=== PATIENT | female | born 1970 | race Caucasian/White ===

== ENCOUNTER 2016-09-26 12:17 | Day surgery (SDC) | payer BC ==
[2016-09-21 14:43] VITALS: BMI 20.7
[~2016-09-26 12:17] MED LIST: LACTATED RINGERS 1,000 ML IV SCH
[2016-09-26 13:16] VITALS: TEMP 98
[2016-09-26] MEDS ORDERED: LIDOCAINE 1% 20 ML VIAL (10MG/ML) FOR IV START INTRADERMA ONE (13:21)
[2016-09-26] MEDS ORDERED: LIDOCAINE 1% INJ 10MG/ML (20 ML MDV) ONE (13:50)
[2016-09-26] MEDS ORDERED: MIDAZOLAM 2 MG/2 ML VIAL ONE (13:50)
[2016-09-26] MEDS ORDERED: PROPOFOL 10 MG/ML 20 ML VIAL IV ONE (13:50)
--- NOTE | 2016-09-26 14:21 | P.PCN ---
Date of Procedure: 09/26/16 Preoperative Diagnosis: Postoperative Diagnosis: Procedure(s) Performed: Procedure: Esophagogastroduodenoscopy and biopsy. Preoperative diagnosis: Iron deficiency anemia. Postoperative diagnosis: 1. Small sliding hiatal hernia with no obvious esophagitis or complicated reflux disease. 2. Minimal antral gastritis and duodenitis. 3. Multiple biopsies obtained from the duodenum antrum and esophagus. Preparation and sedation: Was provided by anesthesia. Brief clinical history: The patient is a 46-year-old female who is referred for this evaluation because of iron deficiency anemia. She does not think her menstrual periods are heavy. She had colonoscopy last year. She has no upper GI complaints. This evaluation is to assess for peptic ulcer disease or other pathology. Procedure: With the patient on her left lateral decubitus position and after informed consent and adequate sedation, I passed the Olympus-GIF 160 video upper endoscope through the cricopharyngeus down the esophagus. GE junction was around 36 cm from the incisors and there was a small sliding hiatal hernia. There was no evidence of acute esophagitis or complicated reflux disease. The endoscope was then passed into the stomach which was insufflated with air and inspected in detail including the retroflex view in the cardia. There was some mottling and erythema in the antrum but no ulcers or erosions. Pyloric channel did not show any ulcers. Duodenal bulb, post bulbar area and descending duodenum showed minimal erythema. No ulcers, erosions or bleeding. I obtained biopsies from the duodenum, antrum and esophagus then the endoscope was withdrawn. The patient tolerated the procedure well. Plan: The patient was reassured. It is possible that the anemia is related to ongoing menstrual losses. Will await biopsy results and make further recommendations. She will follow-up with you as planned. Implants: Indications for Procedure: Operative Findings: Description of Procedure:
[2016-09-26 14:26] VITALS: BP 98/53; PULSE 73; RESP 18
== END 2016-09-26 14:41 | disposition home or self-care (01) ==
LOC: ORWHC2ENDO 12:17
DX: K29.50 Unspecified chronic gastritis without bleeding (principal); K29.80 Duodenitis without bleeding; K20.0 Eosinophilic esophagitis; K44.9 Diaphragmatic hernia without obstruction or gangrene; D50.9 Iron deficiency anemia, unspecified; Z79.899 Other long term (current) drug therapy
CPT/HCPCS: 43239; 81025; 88305; 88342; J2250; J2001; J2704

== ENCOUNTER → 2019-08-27 | Outpatient (CLI) | payer BC ==
[2019-08-27 14:21] LABS: Basophils # (A) 0.1 k/uL (0-0.2); Basophils % (A) 1 %; Eosinophils # (A) 0.3 k/uL (0-0.7); Eosinophils % (A) 4 %; HCT 43.7 % (34.0-46.0); HGB 13.8 gm/dL (11.4-16.0); Lymphocytes # (A) 1.5 k/uL (1.0-4.8); Lymphocytes % (A) 19 %; MCH 29.7 pg (25.0-35.0); MCHC 31.6 g/dL (31.0-37.0); MCV 93.7 fL (80.0-100.0); Mean Platelet Volume 8.7; Monocytes # (A) 0.6 k/uL (0-1.0); Monocytes % (A) 8 %; Neutrophils # (A) 5.2 k/uL (1.3-7.7); Neutrophils % (A) 67 %; Platelet Count 303 k/uL (150-450); RBC 4.66 m/uL (3.80-5.40); RDW 13.4 % (11.5-15.5); WBC 7.8 k/uL (3.8-10.6)
== END | disposition home or self-care (01) ==
LOC: LABPAT 12:20
PROVIDERS: ATTEND Obstetrics & Gynecology
DX: Z01.818 Encounter for other preprocedural examination (principal); R87.613 High grade squamous intraepithelial lesion on cytologic smear of cervix (HGSIL)
CPT/HCPCS: 85025

== ENCOUNTER → 2019-09-01 | Outpatient (CLI) | payer BC | END | disposition home or self-care (01) | LOC: LABWHC1 13:51 | PROVIDERS: ATTEND Obstetrics & Gynecology | DX: Z11.59 Encounter for screening for other viral diseases (principal) ==

== ENCOUNTER 2019-09-02 09:33 | Day surgery (SDC) | payer BC ==
[2019-08-29 15:46] VITALS: BMI 18.3
[~2019-09-02 09:33] MED LIST changes: +DEXAMETHASONE SOD PHOSPHATE 10 MG/ML 1 ML VIAL IV ONE; +HYDROmorphone 0.5 MG/0.5 ML SYRINGE IVP PRN; +LIDOCAINE 1% (10MG/ML) FOR IV START INTRADERMA PRN; +ONDANSETRON 4 MG/2 ML VIAL IVP ONE; +SCOPOLAMINE 1.5MG/72HR PATCH TRANSDERM ONE
[2019-09-02] MEDS ORDERED: LIDOCAINE 1% INJ 10MG/ML (20 ML MDV) ONE (10:29)
[2019-09-02] MEDS ORDERED: MIDAZOLAM 2 MG/2 ML VIAL ONE (10:29)
[2019-09-02] MEDS ORDERED: PROPOFOL 10 MG/ML 20 ML VIAL IV ONE (10:29)
[2019-09-02] MEDS ORDERED: fentaNYL (PF) 50 MCG/ML 2 ML AMP ONE (10:29)
[2019-09-02] MEDS ORDERED: SUCCINYLCHOLINE CHLORIDE 100 MG/5 ML SYR IV ONE (10:29)
[2019-09-02] MEDS ORDERED: IODINE/POTASS IOD (LUGOLS) BOTTLE TOPICAL ONE (10:52)
[2019-09-02] MEDS ORDERED: LIDOCAINE 1%-EPI 1:100,000 20 ML VIAL SUBMUCOSAL ONE ×2 (10:52)
[2019-09-02] MEDS ORDERED: FERRIC SUBSULFATE (MONSELS) JAR TOPICAL ONE (11:02)
[2019-09-02 11:21] VITALS: TEMP 97.1
--- NOTE | 2019-09-02 11:21 | P.OP ---
Date of Procedure: 09/02/19 Preoperative Diagnosis: HGSIL Postoperative Diagnosis: Same Procedure(s) Performed: Cervical cold knife cone biopsy Anesthesia: TANYAA Surgeon: Gricedla Weaver Estimated Blood Loss (ml): 25 IV fluids (ml): 500 Urine output (ml): 50 Pathology: other (Cervical biopsy) Condition: stable Disposition: PACU Indications for Procedure: Cervical biopsies showing high grade squamous epithelial lesion Operative Findings: Third degree cervical uterine prolapse. Patulous cervix. No gross visible lesions noted. Description of Procedure: After the patient was met in the preoperative holding area and all questions were answered, she was taken to the operating room where anesthetic was administered without incident. Appropriate timeout procedure was undertaken. The patient was positioned in the dorsal high lithotomy position. Bladder was drained for approximately 50 mL of clear urine. Weighted speculum was placed in the vagina and the cervix was grasped anteriorly with a single-tooth tenaculum. She did have a significant amount of cervical uterine prolapse. 2-0 Vicryl sutures were placed at the 3 and 9:00 positions lateral to the cervix. Lidocaine plus epinephrine was infused as a paracervical block. 8 mL was used. Lugol's solution was then applied to the cervix to delineate the transformation zone. An 11 blade scalpel was then utilized to circumferentially excise the immediately lateral to the transformation zone circumferentially. This was then angled inward to create the cone shaped biopsy. This was removed intact in one piece. Bovie electrocautery was then utilized to completely cauterize the base of the biopsy site and obtain hemostasis. There was some minimal oozing noted from the base of the biopsy site therefore a piece of Surgicel with a small amount of Monsel's was placed in the biopsy base and hemostasis was noted. This was left in place. Sutures were secured at 3 and 9 o'clock position. Area was observed and no further bleeding was noted. Tenaculum was removed and tenaculum sites were not bleeding. Procedure was then ended and the patient was awoken from anesthetic without incident and transported recovery in stable condition. All counts were reported to me as correct.
[2019-09-02 11:46] VITALS: RESP 16
[2019-09-02 12:27] VITALS: BP 115/75; PULSE 63
== END 2019-09-02 12:50 | disposition home or self-care (01) ==
LOC: OR 09:33
PROVIDERS: ATTEND Obstetrics & Gynecology
DX: R87.613 High grade squamous intraepithelial lesion on cytologic smear of cervix (HGSIL) (principal); N81.3 Complete uterovaginal prolapse; Z98.890 Other specified postprocedural states; N88.3 Incompetence of cervix uteri; N95.1 Menopausal and female climacteric states; N92.6 Irregular menstruation, unspecified; Z86.2 Personal history of diseases of the blood and blood-forming organs and certain disorders involving the immune mechanism; Z90.89 Acquired absence of other organs; Z87.39 Personal history of other diseases of the musculoskeletal system and connective tissue; Z79.899 Other long term (current) drug therapy; Z80.3 Family history of malignant neoplasm of breast; Z80.0 Family history of malignant neoplasm of digestive organs
CPT/HCPCS: 81025; 88307; 57520; J2250; J1100; J2405; J2001; J3010; J0330; J2704

== ENCOUNTER 2020-05-29 13:23 | Inpatient (IN) | payer BC ==
[2020-05-29] MEDS ORDERED: ALBUTEROL HFA INHALER INHALATION PRN (13:34)
[2020-05-29] MEDS ORDERED: ALBUTEROL HFA INHALER INHALATION STA (13:34)
[2020-05-29] MEDS ORDERED: SODIUM CHLORIDE 0.9% 500 ML 500 ML IV STA (13:53)
--- NOTE | 2020-05-29 13:55 | ED ---
General Adult HPI - General Chief complaint: Weakness Stated complaint: Covid+/weak/sob/sore throat/cough/nausea Time Seen by Provider: 05/29/20 13:33 Source: patient, RN notes reviewed Mode of arrival: wheelchair Limitations: no limitations - History of Present Illness Initial comments: Patient is a pleasant 30-year-old female presenting to the emergency department with concerns regarding coronavirus infection. Patient stated with symptoms 4 days ago. Patient tested +3 days ago. Patient plays of fatigue and generalized weakness. Decreased appetite. Patient does have cough with some difficulty in breathing. Patient has headaches fevers chills and myalgias. - Related Data Home Medications Medication Instructions Recorded Confirmed No Known Home Medications 01/08/19 09/02/19 Allergies Allergy/AdvReac Type Severity Reaction Status Date / Time No Known Allergies Allergy Verified 05/29/20 13:31 Review of Systems ROS Statement: Those systems with pertinent positive or pertinent negative responses have been documented in the HPI. ROS Other: All systems not noted in ROS Statement are negative. Constitutional: Reports: fever, chills, weakness Eyes: Denies: eye pain ENT: Denies: ear pain Respiratory: Reports: cough, dyspnea Cardiovascular: Denies: chest pain Endocrine: Reports: fatigue Gastrointestinal: Denies: abdominal pain, vomiting Genitourinary: Denies: dysuria Musculoskeletal: Denies: back pain Skin: Denies: rash Neurological: Reports: headache. Denies: confusion Past Medical History Past Medical History: Blood Disorder Additional Past Medical History / Comment(s): low blood pressure, anemia, History of Any Multi-Drug Resistant Organisms: None Reported Past Surgical History: Orthopedic Surgery, Tonsillectomy Additional Past Surgical History / Comment(s): rt knee arthroscopy Past Anesthesia/Blood Transfusion Reactions: Motion Sickness Past Psychological History: No Psychological Hx Reported Smoking Status: Never smoker Past Alcohol Use History: Occasional Past Drug Use History: None Reported - Past Family History Father Family Medical History: Cancer General Exam Limitations: no limitations General appearance: alert, in no apparent distress Head exam: Present: normocephalic Eye exam: Present: normal appearance Neck exam: Present: normal inspection Respiratory exam: Present: normal lung sounds bilaterally Cardiovascular Exam: Present: regular rate, normal rhythm GI/Abdominal exam: Present: soft. Absent: tenderness Extremities exam: Present: normal inspection. Absent: pedal edema, calf tenderness Neurological exam: Present: alert Psychiatric exam: Present: normal affect, normal mood Skin exam: Present: normal color Course Vital Signs 05/29/20 05/29/20 05/29/20 13:27 14:21 14:55 Temperature 97.9 F Pulse Rate 85 80 Respiratory 16 18 22 Rate Blood Pressure 80/48 96/58 O2 Sat by Pulse 89 L 98 Oximetry - Reevaluation(s) Reevaluation #1: 05/29/20 15:05 Lab called with critical potassium of 2.7. Orders placed. EKG Findings - EKG Comments: EKG Findings:: Normal sinus rhythm at 83. GA 142. QRS 1:30. QT 374. QTC 439. Normal axis. Right bundle branch block. No acute ST change. Medical Decision Making - Medical Decision Making Patient reevaluated and updated. Secondary to hypoxia and chest x-ray changes case was discussed with admitting physician, Dr. hagen who will admit for hospital call. - Lab Data Result diagrams: 05/29/20 14:15 05/29/20 14:15 Lab Results 05/29/20 05/29/20 05/29/20 Range/Units 14:15 14:15 14:15 WBC 5.4 (3.8-10.6) k/uL RBC 4.51 (3.80-5.40) m/uL Hgb 13.0 (11.4-16.0) gm/dL Hct 38.4 (34.0-46.0) % MCV 85.1 (80.0-100.0) fL MCH 28.8 (25.0-35.0) pg MCHC 33.8 (31.0-37.0) g/dL RDW 14.6 (11.5-15.5) % Plt Count 230 (150-450) k/uL MPV 7.6 Neutrophils % 85 % Lymphocytes % 10 % Monocytes % 3 % Eosinophils % 0 % Basophils % 1 % Neutrophils # 4.6 (1.3-7.7) k/uL Lymphocytes # 0.5 L (1.0-4.8) k/uL Monocytes # 0.2 (0-1.0) k/uL Eosinophils # 0.0 (0-0.7) k/uL Basophils # 0.0 (0-0.2) k/uL Poikilocytosis Slight PT 10.2 (9.0-12.0) sec INR 0.9 (<1.2) APTT 23.9 (22.0-30.0) sec Sodium 140 (137-145) mmol/L Potassium 2.7 L* (3.5-5.1) mmol/L Chloride 112 H (98-107) mmol/L Carbon Dioxide 13 L (22-30) mmol/L Anion Gap 15 mmol/L BUN 50 H (7-17) mg/dL Creatinine 3.83 H (0.52-1.04) mg/dL Est GFR (CKD-EPI)AfAm 15 (>60 ml/min/1.73 sqM) Est GFR (CKD-EPI)NonAf 13 (>60 ml/min/1.73 sqM) Glucose 98 (74-99) mg/dL Calcium 8.2 L (8.4-10.2) mg/dL Magnesium 2.0 (1.6-2.3) mg/dL Total Bilirubin 0.4 (0.2-1.3) mg/dL AST 126 H (14-36) U/L ALT 63 H (4-34) U/L Alkaline Phosphatase 83 (38-126) U/L Lactate Dehydrogenase 1455 H (313-618) U/L C-Reactive Protein 12.5 H (<10.0) mg/L Total Protein 6.5 (6.3-8.2) g/dL Albumin 3.5 (3.5-5.0) g/dL - Radiology Data Radiology results: image reviewed (Chest x-ray shows bilateral lower lobe infiltrate) Disposition Clinical Impression: Pneumonia due to COVID-19 virus Disposition: ADMITTED IP TO THIS HOSP Condition: Serious Is patient prescribed a controlled substance at d/c from ED?: No Referrals: None,Stated [Primary Care Provider] - 1-2 days Decision Time: 14:48
[2020-05-29] MEDS ORDERED: ALBUTEROL HFA INHALER INHALATION SCH (14:00)
[2020-05-29 14:31] LABS: Basophils % (A) 1 %; Eosinophils % (A) 0 %; HCT 38.4 % (34.0-46.0); Lymphocytes # (A) 0.5 k/uL (1.0-4.8); Lymphocytes % (A) 10 %; MCH 28.8 pg (25.0-35.0); MCHC 33.8 g/dL (31.0-37.0); MCV 85.1 fL (80.0-100.0); Mean Platelet Volume 7.6; Monocytes # (A) 0.2 k/uL (0-1.0); Monocytes % (A) 3 %; Neutrophils # (A) 4.6 k/uL (1.3-7.7); Neutrophils % (A) 85 %; Platelet Count 230 k/uL (150-450); Poikilocytosis Slight; RBC 4.51 m/uL (3.80-5.40); RDW 14.6 % (11.5-15.5); WBC 5.4 k/uL (3.8-10.6)
--- NOTE | 2020-05-29 14:35 | XR ---
EXAMINATION TYPE: XR chest 1V portable DATE OF EXAM: 05/29/2020 COMPARISON: 10/17/2011 HISTORY: Pneumonia. Fever. TECHNIQUE: Single view FINDINGS: There is patchy airspace infiltrates in the mid and lower lung bonilla. There is coalescent density. There is no obvious heart failure. Heart size is normal. IMPRESSION: Bilateral lower lobe pneumonia is new compared to old exam. Normal heart.
[2020-05-29 14:41] LABS: INR 0.9 (<1.2); Partial Thromboplastin Time 23.9 sec (22.0-30.0); Prothrombin Time 10.2 sec (9.0-12.0)
[2020-05-29 14:47] LABS: Albumin 3.5 g/dL (3.5-5.0); C Reactive Protein 12.5 mg/L (<10.0); Calcium 8.2 mg/dL (8.4-10.2); Total Bilirubin 0.4 mg/dL (0.2-1.3); Total Protein 6.5 g/dL (6.3-8.2)
[2020-05-29 14:49] LABS: Potassium 2.7 mmol/L (3.5-5.1)
[2020-05-29] MEDS ORDERED: POTASSIUM CHLORIDE 20 MEQ in WATER FOR INJECTION 1 100ML.BAG IVPB STA (14:51)
[2020-05-29] MEDS ORDERED: POTASSIUM CHLORIDE ER 20 MEQ TAB.ER PO STA (14:51)
[2020-05-29] MEDS ORDERED: NALOXONE 0.4 MG/ML 1 ML VIAL IV PRN (14:52)
[2020-05-29] MEDS ORDERED: ACETAMINOPHEN TAB 325 MG TAB PO PRN (15:02)
[2020-05-29] MEDS: ASCORBIC ACID 500 MG TAB PO SCH (15:03)
[2020-05-29] MEDS: ENOXAPARIN 30 MG/0.3 ML SYRINGE SQ SCH (15:04)
[2020-05-29] MEDS ORDERED: SODIUM CHLORIDE 0.9% 1,000 ML IV STA ×2 (15:11)
[2020-05-29] MEDS ORDERED: SODIUM CHLORIDE 0.9% 1,000 ML IV SCH (15:15)
[2020-05-29] MEDS: DEXAMETHASONE SOD PHOSPHATE 10 MG/ML 1 ML VIAL IV SCH (15:17)
[2020-05-29] MEDS: CHOLECALCIFEROL 25 MCG (1000 IU) TABLET PO SCH (15:17)
[2020-05-29] MEDS: ZINC SULFATE 220 MG CAP PO SCH (16:02)
--- NOTE | 2020-05-29 16:06 | P.HPIM ---
History of Present Illness H&P Date: 05/29/20 Chief Complaint: Not feeling well This is a 50-year-old female with no significant past medical history who has been complaining of generalized fatigue for the past 5 days. Patient said her symptoms consist of headache, fatigue, muscle ache, sore throat, nonproductive cough, and intermittent chills. Patient was concerned and went to a local urgent care scabies ago where she had the rapid test COVID-19 and was positive. Patient and back home but her symptoms continued to worsen and today she was concerned and decided to come to the emergency room. In the ER, O2 sat 89% on room air. Chest x-ray showed bilateral pneumonia. Patient was found to have acute kidney injury with hypokalemia and potassium level at 2.7. She was admitted to the hospital for further management. Patient denies any history of lung disease. No known COPD or asthma. She is a nonsmoker. No known medical history otherwise. Review of Systems Review of system: 14 points review of systems were obtained and were negative except to what were mentioned in the HPI. Past Medical History Past Medical History: Blood Disorder Additional Past Medical History / Comment(s): low blood pressure, anemia, History of Any Multi-Drug Resistant Organisms: None Reported Past Surgical History: Orthopedic Surgery, Tonsillectomy Additional Past Surgical History / Comment(s): rt knee arthroscopy Past Anesthesia/Blood Transfusion Reactions: Motion Sickness Past Psychological History: No Psychological Hx Reported Smoking Status: Never smoker Past Alcohol Use History: Occasional Past Drug Use History: None Reported - Past Family History Father Family Medical History: Cancer Medications and Allergies Home Medications Medication Instructions Recorded Confirmed Type Acetaminophen [Tylenol] 325 - 650 mg PO Q4H PRN 05/29/20 05/29/20 History Allergies Allergy/AdvReac Type Severity Reaction Status Date / Time No Known Allergies Allergy Verified 05/29/20 15:35 Physical Exam Vitals: Vital Signs Temp Pulse Pulse Resp BP BP Pulse Ox 05/29/20 15:45 98.4 F 84 16 89/59 95 05/29/20 15:26 97.9 F 80 22 96/58 98 05/29/20 14:55 80 22 96/58 98 05/29/20 14:21 18 05/29/20 13:27 97.9 F 85 16 80/48 89 L Intake and Output 05/29/20 05/29/20 05/29/20 06:59 14:59 22:59 Other: Weight 45.359 kg 45.359 kg General: The patient is awake and alert, in no distress Eye: there is normal conjunctiva bilaterally. Neck: The neck is supple, there is no JVD. Cardiovascular: Normal S1-S2, no S3-S4, no murmurs. Respiratory: Lungs clear to auscultation bilaterally Gastrointestinal: Abdomen is soft, nontender Musculoskeletal: There is no pedal edema. Neurological:. Speech is normal. Skin: Skin is warm and dry Results CBC & Chem 7: 05/29/20 14:15 05/29/20 14:15 Labs: Abnormal Lab Results - Last 24 Hours (Table) 05/29/20 05/29/20 Range/Units 14:15 14:15 Lymphocytes # 0.5 L (1.0-4.8) k/uL Potassium 2.7 L* (3.5-5.1) mmol/L Chloride 112 H (98-107) mmol/L Carbon Dioxide 13 L (22-30) mmol/L BUN 50 H (7-17) mg/dL Creatinine 3.83 H (0.52-1.04) mg/dL Calcium 8.2 L (8.4-10.2) mg/dL AST 126 H (14-36) U/L ALT 63 H (4-34) U/L Lactate Dehydrogenase 1455 H (313-618) U/L C-Reactive Protein 12.5 H (<10.0) mg/L Thrombosis Risk Factor Assmnt - Choose All That Apply Any of the Below Risk Factors Present?: Yes Each Factor Represents 1 point: Age 41-60 years Other Risk Factors: No Other congenital or acquired thrombophilia - If yes, enter type in comment: Yes Thrombosis Risk Factor Assessment Total Risk Factor Score: 1 Thrombosis Risk Factor Assessment Level: Low Risk Assessment and Plan Assessment: 1. Bilateral COVID-19 pneumonia 2. Acute hypoxic respiratory failure 3. Acute kidney injury 4. Hypovolemic shock 5. Hypokalemia 6. Patient is full code Patient was given 1.5 L of fluid IV bolus with normal saline. Continue IV fluid hydration at 110 mL per hour. Started on zinc, vitamin D, vitamin C, and melatonin. Nephrology and pulmonology consulted. DVT prophylaxis with subcu heparin. Potassium replacement.. Recheck lab work in the morning. Continue supportive care otherwise. Patient was updated about her current condition. All of her questions answered to her satisfaction.
--- NOTE | 2020-05-29 18:43 | US ---
EXAMINATION TYPE: US renals and bladder DATE OF EXAM: 05/29/2020 COMPARISON: NONE CLINICAL HISTORY: arf. ARF EXAM MEASUREMENTS: Right Kidney: 9.6 x 3.7 x 4.2 cm Left Kidney: 8.9 x 4.0 x 3.6 cm Right Kidney: dilated renal pelvis Left Kidney: dilated renal pelvis Bladder: not fully distended Bilateral Jets seen: no IMPRESSION: There is mild bilateral hydronephrosis. No renal atrophy. No ureteral jets visible.
[2020-05-29] MEDS: POTASSIUM CHLORIDE ER 20 MEQ TAB.ER PO SCH (21:36)
[2020-05-29] MEDS: ALBUTEROL HFA INHALER INHALATION SCH (21:36)
[2020-05-29] MEDS: MELATONIN 5 MG TABLET PO SCH (21:36)
[2020-05-29 23:23] LABS: Ferritin 387.1 ng/mL (10.0-291.0)
[2020-05-30] MEDS: ALBUTEROL HFA INHALER INHALATION SCH ×4 (07:54→20:07)
[2020-05-30] MEDS: DEXAMETHASONE SOD PHOSPHATE 10 MG/ML 1 ML VIAL IV SCH (07:57)
[2020-05-30] MEDS: POTASSIUM CHLORIDE ER 20 MEQ TAB.ER PO SCH (07:58)
[2020-05-30] MEDS: CHOLECALCIFEROL 25 MCG (1000 IU) TABLET PO SCH (07:58)
[2020-05-30] MEDS: ASCORBIC ACID 500 MG TAB PO SCH ×2 (07:58→20:17)
[2020-05-30] MEDS: ENOXAPARIN 30 MG/0.3 ML SYRINGE SQ SCH (07:58)
[2020-05-30] MEDS: ZINC SULFATE 220 MG CAP PO SCH (07:58)
[2020-05-30] MEDS ORDERED: SODIUM CHLORIDE 0.9% 500 ML 500 ML IV ONE (08:04)
[2020-05-30] MEDS: AZITHROMYCIN 500 MG TAB PO SCH (08:53)
[2020-05-30] MEDS ORDERED: BENZOCAINE/MENTHOL LOZENG 1 EACH LOZENGE MUCOUS MEM PRN (09:19)
[2020-05-30 09:47] LABS: Anion Gap 11.6 mmol/L (4.00-12.00); BUN/Creat Ratio 17.24 Ratio (12.00-20.00); Calcium 7.9 mg/dL (8.7-10.3); Carbon Dioxide 10.4 mmol/L (21.6-31.8); Non-African American GFR(CKD) 18.1 (60.0-200.0); Potassium 3.8 mmol/L (3.5-5.5)
--- NOTE | 2020-05-30 10:44 | P.NPCON ---
History of Present Illness - Reason for Consult acute renal failure - History of Present Illness Reason for consultation: Acute kidney injury History of present illness: Patient is a 50-year-old female seen in renal consultation for acute kidney injury. Creatinine on admission was 3.83 and is down to 2.9 today. Patient presented to the hospital with generalized weakness and poor oral intake. She is also been having loose bowel movements the last few days. She did test positive for COVID-19 infection. Patient's blood pressure has been on the systolic 80s. She did receive 2 L of normal saline bolus and is also maintained on normal saline at 110 mL an hour. She is noted to be quite acidotic with a bicarb level of 10.4 this morning. She denies vomiting. Denies use of nonsteroidals. Denies any personal or family history of kidney disease. Renal ultrasound revealed 8.9 and 9.6 cm kidneys with mild bilateral hydronephrosis. She denies any difficulty with urination. No hematuria or dysuria. Chest x-ray suggestive of pneumonia. She is currently receiving steroids, remdesivir as well as zinc. She is also on antibiotics. Vital signs are stable. General: The patient appeared well nourished and normally developed. HEENT: Head exam is unremarkable. Neck is without jugular venous distension. LUNGS: Breath sounds decreased. HEART: Rate and Rhythm are regular. ABDOMEN: Soft, nontender. EXTREMITITES: No edema. Past Medical History Past Medical History: Blood Disorder Additional Past Medical History / Comment(s): low blood pressure, anemia, History of Any Multi-Drug Resistant Organisms: None Reported Past Surgical History: Orthopedic Surgery, Tonsillectomy Additional Past Surgical History / Comment(s): rt knee arthroscopy Past Anesthesia/Blood Transfusion Reactions: Motion Sickness Past Psychological History: No Psychological Hx Reported Smoking Status: Never smoker Past Alcohol Use History: Occasional Past Drug Use History: None Reported - Past Family History Father Family Medical History: Cancer Medications and Allergies Home Medications Medication Instructions Recorded Confirmed Type Acetaminophen [Tylenol] 325 - 650 mg PO Q4H PRN 05/29/20 05/29/20 History Allergies Allergy/AdvReac Type Severity Reaction Status Date / Time No Known Allergies Allergy Verified 05/29/20 15:35 Physical Exam Vitals: Vital Signs Temp Pulse Pulse Resp BP BP Pulse Ox 05/30/20 09:43 97.6 F 75 20 81/43 91 L 05/30/20 05:43 97.7 F 70 16 87/49 93 L 05/30/20 02:00 97.8 F 69 16 82/50 95 05/29/20 22:05 97.8 F 66 16 91/51 93 L 05/29/20 20:15 97.8 F 74 16 93/52 93 L 05/29/20 15:45 98.4 F 84 16 89/59 95 05/29/20 15:26 97.9 F 80 22 96/58 98 05/29/20 14:55 80 22 96/58 98 05/29/20 14:21 18 05/29/20 13:27 97.9 F 85 16 80/48 89 L Intake and Output 05/29/20 05/30/20 05/30/20 22:59 06:59 14:59 Other: Voiding Method Toilet # Voids 1 Weight 45.359 kg Results - Lab Results Most recent lab results Calcium 7.9 mg/dL (8.7-10.3) L 05/30/20 06:01 Magnesium 2.0 mg/dL (1.6-2.3) 05/29/20 14:15 05/29/20 14:15 05/30/20 06:01 Assessment and Plan Plan: Assessment: 1. Acute kidney injury mostly prerenal secondary to hypotension/hypovolemia and infection. Creatinine 3.8 on admission and is 2.9 today. Unknown baseline. 2. Mild bilateral hydronephrosis. 3. Metabolic acidosis secondary to acute kidney injury, diarrhea and IV fluids. 4. Hypokalemia from poor intake status post placement. Better. Magnesium normal. 5. Covid-19 infection maintained on steroids, zinc and remdesivir. Plan: Stop normal saline. Start isotonic bicarbonate drip to be run at 100 mL an hour. Check urinalysis. Consult urology for the hydronephrosis. Check morning cortisol level. She is receiving another bolus of normal saline. May require vasopressor support. Monitor hemodynamics closely. Continue to monitor renal function and urine output. Thank you for the consultation. I will continue to follow the patient with you during her hospital stay.
[2020-05-30] MEDS ORDERED: REMDESIVIR 200 MG in SODIUM CHLORIDE 0.9% 250 ML IVPB ONE (11:00)
--- NOTE | 2020-05-30 12:05 | P.GSCN ---
History of Present Illness Consult date: 05/30/20 History of present illness: I been asked to see this 50-year-old female for bilateral hydronephrosis, mild. She presented with weakness and as it turns out she is positive for bilateral pneumonia secondary to Covid 19. The patient had renal insufficiency based on her laboratory examination her initial creatinine is 3.6 and is down to 2.9 today. Bilateral renal ultrasound was obtained identifying mild bilateral hydronephrosis. The patient is interviewed at the bedside. She is in a somewhat weakened state. She is awake alert oriented. Her vital signs are othe rwise stable. She denies urinary tract problems. There is no history of infections, hematuria kidney stones. There is no previous urologic surgery. She's never seen a urologist. She denies any problems urinating. I reviewed the renal ultrasound and it appears as if she has bilateral extrarenal pelves. The ureter beyond the renal pelvis appears normal. The calyces looked normal. No postvoid urinary residuals been obtained. There is no urinalysis on the chart. Review of Systems All systems: negative - Constitutional Denies fever, Denies weight loss - EENT Eyes: denies blurred vision Ears, nose, mouth and throat: Denies dysphagia - Cardiovascular Denies chest pain, Denies shortness of breath - Respiratory Denies cough, Denies 7 - Gastrointestinal Reports as per HPI - Genitourinary Genitourinary: Denies dysuria, Denies hematuria - Integumentary Denies rash, Denies unusual bruising - Neurological Denies headaches, Denies syncope - Hematologic/Lymphatic Denies easy bleeding, Denies easy bruising Past Medical History Past Medical History: Blood Disorder Additional Past Medical History / Comment(s): low blood pressure, anemia, History of Any Multi-Drug Resistant Organisms: None Reported Past Surgical History: Orthopedic Surgery, Tonsillectomy Additional Past Surgical History / Comment(s): rt knee arthroscopy Past Anesthesia/Blood Transfusion Reactions: Motion Sickness Past Psychological History: No Psychological Hx Reported Smoking Status: Never smoker Past Alcohol Use History: Occasional Past Drug Use History: None Reported - Past Family History Father Family Medical History: Cancer Medications and Allergies Home Medications Medication Instructions Recorded Confirmed Type Acetaminophen [Tylenol] 325 - 650 mg PO Q4H PRN 05/29/20 05/29/20 History Allergies Allergy/AdvReac Type Severity Reaction Status Date / Time No Known Allergies Allergy Verified 05/29/20 15:35 Surgical - Exam Vital Signs Temp Pulse Resp BP Pulse Ox 97.9 F 85 16 80/48 89 L 05/29/20 13:27 05/29/20 13:27 05/29/20 13:27 05/29/20 13:05/29/20 13:27 - General well developed, well nourished, moderate distress - Eyes PERRL - ENT no hearing loss - Neck trachea midline - Respiratory normal expansion, normal respiratory effort - Abdomen Abdomen: soft, non tender - Neurologic normal coordination, normal sensation - Musculoskeletal normal posture - Psychiatric oriented to time, oriented to person, oriented to place, speech is normal, memory intact Results - Labs 05/29/20 14:15 05/30/20 06:01 Abnormal Lab Results - Last 24 Hours (Table) 05/29/20 05/29/20 05/29/20 Range/Units 14:15 14:15 14:15 Lymphocytes # 0.5 L (1.0-4.8) k/uL Potassium 2.7 L* (3.5-5.1) mmol/L Chloride 112 H (98-107) mmol/L Carbon Dioxide 13 L (22-30) mmol/L BUN 50 H (7-17) mg/dL Creatinine 3.83 H (0.52-1.04) mg/dL Est GFR (CKD-EPI)AfAm (60.0-200.0) Est GFR (CKD-EPI)NonAf (60.0-200.0) Glucose (70-110) mg/dL Calcium 8.2 L (8.4-10.2) mg/dL Ferritin 387.1 H (10.0-291.0) ng/mL AST 126 H (14-36) U/L ALT 63 H (4-34) U/L Lactate Dehydrogenase 1455 H (313-618) U/L C-Reactive Protein 12.5 H (<10.0) mg/L Procalcitonin 0.87 H (0.02-0.09) ng/mL Coronavirus (PCR) (Not Detectd) 05/29/20 05/30/20 Range/Units 17:32 06:01 Lymphocytes # (1.0-4.8) k/uL Potassium (3.5-5.1) mmol/L Chloride 119 H (98-107) mmol/L Carbon Dioxide 10.4 L (22-30) mmol/L BUN 50.0 H (7-17) mg/dL Creatinine 2.9 H (0.52-1.04) mg/dL Est GFR (CKD-EPI)AfAm 21.0 L (60.0-200.0) Est GFR (CKD-EPI)NonAf 18.1 L (60.0-200.0) Glucose 125 H (70-110) mg/dL Calcium 7.9 L (8.4-10.2) mg/dL Ferritin (10.0-291.0) ng/mL AST (14-36) U/L ALT (4-34) U/L Lactate Dehydrogenase (313-618) U/L C-Reactive Protein (<10.0) mg/L Procalcitonin (0.02-0.09) ng/mL Coronavirus (PCR) Detected A (Not Detectd) Diabetes panel 05/29/20 05/30/20 Range/Units 14:15 06:01 Sodium 140 141 (137-145) mmol/L Potassium 2.7 L* 3.8 (3.5-5.1) mmol/L Chloride 112 H 119 H (98-107) mmol/L Carbon Dioxide 13 L 10.4 L (22-30) mmol/L BUN 50 H 50.0 H (7-17) mg/dL Creatinine 3.83 H 2.9 H (0.52-1.04) mg/dL Glucose 98 125 H (74-99) mg/dL Calcium 8.2 L 7.9 L (8.4-10.2) mg/dL AST 126 H (14-36) U/L ALT 63 H (4-34) U/L Alkaline Phosphatase 83 (38-126) U/L Total Protein 6.5 (6.3-8.2) g/dL Albumin 3.5 (3.5-5.0) g/dL Calcium panel 05/29/20 05/30/20 Range/Units 14:15 06:01 Calcium 8.2 L 7.9 L (8.4-10.2) mg/dL Albumin 3.5 (3.5-5.0) g/dL Pituitary panel 05/29/20 05/30/20 Range/Units 14:15 06:01 Sodium 140 141 (137-145) mmol/L Potassium 2.7 L* 3.8 (3.5-5.1) mmol/L Chloride 112 H 119 H (98-107) mmol/L Carbon Dioxide 13 L 10.4 L (22-30) mmol/L BUN 50 H 50.0 H (7-17) mg/dL Creatinine 3.83 H 2.9 H (0.52-1.04) mg/dL Glucose 98 125 H (74-99) mg/dL Calcium 8.2 L 7.9 L (8.4-10.2) mg/dL Adrenal panel 05/29/20 05/30/20 Range/Units 14:15 06:01 Sodium 140 141 (137-145) mmol/L Potassium 2.7 L* 3.8 (3.5-5.1) mmol/L Chloride 112 H 119 H (98-107) mmol/L Carbon Dioxide 13 L 10.4 L (22-30) mmol/L BUN 50 H 50.0 H (7-17) mg/dL Creatinine 3.83 H 2.9 H (0.52-1.04) mg/dL Glucose 98 125 H (74-99) mg/dL Calcium 8.2 L 7.9 L (8.4-10.2) mg/dL Total Bilirubin 0.4 (0.2-1.3) mg/dL AST 126 H (14-36) U/L ALT 63 H (4-34) U/L Alkaline Phosphatase 83 (38-126) U/L Total Protein 6.5 (6.3-8.2) g/dL Albumin 3.5 (3.5-5.0) g/dL - Imaging US - kidney/bladder: report reviewed, image reviewed Assessment and Plan Assessment: Impression: Covid pneumonia bilateral. Renal insufficiency probably secondary to dehydration. Mild bilateral hydronephrosis (bilateral extrarenal pelves) Recommendations: A urinalysis is pending. I'll obtain a postvoid residual. Assuming these are both normal that I would just observe her creatinine. I do not think the ultrasound findings are clinically significant and related to her acute renal insufficiency
--- NOTE | 2020-05-30 12:31 | P.PN ---
Subjective Progress Note Date: 05/30/20 Patient is awake and alert today. She denies any shortness of breath. She had some diarrhea yesterday that resolved. Blood pressure is been borderline low but patient denies any dizziness or weakness. She reported her blood pressure is normally low. Lactic acid this morning was normal. Objective - Vital Signs Vital signs: Vital Signs Temp 97.6 F 05/30/20 09:43 Pulse 75 05/30/20 09:43 Resp 20 05/30/20 09:43 BP 81/43 05/30/20 09:43 Pulse Ox 91 L 05/30/20 09:43 Intake & Output 05/29/20 05/30/20 05/30/20 18:59 06:59 18:59 Weight 45.359 kg Other: Voiding Method Toilet # Voids 1 - Exam General: The patient is awake and alert, in no distress Eye: there is normal conjunctiva bilaterally. Neck: The neck is supple, there is no JVD. Cardiovascular: Normal S1-S2, no S3-S4, no murmurs. Respiratory: Lungs clear to auscultation bilaterally Gastrointestinal: Abdomen is soft, nontender Musculoskeletal: There is no pedal edema. Neurological:. Speech is normal. Skin: Skin is warm and dry - Labs CBC & Chem 7: 05/29/20 14:15 05/30/20 06:01 Labs: Abnormal Lab Results - Last 24 Hours (Table) 05/29/20 05/29/20 05/29/20 Range/Units 14:15 14:15 14:15 Lymphocytes # 0.5 L (1.0-4.8) k/uL D-Dimer (<0.60) mg/L FEU Potassium 2.7 L* (3.5-5.1) mmol/L Chloride 112 H (98-107) mmol/L Carbon Dioxide 13 L (22-30) mmol/L BUN 50 H (7-17) mg/dL Creatinine 3.83 H (0.52-1.04) mg/dL Est GFR (CKD-EPI)AfAm (60.0-200.0) Est GFR (CKD-EPI)NonAf (60.0-200.0) Glucose (70-110) mg/dL Calcium 8.2 L (8.4-10.2) mg/dL Ferritin 387.1 H (10.0-291.0) ng/mL AST 126 H (14-36) U/L ALT 63 H (4-34) U/L Lactate Dehydrogenase 1455 H (313-618) U/L C-Reactive Protein 12.5 H (<10.0) mg/L Procalcitonin 0.87 H (0.02-0.09) ng/mL Coronavirus (PCR) (Not Detectd) 05/29/20 05/30/20 05/30/20 Range/Units 17:32 06:01 11:21 Lymphocytes # (1.0-4.8) k/uL D-Dimer 0.66 H (<0.60) mg/L FEU Potassium (3.5-5.1) mmol/L Chloride 119 H (98-107) mmol/L Carbon Dioxide 10.4 L (22-30) mmol/L BUN 50.0 H (7-17) mg/dL Creatinine 2.9 H (0.52-1.04) mg/dL Est GFR (CKD-EPI)AfAm 21.0 L (60.0-200.0) Est GFR (CKD-EPI)NonAf 18.1 L (60.0-200.0) Glucose 125 H (70-110) mg/dL Calcium 7.9 L (8.4-10.2) mg/dL Ferritin (10.0-291.0) ng/mL AST (14-36) U/L ALT (4-34) U/L Lactate Dehydrogenase (313-618) U/L C-Reactive Protein (<10.0) mg/L Procalcitonin (0.02-0.09) ng/mL Coronavirus (PCR) Detected A (Not Detectd) Assessment and Plan Assessment: This is a 50-year-old female with no significant past medical history who presented to the emergency room with worsening generalized fatigue and flulike symptoms after being diagnosed with COVID-19 at an outside urgent care. Patient was evaluated in the ER and admitted to the hospital for further management of her medical problems noted below. 1. Bilateral COVID-19 pneumonia: Started on Decadron day #2, started on Remdesivir day #1, on zinc, vitamin D, vitamin C, and melatonin. Seen and evaluated and pulmonology, appreciate recommendations. 2. Acute hypoxic respiratory failure: Currently on 3 L of oxygen via nasal cannula. Wean off O2 as tolerated 3. Acute kidney injury: Prerenal secondary to hypotension and dehydration. Seen and evaluated by nephrology. Abdominal ultrasound showed mild bilateral hydronephrosis of unclear significance. Continue IV fluid hydration as directed by nephrology. 4. Hypovolemic shock: Received multiple IV fluid boluses. Lactic acid normal. We will continue to monitor closely. 5. Hypokalemia: Replaced 6. Patient is full code 7. DVT prophylaxis with subcu heparin
[2020-05-30 13:57] LABS: Appearance,Urine Clear (Clear); Bacteria,Urine Rare /hpf; Bilirubin,Urine Negative (Negative); Blood,Urine Small (Negative); Color,Urine Light Yellow; Glucose,Urine (UA) Negative (Negative); Ketones,Urine Negative (Negative); Leukocyte Esterase,Urine Large (Negative); Mucus,Urine Rare /hpf; Nitrite,Urine Positive (Negative); PH, Urine 6.5 (5.0-8.0); Protein,Urine 1+ (Negative); RBC,Urine 2 /hpf (0-5); Specific Gravity,Urine 1.007 (1.001-1.035); Squamous Epithelial Cell,Urine <1 /hpf (0-4); Urobilinogen,Urine <2.0 mg/dL (<2.0); WBC,Urine 30 /hpf (0-5)
--- NOTE | 2020-05-30 14:03 | P.CNPUL ---
History of Present Illness Consult date: 05/30/20 Requesting physician: Jonah Dunham Reason for consult: dyspnea Chief complaint: Fatigue, weakness, poor appetite History of present illness: This is a pleasant 50-year-old female patient with no primary care provider, no chronic medical problems. No home medications. Lifelong nonsmoker. She presented to the emergency room yesterday with concerns regarding a positive CoVID 19 test on 05/26/2020. She has been having ongoing issues with generalized weakness, fatigue, poor appetite. Normal shortness of breath and cough. Chest x-ray revealed bilateral lower lobe pneumonia. Normal heart. Renal ultrasound with mild bilateral hydronephrosis. White count 5.4. Hemoglobin 13.0. Lym phocytes 0.5. Sodium 141. Potassium initially 2.7, currently 3.8. Creatinine initially 3.83, currently 2.9 area d-dimer 0.66. LDH 1455. C-reactive protein 12.5. Ferritin 387. Pro-calcitonin 0.87. Coronavirus detected by PCR. She is seen today in consultation on the regular medical floor. She is awake and alert in no acute distress. Maintaining good O2 saturations in the 90s on 2 L/m per nasal cannula. No significant acute respiratory distress. Lungs sounds with few scattered rhonchi. She will be initiated on Remdesivir, convalescent plasma, Lovenox, vitamin supplements. Antibiotics in the form of ceftriaxone and azithromycin. Review of Systems REVIEW OF SYSTEMS: CONSTITUTIONAL: Denies fatigue, weakness. Denies any recent significant weight loss or weight gain. EYES: Denies change in vision. EARS, NOSE, MOUTH, THROAT: Denies headaches, denies sore throat. CARDIOVASCULAR: Denies chest pain, palpitations or syncopal episodes. RESPIRATORY: Acid for mild shortness of breath, cough, congestion no hemoptysis. GASTROINTESTINAL: Positive for poor appetite. GENITOURINARY: Denies hematuria, denies infections. MUSKULOSKELETAL: Denies pain, denies swelling. INTEGUMENTARY: Denies rash, denies eczema. NEUROLOGICAL: Denies recent memory loss, no recent seizure activity. PSYCHIATRIC: Denies anxiety, denies depression. HEMATOLOGIC/LYMPHATIC: Denies anemia, denies enlarged lymph nodes. Past Medical History Past Medical History: Blood Disorder Additional Past Medical History / Comment(s): low blood pressure, anemia, History of Any Multi-Drug Resistant Organisms: None Reported Past Surgical History: Orthopedic Surgery, Tonsillectomy Additional Past Surgical History / Comment(s): rt knee arthroscopy Past Anesthesia/Blood Transfusion Reactions: Motion Sickness Past Psychological History: No Psychological Hx Reported Smoking Status: Never smoker Past Alcohol Use History: Occasional Past Drug Use History: None Reported - Past Family History Father Family Medical History: Cancer Medications and Allergies Home Medications Medication Instructions Recorded Confirmed Type Acetaminophen [Tylenol] 325 - 650 mg PO Q4H PRN 05/29/20 05/29/20 History Allergies Allergy/AdvReac Type Severity Reaction Status Date / Time No Known Allergies Allergy Verified 05/29/20 15:35 Physical Exam Vitals: Vital Signs Temp Pulse Pulse Resp BP BP Pulse Ox 05/30/20 09:43 97.6 F 75 20 81/43 91 L 05/30/20 05:43 97.7 F 70 16 87/49 93 L 05/30/20 02:00 97.8 F 69 16 82/50 95 05/29/20 22:05 97.8 F 66 16 91/51 93 L 05/29/20 20:15 97.8 F 74 16 93/52 93 L 05/29/20 15:45 98.4 F 84 16 89/59 95 05/29/20 15:26 97.9 F 80 22 96/58 98 05/29/20 14:55 80 22 96/58 98 05/29/20 14:21 18 Intake and Output 05/29/20 05/30/20 05/30/20 22:59 06:59 14:59 Other: Voiding Method Toilet # Voids 1 Weight 45.359 kg GENERAL EXAM: Alert, pleasant 50-year-old female patient, on 2 L/m per nasal cannula, comfortable in no apparent distress. HEAD: Normocephalic. EYES: Normal reaction of pupils, equal size. NOSE: Clear with pink turbinates. THROAT: No erythema or exudates. NECK: No masses, no JVD. CHEST: No chest wall deformity. LUNGS: Equal air entry with few bilateral scattered rhonchi. CVS: S1 and S2 normal with no audible murmur, regular rhythm. ABDOMEN: No hepatosplenomegaly, normal bowel sounds, no guarding or rigidity. SPINE: No scoliosis or deformity SKIN: No rashes CENTRAL NERVOUS SYSTEM: No focal deficits, tone is normal in all 4 extremities. EXTREMITIES: There is no peripheral edema. No clubbing, no cyanosis. Peripheral pulses are intact. Results - Laboratory Findings CBC and BMP: 05/29/20 14:15 05/30/20 06:01 PT/INR, D-dimer PT 10.2 sec (9.0-12.0) 05/29/20 14:15 INR 0.9 (<1.2) 05/29/20 14:15 D-Dimer 0.66 mg/L FEU (<0.60) H 05/30/20 11:21 Abnormal lab findings: Abnormal Labs 05/29/20 05/29/20 05/29/20 14:15 14:15 14:15 Lymphocytes # 0.5 L D-Dimer Potassium 2.7 L* Chloride 112 H Carbon Dioxide 13 L BUN 50 H Creatinine 3.83 H Est GFR (CKD-EPI)AfAm Est GFR (CKD-EPI)NonAf Glucose Calcium 8.2 L Ferritin 387.1 H AST 126 H ALT 63 H Lactate Dehydrogenase 1455 H C-Reactive Protein 12.5 H Procalcitonin 0.87 H Coronavirus (PCR) 05/29/20 05/30/20 05/30/20 17:32 06:01 11:21 Lymphocytes # D-Dimer 0.66 H Potassium Chloride 119 H Carbon Dioxide 10.4 L BUN 50.0 H Creatinine 2.9 H Est GFR (CKD-EPI)AfAm 21.0 L Est GFR (CKD-EPI)NonAf 18.1 L Glucose 125 H Calcium 7.9 L Ferritin AST ALT Lactate Dehydrogenase C-Reactive Protein Procalcitonin Coronavirus (PCR) Detected A - Diagnostic Findings Chest x-ray: image reviewed Assessment and Plan Assessment: 1 Acute hypoxic respiratory failure secondary to acute CoVID 19 pneumonia. Ini tiated on Remdesivir and convalescent plasma 05/30/2020 2 Acute CoVID 19 infection with elevated inflammatory markers 3 Acute renal failure suspect secondary to dehydration and hypotension 4 Hypokalemia secondary to above, improved 5 Mild hydronephrosis Plan: The patient was seen and evaluated by Dr. Yin Chest x-ray and labs reviewed Initiate Remdesivir, convalescent plasma Initiate dexamethasone, Lovenox, vitamin supplements Continue antibiotics, bronchodilators Repeat chest x-ray and labs in a.m. We'll continue to follow and make further recommendations based on her clinical status I, the cosigning physician, performed a history & physical examination of the patient. Lungs sounds with bilateral scattered rhonchi. Maintaining good O2 saturations in the 90s on 2 L/m per nasal cannula. I discussed the assessment and plan of care with my nurse practitioner, Andie Ivy. I attest to the above consultation as dictated by her. Time with Patient: Greater than 30
[2020-05-30] MEDS: DEXTROSE 5% IN WATER 1,000 ML with SODIUM BICARB (1 MEQ/ML) 150 ML IV SCH (17:09)
[2020-05-30] MEDS: MELATONIN 5 MG TABLET PO SCH (20:17)
[2020-05-31] MEDS: DEXTROSE 5% IN WATER 1,000 ML with SODIUM BICARB (1 MEQ/ML) 150 ML IV SCH ×3 (03:20→21:03)
[2020-05-31] MEDS: ALBUTEROL HFA INHALER INHALATION SCH ×4 (07:41→20:03)
[2020-05-31] MEDS: ASCORBIC ACID 500 MG TAB PO SCH ×2 (09:28→21:03)
[2020-05-31] MEDS: ENOXAPARIN 30 MG/0.3 ML SYRINGE SQ SCH (09:28)
[2020-05-31] MEDS: AZITHROMYCIN 500 MG TAB PO SCH (09:28)
[2020-05-31] MEDS: CHOLECALCIFEROL 25 MCG (1000 IU) TABLET PO SCH (09:28)
[2020-05-31] MEDS: ZINC SULFATE 220 MG CAP PO SCH (09:28)
[2020-05-31] MEDS: DEXAMETHASONE SOD PHOSPHATE 10 MG/ML 1 ML VIAL IV SCH (09:29)
[2020-05-31] MEDS: REMDESIVIR 100 MG in SODIUM CHLORIDE 0.9% 250 ML IVPB SCH (11:21)
--- NOTE | 2020-05-31 11:47 | P.PN ---
Subjective Patient is seen in follow-up for acute kidney injury. Creatinine 2.9 as of yesterday. Labs from today pending. Oral intake fair. No vomiting or diarrhea. Maintained on bicarb drip. No hematuria. Currently on 10 L high flow nasal cannula. Vital signs are stable. General: The patient appeared well nourished and normally developed. HEENT: Head exam is unremarkable. Neck is without jugular venous distension. LUNGS: Breath sounds decreased. HEART: Rate and Rhythm are regular. ABDOMEN: Soft, nontender. EXTREMITITES: No edema. Objective - Vital Signs Vital signs: Vital Signs Temp 98.6 F 05/31/20 10:00 Pulse 78 05/31/20 10:00 Resp 20 05/31/20 10:00 BP 95/59 05/31/20 10:00 Pulse Ox 86 L 05/31/20 10:00 Intake & Output 05/30/20 05/31/20 05/31/20 18:59 06:59 18:59 Intake Total 222 Balance 222 Intake: Blood Product 222 Ffp Pher Conval Covid19 222 Acda 2 Unit [id number] Other: Voiding Method Toilet Toilet # Voids 2 - Labs CBC & Chem 7: 05/29/20 14:15 05/30/20 06:01 Labs: Abnormal Lab Results - Last 24 Hours (Table) 05/30/20 05/30/20 05/31/20 Range/Units 11:21 13:00 06:42 D-Dimer 0.66 H 0.87 H (<0.60) mg/L FEU Urine Protein 1+ H (Negative) Urine Blood Small H (Negative) Urine Nitrite Positive H (Negative) Ur Leukocyte Esterase Large H (Negative) Urine WBC 30 H (0-5) /hpf Urine Bacteria Rare H (None) /hpf Urine Mucus Rare H (None) /hpf Microbiology - Last 24 Hours (Table) 05/29/20 14:15 Blood Culture - Preliminary Blood No Growth after 24 hours 05/29/20 14:15 Blood Culture - Preliminary Blood No Growth after 24 hours Assessment and Plan Plan: Assessment: 1. Acute kidney injury mostly prerenal secondary to hypotension/hypovolemia and infection. Creatinine 3.8 on admission and down to 2.9 as of yesterday. Unknown baseline. 2. Mild bilateral hydronephrosis. Urology following. 3. Metabolic acidosis secondary to acute kidney injury, diarrhea and IV fluids. Currently on bicarb drip. 4. Hypokalemia from poor intake status post placement. Better. Magnesium normal. 5. Covid-19 infection maintained on steroids, zinc and remdesivir. 6. UTI maintained on antibiotics. Plan: Maintain isotonic bicarbonate drip to be run at 100 mL an hour. Follow-up morning labs and cortisol level. Monitor hemodynamics closely. Continue to monitor renal function and urine output. Check urine culture.
[2020-05-31 12:13] LABS: African American GFR (CKD) 27.8 (60.0-200.0); C Reactive Protein <0.4 mg/dL (0.0-0.8); Calcium 7.2 mg/dL (8.7-10.3); Carbon Dioxide 19.2 mmol/L (21.6-31.8); Chloride 117 mmol/L (96-109); Glucose 109 mg/dL (70-110); LDH 465 U/L (120-246); Magnesium 1.4 mg/dL (1.5-2.4); Sodium 146 mmol/L (135-145)
--- NOTE | 2020-05-31 12:14 | P.PN ---
Subjective Progress Note Date: 05/31/20 Patient is awake and alert. She is still feeling short of breath today. She is on 3 L of oxygen. No acute events overnight reported by nursing staff. Objective - Vital Signs Vital signs: Vital Signs Temp 98.6 F 05/31/20 10:00 Pulse 78 05/31/20 10:00 Resp 20 05/31/20 10:00 BP 95/59 05/31/20 10:00 Pulse Ox 86 L 05/31/20 10:00 Intake & Output 05/30/20 05/31/20 05/31/20 18:59 06:59 18:59 Intake Total 222 Balance 222 Intake: Blood Product 222 Ffp Pher Conval Covid19 222 Acda 2 Unit [id number] Other: Voiding Method Toilet Toilet # Voids 2 - Exam General: The patient is awake and alert, in no distress Eye: there is normal conjunctiva bilaterally. Neck: The neck is supple, there is no JVD. Cardiovascular: Normal S1-S2, no S3-S4, no murmurs. Respiratory: Lungs clear to auscultation bilaterally Gastrointestinal: Abdomen is soft, nontender Musculoskeletal: There is no pedal edema. Neurological:. Speech is normal. Skin: Skin is warm and dry - Labs CBC & Chem 7: 05/29/20 14:15 05/30/20 06:01 Labs: Abnormal Lab Results - Last 24 Hours (Table) 05/30/20 05/31/20 05/31/20 Range/Units 13:00 06:42 06:42 D-Dimer 0.87 H (<0.60) mg/L FEU Cortisol 2.9 L (3.10-22.40) ug/dL Urine Protein 1+ H (Negative) Urine Blood Small H (Negative) Urine Nitrite Positive H (Negative) Ur Leukocyte Esterase Large H (Negative) Urine WBC 30 H (0-5) /hpf Urine Bacteria Rare H (None) /hpf Urine Mucus Rare H (None) /hpf Microbiology - Last 24 Hours (Table) 05/29/20 14:15 Blood Culture - Preliminary Blood No Growth after 24 hours 05/29/20 14:15 Blood Culture - Preliminary Blood No Growth after 24 hours Assessment and Plan Assessment: This is a 50-year-old female with no significant past medical history who presented to the emergency room with worsening generalized fatigue and flulike symptoms after being diagnosed with COVID-19 at an outside urgent care. Patient was evaluated in the ER and admitted to the hospital for further management of her medical problems noted below. 1. Bilateral COVID-19 pneumonia: Started on Decadron day #3, started on Remdesivir day #2, on zinc, vitamin D, vitamin C, and melatonin. Seen and evaluated and pulmonology, appreciate recommendations. 2. Acute hypoxic respiratory failure: Currently on 3 L of oxygen via nasal cannula. Wean off O2 as tolerated 3. Suspected bacterial pneumonia with elevated pro calcitonin. Started on IV ceftriaxone and oral azithromycin day #2 4. Acute kidney injury: Prerenal secondary to hypotension and dehydration. Seen and evaluated by nephrology. Abdominal ultrasound showed mild bilateral hydronephrosis of unclear significance. Urology consulted. Continue IV fluid hydration as directed by nephrology. 4. Hypovolemic shock: Received multiple IV fluid boluses. Lactic acid normal. We will continue to monitor closely. Cortisone level borderline low. Neph rology following. 5. Hypokalemia: Replaced 6. Patient is full code 7. DVT prophylaxis with subcu heparin
--- NOTE | 2020-05-31 12:59 | P.PN ---
Subjective Progress Note Date: 05/31/20 This is a pleasant 50-year-old female patient with no primary care provider, no chronic medical problems. No home medications. Lifelong nonsmoker. She presented to the emergency room yesterday with concerns regarding a positive CoVID 19 test on 05/26/2020. She has been having ongoing issues with generalized weakness, fatigue, poor appetite. Normal shortness of breath and cough. Chest x-ray revealed bilateral lower lobe pneumonia. Normal heart. Renal ultrasound with mild bilateral hydronephrosis. White count 5.4. Hemoglobin 13.0. Lymphocytes 0.5. Sodium 141. Potassium initially 2.7, currently 3.8. Creatinine initially 3.83, currently 2.9 area d-dimer 0.66. LDH 1455. C- reactive protein 12.5. Ferritin 387. Pro-calcitonin 0.87. Coronavirus detected by PCR. She is seen today in consultation on the regular medical floor. She is awake and alert in no acute distress. Maintaining good O2 saturations in the 90s on 2 L/m per nasal cannula. No significant acute respiratory distress. Lungs sounds with few scattered rhonchi. She will be initiated on Remdesivir, convalescent plasma, Lovenox, vitamin supplements. Antibiotics in the form of ceftriaxone and azithromycin. On 05/31/2020 and I'm seeing the patient for a follow-up. The patient is currently on 10 L of oxygen by nasal cannula. Diagnosed having Covid 19. The patient is currently on Decadron, Remdesivir the patient has also received a unit of convalescent plasma. Medically, the patient reports that she is still feeling the same compared to yesterday. The chest x-ray still showing interstitial infiltrates in the lung bases peripherally. Sodium is at 146 with a potassium level of 3.0 and a chloride is 117. D-dimer is at 0.87. Her LDH is at 465, CRP is less than 0.4. As such, the inflammatory markers have improved. Serum cortisone is low at 2.9. Her white cell count was at 5.4. Hemoglobin is at 13.0. The patient is currently on Decadron 6 mg IV. The patient is on Lindsey enox 30 mg subcu every 24 hours. Antibiotics were also added on empiric basis with a combination of Rocephin and Zithromax. Pro-calcitonin was modestly elevated at 0.87. UA showed 30 WBCs. Culture is still pending for now. Blood cultures been negative thus far. She remains on 10 L of oxygen by nasal cannula. Objective - Vital Signs Vital signs: Vital Signs Temp 98.6 F 05/31/20 10:00 Pulse 78 05/31/20 10:00 Resp 20 05/31/20 10:00 BP 95/59 05/31/20 10:00 Pulse Ox 86 L 05/31/20 10:00 Intake & Output 05/30/20 05/31/20 05/31/20 18:59 06:59 18:59 Intake Total 222 Balance 222 Intake: Blood Product 222 Ffp Pher Conval Covid19 222 Acda 2 Unit [id number] Other: Voiding Method Toilet Toilet # Voids 2 - Exam GENERAL EXAM: Alert, pleasant 50-year-old female patient, on 10 L/m per nasal cannula, comfortable in no apparent distress. HEAD: Normocephalic. EYES: Normal reaction of pupils, equal size. NOSE: Clear with pink turbinates. THROAT: No erythema or exudates. NECK: No masses, no JVD. CHEST: No chest wall deformity. LUNGS: Equal air entry with few bilateral scattered rhonchi. CVS: S1 and S2 normal with no audible murmur, regular rhythm. ABDOMEN: No hepatosplenomegaly, normal bowel sounds, no guarding or rigidity. SPINE: No scoliosis or deformity SKIN: No rashes CENTRAL NERVOUS SYSTEM: No focal deficits, tone is normal in all 4 extremities. EXTREMITIES: There is no peripheral edema. No clubbing, no cyanosis. Peripheral pulses are intact. - Labs CBC & Chem 7: 05/29/20 14:15 05/31/20 06:42 Labs: Abnormal Lab Results - Last 24 Hours (Table) 05/30/20 05/31/20 05/31/20 Range/Units 13:00 06:42 06:42 D-Dimer 0.87 H (<0.60) mg/L FEU Sodium 146 H (135-145) mmol/L Potassium 3.0 L (3.5-5.5) mmol/L Chloride 117 H (96-109) mmol/L Carbon Dioxide 19.2 L (21.6-31.8) mmol/L BUN 46.0 H (9.0-27.0) mg/dL Creatinine 2.3 H (0.6-1.5) mg/dL Est GFR (CKD-EPI)AfAm 27.8 L (60.0-200.0) Est GFR (CKD-EPI)NonAf 24.0 L (60.0-200.0) Calcium 7.2 L (8.7-10.3) mg/dL Magnesium 1.4 L (1.5-2.4) mg/dL Lactate Dehydrogenase 465 H (120-246) U/L Cortisol 2.9 L (3.10-22.40) ug/dL Urine Protein 1+ H (Negative) Urine Blood Small H (Negative) Urine Nitrite Positive H (Negative) Ur Leukocyte Esterase Large H (Negative) Urine WBC 30 H (0-5) /hpf Urine Bacteria Rare H (None) /hpf Urine Mucus Rare H (None) /hpf Microbiology - Last 24 Hours (Table) 05/29/20 14:15 Blood Culture - Preliminary Blood No Growth after 24 hours 05/29/20 14:15 Blood Culture - Preliminary Blood No Growth after 24 hours Assessment and Plan Plan: 1 Acute hypoxic respiratory failure secondary to acute CoVID 19 pneumonia. Initiated on Remdesivir and convalescent plasma 05/30/2020. The patient is progressively getting worse. The patient was on 2 L of oxygen with nasal cannula and the patient and progressively getting worse and she is up to 10 L and this is despite her being on a combination of Decadron and Remdesivir, and receiving a unit of convalescent plasma. 2 Acute CoVID 19 infection with elevated inflammatory markers, and the levels are improved and up compared to yesterday. Nevertheless the patient's vaccination is getting worse. 3 Acute renal failure suspect secondary to dehydration and hypotension, improving and the creatinine is down to 2.3. Her creatinine is down from 3.83 at a time of admission. She is currently receiving IV fluids and she is receiving D5 water/bicarb at the rate of 100 mL an hour. 4 Hypokalemia secondary to above, will need to be replaced 5 Mild hydronephrosis 6 non-anion gap metabolic acidosis Plan: Chest x-ray today. In a.m. Inflammatory markers to be repeated exam Continue Remdesivirper protocol , convalescent plasma and the patient has already received a unit of convalescent plasma and we'll given his second unit today. Increase dexamethasone up to 20 mg IV every 24 hours for the next 3 days Continue Lovenox, vitamin supplements Continue antibiotics, extremely low suspicion for a superimposed bacterial infection Continue bronchodilators We'll continue to follow and make further recommendations based on her clinical statusMI moved up the patient up to 10 L and would also use high flow oxygen if needed. May be a candidate for Actemra specially there is no indication for any underlying bacterial infection. I think the current antibiotics is mainly in emperic in nature .
[2020-05-31 18:19] LABS: Appearance,Urine Clear (Clear); Bacteria,Urine Rare /hpf; Bilirubin,Urine Negative (Negative); Blood,Urine Trace (Negative); Color,Urine Yellow; Glucose,Urine (UA) Negative (Negative); Ketones,Urine Negative (Negative); Leukocyte Esterase,Urine Negative (Negative); Nitrite,Urine Negative (Negative); PH, Urine 6.5 (5.0-8.0); Protein,Urine 1+ (Negative); RBC,Urine <1 /hpf (0-5); Squamous Epithelial Cell,Urine 1 /hpf (0-4); Urobilinogen,Urine <2.0 mg/dL (<2.0); WBC,Urine 1 /hpf (0-5)
[2020-05-31] MEDS: MELATONIN 5 MG TABLET PO SCH (21:03)
[2020-06-01] MEDS: MAGNESIUM SULFATE-D5W PMX 1 GM in DEXTROSE/WATER 1 100ML.BAG IVPB SCH ×3 (06:45→09:45)
[2020-06-01] MEDS ORDERED: VANCOMYCIN IV PER PHARMACY 1 EACH MISC MISCELLANE PRN (06:51)
[2020-06-01] MEDS: POTASSIUM CHLORIDE ER 20 MEQ TAB.ER PO SCH ×2 (06:53→08:32)
[2020-06-01 07:03] LABS: African American GFR (CKD) 38 (>60 ml/min/1.73 sqM); Anion Gap 10 mmol/L; Blood Urea Nitrogen 42 mg/dL (7-17); C Reactive Protein <5.0 mg/L (<10.0); Carbon Dioxide 23 mmol/L (22-30); Chloride 110 mmol/L (98-107); Glucose 109 mg/dL (74-99); LDH 1234 U/L (313-618); Magnesium 1.4 mg/dL (1.6-2.3); Non-African American GFR(CKD) 33 (>60 ml/min/1.73 sqM); Potassium 2.8 mmol/L (3.5-5.1); Sodium 143 mmol/L (137-145)
[2020-06-01] MEDS ORDERED: CEFEPIME 2 GM in SODIUM CHLORIDE 0.9% 100 ML IVPB ONE (07:30)
[2020-06-01 07:31] LABS: Glucose,Whole Blood 141 mg/dL (75-99)
[2020-06-01 07:43] LABS: ABG Base Excess 0.1 mmol/L; ABG HCO3 24 mmol/L (21-25); ABG Oxygen Saturation 96.4 % (94-97); ABG PCO2 31 mmHg (35-45); ABG PH 7.49 (7.35-7.45); ABG PO2 74 mmHg (83-108); ABG TCO2 24 mmol/L (19-24); Allen Test Performed? Yes
[2020-06-01] MEDS: ALBUTEROL HFA INHALER INHALATION SCH ×4 (07:51→20:53)
[2020-06-01] MEDS: ZINC SULFATE 220 MG CAP PO SCH (08:31)
[2020-06-01] MEDS: ENOXAPARIN 30 MG/0.3 ML SYRINGE SQ SCH (08:31)
[2020-06-01] MEDS: ASCORBIC ACID 500 MG TAB PO SCH ×2 (08:31→22:04)
[2020-06-01] MEDS: CHOLECALCIFEROL 25 MCG (1000 IU) TABLET PO SCH (08:32)
--- NOTE | 2020-06-01 08:40 | XR ---
EXAMINATION TYPE: XR chest 1V portable DATE OF EXAM: 06/01/2020 COMPARISON: Chest x-ray 05/29/2020 HISTORY: Covid 19 pneumonia, abnormal chest x-ray TECHNIQUE: Single frontal view of the chest is obtained. FINDINGS: Somewhat nodular appearing density is present in the right upper lobe but is somewhat less conspicuous than on prior exam. There is been interval development of confluent density peripherally in the lung bases, costophrenic angles are obscured on the current exam, there is no evident pneumot horax. Air bronchograms are present in the lung bases. Left hemidiaphragm is obscured. Cardiac medias tinal silhouette is similar accounting for differences in technique. Aorta is dense. Questionable par atracheal density somewhat more conspicuous. IMPRESSION: Correlate for bilateral pneumonia. Difficult to exclude effusion. To resolution. There m ay be mediastinal adenopathy.
[2020-06-01] MEDS ORDERED: AZITHROMYCIN 500 MG in SODIUM CHLORIDE 0.9% 250 ML IVPB SCH (09:00)
[2020-06-01] MEDS ORDERED: DEXAMETHASONE SOD PHOSPHATE 10 MG/ML 1 ML VIAL IV SCH (09:00)
--- NOTE | 2020-06-01 09:32 | P.PN ---
Subjective Progress Note Date: 06/01/20 This is a pleasant 50-year-old female patient with no primary care provider, no chronic medical problems. No home medications. Lifelong nonsmoker. She presented to the emergency room yesterday with concerns regarding a positive CoVID 19 test on 05/26/2020. She has been having ongoing issues with generalized weakness, fatigue, poor appetite. Normal shortness of breath and cough. Chest x-ray revealed bilateral lower lobe pneumonia. Normal heart. Renal ultrasound with mild bilateral hydronephrosis. White count 5.4. Hemoglobin 13.0. Lymphocytes 0.5. Sodium 141. Potassium initially 2.7, currently 3.8. Creatinine initially 3.83, currently 2.9 area d-dimer 0.66. LDH 1455. C- reactive protein 12.5. Ferritin 387. Pro-calcitonin 0.87. Coronavirus detected by PCR. She is seen today in consultation on the regular medical floor. She is awake and alert in no acute distress. Maintaining good O2 saturations in the 90s on 2 L/m per nasal cannula. No significant acute respiratory distress. Lungs sounds with few scattered rhonchi. She will be initiated on Remdesivir, convalescent plasma, Lovenox, vitamin supplements. Antibiotics in the form of ceftriaxone and azithromycin. On 05/31/2020 and I'm seeing the patient for a follow-up. The patient is currently on 10 L of oxygen by nasal cannula. Diagnosed having Covid 19. The patient is currently on Decadron, Remdesivir the patient has also received a unit of convalescent plasma. Medically, the patient reports that she is still feeling the same compared to yesterday. The chest x-ray still showing interstitial infiltrates in the lung bases peripherally. Sodium is at 146 with a potassium level of 3.0 and a chloride is 117. D-dimer is at 0.87. Her LDH is at 465, CRP is less than 0.4. As such, the inflammatory markers have improved. Serum cortisone is low at 2.9. Her white cell count was at 5.4. Hemoglobin is at 13.0. The patient is currently on Decadron 6 mg IV. The patient is on Lindsey enox 30 mg subcu every 24 hours. Antibiotics were also added on empiric basis with a combination of Rocephin and Zithromax. Pro-calcitonin was modestly elevated at 0.87. UA showed 30 WBCs. Culture is still pending for now. Blood cultures been negative thus far. She remains on 10 L of oxygen by nasal cannula. On 06/01/2020, the patient got transferred to the intensive care unit. This occurred earlier this morning. Noted the patient's condition was gradually getting worse. She can't was on 2 L of oxygen by nasal cannula and her oxygenation gradually got worse and she was on 10 L yesterday. I increased the Decadron up to 20 mg IV. Continue the Lovenox subcu based on a low d-dimer and her dose was at 30 mg subcu every 24 hours and I ordered the second unit of convalescent plasma knowing that the patient has received 1 unit. She remains on Remdesivir . Despite all this, her condition is getting worse. Oxidation is worse and earlier this morning the patient became progressively more hypoxic and she got chest that the intensive care unit and she is currently on a BiPAP at a pressure of 10/6 cm of water and FiO2 of 100%. Her current pulse ox is in the order of 96%. Chest x-ray shows worsening of the bilateral lower lobe pulmonary infiltrates question the lung bases peripherally. Laboratory markers from today shows an LDH of 1234, which is higher compared to yesterday and the CRP is down to 5.0. Repeat UA was negative and there is no suspicion for any underlying infection. For that reason, I'm going to stop the antibiotics. The cultures of been negative thus far. She is afebrile. The white cell count today is pending.. The sodium is down to 143 and the potassium needs to be replaced at 2.5 and the creatinine continues to improve went down to 1.7 and the patient is currently receiving IV fluids in the form of D5 with 150 mEq of sodium bicarbonate the rate of 100 mL an hour. The serum bicarb today is at 23 which is essentially normalized. Objective - Vital Signs Vital signs: Vital Signs Temp 98.8 F 06/01/20 05:39 Pulse 72 06/01/20 08:00 Resp 74 H 06/01/20 08:00 BP 90/64 06/01/20 08:00 Pulse Ox 96 06/01/20 08:00 Intake & Output 05/31/20 06/01/20 06/01/20 18:59 06:59 18:59 Intake Total 1315 300 600 Output Total 325 Balance 1315 300 275 Weight 45.359 kg Intake: Intake, IV Titration 1100 600 Amount Azithromycin 500 mg In 250 Sodium Chloride 0.9% 250 ml @ 250 mls/hr IVPB DAILY [facility] Rx#:[id number] Dextrose 5% in Water 1, 800 100 000 ml @ 100 mls/hr IV . [id number] KARY with Sodium Bicarb (1 Meq/ml) 150 ml Rx#:[id number] Magnesium Sulfate-D5w Pmx 100 1 gm In Dextrose/Water 1 100ml.bag @ 100 mls/hr IVPB Q1H [facility] Rx#: [id number] Remdesivir 100 mg In 250 Sodium Chloride 0.9% 250 ml @ 250 mls/hr IVPB DAILY@1100 [facility] Rx#: [id number] cefTRIAXone 1 gm In 50 50 Sodium Chloride 0.9% 50 ml @ 100 mls/hr IVPB Q24HR [facility] Rx#:[id number] cefTRIAXone 1 gm In 100 Sodium Chloride 0.9% 50 ml @ 100 mls/hr IVPB Q24HR [facility] Rx#:[id number] Oral 300 Blood Product 215 Ffp Pher Conval Covid19 215 Acda 2 Unit [id number] Output: Urine 325 Other: Voiding Method Toilet Toilet Indwelling Catheter # Voids 2 - Exam GENERAL EXAM: Alert, pleasant 50-year-old female patient, on BiPAP at a pressure of 10/6 with an FiO2 of 100%. She seems to be more respiratory distress compared to yesterday. She is able to tolerate the BiPAP. She is quite dependent and she easily desaturates when she is off the BiPAP. She has occasional coughing spells. HEAD: Normocephalic. EYES: Normal reaction of pupils, equal size. NOSE: Clear with pink turbinates. THROAT: No erythema or exudates. NECK: No masses, no JVD. CHEST: No chest wall deformity. LUNGS: Equal air entry with few bilateral scattered rhonchi. CVS: S1 and S2 normal with no audible murmur, regular rhythm. ABDOMEN: No hepatosplenomegaly, normal bowel sounds, no guarding or rigidity. SPINE: No scoliosis or deformity SKIN: No rashes CENTRAL NERVOUS SYSTEM: No focal deficits, tone is normal in all 4 extremities. She is awake and she is EXTREMITIES: There is no peripheral edema. No clubbing, no cyanosis. Peripheral pulses are intact. - Labs CBC & Chem 7: 05/29/20 14:15 06/01/20 06:08 Labs: Abnormal Lab Results - Last 24 Hours (Table) 05/31/20 05/31/20 06/01/20 Range/Units 06:42 18:04 06:08 D-Dimer (<0.60) mg/L FEU ABG pH (7.35-7.45) ABG pCO2 (35-45) mmHg ABG pO2 (83-108) mmHg Sodium 146 H (135-145) mmol/L Potassium 3.0 L 2.8 L (3.5-5.5) mmol/L Chloride 117 H 110 H (96-109) mmol/L Carbon Dioxide 19.2 L (21.6-31.8) mmol/L BUN 46.0 H 42 H (9.0-27.0) mg/dL Creatinine 2.3 H 1.78 H (0.6-1.5) mg/dL Est GFR (CKD-EPI)AfAm 27.8 L (60.0-200.0) Est GFR (CKD-EPI)NonAf 24.0 L (60.0-200.0) Glucose 109 H (74-99) mg/dL POC Glucose (mg/dL) (75-99) mg/dL Calcium 7.2 L 7.0 L (8.7-10.3) mg/dL Magnesium 1.4 L 1.4 L (1.5-2.4) mg/dL Lactate Dehydrogenase 465 H 1234 H (120-246) U/L Cortisol 2.9 L (3.10-22.40) ug/dL Urine Protein 1+ H (Negative) Urine Blood Trace H (Negative) Urine Bacteria Rare H (None) /hpf 06/01/20 06/01/20 06/01/20 Range/Units 06:08 07:30 07:40 D-Dimer 0.75 H (<0.60) mg/L FEU ABG pH 7.49 H (7.35-7.45) ABG pCO2 31 L (35-45) mmHg ABG pO2 74 L (83-108) mmHg Sodium (135-145) mmol/L Potassium (3.5-5.5) mmol/L Chloride (96-109) mmol/L Carbon Dioxide (21.6-31.8) mmol/L BUN (9.0-27.0) mg/dL Creatinine (0.6-1.5) mg/dL Est GFR (CKD-EPI)AfAm (60.0-200.0) Est GFR (CKD-EPI)NonAf (60.0-200.0) Glucose (74-99) mg/dL POC Glucose (mg/dL) 141 H (75-99) mg/dL Calcium (8.7-10.3) mg/dL Magnesium (1.5-2.4) mg/dL Lactate Dehydrogenase (120-246) U/L Cortisol (3.10-22.40) ug/dL Urine Protein (Negative) Urine Blood (Negative) Urine Bacteria (None) /hpf Microbiology - Last 24 Hours (Table) 05/31/20 18:04 Urine Culture - Preliminary Urine,Voided 05/29/20 14:15 Blood Culture - Preliminary Blood No Growth after 48 hours 05/29/20 14:15 Blood Culture - Preliminary Blood No Growth after 48 hours Assessment and Plan Plan: 1 Acute hypoxic respiratory failure secondary to acute CoVID 19 pneumonia. Initiated on Remdesivir day # 3 and convalescent plasma 2 units were given and the patient currently is on Decadron 20 mg IV push every 24 hours.. The patient is progressively getting worse. The patient was on 2 L of oxygen with nasal cannula and the patient and progressively getting worse and she is up to 10 L and subsequently the patient got placed on BiPAP at a pressure of 10/6 with an F iO2 of 100% knowing that earlier measures failed to maintain his oxygenation the patient was becoming progressively more hypoxic. Chest x-ray shows worsening of the by the pulmonary infiltrates and elevation of amylase still elevated. Patient is still struggling with her breathing and she has a high minute ventilation of around 17 L which is able to generate a tidal volume of 500. She does have a high respiratory rate between 29 and 34. 2 Acute CoVID 19 infection with elevated inflammatory markers, and the levels including LDH is elevated. D-dimer is low. The patient is on prophylactic dose of Lovenox. 3 Acute renal failure suspect secondary to dehydration and hypotension, improving creatinine is down to 1.7 and the patient is showing improvement in the 9 gap metabolic acidosis 4 Hypokalemia secondary to above, will need to be replaced 5 Mild hydronephrosis 6 non-anion gap metabolic acidosis , improved Plan: Chest x-ray today. The patient's chest x-ray is getting worse and the patient oxidation is also worse and the patient was transitioned to BiPAP pressure of 10/6 with an FiO2 of 100%. Inflammatory markers to be repeated exam , LDH level remains elevated Continue Remdesivirper protocol day #3, convalescent plasma 2 units and continue with Decadron 20 mg IV every 24 hours and Lovenox 30mg Subcu for DVT prophylaxis. and the patient has already received a unit of convalescent plasma and we'll given his second unit today. dexamethasone up to 20 mg IV every 24 hours for the next 3 days vitamin supplements Discontinue antibiotics Continue bronchodilators We'll discuss the possibility of starting the patient on Actemra. I think should be able to tolerate the treatments. No signs of any any underlying bacterial infection. The patient is progressively getting worse and the patient has progressed significantly with worsening oxygenation the patient is currently on BiPAP with worsening in pulmonary infiltrates. Continue has Decadron and initiate Actemra. Contacted the pharmacy to get the approval. Contacts the family were updated on her condition stop the bicarb drip and switch this patient to a normal state rate of 75 mL an hour and monitor the renal function replaced potassium Critical care evaluation more than 30 minutes . Time with Patient: Greater than 30
[2020-06-01] MEDS: DEXTROSE 5% IN WATER 1,000 ML with SODIUM BICARB (1 MEQ/ML) 150 ML IV SCH (09:39)
[2020-06-01] MEDS: DEXAMETHASONE SOD PHOSPHATE 20 MG in DEXTROSE 5% IN WATER 50 ML IV SCH ×2 (09:43)
[2020-06-01] MEDS: SODIUM CHLORIDE 0.9% 1,000 ML IV SCH ×2 (09:43→23:19)
[2020-06-01] MEDS: MORPHINE SULFATE 2 MG/ML SYRINGE IVP PRN ×2 (09:44→23:37)
[2020-06-01] MEDS ORDERED: TOCILIZUMAB IV ONE ×4 (10:30→23:00)
[2020-06-01] MEDS ORDERED: SODIUM CHLORIDE 0.9% IV ONE ×4 (10:30→23:00)
[2020-06-01] MEDS ORDERED: TOCILIZUMAB 400 MG in SODIUM CHLORIDE 0.9% 80 ML IV ONE (10:30)
--- NOTE | 2020-06-01 10:42 | P.PN ---
Subjective Patient is seen in follow-up for acute kidney injury. Renal function improving. Nonoliguric. Transfer to the ICU yesterday due to respiratory distress. Currently on BiPAP. Bicarb drip was switched to normal saline this morning. Acidosis improved. Vital signs are stable. Currently on BiPAP. No gross edema noted. Exam discussed with the nurse. Objective - Vital Signs Vital signs: Vital Signs Temp 98.8 F 06/01/20 05:39 Pulse 62 06/01/20 10:00 Resp 40 H 06/01/20 10:00 BP 98/72 06/01/20 10:00 Pulse Ox 97 06/01/20 10:00 Intake & Output 05/31/20 06/01/20 06/01/20 18:59 06:59 18:59 Intake Total 1315 300 725 Output Total 400 Balance 1315 300 325 Weight 45.359 kg Intake: Intake, IV Titration 1100 725 Amount Azithromycin 500 mg In 250 Sodium Chloride 0.9% 250 ml @ 250 mls/hr IVPB DAILY [facility] Rx#:[id number] Dexamethasone Sod 50 Phosphate 20 mg In Dextrose 5% in Water 50 ml @ 100 mls/hr IV DAILY [facility] Rx#:[id number] Dextrose 5% in Water 1, 800 100 000 ml @ 100 mls/hr IV . [id number] KARY with Sodium Bicarb (1 Meq/ml) 150 ml Rx#:[id number] Magnesium Sulfate-D5w Pmx 100 1 gm In Dextrose/Water 1 100ml.bag @ 100 mls/hr IVPB Q1H [facility] Rx#: [id number] Remdesivir 100 mg In 250 Sodium Chloride 0.9% 250 ml @ 250 mls/hr IVPB DAILY@1100 [facility] Rx#: [id number] Sodium Chloride 0.9% 1, 75 000 ml @ 75 mls/hr IV . [id number] [facility] Rx#:[id number] cefTRIAXone 1 gm In 50 50 Sodium Chloride 0.9% 50 ml @ 100 mls/hr IVPB Q24HR [facility] Rx#:[id number] cefTRIAXone 1 gm In 100 Sodium Chloride 0.9% 50 ml @ 100 mls/hr IVPB Q24HR [facility] Rx#:[id number] Oral 300 Blood Product 215 Ffp Pher Conval Covid19 215 Acda 2 Unit [id number] Output: Urine 400 Other: Voiding Method Toilet Toilet Indwelling Catheter # Voids 2 - Labs CBC & Chem 7: 05/29/20 14:15 06/01/20 06:08 Labs: Abnormal Lab Results - Last 24 Hours (Table) 05/31/20 05/31/20 06/01/20 Range/Units 06:42 18:04 06:08 D-Dimer (<0.60) mg/L FEU ABG pH (7.35-7.45) ABG pCO2 (35-45) mmHg ABG pO2 (83-108) mmHg Sodium 146 H (135-145) mmol/L Potassium 3.0 L 2.8 L (3.5-5.5) mmol/L Chloride 117 H 110 H (96-109) mmol/L Carbon Dioxide 19.2 L (21.6-31.8) mmol/L BUN 46.0 H 42 H (9.0-27.0) mg/dL Creatinine 2.3 H 1.78 H (0.6-1.5) mg/dL Est GFR (CKD-EPI)AfAm 27.8 L (60.0-200.0) Est GFR (CKD-EPI)NonAf 24.0 L (60.0-200.0) Glucose 109 H (74-99) mg/dL POC Glucose (mg/dL) (75-99) mg/dL Calcium 7.2 L 7.0 L (8.7-10.3) mg/dL Magnesium 1.4 L 1.4 L (1.5-2.4) mg/dL Lactate Dehydrogenase 465 H 1234 H (120-246) U/L Cortisol 2.9 L (3.10-22.40) ug/dL Urine Protein 1+ H (Negative) Urine Blood Trace H (Negative) Urine Bacteria Rare H (None) /hpf 06/01/20 06/01/20 06/01/20 Range/Units 06:08 07:30 07:40 D-Dimer 0.75 H (<0.60) mg/L FEU ABG pH 7.49 H (7.35-7.45) ABG pCO2 31 L (35-45) mmHg ABG pO2 74 L (83-108) mmHg Sodium (135-145) mmol/L Potassium (3.5-5.5) mmol/L Chloride (96-109) mmol/L Carbon Dioxide (21.6-31.8) mmol/L BUN (9.0-27.0) mg/dL Creatinine (0.6-1.5) mg/dL Est GFR (CKD-EPI)AfAm (60.0-200.0) Est GFR (CKD-EPI)NonAf (60.0-200.0) Glucose (74-99) mg/dL POC Glucose (mg/dL) 141 H (75-99) mg/dL Calcium (8.7-10.3) mg/dL Magnesium (1.5-2.4) mg/dL Lactate Dehydrogenase (120-246) U/L Cortisol (3.10-22.40) ug/dL Urine Protein (Negative) Urine Blood (Negative) Urine Bacteria (None) /hpf Microbiology - Last 24 Hours (Table) 05/31/20 18:04 Urine Culture - Preliminary Urine,Voided 05/29/20 14:15 Blood Culture - Preliminary Blood No Growth after 48 hours 05/29/20 14:15 Blood Culture - Preliminary Blood No Growth after 48 hours Assessment and Plan Plan: Assessment: 1. Acute kidney injury mostly prerenal secondary to hypotension/hypovolemia and infection. Creatinine 3.8 on admission and down to 1.78 today. Unknown baseline. 2. Mild bilateral hydronephrosis. Urology following. 3. Metabolic acidosis secondary to acute kidney injury, diarrhea and IV fluids. Status post bicarb drip. 4. Hypokalemia from poor intake and intracellular shifting from bicarb. Being replaced. 5. Covid-19 infection maintained on steroids, zinc, tocilizumab, and remdesivir. 6. UTI maintained on antibiotics. 7. Hypomagnesemia from poor intake. Being replaced. Plan: Bicarb drip stopped this morning. Maintain normal saline at 75 mL an hour. Cortisol level slightly on the lower side. Patient is receiving steroids. Continue to monitor renal function and urine output. Repeat potassium level this afternoon and replace as needed.
[2020-06-01 10:45] LABS: HCT 28.8 % (34.0-46.0); MCH 28.8 pg (25.0-35.0); MCHC 33.9 g/dL (31.0-37.0); MCV 84.9 fL (80.0-100.0); Platelet Count 252 k/uL (150-450); Poikilocytosis Slight; RBC 3.38 m/uL (3.80-5.40); RDW 14.8 % (11.5-15.5)
[2020-06-01] MEDS ORDERED: Magnesium Replacement Protocol 1 EACH MISC MISCELLANE PRN (10:48)
[2020-06-01] MEDS ORDERED: Potassium Replacement Protocol 1 EACH MISC MISCELLANE PRN ×2 (10:48→10:59)
[2020-06-01 10:49] LABS: Calcium 6.6 mg/dL (8.4-10.2)
--- NOTE | 2020-06-01 10:56 | P.PN ---
Subjective Progress Note Date: 06/01/20 Patient's overall condition deteriorated overnight she had increased oxygen requirement this morning was transferred to ICU. She is currently on BiPAP. She is having tachypnea with respiratory rate in the 30s. Objective - Vital Signs Vital signs: Vital Signs Temp 98.8 F 06/01/20 05:39 Pulse 62 06/01/20 10:00 Resp 40 H 06/01/20 10:00 BP 98/72 06/01/20 10:00 Pulse Ox 97 06/01/20 10:00 Intake & Output 05/31/20 06/01/20 06/01/20 18:59 06:59 18:59 Intake Total 1315 300 725 Output Total 400 Balance 1315 300 325 Weight 45.359 kg Intake: Intake, IV Titration 1100 725 Amount Azithromycin 500 mg In 250 Sodium Chloride 0.9% 250 ml @ 250 mls/hr IVPB DAILY [facility] Rx#:[id number] Dexamethasone Sod 50 Phosphate 20 mg In Dextrose 5% in Water 50 ml @ 100 mls/hr IV DAILY [facility] Rx#:[id number] Dextrose 5% in Water 1, 800 100 000 ml @ 100 mls/hr IV . [id number] [facility] with Sodium Bicarb (1 Meq/ml) 150 ml Rx#:[id number] Magnesium Sulfate-D5w Pmx 100 1 gm In Dextrose/Water 1 100ml.bag @ 100 mls/hr IVPB Q1H [facility] Rx#: [id number] Remdesivir 100 mg In 250 Sodium Chloride 0.9% 250 ml @ 250 mls/hr IVPB DAILY@1100 [facility] Rx#: [id number] Sodium Chloride 0.9% 1, 75 000 ml @ 75 mls/hr IV . [id number] [facility] Rx#:[id number] cefTRIAXone 1 gm In 50 50 Sodium Chloride 0.9% 50 ml @ 100 mls/hr IVPB Q24HR [facility] Rx#:[id number] cefTRIAXone 1 gm In 100 Sodium Chloride 0.9% 50 ml @ 100 mls/hr IVPB Q24HR [facility] Rx#:[id number] Oral 300 Blood Product 215 Ffp Pher Conval Covid19 215 Acda 2 Unit [id number] Output: Urine 400 Other: Voiding Method Toilet Toilet Indwelling Catheter # Voids 2 - Exam General: The patient is awake and alert, she is wearing BiPAP Eye: there is normal conjunctiva bilaterally. Neck: The neck is supple, there is no JVD. Cardiovascular: Normal S1-S2, no S3-S4, no murmurs. Respiratory: Lungs with BiPAP sounds anterior chest auscultation Gastrointestinal: Abdomen is soft, nontender Musculoskeletal: There is no pedal edema. Neurological:. Speech is normal. Skin: Skin is warm and dry - Labs CBC & Chem 7: 05/29/20 14:15 06/01/20 06:08 Labs: Abnormal Lab Results - Last 24 Hours (Table) 05/31/20 05/31/20 06/01/20 Range/Units 06:42 18:04 06:08 D-Dimer (<0.60) mg/L FEU ABG pH (7.35-7.45) ABG pCO2 (35-45) mmHg ABG pO2 (83-108) mmHg Sodium 146 H (135-145) mmol/L Potassium 3.0 L 2.8 L (3.5-5.5) mmol/L Chloride 117 H 110 H (96-109) mmol/L Carbon Dioxide 19.2 L (21.6-31.8) mmol/L BUN 46.0 H 42 H (9.0-27.0) mg/dL Creatinine 2.3 H 1.78 H (0.6-1.5) mg/dL Est GFR (CKD-EPI)AfAm 27.8 L (60.0-200.0) Est GFR (CKD-EPI)NonAf 24.0 L (60.0-200.0) Glucose 109 H (74-99) mg/dL POC Glucose (mg/dL) (75-99) mg/dL Calcium 7.2 L 7.0 L (8.7-10.3) mg/dL Magnesium 1.4 L 1.4 L (1.5-2.4) mg/dL Lactate Dehydrogenase 465 H 1234 H (120-246) U/L Cortisol 2.9 L (3.10-22.40) ug/dL Urine Protein 1+ H (Negative) Urine Blood Trace H (Negative) Urine Bacteria Rare H (None) /hpf 06/01/20 06/01/20 06/01/20 Range/Units 06:08 07:30 07:40 D-Dimer 0.75 H (<0.60) mg/L FEU ABG pH 7.49 H (7.35-7.45) ABG pCO2 31 L (35-45) mmHg ABG pO2 74 L (83-108) mmHg Sodium (135-145) mmol/L Potassium (3.5-5.5) mmol/L Chloride (96-109) mmol/L Carbon Dioxide (21.6-31.8) mmol/L BUN (9.0-27.0) mg/dL Creatinine (0.6-1.5) mg/dL Est GFR (CKD-EPI)AfAm (60.0-200.0) Est GFR (CKD-EPI)NonAf (60.0-200.0) Glucose (74-99) mg/dL POC Glucose (mg/dL) 141 H (75-99) mg/dL Calcium (8.7-10.3) mg/dL Magnesium (1.5-2.4) mg/dL Lactate Dehydrogenase (120-246) U/L Cortisol (3.10-22.40) ug/dL Urine Protein (Negative) Urine Blood (Negative) Urine Bacteria (None) /hpf Microbiology - Last 24 Hours (Table) 05/31/20 18:04 Urine Culture - Preliminary Urine,Voided 05/29/20 14:15 Blood Culture - Preliminary Blood No Growth after 48 hours 05/29/20 14:15 Blood Culture - Preliminary Blood No Growth after 48 hours Assessment and Plan Assessment: This is a 50-year-old female with no significant past medical history who presented to the emergency room with worsening generalized fatigue and flulike symptoms after being diagnosed with COVID-19 at an outside urgent care. Patient was evaluated in the ER and admitted to the hospital for further management of her medical problems noted below. 1. Bilateral COVID-19 pneumonia: Started on Actemra today. Decadron day #4 dose increased to 20 mg IV daily on 06/01, started on Remdesivir day #3, on zinc, vitamin D, vitamin C, and melatonin. Seen and evaluated and pulmonology, appreciate recommendations. 2. Acute hypoxic respiratory failure: Oxygen requirement increased since admission from 2 L via nasal cannula Currently on BiPAP 100% FiO2 requiring ICU monitoring 3. Suspected bacterial pneumonia with elevated pro calcitonin. Started on IV ceftriaxone and oral azithromycin day #3 discontinued today by pulmonology as they are not concerned about bacterial pneumonia at this time 4. Acute kidney injury: Prerenal secondary to hypotension and dehydration. Creatinine trending down. Seen and evaluated by nephrology. Abdominal ultrasound showed mild bilateral hydronephrosis of unclear significance. Uro logy consulted. Continue IV fluid hydration as directed by nephrology. 4. Hypovolemic shock: Received multiple IV fluid boluses. Lactic acid normal. We will continue to monitor closely. Cortisone level borderline low. Nephrology following. 5. Hypokalemia and hypomagnesemia: Replaced 6. Patient is full code 7. DVT prophylaxis with subcu Lovenox
[2020-06-01 10:59] LABS: Potassium 2.7 mmol/L (3.5-5.1)
[2020-06-01] MEDS: REMDESIVIR 100 MG in SODIUM CHLORIDE 0.9% 250 ML IVPB SCH (11:06)
[2020-06-01] MEDS: POTASSIUM CHLORIDE 10 MEQ in WATER FOR INJECTION 1 100ML.BAG IVPB SCH ×7 (11:06→23:19)
[2020-06-01 11:09] LABS: HGB 9.7 gm/dL (11.4-16.0)
[2020-06-01] MEDS ORDERED: CALCIUM GLUCONATE 1 GM in SODIUM CHLORIDE 0.9% 100 ML IVPB ONE (11:09)
[2020-06-01] MEDS ORDERED: CEFEPIME 1 GM in SODIUM CHLORIDE 0.9% 50 ML IVPB SCH (21:00)
[2020-06-01] MEDS: MELATONIN 5 MG TABLET PO SCH (22:04)
[2020-06-02] MEDS: POTASSIUM CHLORIDE 10 MEQ in WATER FOR INJECTION 1 100ML.BAG IVPB SCH ×3 (00:45→03:27)
[2020-06-02 06:32] LABS: Basophils % (A) 0 %; Eosinophils % (A) 0 %; HCT 32.7 % (34.0-46.0); HGB 10.4 gm/dL (11.4-16.0); Hypochromasia Slight; Lymphocytes # (A) 0.5 k/uL (1.0-4.8); Lymphocytes % (A) 8 %; MCV 87.7 fL (80.0-100.0); Mean Platelet Volume 8.5; Monocytes # (A) 0.4 k/uL (0-1.0); Monocytes % (A) 7 %; Neutrophils # (A) 4.5 k/uL (1.3-7.7); Neutrophils % (A) 80 %; Platelet Count 284 k/uL (150-450); Poikilocytosis Slight; RBC 3.73 m/uL (3.80-5.40); RDW 14.9 % (11.5-15.5); WBC 5.6 k/uL (3.8-10.6)
[2020-06-02 06:52] LABS: ALT 44 U/L (4-34); AST 69 U/L (14-36); African American GFR (CKD) 51 (>60 ml/min/1.73 sqM); Albumin 2.6 g/dL (3.5-5.0); Alkaline Phosphatase 59 U/L (38-126); Anion Gap 8 mmol/L; Blood Urea Nitrogen 40 mg/dL (7-17); Calcium 6.9 mg/dL (8.4-10.2); Carbon Dioxide 20 mmol/L (22-30); Chloride 116 mmol/L (98-107); Glucose 115 mg/dL (74-99); LDH 1473 U/L (313-618); Non-African American GFR(CKD) 44 (>60 ml/min/1.73 sqM); Potassium 4.1 mmol/L (3.5-5.1); Sodium 144 mmol/L (137-145); Total Bilirubin 0.4 mg/dL (0.2-1.3)
--- NOTE | 2020-06-02 07:52 | P.PN ---
Subjective Progress Note Date: 06/02/20 This is a pleasant 50-year-old female patient with no primary care provider, no chronic medical problems. No home medications. Lifelong nonsmoker. She presented to the emergency room yesterday with concerns regarding a positive CoVID 19 test on 05/26/2020. She has been having ongoing issues with generalized weakness, fatigue, poor appetite. Normal shortness of breath and cough. Chest x-ray revealed bilateral lower lobe pneumonia. Normal heart. Renal ultrasound with mild bilateral hydronephrosis. White count 5.4. Hemoglobin 13.0. Lymphocytes 0.5. Sodium 141. Potassium initially 2.7, currently 3.8. Creatinine initially 3.83, currently 2.9 area d-dimer 0.66. LDH 1455. C- reactive protein 12.5. Ferritin 387. Pro-calcitonin 0.87. Coronavirus detected by PCR. She is seen today in consultation on the regular medical floor. She is awake and alert in no acute distress. Maintaining good O2 saturations in the 90s on 2 L/m per nasal cannula. No significant acute respiratory distress. Lungs sounds with few scattered rhonchi. She will be initiated on Remdesivir, convalescent plasma, Lovenox, vitamin supplements. Antibiotics in the form of ceftriaxone and azithromycin. On 05/31/2020 and I'm seeing the patient for a follow-up. The patient is currently on 10 L of oxygen by nasal cannula. Diagnosed having Covid 19. The patient is currently on Decadron, Remdesivir the patient has also received a unit of convalescent plasma. Medically, the patient reports that she is still feeling the same compared to yesterday. The chest x-ray still showing interstitial infiltrates in the lung bases peripherally. Sodium is at 146 with a potassium level of 3.0 and a chloride is 117. D-dimer is at 0.87. Her LDH is at 465, CRP is less than 0.4. As such, the inflammatory markers have improved. Serum cortisone is low at 2.9. Her white cell count was at 5.4. Hemoglobin is at 13.0. The patient is currently on Decadron 6 mg IV. The patient is on Lindsey enox 30 mg subcu every 24 hours. Antibiotics were also added on empiric basis with a combination of Rocephin and Zithromax. Pro-calcitonin was modestly elevated at 0.87. UA showed 30 WBCs. Culture is still pending for now. Blood cultures been negative thus far. She remains on 10 L of oxygen by nasal cannula. On 06/01/2020, the patient got transferred to the intensive care unit. This occurred earlier this morning. Noted the patient's condition was gradually getting worse. She can't was on 2 L of oxygen by nasal cannula and her oxygenation gradually got worse and she was on 10 L yesterday. I increased the Decadron up to 20 mg IV. Continue the Lovenox subcu based on a low d-dimer and her dose was at 30 mg subcu every 24 hours and I ordered the second unit of convalescent plasma knowing that the patient has received 1 unit. She remains on Remdesivir . Despite all this, her condition is getting worse. Oxidation is worse and earlier this morning the patient became progressively more hypoxic and she got chest that the intensive care unit and she is currently on a BiPAP at a pressure of 10/6 cm of water and FiO2 of 100%. Her current pulse ox is in the order of 96%. Chest x-ray shows worsening of the bilateral lower lobe pulmonary infiltrates question the lung bases peripherally. Laboratory markers from today shows an LDH of 1234, which is higher compared to yesterday and the CRP is down to 5.0. Repeat UA was negative and there is no suspicion for any underlying infection. For that reason, I'm going to stop the antibiotics. The cultures of been negative thus far. She is afebrile. The white cell count today is pending.. The sodium is down to 143 and the potassium needs to be replaced at 2.5 and the creatinine continues to improve went down to 1.7 and the patient is currently receiving IV fluids in the form of D5 with 150 mEq of sodium bicarbonate the rate of 100 mL an hour. The serum bicarb today is at 23 which is essentially normalized. 3 2020 I'm seeing the patient for a follow-up. This morning, the patient is still on BiPAP at a pressure of 10/6 cm of water with an FiO2 of 90 1. The patient's chest x-ray from this morning is showing bilateral peripheral pulmonary infiltrates more so in the lower lobes right more than left. She is comfortable breathing on the BiPAP and she is not having any significant respiratory distress. Her current minute ventilation is around 12 L and a tidal volume generated is around 220 with a rate of 25 breast and minutes. Overnight, the patient had no significant issues. She is afebrile. Her white cell cause of 5.6 with a hemoglobin of 10.4. D-dimer is at 0.8. Creatinine is improved and is down to 1.4 with fluid resuscitation. LDH is high at 1473 and her CRP level is less than 5. Based on her ongoing Covid 19 related pneumonia, the patient was given higher dose of Decadron 20 mg IV every 24 hours pH is on Lovenox 30 mg subcu 24 and she is completing the course of Remdesivir day #4 and she also received Actemra 200 mg 2 doses. In terms of convalescent plasma, she has taken 2 units. No nausea. No vomiting. No diarrhea. No altered mentation. Objective - Vital Signs Vital signs: Vital Signs Temp 97 F L 06/02/20 04:00 Pulse 50 L 06/02/20 07:00 Resp 40 H 06/02/20 07:00 BP 110/83 06/02/20 07:00 Pulse Ox 91 L 06/02/20 07:00 Intake & Output 06/01/20 06/02/20 06/02/20 18:59 06:59 18:59 Intake Total 2265 900 75 Output Total 980 680 35 Balance 1285 220 40 Intake: IV 825 75 .9 825 75 Intake, IV Titration 2265 75 Amount Azithromycin 500 mg In 250 Sodium Chloride 0.9% 250 ml @ 250 mls/hr IVPB DAILY [facility] Rx#:[id number] Calcium Gluconate 1 gm In 100 Sodium Chloride 0.9% 100 ml @ 100 mls/hr IVPB ONCE ONE Rx#:[id number] Dexamethasone Sod 50 Phosphate 20 mg In Dextrose 5% in Water 50 ml @ 100 mls/hr IV DAILY [facility] Rx#:[id number] Dextrose 5% in Water 1, 100 000 ml @ 100 mls/hr IV . [id number] [facility] with Sodium Bicarb (1 Meq/ml) 150 ml Rx#:[id number] Magnesium Sulfate-D5w Pmx 100 1 gm In Dextrose/Water 1 100ml.bag @ 100 mls/hr IVPB Q1H [facility] Rx#: [id number] Potassium Chloride 10 meq 500 In Water For Injection 1 100ml.bag @ 100 mls/hr IVPB Q1HR [facility] Rx#: [id number] Remdesivir 100 mg In 250 Sodium Chloride 0.9% 250 ml @ 250 mls/hr IVPB DAILY@1100 [facility] Rx#: [id number] Sodium Chloride 0.9% 1, 675 75 000 ml @ 75 mls/hr IV . [id number] [facility] Rx#:[id number] Tocilizumab 200 mg In 90 Sodium Chloride 0.9% 90 ml @ 100 mls/hr IV ONCE ONE Rx#:[id number] cefTRIAXone 1 gm In 50 Sodium Chloride 0.9% 50 ml @ 100 mls/hr IVPB Q24HR [facility] Rx#:[id number] cefTRIAXone 1 gm In 100 Sodium Chloride 0.9% 50 ml @ 100 mls/hr IVPB Q24HR [facility] Rx#:[id number] Output: Urine 980 680 35 Other: Voiding Method Indwelling Catheter Indwelling Catheter - Exam GENERAL EXAM: Alert, pleasant 50-year-old female patient, on BiPAP at a pressure of 10/6 with an FiO2 of 90%. She seems to be more respiratory distress compared to yesterday. She is able to tolerate the BiPAP. She is quite dependent and she easily desaturates when she is off the BiPAP. She has occasional coughing spells. HEAD: Normocephalic. EYES: Normal reaction of pupils, equal size. NOSE: Clear with pink turbinates. THROAT: No erythema or exudates. NECK: No masses, no JVD. CHEST: No chest wall deformity. LUNGS: Equal air entry with few bilateral scattered rhonchi. CVS: S1 and S2 normal with no audible murmur, regular rhythm. ABDOMEN: No hepatosplenomegaly, normal bowel sounds, no guarding or rigidity. SPINE: No scoliosis or deformity SKIN: No rashes CENTRAL NERVOUS SYSTEM: No focal deficits, tone is normal in all 4 extremities. She is awake and she is EXTREMITIES: There is no peripheral edema. No clubbing, no cyanosis. Peripheral pulses are intact. - Labs CBC & Chem 7: 06/02/20 06:04 06/02/20 06:04 Labs: Abnormal Lab Results - Last 24 Hours (Table) 06/01/20 06/01/20 06/01/20 Range/Units 09:56 09:56 22:24 RBC 3.38 L (3.80-5.40) m/uL Hgb 9.7 L D (11.4-16.0) gm/dL Hct 28.8 L (34.0-46.0) % Lymphocytes # (1.0-4.8) k/uL D-Dimer (<0.60) mg/L FEU Potassium 2.7 L* 3.4 L (3.5-5.1) mmol/L Chloride 111 H (98-107) mmol/L Carbon Dioxide (22-30) mmol/L BUN 42 H (7-17) mg/dL Creatinine 1.67 H (0.52-1.04) mg/dL Glucose 121 H (74-99) mg/dL Calcium 6.6 L (8.4-10.2) mg/dL AST (14-36) U/L ALT (4-34) U/L Lactate Dehydrogenase (313-618) U/L Total Protein (6.3-8.2) g/dL Albumin (3.5-5.0) g/dL 06/02/20 06/02/20 06/02/20 Range/Units 06:04 06:04 06:04 RBC 3.73 L (3.80-5.40) m/uL Hgb 10.4 L (11.4-16.0) gm/dL Hct 32.7 L (34.0-46.0) % Lymphocytes # 0.5 L (1.0-4.8) k/uL D-Dimer 0.81 H (<0.60) mg/L FEU Potassium (3.5-5.1) mmol/L Chloride 116 H (98-107) mmol/L Carbon Dioxide 20 L (22-30) mmol/L BUN 40 H (7-17) mg/dL Creatinine 1.40 H (0.52-1.04) mg/dL Glucose 115 H (74-99) mg/dL Calcium 6.9 L (8.4-10.2) mg/dL AST 69 H (14-36) U/L ALT 44 H (4-34) U/L Lactate Dehydrogenase 1473 H (313-618) U/L Total Protein 5.0 L (6.3-8.2) g/dL Albumin 2.6 L (3.5-5.0) g/dL Microbiology - Last 24 Hours (Table) 02/27/21 14:15 Blood Culture - Preliminary Blood No Growth after 72 hours 05/29/20 14:15 Blood Culture - Preliminary Blood No Growth after 72 hours 05/31/20 18:04 Urine Culture - Preliminary Urine,Voided Assessment and Plan Plan: 1 Acute hypoxic respiratory failure secondary to acute CoVID 19 pneumonia. Initiated on Remdesivir day # 4 and convalescent plasma 2 units were given and the patient currently is on Decadron 20 mg IV push every 24 hours.. The patient is progressively getting worse. The patient was on 2 L of oxygen with nasal cannula and the patient and progressively getting worse and she is up to 10 L and subsequently the patient got placed on BiPAP at a pressure of 10/6 with an FiO2 of 90% knowing that earlier measures failed to maintain his oxygenation the patient was becoming progressively more hypoxic. Chest x-ray shows worsening of the by the pulmonary infiltrates and elevation of amylase still elevated. Subsequently, based on her ongoing decline, Actemra is initiated at a dose of 200 mg and she received 2 separate infusions. This morning, she is still on BiPAP at the same setting. Chest x-ray is showing some interval stability compared to yesterday and the patient's condition is stable for now. She is critical but stable. 2 Acute CoVID 19 infection with elevated inflammatory markers, and the levels including LDH is elevated. D-dimer is low. The patient is on prophylactic dose of Lovenox. 3 Acute renal failure suspect secondary to dehydration and hypotension, improving creatinine is down to 1.4 4 Hypokalemia secondary to above, will need to be replaced 5 Mild hydronephrosis 6 non-anion gap metabolic acidosis , improved Plan: Chest x-ray today was reviewed Continue BiPAP for respiratory support Drop the FiO2 as tolerated to maintain a saturation above 90% Inserted PICC line and give the patient some parenteral nutrition Inflammatory markers to be repeated exam , LDH level remains elevated and LDH continues to be elevated Continue Remdesivirper protocol day #4, convalescent plasma 2 units and continue with Decadron 20 mg IV every 24 hours and Lovenox 30mg Subcu for DVT prophylaxis. dexamethasone up to 20 mg IV every 24 hours for the next 3 days vitamin supplements Discontinue antibiotics , and repeat a pro-calcitonin level Continue bronchodilators Continues to be on 0.9 at the rate of 75 mL an hour. The serum bicarb today is at 20 and the creatinine continues to improve is currently down to 1.4. Critical care evaluation more than 30 minutes . Time with Patient: Greater than 30
[2020-06-02] MEDS: DEXAMETHASONE SOD PHOSPHATE 20 MG in DEXTROSE 5% IN WATER 50 ML IV SCH ×2 (08:15)
[2020-06-02] MEDS: ENOXAPARIN 30 MG/0.3 ML SYRINGE SQ SCH (08:15)
--- NOTE | 2020-06-02 08:23 | XR ---
EXAMINATION TYPE: XR chest 1V portable DATE OF EXAM: 06/02/2020 COMPARISON: Chest x-ray 06/01/2020 HISTORY: ICU management, abnormal chest x-ray TECHNIQUE: Single frontal view of the chest is obtained. FINDINGS: Findings are similar to prior exam. Interval obscured right hemidiaphragm. Cardiac mediast inal silhouette is stable. No evident pneumothorax. There are overlying artifacts. IMPRESSION: Suspect some progression in patient's airspace disease, correlate for pneumonia. Effusio n difficult to exclude.
[2020-06-02 08:41] LABS: Prothrombin Time 11.1 sec (9.0-12.0)
[2020-06-02] MEDS: ALBUTEROL HFA INHALER INHALATION SCH ×4 (08:51→21:46)
[2020-06-02 09:33] LABS: C Reactive Protein <5.0 mg/L (<10.0)
[2020-06-02] MEDS: CHOLECALCIFEROL 25 MCG (1000 IU) TABLET PO SCH (09:43)
[2020-06-02] MEDS: ASCORBIC ACID 500 MG TAB PO SCH ×2 (09:43→21:49)
[2020-06-02] MEDS: ZINC SULFATE 220 MG CAP PO SCH (09:44)
[2020-06-02] MEDS ORDERED: LIDOCAINE 1% INJ 10MG/ML (20 ML MDV) SQ ONE (10:36)
--- NOTE | 2020-06-02 10:47 | P.PN ---
Subjective Patient is seen in follow-up for acute kidney injury. Renal function improving. Nonoliguric. Remains on BiPAP. Maintained on normal saline. Oral intake poor. Vital signs are stable. Currently on BiPAP. No gross edema noted. Exam discussed with the nurse. Objective - Vital Signs Vital signs: Vital Signs Temp 96.8 F L 06/02/20 08:00 Pulse 46 L 06/02/20 10:00 Resp 29 H 06/02/20 10:00 BP 116/82 06/02/20 10:00 Pulse Ox 95 06/02/20 10:00 Intake & Output 06/01/20 06/02/20 06/02/20 18:59 06:59 18:59 Intake Total 2265 900 350 Output Total 980 680 240 Balance 1285 220 110 Weight 53 kg 53 kg Intake: IV 825 300 .9 825 300 Intake, IV Titration 2265 75 50 Amount Azithromycin 500 mg In 250 Sodium Chloride 0.9% 250 ml @ 250 mls/hr IVPB DAILY [facility] Rx#:[id number] Calcium Gluconate 1 gm In 100 Sodium Chloride 0.9% 100 ml @ 100 mls/hr IVPB ONCE ONE Rx#:[id number] Dexamethasone Sod 50 50 Phosphate 20 mg In Dextrose 5% in Water 50 ml @ 100 mls/hr IV DAILY [facility] Rx#:[id number] Dextrose 5% in Water 1, 100 000 ml @ 100 mls/hr IV . [id number] [facility] with Sodium Bicarb (1 Meq/ml) 150 ml Rx#:[id number] Magnesium Sulfate-D5w Pmx 100 1 gm In Dextrose/Water 1 100ml.bag @ 100 mls/hr IVPB Q1H [facility] Rx#: [id number] Potassium Chloride 10 meq 500 In Water For Injection 1 100ml.bag @ 100 mls/hr IVPB Q1HR [facility] Rx#: [id number] Remdesivir 100 mg In 250 Sodium Chloride 0.9% 250 ml @ 250 mls/hr IVPB DAILY@1100 [facility] Rx#: [id number] Sodium Chloride 0.9% 1, 675 75 000 ml @ 75 mls/hr IV . [id number] [facility] Rx#:[id number] Tocilizumab 200 mg In 90 Sodium Chloride 0.9% 90 ml @ 100 mls/hr IV ONCE ONE Rx#:[id number] cefTRIAXone 1 gm In 50 Sodium Chloride 0.9% 50 ml @ 100 mls/hr IVPB Q24HR [facility] Rx#:[id number] cefTRIAXone 1 gm In 100 Sodium Chloride 0.9% 50 ml @ 100 mls/hr IVPB Q24HR [facility] Rx#:[id number] Output: Urine 980 680 240 Other: Voiding Method Indwelling Catheter Indwelling Catheter Indwelling Catheter - Labs CBC & Chem 7: 06/02/20 06:04 06/02/20 06:04 Labs: Abnormal Lab Results - Last 24 Hours (Table) 06/01/20 06/01/20 06/01/20 Range/Units 09:56 09:56 22:24 RBC 3.38 L (3.80-5.40) m/uL Hgb 9.7 L D (11.4-16.0) gm/dL Hct 28.8 L (34.0-46.0) % Lymphocytes # (1.0-4.8) k/uL D-Dimer (<0.60) mg/L FEU Potassium 2.7 L* 3.4 L (3.5-5.1) mmol/L Chloride 111 H (98-107) mmol/L Carbon Dioxide (22-30) mmol/L BUN 42 H (7-17) mg/dL Creatinine 1.67 H (0.52-1.04) mg/dL Glucose 121 H (74-99) mg/dL Calcium 6.6 L (8.4-10.2) mg/dL AST (14-36) U/L ALT (4-34) U/L Lactate Dehydrogenase (313-618) U/L Total Protein (6.3-8.2) g/dL Albumin (3.5-5.0) g/dL 06/02/20 06/02/20 06/02/20 Range/Units 06:04 06:04 06:04 RBC 3.73 L (3.80-5.40) m/uL Hgb 10.4 L (11.4-16.0) gm/dL Hct 32.7 L (34.0-46.0) % Lymphocytes # 0.5 L (1.0-4.8) k/uL D-Dimer 0.81 H (<0.60) mg/L FEU Potassium (3.5-5.1) mmol/L Chloride 116 H (98-107) mmol/L Carbon Dioxide 20 L (22-30) mmol/L BUN 40 H (7-17) mg/dL Creatinine 1.40 H (0.52-1.04) mg/dL Glucose 115 H (74-99) mg/dL Calcium 6.9 L (8.4-10.2) mg/dL AST 69 H (14-36) U/L ALT 44 H (4-34) U/L Lactate Dehydrogenase 1473 H (313-618) U/L Total Protein 5.0 L (6.3-8.2) g/dL Albumin 2.6 L (3.5-5.0) g/dL Microbiology - Last 24 Hours (Table) 05/29/20 14:15 Blood Culture - Preliminary Blood No Growth after 72 hours 05/29/20 14:15 Blood Culture - Preliminary Blood No Growth after 72 hours 05/31/20 18:04 Urine Culture - Preliminary Urine,Voided Assessment and Plan Plan: Assessment: 1. Acute kidney injury mostly prerenal secondary to hypotension/hypovolemia and infection. Creatinine 3.8 on admission and down to 1.4 today. Unknown baseline. 2. Mild bilateral hydronephrosis. Urology following. 3. Metabolic acidosis secondary to acute kidney injury, diarrhea and IV fluids. Status post bicarb drip. 4. Hypokalemia from poor intake and intracellular shifting from bicarb. Status post replacement. 5. Covid-19 infection maintained on steroids, zinc, tocilizumab, and remdesivir. 6. Hypomagnesemia from poor intake. Improved post replacement. 7. Hypocalcemia secondary to acute kidney injury. Corrected calcium 8.1. Ionized calcium 4.5. Plan: Maintain normal saline at 75 mL an hour. Add oral sodium bicarbonate. Cortisol level slightly on the lower side. Patient is receiving steroids. Continue to monitor renal function and urine output. 1 g IV calcium gluconate today. Check PTH and vitamin D level. Wean FiO2.
[2020-06-02] MEDS ORDERED: SODIUM BICARBONATE TAB 650 MG TAB PO SCH (11:00)
[2020-06-02] MEDS ORDERED: CALCIUM GLUCONATE 1 GM in SODIUM CHLORIDE 0.9% 100 ML IVPB ONE (11:00)
--- NOTE | 2020-06-02 11:03 | XR ---
EXAMINATION TYPE: XR chest 1V portable DATE OF EXAM: 06/02/2020 COMPARISON: Prior chest x-ray 06/02/2020 HISTORY: PICC line placement TECHNIQUE: Single frontal view of the chest is obtained. FINDINGS: There is been interval placement of a right-sided PICC line, distal tip is at the cavoatri al junction. There may be some improved aeration at the lung bases. Lung apices not included on exam. IMPRESSION: No evident complication status post PICC line placement.
[2020-06-02] MEDS: REMDESIVIR 100 MG in SODIUM CHLORIDE 0.9% 250 ML IVPB SCH (11:04)
[2020-06-02 11:19] LABS: Glucose,Whole Blood 110 mg/dL (75-99)
[2020-06-02] MEDS: INSULIN ASPART (NovoLOG) 100 UNIT/ML VIAL SQ SCH ×3 (11:31→23:31)
[2020-06-02] MEDS ORDERED: SODIUM BICARB 8.4% 50 ML SYR (1 MEQ/ML) IV STA (12:18)
[2020-06-02 12:23] LABS: Phosphorus 4.2 mg/dL (2.5-4.5)
[2020-06-02] MEDS: SODIUM CHLORIDE 0.9% 1,000 ML IV SCH ×2 (12:29→23:33)
[2020-06-02] MEDS ORDERED: [UNRECOGNIZED DRUG - REMARK] IV ONE ×14 (13:00)
--- NOTE | 2020-06-02 13:00 | IR ---
EXAMINATION TYPE: IR cvc insert >=5 years DATE OF EXAM: 06/02/2020 COMPARISON: NONE HISTORY: Needs long-term intravenous access for total parenteral nutrition FINDINGS: Maximal barrier technique was utilized. Hand hygiene obtained with soap and water and alco hol-based hand rub. The skin overlying the right brachial vein was localized with ultrasound and note d to be compressible and patent by ultrasound. An ultrasound image was obtained and submitted on pat ient's chart. Sterile technique utilized with the ultrasound machine. The skin overlying was prepped and draped and Lidocaine used for local anesthesia. A skin miguel was made with a scalpel. Access was gained to the vein under direct ultrasound guidance with a 21-gauge needle and a 0.018 inch wire was advanced. Access site was dilated with a peel-away sheath and the catheter tailored to length. Cat heter advanced centrally and a post procedure chest x-ray verified placement with the tip in the cavo atrial junction level. Catheter was fixed to the skin and a sterile dressing placed. Hemostasis ach ieved and the catheter was aspirated and flushed with sterile saline. The patient remained in stable condition. IMPRESSION: STATUS POST ULTRASOUND GUIDED PICC LINE PLACEMENT, READY FOR USE. THIS PROCEDURE WAS PER FORMED BY THE UNDERSIGNED.
--- NOTE | 2020-06-02 13:24 | CDI ---
Documentation Clarification Form Date: 06/02/2020 01:02:57 PM From: Bella Woodson CCS, CCDS Admit Date: 05/29/2020 03:05:00 PM Patient Name: Sade Brewer Visit Number: [id number] Discharge Date: ATTENTION: The Clinical Documentation Specialists (CDI) and [facility] Coding Staff appreciate your assistance in clarifying documentation. Please respond to the clarification below the line at the bottom and electronically sign. The CDI & [facility] Coding staff will review the response and follow-up if needed. Please note: Queries are made part of the Legal Health Record. If you have any questions, please contact the author of this message via ITS. Dr. Keshia Rothman: Per the 05/29 ED Note: The patient presented with Generalized Weakness, Decreased Appetite, Cough with Difficulty in Breathing, Headaches, Fever, Chills, Sore Throat, Nausea and Myalgias. The patient tested positive for COVID-19 three days prior. ED Clinical Impression: Pneumonia due to COVID-19 Virus. Per the 05/29 History & Physical Assessment: Bilateral COVID-19 Pneumonia, Acute Hypoxic Respiratory Failure, DUSTIN, Hypovolemic Shock and Hypokalemia. History/Risk Factors: Low Blood Pressure, Anemia. Clinical Indicators: Presented to the ED as above. Per the 06/01 Attending Progress Note: Also Suspected Bacterial Pneumonia with elevated ProCalcitonin. 05/29 VS: T 97.9, P 85, R 16 - 19 (SOB, labored, tachypnea), BP 80/48, PO 89 RA - 98 4Lnc 05/30 VS: T 97.2, P 84, R 16 - 22, BP 94/59, PO 90 - 93 5Lnc 06/02 VS: T 96.8, P 43, R 30 (SOB, labored), BP 105/93, PO 91 BiPAP 05/29 LAB: WBC 5.4, Neut 4.6, Lymph 0.5, Ferritin 387.1, AST 126, ALT 63, LDH 1455, CRP 12.5, Procalcitonin 0.87 05/29 COVID Negative 06/01 Blood Gas: ABG: pH 7.49, pCO2 31, pO2 74 06/02 LAB: WBC 5.6, Neut 4.5, Lymph 0.5, D Dimer 0.81, AST 69, AT 44, LDH 1473 05/29 CXR: Bilateral lower lobe pneumonia is new compared to old exam. 06/02 CXR: Suspect some progression in patient's airspace disease, correlate for pneumonia. Effusion difficult to exclude. Treatment 05/29: INH Ventolin 2 puffs QID, IV [id number] mls @ 999 mls/hr q31M, IV KCL, po KDur, IV Decadron, Lovenox sq q24Hr, IV fluid 1,000 mls @ 999 mls/hr q1H, po Vit C. 05/30 IV po Zithromax, IV Rocephin, IV Remdesivir 250 mls @ 250 mls/hr x2 06/01: IV Cefepime, IV MagSulfate, IV Aziithromycin, IV Rocephin, IV Decadron, IV Morphine, IV Actemra TPN via PICC started 06/02. In your professional opinion, please clarify if these findings signify one of the following conditions, whether the condition is POA, and cause, if known: Sepsis o Severe Sepsis Other, please specify Unable to determine Present on Admission o Yes o No Identify the (suspected) organism Link or clarify if there is associated (due to/with): o Organ failure (Last Revision: July 2017) Sepsis due to COVID MTDD
[2020-06-02] MEDS: FAT EMULSION 20% 250 ML in EMPTY BAG 1 BAG IV SCH (16:11)
[2020-06-02 16:16] LABS: Glucose,Whole Blood 139 mg/dL (75-99)
--- NOTE | 2020-06-02 16:27 | P.PN ---
Subjective Progress Note Date: 06/02/20 (delayed charting seen at 1115) Principal diagnosis: shortness of breath Patient is a 50-year-old female with no significant past medical history who initially presented with generalized fatigue for 5 days duration. In the ER she underwent an extensive evaluation. She was hypoxic with an O2 sat of 89% on room air. Chest x-ray showed bilateral pneumonia. She was found have acute kidney injury with hypokalemia and a potassium level of 2.7. She had already gone to a local urgent care and had a rapid COVID-19 test which was positive. Renal ultrasound with bilateral hydronephrosis. She was admitted and started on IV fluids, Decadron, vitamin D, vitamin C, zinc, and melatonin. Pulmonary and nephrology were consulted. Nephrology started her on a sodium bicarb drip and consulted urology. Seen by urology and post void residual was normal and therefore no intervention was required. She was seen by pulmonary and started on remdesivir. She received convalescent plasma on 05/30. Her oxygen requirements continued to worsen necessitating 10 L high flow nasal cannula by 05/31. She received a second unit of, was plasma on 05/31. She was transferred to the ICU overnight on 06/01. She was started on BiPAP therapy secondary to hypoxemia. Her Decadron dose was increased. SHe was given actemra was given 06/01. Patient seen and examined at bedside. She is on BiPAP. She appears frightened and states she is nervous. She also complains of some shortness of breath. Per nursing preparing for PICC line secondary to decreased oral intake and likely need for prolonged BiPAP. General: Ill-appearing, moderate distress appears at stated age Derm: warm, dry Head: atraumatic, normocephalic, symmetric Eyes: EOMI, no lid lag, anicteric sclera Mouth: no lip lesion, mucus membranes dry Cardiovascular: S1S2 reg, no murmur, positive posterior tibial pulse bilateral, Lungs: Course breath sounds bilateral, no rhonchi, no rales , no accessory muscle use, on BiPAP Abdominal: soft, nontender to palpation, no guarding, no appreciable organomegaly Ext: no gross muscle atrophy, trace edema, no contractures Neuro: CN II-XI grossly intact, no focal neuro deficits Psych: Alert, oriented, appears anxious COVID-19 pneumonia acute hypoxic respiratory failure -Dexamethasone - Pulmonary recs - bronchodilators - VIt C, Vit D - Remdesivir - Zinc - s/p 2 untis of convolescent plasma and tocilizumab Severe protein calorie malnutrition -Currently BiPAP dependent -PICC line ordered and TPN ordered. DUSTIN. improving likely secondary to hypotension/hypovolemia and infection - nephrology recs -Continue with normal saline - Transaminitis -Likely due to above -Monitor closely with TPN Anemia -Was normal on arrival and suspected due to dilutional anemia from frequent blood draws -Follow CBC -No further intervention at this point in time Hyperchloremic metabolic acidosis -Likely secondary to IV fluid resuscitation -Continue to monitor with beginning of TPN. -Sodium bicarb recommendations per nephrology Mild bilateral hydronephrosis -Urology following -No additional intervention planned Hypokalemia, resolved Hypocalcemia, resolved Hypomagnesemia DVT prophylaxis: Lovenox Discussed with: patient, nursing Anticipated discharge: 1-[address]: undetermined A total of 45 minutes was spent on the care of this complex patient more than 50% of the time was spent in counseling and care coordination. Objective - Vital Signs Vital signs: Vital Signs Temp 97 F L 06/02/20 04:00 Pulse 50 L 06/02/20 07:00 Resp 40 H 06/02/20 07:00 BP 110/83 06/02/20 07:00 Pulse Ox 91 L 06/02/20 07:00 Intake & Output 06/01/20 06/02/20 06/02/20 18:59 06:59 18:59 Intake Total 2265 900 75 Output Total 980 680 35 Balance 1285 220 40 Intake: IV 825 75 .9 825 75 Intake, IV Titration 2265 75 Amount Azithromycin 500 mg In 250 Sodium Chloride 0.9% 250 ml @ 250 mls/hr IVPB DAILY [facility] Rx#:[id number] Calcium Gluconate 1 gm In 100 Sodium Chloride 0.9% 100 ml @ 100 mls/hr IVPB ONCE ONE Rx#:[id number] Dexamethasone Sod 50 Phosphate 20 mg In Dextrose 5% in Water 50 ml @ 100 mls/hr IV DAILY [facility] Rx#:[id number] Dextrose 5% in Water 1, 100 000 ml @ 100 mls/hr IV . [id number] [facility] with Sodium Bicarb (1 Meq/ml) 150 ml Rx#:[id number] Magnesium Sulfate-D5w Pmx 100 1 gm In Dextrose/Water 1 100ml.bag @ 100 mls/hr IVPB Q1H [facility] Rx#: [id number] Potassium Chloride 10 meq 500 In Water For Injection 1 100ml.bag @ 100 mls/hr IVPB Q1HR [facility] Rx#: [id number] Remdesivir 100 mg In 250 Sodium Chloride 0.9% 250 ml @ 250 mls/hr IVPB DAILY@1100 [facility] Rx#: [id number] Sodium Chloride 0.9% 1, 675 75 000 ml @ 75 mls/hr IV . [id number] [facility] Rx#:[id number] Tocilizumab 200 mg In 90 Sodium Chloride 0.9% 90 ml @ 100 mls/hr IV ONCE ONE Rx#:[id number] cefTRIAXone 1 gm In 50 Sodium Chloride 0.9% 50 ml @ 100 mls/hr IVPB Q24HR [facility] Rx#:[id number] cefTRIAXone 1 gm In 100 Sodium Chloride 0.9% 50 ml @ 100 mls/hr IVPB Q24HR [facility] Rx#:[id number] Output: Urine 980 680 35 Other: Voiding Method Indwelling Catheter Indwelling Catheter - Labs CBC & Chem 7: 06/02/20 06:04 06/02/20 06:04 Labs: Abnormal Lab Results - Last 24 Hours (Table) 06/01/20 06/01/20 06/01/20 Range/Units 07:40 09:56 09:56 RBC 3.38 L (3.80-5.40) m/uL Hgb 9.7 L D (11.4-16.0) gm/dL Hct 28.8 L (34.0-46.0) % Lymphocytes # (1.0-4.8) k/uL D-Dimer (<0.60) mg/L FEU ABG pH 7.49 H (7.35-7.45) ABG pCO2 31 L (35-45) mmHg ABG pO2 74 L (83-108) mmHg Potassium 2.7 L* (3.5-5.1) mmol/L Chloride 111 H (98-107) mmol/L Carbon Dioxide (22-30) mmol/L BUN 42 H (7-17) mg/dL Creatinine 1.67 H (0.52-1.04) mg/dL Glucose 121 H (74-99) mg/dL Calcium 6.6 L (8.4-10.2) mg/dL AST (14-36) U/L ALT (4-34) U/L Lactate Dehydrogenase (313-618) U/L Total Protein (6.3-8.2) g/dL Albumin (3.5-5.0) g/dL 06/01/20 06/02/20 06/02/20 Range/Units 22:24 06:04 06:04 RBC (3.80-5.40) m/uL Hgb (11.4-16.0) gm/dL Hct (34.0-46.0) % Lymphocytes # (1.0-4.8) k/uL D-Dimer 0.81 H (<0.60) mg/L FEU ABG pH (7.35-7.45) ABG pCO2 (35-45) mmHg ABG pO2 (83-108) mmHg Potassium 3.4 L (3.5-5.1) mmol/L Chloride 116 H (98-107) mmol/L Carbon Dioxide 20 L (22-30) mmol/L BUN 40 H (7-17) mg/dL Creatinine 1.40 H (0.52-1.04) mg/dL Glucose 115 H (74-99) mg/dL Calcium 6.9 L (8.4-10.2) mg/dL AST 69 H (14-36) U/L ALT 44 H (4-34) U/L Lactate Dehydrogenase 1473 H (313-618) U/L Total Protein 5.0 L (6.3-8.2) g/dL Albumin 2.6 L (3.5-5.0) g/dL 06/02/20 Range/Units 06:04 RBC 3.73 L (3.80-5.40) m/uL Hgb 10.4 L (11.4-16.0) gm/dL Hct 32.7 L (34.0-46.0) % Lymphocytes # 0.5 L (1.0-4.8) k/uL D-Dimer (<0.60) mg/L FEU ABG pH (7.35-7.45) ABG pCO2 (35-45) mmHg ABG pO2 (83-108) mmHg Potassium (3.5-5.1) mmol/L Chloride (98-107) mmol/L Carbon Dioxide (22-30) mmol/L BUN (7-17) mg/dL Creatinine (0.52-1.04) mg/dL Glucose (74-99) mg/dL Calcium (8.4-10.2) mg/dL AST (14-36) U/L ALT (4-34) U/L Lactate Dehydrogenase (313-618) U/L Total Protein (6.3-8.2) g/dL Albumin (3.5-5.0) g/dL Microbiology - Last 24 Hours (Table) 05/29/20 14:15 Blood Culture - Preliminary Blood No Growth after 72 hours 05/29/20 14:15 Blood Culture - Preliminary Blood No Growth after 72 hours 05/31/20 18:04 Urine Culture - Preliminary Urine,Voided
[2020-06-02] MEDS: MORPHINE SULFATE 2 MG/ML SYRINGE IVP PRN ×2 (16:57→21:50)
[2020-06-02 20:39] LABS: Glucose,Whole Blood 140 mg/dL (75-99)
[2020-06-02] MEDS: MELATONIN 5 MG TABLET PO SCH (21:49)
[2020-06-03 04:03] LABS: Glucose,Whole Blood 148 mg/dL (75-99)
[2020-06-03 04:42] LABS: Basophils # (A) 0.1 k/uL (0-0.2); Basophils % (A) 1 %; Eosinophils % (A) 0 %; HCT 34.8 % (34.0-46.0); Hypochromasia Moderate; Lymphocytes # (A) 0.5 k/uL (1.0-4.8); Lymphocytes % (A) 5 %; MCH 28.1 pg (25.0-35.0); MCHC 31.6 g/dL (31.0-37.0); MCV 88.9 fL (80.0-100.0); Mean Platelet Volume 8.9; Monocytes # (A) 0.6 k/uL (0-1.0); Monocytes % (A) 6 %; Neutrophils # (A) 8.7 k/uL (1.3-7.7); Neutrophils % (A) 86 %; Platelet Count 363 k/uL (150-450); RBC 3.91 m/uL (3.80-5.40)
[2020-06-03 05:03] LABS: ALT 49 U/L (4-34); AST 71 U/L (14-36); African American GFR (CKD) 59 (>60 ml/min/1.73 sqM); Albumin 2.5 g/dL (3.5-5.0); Alkaline Phosphatase 56 U/L (38-126); Anion Gap 8 mmol/L; Blood Urea Nitrogen 45 mg/dL (7-17); Calcium 7.3 mg/dL (8.4-10.2); Carbon Dioxide 23 mmol/L (22-30); Chloride 116 mmol/L (98-107); Glucose 146 mg/dL (74-99); Non-African American GFR(CKD) 51 (>60 ml/min/1.73 sqM); Phosphorus 4.1 mg/dL (2.5-4.5); Potassium 3.7 mmol/L (3.5-5.1); Sodium 147 mmol/L (137-145); Total Bilirubin 0.4 mg/dL (0.2-1.3); Total Protein 4.9 g/dL (6.3-8.2)
[2020-06-03 05:06] LABS: C Reactive Protein <5.0 mg/L (<10.0)
[2020-06-03] MEDS: INSULIN ASPART (NovoLOG) 100 UNIT/ML VIAL SQ SCH ×4 (05:12→22:37)
[2020-06-03] MEDS ORDERED: POTASSIUM CHLORIDE 20 MEQ in WATER FOR INJECTION 1 100ML.BAG IVPB STA (05:17)
[2020-06-03] MEDS: ENOXAPARIN 40 MG/0.4 ML SYRINGE SQ SCH (08:14)
[2020-06-03] MEDS: DEXAMETHASONE SOD PHOSPHATE 20 MG in DEXTROSE 5% IN WATER 50 ML IV SCH ×2 (08:14)
[2020-06-03] MEDS: SODIUM CHLORIDE 0.9% 1,000 ML IV SCH (08:18)
[2020-06-03] MEDS: ALBUTEROL HFA INHALER INHALATION SCH ×4 (08:19→20:07)
--- NOTE | 2020-06-03 09:05 | P.PN ---
Subjective Progress Note Date: 06/03/20 This is a pleasant 50-year-old female patient with no primary care provider, no chronic medical problems. No home medications. Lifelong nonsmoker. She presented to the emergency room yesterday with concerns regarding a positive CoVID 19 test on 05/26/2020. She has been having ongoing issues with generalized weakness, fatigue, poor appetite. Normal shortness of breath and cough. Chest x-ray revealed bilateral lower lobe pneumonia. Normal heart. Renal ultrasound with mild bilateral hydronephrosis. White count 5.4. Hemoglobin 13.0. Lymphocytes 0.5. Sodium 141. Potassium initially 2.7, currently 3.8. Creatinine initially 3.83, currently 2.9 area d-dimer 0.66. LDH 1455. C- reactive protein 12.5. Ferritin 387. Pro-calcitonin 0.87. Coronavirus detected by PCR. She is seen today in consultation on the regular medical floor. She is awake and alert in no acute distress. Maintaining good O2 saturations in the 90s on 2 L/m per nasal cannula. No significant acute respiratory distress. Lungs sounds with few scattered rhonchi. She will be initiated on Remdesivir, convalescent plasma, Lovenox, vitamin supplements. Antibiotics in the form of ceftriaxone and azithromycin. On 05/31/2020 and I'm seeing the patient for a follow-up. The patient is currently on 10 L of oxygen by nasal cannula. Diagnosed having Covid 19. The patient is currently on Decadron, Remdesivir the patient has also received a unit of convalescent plasma. Medically, the patient reports that she is still feeling the same compared to yesterday. The chest x-ray still showing interstitial infiltrates in the lung bases peripherally. Sodium is at 146 with a potassium level of 3.0 and a chloride is 117. D-dimer is at 0.87. Her LDH is at 465, CRP is less than 0.4. As such, the inflammatory markers have improved. Serum cortisone is low at 2.9. Her white cell count was at 5.4. Hemoglobin is at 13.0. The patient is currently on Decadron 6 mg IV. The patient is on Lindsey enox 30 mg subcu every 24 hours. Antibiotics were also added on empiric basis with a combination of Rocephin and Zithromax. Pro-calcitonin was modestly elevated at 0.87. UA showed 30 WBCs. Culture is still pending for now. Blood cultures been negative thus far. She remains on 10 L of oxygen by nasal cannula. On 06/01/2020, the patient got transferred to the intensive care unit. This occurred earlier this morning. Noted the patient's condition was gradually getting worse. She can't was on 2 L of oxygen by nasal cannula and her oxygenation gradually got worse and she was on 10 L yesterday. I increased the Decadron up to 20 mg IV. Continue the Lovenox subcu based on a low d-dimer and her dose was at 30 mg subcu every 24 hours and I ordered the second unit of convalescent plasma knowing that the patient has received 1 unit. She remains on Remdesivir . Despite all this, her condition is getting worse. Oxidation is worse and earlier this morning the patient became progressively more hypoxic and she got chest that the intensive care unit and she is currently on a BiPAP at a pressure of 10/6 cm of water and FiO2 of 100%. Her current pulse ox is in the order of 96%. Chest x-ray shows worsening of the bilateral lower lobe pulmonary infiltrates question the lung bases peripherally. Laboratory markers from today shows an LDH of 1234, which is higher compared to yesterday and the CRP is down to 5.0. Repeat UA was negative and there is no suspicion for any underlying infection. For that reason, I'm going to stop the antibiotics. The cultures of been negative thus far. She is afebrile. The white cell count today is pending.. The sodium is down to 143 and the potassium needs to be replaced at 2.5 and the creatinine continues to improve went down to 1.7 and the patient is currently receiving IV fluids in the form of D5 with 150 mEq of sodium bicarbonate the rate of 100 mL an hour. The serum bicarb today is at 23 which is essentially normalized. 2020 I'm seeing the patient for a follow-up. This morning, the patient is still on BiPAP at a pressure of 10/6 cm of water with an FiO2 of 90 1. The patient's chest x-ray from this morning is showing bilateral peripheral pulmonary infiltrates more so in the lower lobes right more than left. She is comfortable breathing on the BiPAP and she is not having any significant respiratory distress. Her current minute ventilation is around 12 L and a tidal volume generated is around 220 with a rate of 25 breast and minutes. Overnight, the patient had no significant issues. She is afebrile. Her white cell cause of 5.6 with a hemoglobin of 10.4. D-dimer is at 0.8. Creatinine is improved and is down to 1.4 with fluid resuscitation. LDH is high at 1473 and her CRP level is less than 5. Based on her ongoing Covid 19 related pneumonia, the patient was given higher dose of Decadron 20 mg IV every 24 hours pH is on Lovenox 30 mg subcu 24 and she is completing the course of Remdesivir day #4 and she also received Actemra 200 mg 2 doses. In terms of convalescent plasma, she has taken 2 units. No nausea. No vomiting. No diarrhea. No altered mentation. 06/03/2020 the patient is being seen in follow-up. The patient is stable compared to yesterday. She remains on a BiPAP at a pressure of 10/6 with an FiO2 of 90% which I was able to drop it down to 70% this morning. Respiratory rate is around 25, the TV 500 and a minute ventilation of 12.6 L per minute. The patient is able to tolerate the BiPAP mask without any major difficulties. No signs of any significant respiratory distress on today's evaluation. The chest x-ray findings are essentially stable with dense consolidation in the lung bases bilaterally. The patient has also follow blood work in the CRP level is less than 5, LDH is pending for now knowing that the LDH from yesterday was on the rise. Decadron is being given 20 mg IV every 24 hours. The patient also received interleukin-6 Actemra early grams IV 2 doses. She also received a total of 2 units of convalescent plasma. She has completing Remdesivir today a nd today is day #5. She has a PICC line and she is receiving TPN for nutrition support. She is hemodynamically stable. We are still monitoring her condition here in the ICU and the patient's condition still critical especially with her ongoing respiratory failure. As stated, she is still BiPAP dependent for the time being. Objective - Vital Signs Vital signs: Vital Signs Temp 96.8 F L 06/03/20 08:00 Pulse 37 L 06/03/20 08:00 Resp 28 H 06/03/20 08:00 BP 143/101 06/03/20 08:00 Pulse Ox 93 L 06/03/20 08:00 Intake & Output 06/02/20 06/03/20 06/03/20 18:59 06:59 18:59 Intake Total 1513 1470 210 Output Total 240 400 100 Balance 1273 1070 110 Weight 53 kg 54.7 kg Intake: IV 900 1419 210 .9 900 75 Calcium Gluconate 1 gm 330 60 Mvi, Adult No.4 with Vit K 10 ml Trace (Conc-1Ml/ Dose) 1 ml Sodium Acetate 34 meq Potassium Phosphate 15 mmol Magnesium Sulfate gm 1 gm In Amino Acid 4.25%-D10w 1,000 ml @ 30 mls/hr IV .Q24H ONE Rx#:[id number] Fat Emulsion 20% 250 ml 189 In Empty Bag 1 bag @ 21 mls/hr IV MoWeFr@1700 [facility] Rx#:[id number] Sodium Chloride 0.9% 1, 825 150 000 ml @ 75 mls/hr IV . [id number] [facility] Rx#:[id number] Intake, IV Titration 613 51 Amount Calcium Gluconate 1 gm In 100 Sodium Chloride 0.9% 100 ml @ 100 mls/hr IVPB ONCE [facility] Rx#:[id number] Calcium Gluconate 1 gm 150 30 Mvi, Adult No.4 with Vit K 10 ml Trace (Conc-1Ml/ Dose) 1 ml Sodium Acetate 34 meq Potassium Phosphate 30 mmol Magnesium Sulfate gm 1 gm In Amino Acid 4.25%-D10w 1,000 ml @ 30 mls/hr IV .Q24H [facility] Rx#:[id number] Dexamethasone Sod 50 Phosphate 20 mg In Dextrose 5% in Water 50 ml @ 100 mls/hr IV DAILY [facility] Rx#:[id number] Fat Emulsion 20% 250 ml 63 21 In Empty Bag 1 bag @ 21 mls/hr IV MoWeFr@1700 [facility] Rx#:[id number] Remdesivir 100 mg In 250 Sodium Chloride 0.9% 250 ml @ 250 mls/hr IVPB DAILY@1100 [facility] Rx#: [id number] Output: Urine 240 400 100 Other: Voiding Method External Catheter External Catheter External Catheter # Voids 0 0 - Exam GENERAL EXAM: Alert, pleasant 50-year-old female patient, on BiPAP at a pressure of 10/6 with an FiO2 of 70%. She seems to be more respiratory distress compared to yesterday. She is able to tolerate the BiPAP. She is quite dependent and she easily desaturates when she is off the BiPAP. She has occasional coughing spells. HEAD: Normocephalic. EYES: Normal reaction of pupils, equal size. NOSE: Clear with pink turbinates. THROAT: No erythema or exudates. NECK: No masses, no JVD. CHEST: No chest wall deformity. LUNGS: Equal air entry with few bilateral scattered rhonchi. CVS: S1 and S2 normal with no audible murmur, regular rhythm. ABDOMEN: No hepatosplenomegaly, normal bowel sounds, no guarding or rigidity. SPINE: No scoliosis or deformity SKIN: No rashes CENTRAL NERVOUS SYSTEM: No focal deficits, tone is normal in all 4 extremities. She is awake and she is EXTREMITIES: There is no peripheral edema. No clubbing, no cyanosis. Peripheral pulses are intact. - Labs CBC & Chem 7: 06/03/20 03:56 06/03/20 03:56 Labs: Abnormal Lab Results - Last 24 Hours (Table) 06/02/20 06/02/20 06/02/20 Range/Units 06:14 08:31 11:17 Hgb (11.4-16.0) gm/dL Neutrophils # (1.3-7.7) k/uL Lymphocytes # (1.0-4.8) k/uL Sodium (137-145) mmol/L Chloride (98-107) mmol/L BUN (7-17) mg/dL Creatinine (0.52-1.04) mg/dL Glucose (74-99) mg/dL POC Glucose (mg/dL) 110 H (75-99) mg/dL Calcium (8.4-10.2) mg/dL AST (14-36) U/L ALT (4-34) U/L Total Protein (6.3-8.2) g/dL Albumin (3.5-5.0) g/dL Triglycerides 153 H (<150) mg/dL Procalcitonin 0.19 H (0.02-0.09) ng/mL 06/02/20 06/02/20 06/03/20 Range/Units 16:14 20:37 03:56 Hgb 11.0 L (11.4-16.0) gm/dL Neutrophils # 8.7 H (1.3-7.7) k/uL Lymphocytes # 0.5 L (1.0-4.8) k/uL Sodium (137-145) mmol/L Chloride (98-107) mmol/L BUN (7-17) mg/dL Creatinine (0.52-1.04) mg/dL Glucose (74-99) mg/dL POC Glucose (mg/dL) 139 H 140 H (75-99) mg/dL Calcium (8.4-10.2) mg/dL AST (14-36) U/L ALT (4-34) U/L Total Protein (6.3-8.2) g/dL Albumin (3.5-5.0) g/dL Triglycerides (<150) mg/dL Procalcitonin (0.02-0.09) ng/mL 06/03/20 06/03/20 Range/Units 03:56 04:01 Hgb (11.4-16.0) gm/dL Neutrophils # (1.3-7.7) k/uL Lymphocytes # (1.0-4.8) k/uL Sodium 147 H (137-145) mmol/L Chloride 116 H (98-107) mmol/L BUN 45 H (7-17) mg/dL Creatinine 1.24 H (0.52-1.04) mg/dL Glucose 146 H (74-99) mg/dL POC Glucose (mg/dL) 148 H (75-99) mg/dL Calcium 7.3 L (8.4-10.2) mg/dL AST 71 H (14-36) U/L ALT 49 H (4-34) U/L Total Protein 4.9 L (6.3-8.2) g/dL Albumin 2.5 L (3.5-5.0) g/dL Triglycerides (<150) mg/dL Procalcitonin (0.02-0.09) ng/mL Microbiology - Last 24 Hours (Table) 05/29/20 14:15 Blood Culture - Preliminary Blood No Growth after 96 hours 05/29/20 14:15 Blood Culture - Preliminary Blood No Growth after 96 hours 05/31/20 18:04 Urine Culture - Final Urine,Voided Assessment and Plan Plan: 1 Acute hypoxic respiratory failure secondary to acute CoVID 19 pneumonia. Initiated on Remdesivir day # 5 and convalescent plasma 2 units were given and the patient currently is on Decadron 20 mg IV push every 24 hours and the patient was given 2 doses of Actemra. The patient was progressively getting worse. The patient was on 2 L of oxygen with nasal cannula and the patient and progressively getting worse and she is up to 10 L and subsequently the patient got placed on BiPAP at a pressure of 10/6 with an FiO2 of 90% Chest x-ray shows bilateral lower lobe consolidations which is stable compared to yeste rday. 2 Acute CoVID 19 infection with elevated inflammatory markers, and the levels including LDH is elevated. D-dimer is low. The patient is on prophylactic dose of Lovenox. 3 Acute renal failure suspect secondary to dehydration and hypotension, improving creatinine is down to 1.24 4 Hypokalemia secondary to above, will need to be replaced 5 Mild hydronephrosis 6 non-anion gap metabolic acidosis , improved Plan: Chest x-ray today was reviewed, findings are essentially stable and the patient has dense consolidation in the lung bases bilaterally. She is BiPAP dependent and will continue the BiPAP support for now at the pressure of 10/6 and FiO2 was dropped down to 70%. Not ready for high flow oxygen yet. Continue BiPAP for respiratory support Drop the FiO2 as tolerated to maintain a saturation above 70% PICC line inserted and the patient is currently on parenteral nutrition Inflammatory markers to be monitored Continue Remdesivirper protocol day #5, convalescent plasma 2 units and continue with Decadron 20 mg IV every 24 hours and Lovenox 30mg Subcu for DVT prophylaxi s. dexamethasone up to 20 mg IV every 24 hours vitamin supplements Discontinue antibiotics , and repeat a pro-calcitonin level was 0.19 Continue bronchodilators We'll continue monitoring this patient in intensive care unit. Condition is critical, high onset of going into respiratory failure requiring intubation mechanical ventilation. We'll try to avoid mechanical ventilation as long as the patient is able to tolerate BiPAP for now. Critical care evaluation more than 30 minutes . Time with Patient: Greater than 30
[2020-06-03] MEDS: ASCORBIC ACID 500 MG TAB PO SCH ×2 (09:40→22:35)
[2020-06-03] MEDS: ZINC SULFATE 220 MG CAP PO SCH (09:40)
[2020-06-03] MEDS: CHOLECALCIFEROL 25 MCG (1000 IU) TABLET PO SCH (09:40)
[2020-06-03] MEDS: DEXTROSE 5% IN WATER 1,000 ML IV SCH (10:49)
[2020-06-03 10:54] LABS: Glucose,Whole Blood 139 mg/dL (75-99)
--- NOTE | 2020-06-03 10:55 | XR ---
EXAMINATION TYPE: XR chest 1V DATE OF EXAM: 06/03/2020 COMPARISON: Prior chest x-ray 06/02/2020 HISTORY: Shortness of breath, pneumonia TECHNIQUE: Single frontal view of the chest is obtained. FINDINGS: Right-sided PICC line shows the tip at the cavoatrial junction, bibasilar airspace disease is present. No evident pneumothorax or pleural effusion. Cardiac mediastinal silhouette is stable. T here are overlying artifacts. IMPRESSION: Findings consistent with pneumonia.
[2020-06-03] MEDS: REMDESIVIR 100 MG in SODIUM CHLORIDE 0.9% 250 ML IVPB SCH (10:56)
--- NOTE | 2020-06-03 10:59 | P.PN ---
Subjective Patient is seen in follow-up for acute kidney injury. Renal function improving. Nonoliguric. Remains on BiPAP. Maintained on normal saline. Also started on TPN last night. Denies chest pain or shortness of breath. Vital signs are stable. General: The patient appeared well nourished and normally developed. HEENT: Head exam is unremarkable. On BiPAP. LUNGS: Breath sounds decreased. HEART: Rate and Rhythm are regular. ABDOMEN: Soft, nontender. EXTREMITITES: Trace edema. Objective - Vital Signs Vital signs: Vital Signs Temp 96.8 F L 06/03/20 08:00 Pulse 38 L 06/03/20 10:00 Resp 23 06/03/20 10:00 BP 147/113 06/03/20 10:00 Pulse Ox 93 L 06/03/20 10:00 Intake & Output 06/02/20 06/03/20 06/03/20 18:59 06:59 18:59 Intake Total 1513 1470 420 Output Total 240 400 200 Balance 1273 1070 220 Weight 53 kg 54.7 kg Intake: IV 900 1419 420 .9 900 75 Calcium Gluconate 1 gm 330 120 Mvi, Adult No.4 with Vit K 10 ml Trace (Conc-1Ml/ Dose) 1 ml Sodium Acetate 34 meq Potassium Phosphate 15 mmol Magnesium Sulfate gm 1 gm In Amino Acid 4.25%-D10w 1,000 ml @ 30 mls/hr IV .Q24H [facility] Rx#:[id number] Fat Emulsion 20% 250 ml 189 In Empty Bag 1 bag @ 21 mls/hr IV MoWeFr@1700 [facility] Rx#:[id number] Sodium Chloride 0.9% 1, 825 300 000 ml @ 75 mls/hr IV . [id number] [facility] Rx#:[id number] Intake, IV Titration 613 51 Amount Calcium Gluconate 1 gm In 100 Sodium Chloride 0.9% 100 ml @ 100 mls/hr IVPB ONCE [facility] Rx#:[id number] Calcium Gluconate 1 gm 150 30 Mvi, Adult No.4 with Vit K 10 ml Trace (Conc-1Ml/ Dose) 1 ml Sodium Acetate 34 meq Potassium Phosphate 30 mmol Magnesium Sulfate gm 1 gm In Amino Acid 4.25%-D10w 1,000 ml @ 30 mls/hr IV .Q24H [facility] Rx#:[id number] Dexamethasone Sod 50 Phosphate 20 mg In Dextrose 5% in Water 50 ml @ 100 mls/hr IV DAILY [facility] Rx#:[id number] Fat Emulsion 20% 250 ml 63 21 In Empty Bag 1 bag @ 21 mls/hr IV MoWeFr@1700 [facility] Rx#:[id number] Remdesivir 100 mg In 250 Sodium Chloride 0.9% 250 ml @ 250 mls/hr IVPB DAILY@1100 [facility] Rx#: [id number] Output: Urine 240 400 200 Other: Voiding Method External Catheter External Catheter External Catheter # Voids 0 0 - Labs CBC & Chem 7: 06/03/20 03:56 06/03/20 03:56 Labs: Abnormal Lab Results - Last 24 Hours (Table) 06/02/20 06/02/20 06/02/20 Range/Units 06:14 08:31 11:17 Hgb (11.4-16.0) gm/dL Neutrophils # (1.3-7.7) k/uL Lymphocytes # (1.0-4.8) k/uL Sodium (137-145) mmol/L Chloride (98-107) mmol/L BUN (7-17) mg/dL Creatinine (0.52-1.04) mg/dL Glucose (74-99) mg/dL POC Glucose (mg/dL) 110 H (75-99) mg/dL Calcium (8.4-10.2) mg/dL AST (14-36) U/L ALT (4-34) U/L Total Protein (6.3-8.2) g/dL Albumin (3.5-5.0) g/dL Triglycerides 153 H (<150) mg/dL Procalcitonin 0.19 H (0.02-0.09) ng/mL 06/02/20 06/02/20 06/03/20 Range/Units 16:14 20:37 03:56 Hgb 11.0 L (11.4-16.0) gm/dL Neutrophils # 8.7 H (1.3-7.7) k/uL Lymphocytes # 0.5 L (1.0-4.8) k/uL Sodium (137-145) mmol/L Chloride (98-107) mmol/L BUN (7-17) mg/dL Creatinine (0.52-1.04) mg/dL Glucose (74-99) mg/dL POC Glucose (mg/dL) 139 H 140 H (75-99) mg/dL Calcium (8.4-10.2) mg/dL AST (14-36) U/L ALT (4-34) U/L Total Protein (6.3-8.2) g/dL Albumin (3.5-5.0) g/dL Triglycerides (<150) mg/dL Procalcitonin (0.02-0.09) ng/mL 06/03/20 06/03/20 06/03/20 Range/Units 03:56 04:01 10:52 Hgb (11.4-16.0) gm/dL Neutrophils # (1.3-7.7) k/uL Lymphocytes # (1.0-4.8) k/uL Sodium 147 H (137-145) mmol/L Chloride 116 H (98-107) mmol/L BUN 45 H (7-17) mg/dL Creatinine 1.24 H (0.52-1.04) mg/dL Glucose 146 H (74-99) mg/dL POC Glucose (mg/dL) 148 H 139 H (75-99) mg/dL Calcium 7.3 L (8.4-10.2) mg/dL AST 71 H (14-36) U/L ALT 49 H (4-34) U/L Total Protein 4.9 L (6.3-8.2) g/dL Albumin 2.5 L (3.5-5.0) g/dL Triglycerides (<150) mg/dL Procalcitonin (0.02-0.09) ng/mL Microbiology - Last 24 Hours (Table) 05/29/20 14:15 Blood Culture - Preliminary Blood No Growth after 96 hours 05/29/20 14:15 Blood Culture - Preliminary Blood No Growth after 96 hours 05/31/20 18:04 Urine Culture - Final Urine,Voided Assessment and Plan Plan: Assessment: 1. Acute kidney injury mostly prerenal secondary to hypotension/hypovolemia and infection. Creatinine 3.8 on admission and down to 1.24 today. Unknown baseline. 2. Mild bilateral hydronephrosis. Urology following. 3. Metabolic acidosis secondary to acute kidney injury, diarrhea and IV fluids. Status post bicarb drip. Maintained on oral bicarb now. 4. Hypokalemia from poor intake and intracellular shifting from bicarb. Status post replacement. 5. Covid-19 infection maintained on steroids, zinc and remdesivir. s/p tocilizumab. 6. Hypomagnesemia from poor intake. Improved post replacement. 7. Hypocalcemia secondary to acute kidney injury. Corrected calcium normal. Vitamin D not low. 8. Hypernatremia secondary to lack of oral water intake. Plan: Maintain TPN. Stop normal saline. Start D5W at 50 mL an hour. Cortisol level slightly on the lower side. Patient is receiving steroids. Continue to monitor renal function and urine output. Wean FiO2.
[2020-06-03 11:20] LABS: Ferritin 105.8 ng/mL (10.0-291.0)
[2020-06-03] MEDS: [UNRECOGNIZED DRUG - REMARK] IV SCH ×7 (14:04)
[2020-06-03 15:51] LABS: Glucose,Whole Blood 186 mg/dL (75-99)
[2020-06-03] MEDS: MORPHINE SULFATE 2 MG/ML SYRINGE IVP PRN ×2 (15:58→22:35)
--- NOTE | 2020-06-03 16:00 | P.PN ---
Subjective Progress Note Date: 06/03/20 (delayd charting seen at 10am) Principal diagnosis: shortness of breath Patient is a 50-year-old female with no significant past medical history who initially presented with generalized fatigue for 5 days duration. In the ER she underwent an extensive evaluation. She was hypoxic with an O2 sat of 89% on room air. Chest x-ray showed bilateral pneumonia. She was found have acute kidney injury with hypokalemia and a potassium level of 2.7. She had already gone to a local urgent care and had a rapid COVID-19 test which was positive. Renal ultrasound with bilateral hydronephrosis. She was admitted and started on IV fluids, Decadron, vitamin D, vitamin C, zinc, and melatonin. Pulmonary and nephrology were consulted. Nephrology started her on a sodium bicarb drip and consulted urology. Seen by urology and post void residual was normal and therefore no intervention was required. She was seen by pulmonary and started on remdesivir. She received convalescent plasma on 05/30. Her oxygen requirements continued to worsen necessitating 10 L high flow nasal cannula by 05/31. She received a second unit of, was plasma on 05/31. She was transferred to the ICU overnight on 06/01. She was started on BiPAP therapy secondary to hypoxemia. Her Decadron dose was increased. She was given actemra was given 06/01. She had picc line placed and was started on TPN on 06/02.Her Bipap settings decreased to 80 % FiO2 06/03. Patient seen and examined at bedside.shortness of breath somewhat improved, feeling hungry. No overt chest pain, lightheadedness, nausea, vomiting. General: Ill-appearing, moderate distress appears at stated age Derm: warm, dry Head: atraumatic, normocephalic, symmetric Eyes: EOMI, no lid lag, anicteric sclera Mouth: no lip lesion, mucus membranes dry Cardiovascular: S1S2 reg, no murmur, positive posterior tibial pulse bilateral, Lungs: Course breath sounds bilateral, no rhonchi, no rales , no accessory muscle use, on BiPAP Abdominal: soft, nontender to palpation, no guarding, no appreciable organomegaly Ext: no gross muscle atrophy, trace edema, no contractures Neuro: CN II-XI grossly intact, no focal neuro deficits Psych: Alert, oriented, appears anxious COVID-19 pneumonia acute hypoxic respiratory failure -Dexamethasone - Pulmonary recs - bronchodilators - VIt C, Vit D - Remdesivir - Zinc - s/p 2 untis of convolescent plasma and tocilizumab Severe protein calorie malnutrition -Currently BiPAP dependent -PICC line ordered and TPN ordered. DUSTIN. improving likely secondary to hypotension/hypovolemia and infection - nephrology recs -Continue with normal saline - Transaminitis -Likely due to above -Monitor closely with TPN Anemia -Was normal on arrival and suspected due to dilutional anemia from frequent blood draws -Follow CBC -No further intervention at this point in time Hyperchloremic metabolic acidosis -Likely secondary to IV fluid resuscitation -Continue to monitor with beginning of TPN. -Sodium bicarb recommendations per nephrology Mild bilateral hydronephrosis -Urology following -No additional intervention planned Hypokalemia, resolved Hypocalcemia, resolved Hypomagnesemia DVT prophylaxis: Lovenox Discussed with: patient, nursing Anticipated discharge: 1-[address]: undetermined A total of 45 minutes was spent on the care of this complex patient more than 50% of the time was spent in counseling and care coordination. Objective - Vital Signs Vital signs: Vital Signs Temp 97.2 F L 06/03/20 12:00 Pulse 41 L 06/03/20 15:00 Resp 28 H 06/03/20 15:00 BP 133/81 06/03/20 15:00 Pulse Ox 93 L 06/03/20 15:00 Intake & Output 06/02/20 06/03/20 06/03/20 18:59 06:59 18:59 Intake Total 1513 1470 1170 Output Total 240 400 750 Balance 1273 1070 420 Weight 53 kg 54.7 kg Intake: IV 900 1419 555 .9 900 75 Calcium Gluconate 1 gm 330 180 Mvi, Adult No.4 with Vit K 10 ml Trace (Conc-1Ml/ Dose) 1 ml Sodium Acetate 34 meq Potassium Phosphate 15 mmol Magnesium Sulfate gm 1 gm In Amino Acid 4.25%-D10w 1,000 ml @ 30 mls/hr IV .Q24H [facility] Rx#:[id number] Fat Emulsion 20% 250 ml 189 In Empty Bag 1 bag @ 21 mls/hr IV MoWeFr@1700 [facility] Rx#:[id number] Sodium Chloride 0.9% 1, 825 375 000 ml @ 75 mls/hr IV . [id number] [facility] Rx#:[id number] Intake, IV Titration 613 51 615 Amount Calcium Gluconate 1 gm In 100 Sodium Chloride 0.9% 100 ml @ 100 mls/hr IVPB ONCE [facility] Rx#:[id number] Calcium Gluconate 1 gm 150 30 Mvi, Adult No.4 with Vit K 10 ml Trace (Conc-1Ml/ Dose) 1 ml Sodium Acetate 34 meq Potassium Phosphate 30 mmol Magnesium Sulfate gm 1 gm In Amino Acid 4.25%-D10w 1,000 ml @ 30 mls/hr IV .Q24H [facility] Rx#:[id number] Calcium Gluconate 1 gm 165 Potassium Acetate 24 meq Potassium Phosphate 10 mmol Magnesium Sulfate gm 1 gm In Amino Acid 4.25% -D10w 1,000 ml @ 55 mls/ hr IV .BY DURATION [facility] Rx #:[id number] Dexamethasone Sod 50 Phosphate 20 mg In Dextrose 5% in Water 50 ml @ 100 mls/hr IV DAILY [facility] Rx#:[id number] Dextrose 5% in Water 1, 200 000 ml @ 50 mls/hr IV . Q20H [facility] Rx#:[id number] Fat Emulsion 20% 250 ml 63 21 In Empty Bag 1 bag @ 21 mls/hr IV MoWeFr@1700 [facility] Rx#:[id number] Remdesivir 100 mg In 250 250 Sodium Chloride 0.9% 250 ml @ 250 mls/hr IVPB DAILY@1100 [facility] Rx#: [id number] Output: Urine 240 400 750 Other: Voiding Method External Catheter External Catheter External Catheter # Voids 0 0 - Labs CBC & Chem 7: 06/03/20 03:56 06/03/20 03:56 Labs: Abnormal Lab Results - Last 24 Hours (Table) 06/02/20 06/02/20 06/02/20 Range/Units 08:31 16:14 20:37 Hgb (11.4-16.0) gm/dL Neutrophils # (1.3-7.7) k/uL Lymphocytes # (1.0-4.8) k/uL Sodium (137-145) mmol/L Chloride (98-107) mmol/L BUN (7-17) mg/dL Creatinine (0.52-1.04) mg/dL Glucose (74-99) mg/dL POC Glucose (mg/dL) 139 H 140 H (75-99) mg/dL Calcium (8.4-10.2) mg/dL AST (14-36) U/L ALT (4-34) U/L Total Protein (6.3-8.2) g/dL Albumin (3.5-5.0) g/dL Procalcitonin 0.19 H (0.02-0.09) ng/mL 06/03/20 06/03/20 06/03/20 Range/Units 03:56 03:56 04:01 Hgb 11.0 L (11.4-16.0) gm/dL Neutrophils # 8.7 H (1.3-7.7) k/uL Lymphocytes # 0.5 L (1.0-4.8) k/uL Sodium 147 H (137-145) mmol/L Chloride 116 H (98-107) mmol/L BUN 45 H (7-17) mg/dL Creatinine 1.24 H (0.52-1.04) mg/dL Glucose 146 H (74-99) mg/dL POC Glucose (mg/dL) 148 H (75-99) mg/dL Calcium 7.3 L (8.4-10.2) mg/dL AST 71 H (14-36) U/L ALT 49 H (4-34) U/L Total Protein 4.9 L (6.3-8.2) g/dL Albumin 2.5 L (3.5-5.0) g/dL Procalcitonin (0.02-0.09) ng/mL 06/03/20 06/03/20 Range/Units 10:52 15:50 Hgb (11.4-16.0) gm/dL Neutrophils # (1.3-7.7) k/uL Lymphocytes # (1.0-4.8) k/uL Sodium (137-145) mmol/L Chloride (98-107) mmol/L BUN (7-17) mg/dL Creatinine (0.52-1.04) mg/dL Glucose (74-99) mg/dL POC Glucose (mg/dL) 139 H 186 H (75-99) mg/dL Calcium (8.4-10.2) mg/dL AST (14-36) U/L ALT (4-34) U/L Total Protein (6.3-8.2) g/dL Albumin (3.5-5.0) g/dL Procalcitonin (0.02-0.09) ng/mL Microbiology - Last 24 Hours (Table) 05/29/20 14:15 Blood Culture - Preliminary Blood No Growth after 96 hours 05/29/20 14:15 Blood Culture - Preliminary Blood No Growth after 96 hours 05/31/20 18:04 Urine Culture - Final Urine,Voided
[2020-06-03 21:53] LABS: Glucose,Whole Blood 172 mg/dL (75-99)
[2020-06-03] MEDS: MELATONIN 5 MG TABLET PO SCH (22:35)
[2020-06-04 03:59] LABS: Glucose,Whole Blood 175 mg/dL (75-99)
[2020-06-04] MEDS: INSULIN ASPART (NovoLOG) 100 UNIT/ML VIAL SQ SCH ×3 (04:11→17:58)
[2020-06-04] MEDS: DEXTROSE 5% IN WATER 1,000 ML IV SCH (04:11)
[2020-06-04 04:19] LABS: Chloride 116 mmol/L (98-107)
[2020-06-04 04:22] LABS: ALT 43 U/L (4-34); AST 43 U/L (14-36); African American GFR (CKD) 58 (>60 ml/min/1.73 sqM); Albumin 2.5 g/dL (3.5-5.0); Alkaline Phosphatase 57 U/L (38-126); Anion Gap 10 mmol/L; Blood Urea Nitrogen 46 mg/dL (7-17); C Reactive Protein <5.0 mg/L (<10.0); Calcium 7.4 mg/dL (8.4-10.2); Carbon Dioxide 20 mmol/L (22-30); Glucose 157 mg/dL (74-99); Magnesium 1.9 mg/dL (1.6-2.3); Non-African American GFR(CKD) 50 (>60 ml/min/1.73 sqM); Phosphorus 3.4 mg/dL (2.5-4.5); Potassium 3.7 mmol/L (3.5-5.1); Sodium 146 mmol/L (137-145); Total Bilirubin 0.3 mg/dL (0.2-1.3)
[2020-06-04] MEDS ORDERED: POTASSIUM CHLORIDE 20 MEQ in WATER FOR INJECTION 1 100ML.BAG IVPB STA (04:51)
[2020-06-04 05:32] LABS: Basophils % (A) 0 %; Eosinophils % (A) 0 %; HCT 35.7 % (34.0-46.0); HGB 11.4 gm/dL (11.4-16.0); Hypochromasia Slight; Lymphocytes # (A) 0.5 k/uL (1.0-4.8); Lymphocytes % (A) 3 %; MCH 28.6 pg (25.0-35.0); MCHC 31.9 g/dL (31.0-37.0); MCV 89.6 fL (80.0-100.0); Mean Platelet Volume 9.3; Monocytes # (A) 0.9 k/uL (0-1.0); Monocytes % (A) 6 %; Neutrophils # (A) 13.9 k/uL (1.3-7.7); Neutrophils % (A) 90 %; Platelet Count 371 k/uL (150-450); RBC 3.99 m/uL (3.80-5.40); RDW 14.9 % (11.5-15.5); WBC 15.4 k/uL (3.8-10.6)
[2020-06-04] MEDS ORDERED: Magnesium Replacement Protocol 1 EACH MISC MISCELLANE PRN (06:16)
[2020-06-04] MEDS: MAGNESIUM SULFATE-D5W PMX 1 GM in DEXTROSE/WATER 1 100ML.BAG IVPB SCH ×2 (06:22→09:27)
--- NOTE | 2020-06-04 08:40 | P.PN ---
Subjective Progress Note Date: 06/04/20 This is a pleasant 50-year-old female patient with no primary care provider, no chronic medical problems. No home medications. Lifelong nonsmoker. She presented to the emergency room yesterday with concerns regarding a positive CoVID 19 test on 05/26/2020. She has been having ongoing issues with generalized weakness, fatigue, poor appetite. Normal shortness of breath and cough. Chest x-ray revealed bilateral lower lobe pneumonia. Normal heart. Renal ultrasound with mild bilateral hydronephrosis. White count 5.4. Hemoglobin 13.0. Lymphocytes 0.5. Sodium 141. Potassium initially 2.7, currently 3.8. Creatinine initially 3.83, currently 2.9 area d-dimer 0.66. LDH 1455. C- reactive protein 12.5. Ferritin 387. Pro-calcitonin 0.87. Coronavirus detected by PCR. She is seen today in consultation on the regular medical floor. She is awake and alert in no acute distress. Maintaining good O2 saturations in the 90s on 2 L/m per nasal cannula. No significant acute respiratory distress. Lungs sounds with few scattered rhonchi. She will be initiated on Remdesivir, convalescent plasma, Lovenox, vitamin supplements. Antibiotics in the form of ceftriaxone and azithromycin. On 05/31/2020 and I'm seeing the patient for a follow-up. The patient is currently on 10 L of oxygen by nasal cannula. Diagnosed having Covid 19. The patient is currently on Decadron, Remdesivir the patient has also received a unit of convalescent plasma. Medically, the patient reports that she is still feeling the same compared to yesterday. The chest x-ray still showing interstitial infiltrates in the lung bases peripherally. Sodium is at 146 with a potassium level of 3.0 and a chloride is 117. D-dimer is at 0.87. Her LDH is at 465, CRP is less than 0.4. As such, the inflammatory markers have improved. Serum cortisone is low at 2.9. Her white cell count was at 5.4. Hemoglobin is at 13.0. The patient is currently on Decadron 6 mg IV. The patient is on Lindsey enox 30 mg subcu every 24 hours. Antibiotics were also added on empiric basis with a combination of Rocephin and Zithromax. Pro-calcitonin was modestly elevated at 0.87. UA showed 30 WBCs. Culture is still pending for now. Blood cultures been negative thus far. She remains on 10 L of oxygen by nasal cannula. On 06/01/2020, the patient got transferred to the intensive care unit. This occurred earlier this morning. Noted the patient's condition was gradually getting worse. She can't was on 2 L of oxygen by nasal cannula and her oxygenation gradually got worse and she was on 10 L yesterday. I increased the Decadron up to 20 mg IV. Continue the Lovenox subcu based on a low d-dimer and her dose was at 30 mg subcu every 24 hours and I ordered the second unit of convalescent plasma knowing that the patient has received 1 unit. She remains on Remdesivir . Despite all this, her condition is getting worse. Oxidation is worse and earlier this morning the patient became progressively more hypoxic and she got chest that the intensive care unit and she is currently on a BiPAP at a pressure of 10/6 cm of water and FiO2 of 100%. Her current pulse ox is in the order of 96%. Chest x-ray shows worsening of the bilateral lower lobe pulmonary infiltrates question the lung bases peripherally. Laboratory markers from today shows an LDH of 1234, which is higher compared to yesterday and the CRP is down to 5.0. Repeat UA was negative and there is no suspicion for any underlying infection. For that reason, I'm going to stop the antibiotics. The cultures of been negative thus far. She is afebrile. The white cell count today is pending.. The sodium is down to 143 and the potassium needs to be replaced at 2.5 and the creatinine continues to improve went down to 1.7 and the patient is currently receiving IV fluids in the form of D5 with 150 mEq of sodium bicarbonate the rate of 100 mL an hour. The serum bicarb today is at 23 which is essentially normalized. 2020 I'm seeing the patient for a follow-up. This morning, the patient is still on BiPAP at a pressure of 10/6 cm of water with an FiO2 of 90 1. The patient's chest x-ray from this morning is showing bilateral peripheral pulmonary infiltrates more so in the lower lobes right more than left. She is comfortable breathing on the BiPAP and she is not having any significant respiratory distress. Her current minute ventilation is around 12 L and a tidal volume generated is around 220 with a rate of 25 breast and minutes. Overnight, the patient had no significant issues. She is afebrile. Her white cell cause of 5.6 with a hemoglobin of 10.4. D-dimer is at 0.8. Creatinine is improved and is down to 1.4 with fluid resuscitation. LDH is high at 1473 and her CRP level is less than 5. Based on her ongoing Covid 19 related pneumonia, the patient was given higher dose of Decadron 20 mg IV every 24 hours pH is on Lovenox 30 mg subcu 24 and she is completing the course of Remdesivir day #4 and she also received Actemra 200 mg 2 doses. In terms of convalescent plasma, she has taken 2 units. No nausea. No vomiting. No diarrhea. No altered mentation. 06/03/2020 the patient is being seen in follow-up. The patient is stable compared to yesterday. She remains on a BiPAP at a pressure of 10/6 with an FiO2 of 90% which I was able to drop it down to 70% this morning. Respiratory rate is around 25, the TV 500 and a minute ventilation of 12.6 L per minute. The patient is able to tolerate the BiPAP mask without any major difficulties. No signs of any significant respiratory distress on today's evaluation. The chest x-ray findings are essentially stable with dense consolidation in the lung bases bilaterally. The patient has also follow blood work in the CRP level is less than 5, LDH is pending for now knowing that the LDH from yesterday was on the rise. Decadron is being given 20 mg IV every 24 hours. The patient also received interleukin-6 Actemra early grams IV 2 doses. She also received a total of 2 units of convalescent plasma. She has completing Remdesivir today a nd today is day #5. She has a PICC line and she is receiving TPN for nutrition support. She is hemodynamically stable. We are still monitoring her condition here in the ICU and the patient's condition still critical especially with her ongoing respiratory failure. As stated, she is still BiPAP dependent for the time being. 06/04/2020 I'm seeing the patient for a follow-up. On this morning's evaluation, the patient is awake, slightly anxious, still on a BiPAP and she's been on it for the past few days at a setting of a 10/6 with an FiO2 of 70% which was further dropped down to 60% this morning. She is breathing at the rate of 21 and she is urinating a tidal volume of 60. Minute ventilation is around 9-10 L per minute. No significant leaks on the mask. She has developed some oral dryness and some minimal amount of skin breaks. LDH level is still pending. CRP level is less than 5. She is afebrile. Decadron is being given 20 mg IV every 24 hours. Rest of the treatments have been also introduced and the patient seemsinterleukin-6 Actemra early grams IV 2 doses. She also r eceived a total of 2 units of convalescent plasma. She has completing Remdesivir 5 day course. The patient has completed 5 day course of treatment. The patient is also on Lovenox 40 mg subcutaneous every 24 hours and her d-dimer is at 1.8. She is on TPN for nutritional support. The sodium level today is at 146 somewhat improved compared to yesterday and the renal function continues to stable with a creatinine of 1.25 and the patient has recovered from her acute kidney injury. Potassium level is at 3.7. Serum bicarbs at 20. Her pro CALCITONIN level was down to 0.19. Chest x-ray showing stable about pulmonary infiltrates Objective - Vital Signs Vital signs: Vital Signs Temp 97 F L 06/04/20 04:00 Pulse 43 L 06/04/20 07:00 Resp 21 06/04/20 07:00 BP 116/78 06/04/20 07:00 Pulse Ox 96 06/04/20 07:00 Intake & Output 06/03/20 06/04/20 06/04/20 18:59 06:59 18:59 Intake Total 1485 1370 105 Output Total 860 500 Balance 625 870 105 Weight 52.4 kg Intake: IV 555 1265 105 .09 110 Calcium Gluconate 1 gm 605 55 Mvi, Adult No.4 with Vit K 10 ml Trace (Conc-1Ml/ Dose) 1 ml Potassium Acetate 24 meq Potassium Phosphate 10 mmol Magnesium Sulfate gm 1 gm In Amino Acid 4.25%-D10w 1,000 ml @ 55 mls/hr IV .BY DURATION [facility] Rx#: [id number] Calcium Gluconate 1 gm 180 Mvi, Adult No.4 with Vit K 10 ml Trace (Conc-1Ml/ Dose) 1 ml Sodium Acetate 34 meq Potassium Phosphate 15 mmol Magnesium Sulfate gm 1 gm In Amino Acid 4.25%-D10w 1,000 ml @ 30 mls/hr IV .Q24H [facility] Rx#:[id number] Dextrose 5% in Water 1, 550 50 000 ml @ 50 mls/hr IV . Q20H [facility] Rx#:[id number] Sodium Chloride 0.9% 1, 375 000 ml @ 75 mls/hr IV . [id number] [facility] Rx#:[id number] Intake, IV Titration 930 105 Amount Calcium Gluconate 1 gm 330 55 Potassium Acetate 24 meq Potassium Phosphate 10 mmol Magnesium Sulfate gm 1 gm In Amino Acid 4.25% -D10w 1,000 ml @ 55 mls/ hr IV .BY DURATION [facility] Rx #:[id number] Dextrose 5% in Water 1, 350 50 000 ml @ 50 mls/hr IV . Q20H [facility] Rx#:[id number] Remdesivir 100 mg In 250 Sodium Chloride 0.9% 250 ml @ 250 mls/hr IVPB DAILY@1100 [facility] Rx#: [id number] Output: Urine 860 500 Other: Voiding Method External Catheter External Catheter # Voids 1 - Exam GENERAL EXAM: Alert, pleasant 50-year-old female patient, on BiPAP at a pressure of 10/6 with an FiO2 of 70%. She seems to be more respiratory distress compared to yesterday. She is able to tolerate the BiPAP. She is quite dependent and she easily desaturates when she is off the BiPAP. She has occasional coughing spells. HEAD: Normocephalic. EYES: Normal reaction of pupils, equal size. NOSE: Clear with pink turbinates. THROAT: No erythema or exudates. NECK: No masses, no JVD. CHEST: No chest wall deformity. LUNGS: Equal air entry with few bilateral scattered rhonchi. CVS: S1 and S2 normal with no audible murmur, regular rhythm. ABDOMEN: No hepatosplenomegaly, normal bowel sounds, no guarding or rigidity. SPINE: No scoliosis or deformity SKIN: No rashes CENTRAL NERVOUS SYSTEM: No focal deficits, tone is normal in all 4 extremities. She is awake and she is EXTREMITIES: There is no peripheral edema. No clubbing, no cyanosis. Peripheral pulses are intact. - Labs CBC & Chem 7: 06/04/20 03:30 06/04/20 03:30 Labs: Abnormal Lab Results - Last 24 Hours (Table) 06/03/20 06/03/20 06/03/20 Range/Units 03:56 10:52 15:50 WBC (3.8-10.6) k/uL Neutrophils # (1.3-7.7) k/uL Lymphocytes # (1.0-4.8) k/uL D-Dimer (<0.60) mg/L FEU Sodium (137-145) mmol/L Chloride (98-107) mmol/L Carbon Dioxide (22-30) mmol/L BUN (7-17) mg/dL Creatinine (0.52-1.04) mg/dL Glucose (74-99) mg/dL POC Glucose (mg/dL) 139 H 186 H (75-99) mg/dL Calcium (8.4-10.2) mg/dL AST (14-36) U/L ALT (4-34) U/L Total Protein (6.3-8.2) g/dL Albumin (3.5-5.0) g/dL PTH Intact 322.5 H (14.0-72.0) pg/mL 06/03/20 06/04/20 06/04/20 Range/Units 21:51 03:30 03:30 WBC 15.4 H (3.8-10.6) k/uL Neutrophils # 13.9 H (1.3-7.7) k/uL Lymphocytes # 0.5 L (1.0-4.8) k/uL D-Dimer (<0.60) mg/L FEU Sodium 146 H (137-145) mmol/L Chloride 116 H (98-107) mmol/L Carbon Dioxide 20 L (22-30) mmol/L BUN 46 H (7-17) mg/dL Creatinine 1.25 H (0.52-1.04) mg/dL Glucose 157 H (74-99) mg/dL POC Glucose (mg/dL) 172 H (75-99) mg/dL Calcium 7.4 L (8.4-10.2) mg/dL AST 43 H (14-36) U/L ALT 43 H (4-34) U/L Total Protein 5.0 L (6.3-8.2) g/dL Albumin 2.5 L (3.5-5.0) g/dL PTH Intact (14.0-72.0) pg/mL 06/04/20 06/04/20 Range/Units 03:30 03:57 WBC (3.8-10.6) k/uL Neutrophils # (1.3-7.7) k/uL Lymphocytes # (1.0-4.8) k/uL D-Dimer 1.81 H (<0.60) mg/L FEU Sodium (137-145) mmol/L Chloride (98-107) mmol/L Carbon Dioxide (22-30) mmol/L BUN (7-17) mg/dL Creatinine (0.52-1.04) mg/dL Glucose (74-99) mg/dL POC Glucose (mg/dL) 175 H (75-99) mg/dL Calcium (8.4-10.2) mg/dL AST (14-36) U/L ALT (4-34) U/L Total Protein (6.3-8.2) g/dL Albumin (3.5-5.0) g/dL PTH Intact (14.0-72.0) pg/mL Microbiology - Last 24 Hours (Table) 05/29/20 14:15 Blood Culture - Preliminary Blood No Growth after 120 hours 05/29/20 14:15 Blood Culture - Preliminary Blood No Growth after 120 hours Assessment and Plan Plan: 1 Acute hypoxic respiratory failure secondary to acute CoVID 19 pneumonia. Completed Remdesivir , convalescent plasma 2 units were given and the patient currently is on Decadron 20 mg IV push every 24 hours and the patient was given 2 doses of Actemra. Patient was treated with BiPAP due to worsening in oxygenation and she was on a BiPAP pressure of 10/6 and FiO2 is down to 60% and this morning and consider a high flow oxygen with 100% nonrebreather mask to give the patient some breaks off the BiPAP mask. She may be able to tolerate this setting. If not, she'll be switched back to BiPAP therapy. Chest x-ray findings are essentially stable. D-dimer is at 1.8 and the patient is on Lovenox. LDH level still pending for now. She remains on high-dose Decadron 20 mg IV every 24 hours. The patient is unable to eat and the patient is currently on TPN for nutritional support and she has a PICC line in place. She is afebrile. No other significant events otherwise. She is becoming progressively more weak and debilitated and she has global generalized body weakness. She is awake and alert and she is following commands and answering questions deborah ropriately. 2 Acute CoVID 19 infection with elevated inflammatory markers, and the levels including LDH is elevated. D-dimer is low. The patient is on prophylactic dose of Lovenox. 3 Acute renal failure suspect secondary to dehydration and hypotension, improving creatinine is down to 1.24 4 Hypokalemia secondary to above, will need to be replaced 5 Mild hydronephrosis 6 non-anion gap metabolic acidosis , improved Plan: Chest x-ray today was reviewed, findings are essentially stable and the patient has dense consolidation in the lung bases bilaterally. will continue the BiPAP support for now at the pressure of 10/6 and FiO2 60% and consider high flow oxygen along with 100% nonrebreather facemask. If unable to tolerate, will go back to BiPAP for respiratory support PICC line inserted and the patient is currently on parenteral nutrition Inflammatory markers to be monitored awaiting LDH levels Remdesivirper protocol completed, convalescent plasma 2 units and continue with Decadron 20 mg IV every 24 hours and Lovenox 40mg Subcu for DVT prophylaxis. dexamethasone up to 20 mg IV every 24 hours vitamin supplements Discontinue antibiotics , and repeat a pro-calcitonin level was 0.19 Continue bronchodilators We'll continue monitoring this patient in intensive care unit. Condition is critical, high onset of going into respiratory failure requiring intubation mechanical ventilation. We'll try to avoid mechanical ventilation Critical care evaluation more than 30 minutes . Time with Patient: Greater than 30
[2020-06-04] MEDS: [UNRECOGNIZED DRUG - REMARK] IV SCH ×7 (08:57)
[2020-06-04] MEDS: ALBUTEROL HFA INHALER INHALATION SCH ×4 (09:08→19:40)
--- NOTE | 2020-06-04 09:24 | XR ---
EXAMINATION TYPE: XR chest 1V DATE OF EXAM: 06/04/2020 COMPARISON: Chest x-ray 06/03/2020 HISTORY: Shortness of breath TECHNIQUE: Single frontal view of the chest is obtained. FINDINGS: Findings are similar to prior exam. IMPRESSION: Findings consistent with patient's history of pneumonia. Difficult to exclude effusion.
[2020-06-04] MEDS: DEXAMETHASONE SOD PHOSPHATE 20 MG in DEXTROSE 5% IN WATER 50 ML IV SCH ×2 (09:26)
[2020-06-04] MEDS: ENOXAPARIN 40 MG/0.4 ML SYRINGE SQ SCH (09:27)
[2020-06-04] MEDS: ZINC SULFATE 220 MG CAP PO SCH (09:27)
[2020-06-04] MEDS: ASCORBIC ACID 500 MG TAB PO SCH ×2 (09:27→20:23)
[2020-06-04] MEDS: CHOLECALCIFEROL 25 MCG (1000 IU) TABLET PO SCH (09:27)
--- NOTE | 2020-06-04 10:23 | P.PN ---
Subjective Patient is seen in follow-up for acute kidney injury. Renal function stable. Creatinine 1.25 today. Nonoliguric. Requiring high amounts of oxygen support. Maintained on TPN. D5W discontinued this morning. Sodium level 146 today. Vital signs are stable. General: The patient appeared well nourished and normally developed. HEART: Regular rhythm noted on the monitor. EXTREMITITES: No gross edema noted. Exam discussed with the nurse. Objective - Vital Signs Vital signs: Vital Signs Temp 97 F L 06/04/20 04:00 Pulse 49 L 06/04/20 10:00 Resp 21 06/04/20 10:00 BP 118/75 06/04/20 10:00 Pulse Ox 98 06/04/20 10:00 Intake & Output 06/03/20 06/04/20 06/04/20 18:59 06:59 18:59 Intake Total 1485 1370 750 Output Total 860 500 600 Balance 625 870 150 Weight 52.4 kg Intake: IV 555 1265 550 .09 110 30 Calcium Gluconate 1 gm 605 220 Mvi, Adult No.4 with Vit K 10 ml Trace (Conc-1Ml/ Dose) 1 ml Potassium Acetate 24 meq Potassium Phosphate 10 mmol Magnesium Sulfate gm 1 gm In Amino Acid 4.25%-D10w 1,000 ml @ 55 mls/hr IV .BY DURATION [facility] Rx#: [id number] Calcium Gluconate 1 gm 180 Mvi, Adult No.4 with Vit K 10 ml Trace (Conc-1Ml/ Dose) 1 ml Sodium Acetate 34 meq Potassium Phosphate 15 mmol Magnesium Sulfate gm 1 gm In Amino Acid 4.25%-D10w 1,000 ml @ 30 mls/hr IV .Q24H [facility] Rx#:[id number] Dexamethasone Sod 50 Phosphate 20 mg In Dextrose 5% in Water 50 ml @ 100 mls/hr IV DAILY [facility] Rx#:[id number] Dextrose 5% in Water 1, 550 150 000 ml @ 50 mls/hr IV . Q20H [facility] Rx#:[id number] Magnesium 100 Sodium Chloride 0.9% 1, 375 000 ml @ 75 mls/hr IV . [id number] [facility] Rx#:[id number] Intake, IV Titration 930 105 Amount Calcium Gluconate 1 gm 330 55 Potassium Acetate 24 meq Potassium Phosphate 10 mmol Magnesium Sulfate gm 1 gm In Amino Acid 4.25% -D10w 1,000 ml @ 55 mls/ hr IV .BY DURATION [facility] Rx #:[id number] Dextrose 5% in Water 1, 350 50 000 ml @ 50 mls/hr IV . Q20H [facility] Rx#:[id number] Remdesivir 100 mg In 250 Sodium Chloride 0.9% 250 ml @ 250 mls/hr IVPB DAILY@1100 [facility] Rx#: [id number] Lipid 200 Calcium Gluconate 1 gm 200 Mvi, Adult No.4 with Vit K 10 ml Trace (Conc-1Ml/ Dose) 1 ml Potassium Acetate 24 meq Potassium Phosphate 10 mmol Magnesium Sulfate gm 1 gm In Amino Acid 4.25%-D10w 1,000 ml @ 55 mls/hr IV .BY DURATION [facility] Rx#: [id number] Output: Urine 860 500 600 Other: Voiding Method External Catheter External Catheter # Voids 1 - Labs CBC & Chem 7: 06/04/20 03:30 06/04/20 03:30 Labs: Abnormal Lab Results - Last 24 Hours (Table) 06/03/20 06/03/20 06/03/20 Range/Units 03:56 10:52 15:50 WBC (3.8-10.6) k/uL Neutrophils # (1.3-7.7) k/uL Lymphocytes # (1.0-4.8) k/uL D-Dimer (<0.60) mg/L FEU Sodium (137-145) mmol/L Chloride (98-107) mmol/L Carbon Dioxide (22-30) mmol/L BUN (7-17) mg/dL Creatinine (0.52-1.04) mg/dL Glucose (74-99) mg/dL POC Glucose (mg/dL) 139 H 186 H (75-99) mg/dL Calcium (8.4-10.2) mg/dL AST (14-36) U/L ALT (4-34) U/L Total Protein (6.3-8.2) g/dL Albumin (3.5-5.0) g/dL PTH Intact 322.5 H (14.0-72.0) pg/mL 06/03/20 06/04/20 06/04/20 Range/Units 21:51 03:30 03:30 WBC 15.4 H (3.8-10.6) k/uL Neutrophils # 13.9 H (1.3-7.7) k/uL Lymphocytes # 0.5 L (1.0-4.8) k/uL D-Dimer (<0.60) mg/L FEU Sodium 146 H (137-145) mmol/L Chloride 116 H (98-107) mmol/L Carbon Dioxide 20 L (22-30) mmol/L BUN 46 H (7-17) mg/dL Creatinine 1.25 H (0.52-1.04) mg/dL Glucose 157 H (74-99) mg/dL POC Glucose (mg/dL) 172 H (75-99) mg/dL Calcium 7.4 L (8.4-10.2) mg/dL AST 43 H (14-36) U/L ALT 43 H (4-34) U/L Total Protein 5.0 L (6.3-8.2) g/dL Albumin 2.5 L (3.5-5.0) g/dL PTH Intact (14.0-72.0) pg/mL 06/04/20 06/04/20 Range/Units 03:30 03:57 WBC (3.8-10.6) k/uL Neutrophils # (1.3-7.7) k/uL Lymphocytes # (1.0-4.8) k/uL D-Dimer 1.81 H (<0.60) mg/L FEU Sodium (137-145) mmol/L Chloride (98-107) mmol/L Carbon Dioxide (22-30) mmol/L BUN (7-17) mg/dL Creatinine (0.52-1.04) mg/dL Glucose (74-99) mg/dL POC Glucose (mg/dL) 175 H (75-99) mg/dL Calcium (8.4-10.2) mg/dL AST (14-36) U/L ALT (4-34) U/L Total Protein (6.3-8.2) g/dL Albumin (3.5-5.0) g/dL PTH Intact (14.0-72.0) pg/mL Microbiology - Last 24 Hours (Table) 05/29/20 14:15 Blood Culture - Preliminary Blood No Growth after 120 hours 05/29/20 14:15 Blood Culture - Preliminary Blood No Growth after 120 hours Assessment and Plan Plan: Assessment: 1. Acute kidney injury mostly prerenal secondary to hypotension/hypovolemia and infection. Creatinine 3.8 on admission and is stable at 1.25 today. Unknown baseline. 2. Mild bilateral hydronephrosis. Urology following. 3. Metabolic acidosis secondary to acute kidney injury, diarrhea and IV fluids. Status post bicarb drip. Maintained on oral bicarb now. 4. Hypokalemia from poor intake and intracellular shifting from bicarb. Being replaced. 5. Covid-19 infection maintained on steroids, zinc and remdesivir. s/p tocilizumab. 6. Hypomagnesemia from poor intake. Replaced. 7. Hypocalcemia secondary to acute kidney injury. Corrected calcium normal. Vitamin D not low. 8. Hypernatremia secondary to lack of oral water intake. Plan: Maintain TPN. Repeat sodium level this evening. If higher, will resume D5W. Cortisol level slightly on the lower side. Patient is receiving steroids. Continue to monitor renal function and urine output. Wean FiO2. Add oral sodium bicarbonate.
[2020-06-04 12:20] LABS: Glucose,Whole Blood 117 mg/dL (75-99)
[2020-06-04] MEDS: SODIUM BICARBONATE TAB 650 MG TAB PO SCH ×2 (13:21→20:23)
[2020-06-04] MEDS: MORPHINE SULFATE 2 MG/ML SYRINGE IVP PRN (14:16)
--- NOTE | 2020-06-04 15:22 | P.PN ---
Subjective Progress Note Date: 06/04/20 (delayed charting seen at 0930) Principal diagnosis: shortness of breath Patient is a 50-year-old female with no significant past medical history who initially presented with generalized fatigue for 5 days duration. In the ER she underwent an extensive evaluation. She was hypoxic with an O2 sat of 89% on room air. Chest x-ray showed bilateral pneumonia. She was found have acute kidney injury with hypokalemia and a potassium level of 2.7. She had already gone to a local urgent care and had a rapid COVID-19 test which was positive. Renal ultrasound with bilateral hydronephrosis. She was admitted and started on IV fluids, Decadron, vitamin D, vitamin C, zinc, and melatonin. Pulmonary and nephrology were consulted. Nephrology started her on a sodium bicarb drip and consulted urology. Seen by urology and post void residual was normal and therefore no intervention was required. She was seen by pulmonary and started on remdesivir. She received convalescent plasma on 05/30. Her oxygen requirements continued to worsen necessitating 10 L high flow nasal cannula by 05/31. She received a second unit of, was plasma on 05/31. She was transferred to the ICU overnight on 06/01. She was started on BiPAP therapy secondary to hypoxemia. Her Decadron dose was increased. She was given actemra was given 06/01. She had picc line placed and was started on TPN on 06/02.Her Bipap settings decreased to 80 % FiO2 06/03. She was transitioned to AirVo on 06/04. Patient seen and examined at bedside. She denies any shortness of breath or pain. She tried a little bit of her clear liquid diet. She denies any nausea or vomiting. She does report feeling tired and weak. General: Ill-appearing, no acute distress appears at stated age, temporal wasting Derm: warm, dry Head: atraumatic, normocephalic, symmetric Eyes: PERRL, EOMI, no lid lag, anicteric sclera Mouth: lip fissues, mucus membranes dry Cardiovascular: S1S2 reg, no murmur, positive posterior tibial pulse bilateral, Lungs: Course breath sounds bilateral, no rhonchi, no rales , no accessory muscle use, on AirVo Abdominal: soft, nontender to palpation, no guarding, no appreciable organomegaly Ext: no gross muscle atrophy, trace edema, no contractures Neuro: CN II-XI grossly intact, no focal neuro deficits Psych: Alert, oriented to self , hospital thinks it is 2020, appears anxious COVID-19 pneumonia acute hypoxic respiratory failure - Dexamethasone - Pulmonary recs - bronchodilators - VIt C, Vit D - Remdesivir - Zinc - s/p 2 units of convolescent plasma and tocilizumab Toxic metabolic encepahlopathy - likely due to above with high dose IV steroids - supportive care Severe protein calorie malnutrition -Currently BiPAP dependent -PICC line ordered and TPN ordered. DUSTIN. improving likely secondary to hypotension/hypovolemia and infection, hypernatremia - nephrology recs - off D 5 - follow sodium levels Transaminitis -Likely due to above -Monitor closely with TPN Anemia -Was normal on arrival and suspected due to dilutional anemia from frequent blood draws -Follow CBC -No further intervention at this point in time Hyperchloremic metabolic acidosis -Likely secondary to IV fluid resuscitation -Continue to monitor with beginning of TPN. -Sodium bicarb recommendations per nephrology Mild bilateral hydronephrosis -Urology following -No additional intervention planned Hypokalemia, resolved Hypocalcemia, resolved Hypomagnesemia DVT prophylaxis: Lovenox Discussed with: patient, nursing Anticipated discharge: 7-`[address]: undetermined A total of 25 minutes was spent on the care of this complex patient more than 50% of the time was spent in counseling and care coordination. Objective - Vital Signs Vital signs: Vital Signs Temp 97 F L 06/04/20 04:00 Pulse 62 06/04/20 15:00 Resp 21 06/04/20 15:00 BP 122/76 06/04/20 15:00 Pulse Ox 97 06/04/20 15:00 Intake & Output 06/03/20 06/04/20 06/04/20 18:59 06:59 18:59 Intake Total 1485 1370 1020 Output Total 860 500 800 Balance 625 870 220 Weight 52.4 kg 52.4 kg Intake: IV 555 1265 820 .09 110 80 Calcium Gluconate 1 gm 605 440 Mvi, Adult No.4 with Vit K 10 ml Trace (Conc-1Ml/ Dose) 1 ml Potassium Acetate 24 meq Potassium Phosphate 10 mmol Magnesium Sulfate gm 1 gm In Amino Acid 4.25%-D10w 1,000 ml @ 55 mls/hr IV .BY DURATION [facility] Rx#: [id number] Calcium Gluconate 1 gm 180 Mvi, Adult No.4 with Vit K 10 ml Trace (Conc-1Ml/ Dose) 1 ml Sodium Acetate 34 meq Potassium Phosphate 15 mmol Magnesium Sulfate gm 1 gm In Amino Acid 4.25%-D10w 1,000 ml @ 30 mls/hr IV .Q24H [facility] Rx#:[id number] Dexamethasone Sod 50 Phosphate 20 mg In Dextrose 5% in Water 50 ml @ 100 mls/hr IV DAILY [facility] Rx#:[id number] Dextrose 5% in Water 1, 550 150 000 ml @ 50 mls/hr IV . Q20H [facility] Rx#:[id number] Magnesium 100 Sodium Chloride 0.9% 1, 375 000 ml @ 75 mls/hr IV . [id number] [facility] Rx#:[id number] Intake, IV Titration 930 105 Amount Calcium Gluconate 1 gm 330 55 Potassium Acetate 24 meq Potassium Phosphate 10 mmol Magnesium Sulfate gm 1 gm In Amino Acid 4.25% -D10w 1,000 ml @ 55 mls/ hr IV .BY DURATION [facility] Rx #:[id number] Dextrose 5% in Water 1, 350 50 000 ml @ 50 mls/hr IV . Q20H [facility] Rx#:[id number] Remdesivir 100 mg In 250 Sodium Chloride 0.9% 250 ml @ 250 mls/hr IVPB DAILY@1100 [facility] Rx#: [id number] Lipid 200 Calcium Gluconate 1 gm 200 Mvi, Adult No.4 with Vit K 10 ml Trace (Conc-1Ml/ Dose) 1 ml Potassium Acetate 24 meq Potassium Phosphate 10 mmol Magnesium Sulfate gm 1 gm In Amino Acid 4.25%-D10w 1,000 ml @ 55 mls/hr IV .BY DURATION [facility] Rx#: [id number] Output: Urine 860 500 800 Other: Voiding Method External Catheter External Catheter External Catheter # Voids 1 - Labs CBC & Chem 7: 06/04/20 03:30 06/04/20 03:30 Labs: Abnormal Lab Results - Last 24 Hours (Table) 06/03/20 06/03/20 06/03/20 Range/Units 03:56 15:50 21:51 WBC (3.8-10.6) k/uL Neutrophils # (1.3-7.7) k/uL Lymphocytes # (1.0-4.8) k/uL D-Dimer (<0.60) mg/L FEU Sodium (137-145) mmol/L Chloride (98-107) mmol/L Carbon Dioxide (22-30) mmol/L BUN (7-17) mg/dL Creatinine (0.52-1.04) mg/dL Glucose (74-99) mg/dL POC Glucose (mg/dL) 186 H 172 H (75-99) mg/dL Calcium (8.4-10.2) mg/dL AST (14-36) U/L ALT (4-34) U/L Total Protein (6.3-8.2) g/dL Albumin (3.5-5.0) g/dL PTH Intact 322.5 H (14.0-72.0) pg/mL 06/04/20 06/04/20 06/04/20 Range/Units 03:30 03:30 03:30 WBC 15.4 H (3.8-10.6) k/uL Neutrophils # 13.9 H (1.3-7.7) k/uL Lymphocytes # 0.5 L (1.0-4.8) k/uL D-Dimer 1.81 H (<0.60) mg/L FEU Sodium 146 H (137-145) mmol/L Chloride 116 H (98-107) mmol/L Carbon Dioxide 20 L (22-30) mmol/L BUN 46 H (7-17) mg/dL Creatinine 1.25 H (0.52-1.04) mg/dL Glucose 157 H (74-99) mg/dL POC Glucose (mg/dL) (75-99) mg/dL Calcium 7.4 L (8.4-10.2) mg/dL AST 43 H (14-36) U/L ALT 43 H (4-34) U/L Total Protein 5.0 L (6.3-8.2) g/dL Albumin 2.5 L (3.5-5.0) g/dL PTH Intact (14.0-72.0) pg/mL 06/04/20 06/04/20 Range/Units 03:57 12:18 WBC (3.8-10.6) k/uL Neutrophils # (1.3-7.7) k/uL Lymphocytes # (1.0-4.8) k/uL D-Dimer (<0.60) mg/L FEU Sodium (137-145) mmol/L Chloride (98-107) mmol/L Carbon Dioxide (22-30) mmol/L BUN (7-17) mg/dL Creatinine (0.52-1.04) mg/dL Glucose (74-99) mg/dL POC Glucose (mg/dL) 175 H 117 H (75-99) mg/dL Calcium (8.4-10.2) mg/dL AST (14-36) U/L ALT (4-34) U/L Total Protein (6.3-8.2) g/dL Albumin (3.5-5.0) g/dL PTH Intact (14.0-72.0) pg/mL Microbiology - Last 24 Hours (Table) 05/29/20 14:15 Blood Culture - Preliminary Blood No Growth after 120 hours 05/29/20 14:15 Blood Culture - Preliminary Blood No Growth after 120 hours
[2020-06-04] MEDS: FAT EMULSION 20% 250 ML in EMPTY BAG 1 BAG IV SCH (16:29)
[2020-06-04 17:45] LABS: Glucose,Whole Blood 163 mg/dL (75-99)
[2020-06-04] MEDS: MELATONIN 5 MG TABLET PO SCH (20:23)
[2020-06-05 00:01] LABS: Glucose,Whole Blood 172 mg/dL (75-99)
[2020-06-05] MEDS: INSULIN ASPART (NovoLOG) 100 UNIT/ML VIAL SQ SCH ×4 (00:05→17:23)
[2020-06-05] MEDS: [UNRECOGNIZED DRUG - REMARK] IV SCH ×7 (04:15)
[2020-06-05 05:55] LABS: Basophils # (A) 0.2 k/uL (0-0.2); Basophils % (A) 1 %; Eosinophils % (A) 0 %; HCT 39.2 % (34.0-46.0); HGB 12.2 gm/dL (11.4-16.0); Hypochromasia Slight; Lymphocytes # (A) 0.5 k/uL (1.0-4.8); Lymphocytes % (A) 2 %; MCH 27.8 pg (25.0-35.0); MCHC 31.2 g/dL (31.0-37.0); MCV 89.2 fL (80.0-100.0); Mean Platelet Volume 8.6; Monocytes # (A) 0.9 k/uL (0-1.0); Monocytes % (A) 4 %; Neutrophils # (A) 19.5 k/uL (1.3-7.7); Neutrophils % (A) 92 %; Platelet Count 410 k/uL (150-450); RDW 14.8 % (11.5-15.5); WBC 21.3 k/uL (3.8-10.6)
[2020-06-05 06:07] LABS: Ionized Calcium 4.6 mg/dL (4.5-5.3)
[2020-06-05 06:22] LABS: Calcium 7.6 mg/dL (8.4-10.2); Magnesium 2.1 mg/dL (1.6-2.3); Phosphorus 3.2 mg/dL (2.5-4.5); Potassium 3.9 mmol/L (3.5-5.1)
--- NOTE | 2020-06-05 07:45 | XR ---
EXAMINATION TYPE: XR chest 1V portable DATE OF EXAM: 06/05/2020 COMPARISON: Chest x-ray 06/04/2020 HISTORY: Crackles, abnormal physical exam, abnormal chest x-ray TECHNIQUE: Single frontal view of the chest is obtained. FINDINGS: There is no significant interval change. PICC line is stable. There are overlying artifact s. IMPRESSION: Correlate for pneumonia.
[2020-06-05 08:05] LABS: Glucose,Whole Blood 114 mg/dL (75-99)
[2020-06-05] MEDS: ALBUTEROL HFA INHALER INHALATION SCH ×4 (08:10→20:40)
[2020-06-05] MEDS ORDERED: Potassium Replacement Protocol 1 EACH MISC MISCELLANE PRN (08:14)
[2020-06-05] MEDS: POTASSIUM CHLORIDE 10 MEQ in WATER FOR INJECTION 1 100ML.BAG IVPB SCH ×2 (08:45→10:06)
[2020-06-05] MEDS: DEXAMETHASONE SOD PHOSPHATE 20 MG in DEXTROSE 5% IN WATER 50 ML IV SCH ×2 (08:46)
[2020-06-05] MEDS: ASCORBIC ACID 500 MG TAB PO SCH ×2 (08:46→20:32)
[2020-06-05] MEDS: ENOXAPARIN 40 MG/0.4 ML SYRINGE SQ SCH (08:46)
[2020-06-05] MEDS: CHOLECALCIFEROL 25 MCG (1000 IU) TABLET PO SCH (08:46)
[2020-06-05] MEDS: SODIUM BICARBONATE TAB 650 MG TAB PO SCH (08:47)
[2020-06-05] MEDS: ZINC SULFATE 220 MG CAP PO SCH (08:47)
[2020-06-05 09:29] LABS: Appearance,Urine Clear (Clear); Bilirubin,Urine Negative (Negative); Blood,Urine Negative (Negative); Color,Urine Light Yellow; Glucose,Urine (UA) Negative (Negative); Ketones,Urine Negative (Negative); Leukocyte Esterase,Urine Negative (Negative); Nitrite,Urine Negative (Negative); PH, Urine 6.5 (5.0-8.0); Protein,Urine Trace (Negative); Specific Gravity,Urine 1.011 (1.001-1.035); Urobilinogen,Urine <2.0 mg/dL (<2.0)
--- NOTE | 2020-06-05 10:12 | P.PN ---
Subjective Progress Note Date: 06/05/20 This is a pleasant 50-year-old female patient with no primary care provider, no chronic medical problems. No home medications. Lifelong nonsmoker. She presented to the emergency room yesterday with concerns regarding a positive CoVID 19 test on 05/26/2020. She has been having ongoing issues with generalized weakness, fatigue, poor appetite. Normal shortness of breath and cough. Chest x-ray revealed bilateral lower lobe pneumonia. Normal heart. Renal ultrasound with mild bilateral hydronephrosis. White count 5.4. Hemoglobin 13.0. Lymphocytes 0.5. Sodium 141. Potassium initially 2.7, currently 3.8. Creatinine initially 3.83, currently 2.9 area d-dimer 0.66. LDH 1455. C- reactive protein 12.5. Ferritin 387. Pro-calcitonin 0.87. Coronavirus detected by PCR. She is seen today in consultation on the regular medical floor. She is awake and alert in no acute distress. Maintaining good O2 saturations in the 90s on 2 L/m per nasal cannula. No significant acute respiratory distress. Lungs sounds with few scattered rhonchi. She will be initiated on Remdesivir, convalescent plasma, Lovenox, vitamin supplements. Antibiotics in the form of ceftriaxone and azithromycin. On 05/31/2020 and I'm seeing the patient for a follow-up. The patient is currently on 10 L of oxygen by nasal cannula. Diagnosed having Covid 19. The patient is currently on Decadron, Remdesivir the patient has also received a unit of convalescent plasma. Medically, the patient reports that she is still feeling the same compared to yesterday. The chest x-ray still showing interstitial infiltrates in the lung bases peripherally. Sodium is at 146 with a potassium level of 3.0 and a chloride is 117. D-dimer is at 0.87. Her LDH is at 465, CRP is less than 0.4. As such, the inflammatory markers have improved. Serum cortisone is low at 2.9. Her white cell count was at 5.4. Hemoglobin is at 13.0. The patient is currently on Decadron 6 mg IV. The patient is on Lindsey enox 30 mg subcu every 24 hours. Antibiotics were also added on empiric basis with a combination of Rocephin and Zithromax. Pro-calcitonin was modestly elevated at 0.87. UA showed 30 WBCs. Culture is still pending for now. Blood cultures been negative thus far. She remains on 10 L of oxygen by nasal cannula. On 06/01/2020, the patient got transferred to the intensive care unit. This occurred earlier this morning. Noted the patient's condition was gradually getting worse. She can't was on 2 L of oxygen by nasal cannula and her oxygenation gradually got worse and she was on 10 L yesterday. I increased the Decadron up to 20 mg IV. Continue the Lovenox subcu based on a low d-dimer and her dose was at 30 mg subcu every 24 hours and I ordered the second unit of convalescent plasma knowing that the patient has received 1 unit. She remains on Remdesivir . Despite all this, her condition is getting worse. Oxidation is worse and earlier this morning the patient became progressively more hypoxic and she got chest that the intensive care unit and she is currently on a BiPAP at a pressure of 10/6 cm of water and FiO2 of 100%. Her current pulse ox is in the order of 96%. Chest x-ray shows worsening of the bilateral lower lobe pulmonary infiltrates question the lung bases peripherally. Laboratory markers from today shows an LDH of 1234, which is higher compared to yesterday and the CRP is down to 5.0. Repeat UA was negative and there is no suspicion for any underlying infection. For that reason, I'm going to stop the antibiotics. The cultures of been negative thus far. She is afebrile. The white cell count today is pending.. The sodium is down to 143 and the potassium needs to be replaced at 2.5 and the creatinine continues to improve went down to 1.7 and the patient is currently receiving IV fluids in the form of D5 with 150 mEq of sodium bicarbonate the rate of 100 mL an hour. The serum bicarb today is at 23 which is essentially normalized. 2020 I'm seeing the patient for a follow-up. This morning, the patient is still on BiPAP at a pressure of 10/6 cm of water with an FiO2 of 90 1. The patient's chest x-ray from this morning is showing bilateral peripheral pulmonary infiltrates more so in the lower lobes right more than left. She is comfortable breathing on the BiPAP and she is not having any significant respiratory distress. Her current minute ventilation is around 12 L and a tidal volume generated is around 220 with a rate of 25 breast and minutes. Overnight, the patient had no significant issues. She is afebrile. Her white cell cause of 5.6 with a hemoglobin of 10.4. D-dimer is at 0.8. Creatinine is improved and is down to 1.4 with fluid resuscitation. LDH is high at 1473 and her CRP level is less than 5. Based on her ongoing Covid 19 related pneumonia, the patient was given higher dose of Decadron 20 mg IV every 24 hours pH is on Lovenox 30 mg subcu 24 and she is completing the course of Remdesivir day #4 and she also received Actemra 200 mg 2 doses. In terms of convalescent plasma, she has taken 2 units. No nausea. No vomiting. No diarrhea. No altered mentation. 06/03/2020 the patient is being seen in follow-up. The patient is stable compared to yesterday. She remains on a BiPAP at a pressure of 10/6 with an FiO2 of 90% which I was able to drop it down to 70% this morning. Respiratory rate is around 25, the TV 500 and a minute ventilation of 12.6 L per minute. The patient is able to tolerate the BiPAP mask without any major difficulties. No signs of any significant respiratory distress on today's evaluation. The chest x-ray findings are essentially stable with dense consolidation in the lung bases bilaterally. The patient has also follow blood work in the CRP level is less than 5, LDH is pending for now knowing that the LDH from yesterday was on the rise. Decadron is being given 20 mg IV every 24 hours. The patient also received interleukin-6 Actemra early grams IV 2 doses. She also received a total of 2 units of convalescent plasma. She has completing Remdesivir today a nd today is day #5. She has a PICC line and she is receiving TPN for nutrition support. She is hemodynamically stable. We are still monitoring her condition here in the ICU and the patient's condition still critical especially with her ongoing respiratory failure. As stated, she is still BiPAP dependent for the time being. 06/04/2020 I'm seeing the patient for a follow-up. On this morning's evaluation, the patient is awake, slightly anxious, still on a BiPAP and she's been on it for the past few days at a setting of a 10/6 with an FiO2 of 70% which was further dropped down to 60% this morning. She is breathing at the rate of 21 and she is urinating a tidal volume of 60. Minute ventilation is around 9-10 L per minute. No significant leaks on the mask. She has developed some oral dryness and some minimal amount of skin breaks. LDH level is still pending. CRP level is less than 5. She is afebrile. Decadron is being given 20 mg IV every 24 hours. Rest of the treatments have been also introduced and the patient seemsinterleukin-6 Actemra early grams IV 2 doses. She also r eceived a total of 2 units of convalescent plasma. She has completing Remdesivir 5 day course. The patient has completed 5 day course of treatment. The patient is also on Lovenox 40 mg subcutaneous every 24 hours and her d-dimer is at 1.8. She is on TPN for nutritional support. The sodium level today is at 146 somewhat improved compared to yesterday and the renal function continues to stable with a creatinine of 1.25 and the patient has recovered from her acute kidney injury. Potassium level is at 3.7. Serum bicarbs at 20. Her pro CALCITONIN level was down to 0.19. Chest x-ray showing stable about pulmonary infiltrates on 06/05/2020, the patient is on high flow oxygen. We managed to get off the BiPAP machine yesterday and she is currently on high flow at the rate of 50 L with an FiO2 of 50%. She is comfortable. She seems to be much more rested. She had a follow-up chest x-ray today that showed adequate expansion of both lungs. There were consolidation/infiltrates in the lung bases which are rather stable and there is no interval worsening. These are peripheral infiltrates in the lung bases right more than left. Meanwhile, she is afebrile. She is taken few bites of view and she is also on TPN for nutritional support. I like to get off the Diprivan as soon as possible once the patient is able to advance her diet. Her white cell count is up to 21. Hemoglobin is at 12.2. Her inflammatory markers showed an LDH of 1473 from 06/02/2020 and this needs to be followed. Meanwhile, the d-dimer currently is at 1.8 The patient remains on Lovenox. Dose of 40 mg subcu every 24 hours. No other significant events otherwise over the past 24 hours pH is awake. She is alert. No nausea. No vomiting. No diarrhea. She remains on Decadron 20 mg IV every 24 hours. Objective - Vital Signs Vital signs: Vital Signs Temp 97.7 F 06/05/20 08:00 Pulse 65 06/05/20 09:00 Resp 18 06/05/20 09:00 BP 133/86 06/05/20 09:00 Pulse Ox 95 06/05/20 09:00 Intake & Output 06/04/20 06/05/20 06/05/20 18:59 06:59 18:59 Intake Total 1215 998 280 Output Total 800 550 250 Balance 415 448 30 Weight 52.4 kg 54.3 kg Intake: IV 1015 948 130 .09 110 120 30 Calcium Gluconate 1 gm 605 550 Mvi, Adult No.4 with Vit K 10 ml Trace (Conc-1Ml/ Dose) 1 ml Potassium Acetate 24 meq Potassium Phosphate 10 mmol Magnesium Sulfate gm 1 gm In Amino Acid 4.25%-D10w 1,000 ml @ 55 mls/hr IV .BY DURATION [facility] Rx#: [id number] Calcium Gluconate 1 gm 110 Mvi, Adult No.4 with Vit K 10 ml Trace (Conc-1Ml/ Dose) 1 ml Sodium Acetate 34 meq Potassium Phosphate 15 mmol Magnesium Sulfate gm 1 gm In Amino Acid 4.25%-D10w 1,000 ml @ 30 mls/hr IV .Q24H [facility] Rx#:[id number] Dexamethasone 100 Dexamethasone Sod 50 Phosphate 20 mg In Dextrose 5% in Water 50 ml @ 100 mls/hr IV DAILY [facility] Rx#:[id number] Dextrose 5% in Water 1, 150 000 ml @ 50 mls/hr IV . Q20H [facility] Rx#:[id number] Fat Emulsion 20% 250 ml 168 In Empty Bag 1 bag @ 21 mls/hr IV [id number] [facility] Rx#:[id number] Magnesium 100 Intake, IV Titration 100 Amount Potassium Chloride 10 meq 100 In Water For Injection 1 100ml.bag @ 100 mls/hr IVPB Q1H [facility] Rx#: [id number] Oral 50 50 Lipid 200 Calcium Gluconate 1 gm 200 Mvi, Adult No.4 with Vit K 10 ml Trace (Conc-1Ml/ Dose) 1 ml Potassium Acetate 24 meq Potassium Phosphate 10 mmol Magnesium Sulfate gm 1 gm In Amino Acid 4.25%-D10w 1,000 ml @ 55 mls/hr IV .BY D[facility] Rx#: [id number] Output: Urine 800 550 250 Other: Voiding Method External Catheter External Catheter External Catheter # Voids 1 1 1 - Exam GENERAL EXAM: Alert, pleasant 50-year-old female patient, othe patient is on high flow oxygen at 15 L with 50% FiO2 HEAD: Normocephalic. EYES: Normal reaction of pupils, equal size. NOSE: Clear with pink turbinates. THROAT: No erythema or exudates. NECK: No masses, no JVD. CHEST: No chest wall deformity. LUNGS: Equal air entry with few bilateral scattered rhonchi. CVS: S1 and S2 normal with no audible murmur, regular rhythm. ABDOMEN: No hepatosplenomegaly, normal bowel sounds, no guarding or rigidity. SPINE: No scoliosis or deformity SKIN: No rashes CENTRAL NERVOUS SYSTEM: No focal deficits, tone is normal in all 4 extremities. She is awake and she is EXTREMITIES: There is no peripheral edema. No clubbing, no cyanosis. Peripheral pulses are intact. - Labs CBC & Chem 7: 06/05/20 05:28 06/05/20 05:28 Labs: Abnormal Lab Results - Last 24 Hours (Table) 06/04/20 06/04/20 06/04/20 Range/Units 12:18 15:09 17:44 WBC (3.8-10.6) k/uL Neutrophils # (1.3-7.7) k/uL Lymphocytes # (1.0-4.8) k/uL Sodium 146 H (137-145) mmol/L Chloride (98-107) mmol/L BUN (7-17) mg/dL Creatinine (0.52-1.04) mg/dL Glucose (74-99) mg/dL POC Glucose (mg/dL) 117 H 163 H (75-99) mg/dL Calcium (8.4-10.2) mg/dL Urine Protein (Negative) 06/04/20 06/05/20 06/05/20 Range/Units 23:59 05:28 05:28 WBC 21.3 H (3.8-10.6) k/uL Neutrophils # 19.5 H (1.3-7.7) k/uL Lymphocytes # 0.5 L (1.0-4.8) k/uL Sodium 147 H (137-145) mmol/L Chloride 115 H (98-107) mmol/L BUN 48 H (7-17) mg/dL Creatinine 1.28 H (0.52-1.04) mg/dL Glucose 131 H (74-99) mg/dL POC Glucose (mg/dL) 172 H (75-99) mg/dL Calcium 7.6 L (8.4-10.2) mg/dL Urine Protein (Negative) 06/05/20 06/05/20 Range/Units 08:03 09:22 WBC (3.8-10.6) k/uL Neutrophils # (1.3-7.7) k/uL Lymphocytes # (1.0-4.8) k/uL Sodium (137-145) mmol/L Chloride (98-107) mmol/L BUN (7-17) mg/dL Creatinine (0.52-1.04) mg/dL Glucose (74-99) mg/dL POC Glucose (mg/dL) 114 H (75-99) mg/dL Calcium (8.4-10.2) mg/dL Urine Protein Trace H (Negative) Microbiology - Last 24 Hours (Table) 05/29/20 14:15 Blood Culture - Final Blood No Growth after 144 hours 05/29/20 14:15 Blood Culture - Final Blood No Growth after 144 hours Assessment and Plan Plan: 1 Acute hypoxic respiratory failure secondary to acute CoVID 19 pneumonia. Completed Remdesivir , convalescent plasma 2 units were given and the patient currently is on Decadron 20 mg IV push every 24 hours and the patient was given 2 doses of Actemra. Patient was on BiPAP and she was weaned down to high flow oxygen 15 L with an FiO2 of 50%. She is comfortable and communicating. She remains on Decadron for now. She is also on Lovenox 40 mg subcu every 24 hours. 2 Acute CoVID 19 infection with elevated inflammatory markers, and the levels including LDH is elevated. D-dimer is low. The patient is on prophylactic dose of Lovenox. 3 Acute renal failure , recovered and the creatinine is down to 1.28 4 shortness of breath, improved 5 Mild hydronephrosisconsider a underlying component of chronic kidney disease with mild hydronephrosis. She recovered from an acute kidney injury. Plan: Chest x-ray today was reviewed, findings are essentially stable high flow oxygen and wean it down as tolerated to maintain a saturation above 90% Advance diet and gradually reduced TPN and the goal is to get out of the TPN and advance this patient diet for now. Inflammatory markers to be monitored awaiting LDH levels Remdesivirper protocol completed, convalescent plasma 2 units and continue with Decadron 20 mg IV every 24 hours and Lovenox 40mg Subcu for DVT prophylaxis. dexamethasone dose will be reduced down to 6 mg every 12 hours vitamin supplements no antibiotic use for now and the patient antibiotics have been discontinued , and repeat a pro-calcitonin level was 0.19 Continue bronchodilators We'll continue monitoring this patient in intensive care unit. Condition is critical, all other has been some recovery and improvement in this patient's condition. Critical care evaluation more than 30 minutes .
--- NOTE | 2020-06-05 10:17 | P.PN ---
Subjective Progress Note Date: 06/05/20 Principal diagnosis: shortness of breath Patient is a 50-year-old female with no significant past medical history who initially presented with generalized fatigue for 5 days duration. In the ER she underwent an extensive evaluation. She was hypoxic with an O2 sat of 89% on room air. Chest x-ray showed bilateral pneumonia. She was found have acute kidney injury with hypokalemia and a potassium level of 2.7. She had already gone to a local urgent care and had a rapid COVID-19 test which was positive. Renal ultrasound with bilateral hydronephrosis. She was admitted and started on IV fluids, Decadron, vitamin D, vitamin C, zinc, and melatonin. Pulmonary and n ephrology were consulted. Nephrology started her on a sodium bicarb drip and consulted urology. Seen by urology and post void residual was normal and therefore no intervention was required. She was seen by pulmonary and started on remdesivir. She received convalescent plasma on 05/30. Her oxygen requirements continued to worsen necessitating 10 L high flow nasal cannula by 05/31. She received a second unit of, was plasma on 05/31. She was transferred to the ICU overnight on 06/01. She was started on BiPAP therapy secondary to hypoxemia. Her Decadron dose was increased. She was given actemra was given 06/01. She had picc line placed and was started on TPN on 06/02.Her Bipap settings decreased to 80 % FiO2 06/03. She was transitioned to AirVo on 06/04 and allowed a diet. Her WBC is increasing Patient seen and examined at bedside with nursing present. She initially will only shake head and not verbalize. She denies chest pain, SOB, nausea. Not very hungry. Thinks it is 2020, unable to answer "what month is it?", knows her birthday and that she works at [employer] when asked what she does she lifts her hand and makes a writing motion. General: Ill-appearing, no acute distress appears at stated age, temporal wasting Derm: warm, dry Head: atraumatic, normocephalic, symmetric Eyes: PERRL, EOMI, no lid lag, anicteric sclera Mouth: lip fissues, mucus membranes dry Cardiovascular: S1S2 reg, no murmur, positive posterior tibial pulse bilateral, Lungs: Course breath sounds bilateral, no rhonchi, no rales , no accessory muscle use, on AirVo Abdominal: soft, nontender to palpation, no guarding, no appreciable organomegaly Ext: no gross muscle atrophy, trace edema, no contractures Neuro: CN II-XI grossly intact, no focal neuro deficits Psych: Alert, oriented to self , hospital thinks it is 2020, appears anxious COVID-19 pneumonia acute hypoxic respiratory failure - Dexamethasone- likely lower the dose today - Pulmonary recs - bronchodilators - VIt C, Vit D - Remdesivir - Zinc - s/p 2 units of convolescent plasma and tocilizumab Leukocytosis - likely from high dose steroids as no associated fevers - check UA and procalcitonin - if fever develops check Blood cultures - repeat CBC in AM Toxic metabolic encepahlopathy - likely due to above with high dose IV steroids - supportive care Severe protein calorie malnutrition -Currently BiPAP dependent -PICC line ordered and TPN, hope to wean as appetite increases. DUSTIN. improving likely secondary to hypotension/hypovolemia and infection, hypernatremia - nephrology recs - off D 5 - follow sodium levels Transaminitis -Likely due to above -Monitor closely with TPN Anemia -Was normal on arrival and suspected due to dilutional anemia from frequent blood draws -Follow CBC -No further intervention at this point in time Hyperchloremic metabolic acidosis -Likely secondary to IV fluid resuscitation -Continue to monitor with beginning of TPN. -Sodium bicarb recommendations per nephrology Mild bilateral hydronephrosis -Urology following -No additional intervention planned Hypokalemia, resolved Hypocalcemia, resolved Hypomagnesemia DVT prophylaxis: Lovenox Discussed with: patient, nursing Anticipated discharge: 7-[address]: undetermined A total of 25 minutes was spent on the care of this complex patient more than 50% of the time was spent in counseling and care coordination. Objective - Vital Signs Vital signs: Vital Signs Temp 97.7 F 06/05/20 08:00 Pulse 70 06/05/20 10:00 Resp 18 06/05/20 10:00 BP 136/94 06/05/20 10:00 Pulse Ox 93 L 06/05/20 10:00 Intake & Output 06/04/20 06/05/20 06/05/20 18:59 06:59 18:59 Intake Total 1215 998 390 Output Total 800 550 250 Balance 415 448 140 Weight 52.4 kg 54.3 kg Intake: IV 1015 948 140 .09 110 120 40 Calcium Gluconate 1 gm 605 550 Mvi, Adult No.4 with Vit K 10 ml Trace (Conc-1Ml/ Dose) 1 ml Potassium Acetate 24 meq Potassium Phosphate 10 mmol Magnesium Sulfate gm 1 gm In Amino Acid 4.25%-D10w 1,000 ml @ 55 mls/hr IV .BY DURATION [facility] Rx#: [id number] Calcium Gluconate 1 gm 110 Mvi, Adult No.4 with Vit K 10 ml Trace (Conc-1Ml/ Dose) 1 ml Sodium Acetate 34 meq Potassium Phosphate 15 mmol Magnesium Sulfate gm 1 gm In Amino Acid 4.25%-D10w 1,000 ml @ 30 mls/hr IV .Q24H [facility] Rx#:[id number] Dexamethasone 100 Dexamethasone Sod 50 Phosphate 20 mg In Dextrose 5% in Water 50 ml @ 100 mls/hr IV DAILY [facility] Rx#:[id number] Dextrose 5% in Water 1, 150 000 ml @ 50 mls/hr IV . Q20H [facility] Rx#:[id number] Fat Emulsion 20% 250 ml 168 In Empty Bag 1 bag @ 21 mls/hr IV [id number] [facility] Rx#:[id number] Magnesium 100 Intake, IV Titration 200 Amount Potassium Chloride 10 meq 200 In Water For Injection 1 100ml.bag @ 100 mls/hr IVPB Q1H [facility] Rx#: [id number] Oral 50 50 Lipid 200 Calcium Gluconate 1 gm 200 Mvi, Adult No.4 with Vit K 10 ml Trace (Conc-1Ml/ Dose) 1 ml Potassium Acetate 24 meq Potassium Phosphate 10 mmol Magnesium Sulfate gm 1 gm In Amino Acid 4.25%-D10w 1,000 ml @ 55 mls/hr IV .BY DURATION [facility] Rx#: [id number] Output: Urine 800 550 250 Other: Voiding Method External Catheter External Catheter External Catheter # Voids 1 1 1 - Labs CBC & Chem 7: 06/05/20 05:28 06/05/20 05:28 Labs: Abnormal Lab Results - Last 24 Hours (Table) 06/04/20 06/04/20 06/04/20 Range/Units 12:18 15:09 17:44 WBC (3.8-10.6) k/uL Neutrophils # (1.3-7.7) k/uL Lymphocytes # (1.0-4.8) k/uL Sodium 146 H (137-145) mmol/L Chloride (98-107) mmol/L BUN (7-17) mg/dL Creatinine (0.52-1.04) mg/dL Glucose (74-99) mg/dL POC Glucose (mg/dL) 117 H 163 H (75-99) mg/dL Calcium (8.4-10.2) mg/dL Urine Protein (Negative) 06/04/20 06/05/20 06/05/20 Range/Units 23:59 05:28 05:28 WBC 21.3 H (3.8-10.6) k/uL Neutrophils # 19.5 H (1.3-7.7) k/uL Lymphocytes # 0.5 L (1.0-4.8) k/uL Sodium 147 H (137-145) mmol/L Chloride 115 H (98-107) mmol/L BUN 48 H (7-17) mg/dL Creatinine 1.28 H (0.52-1.04) mg/dL Glucose 131 H (74-99) mg/dL POC Glucose (mg/dL) 172 H (75-99) mg/dL Calcium 7.6 L (8.4-10.2) mg/dL Urine Protein (Negative) 06/05/20 06/05/20 Range/Units 08:03 09:22 WBC (3.8-10.6) k/uL Neutrophils # (1.3-7.7) k/uL Lymphocytes # (1.0-4.8) k/uL Sodium (137-145) mmol/L Chloride (98-107) mmol/L BUN (7-17) mg/dL Creatinine (0.52-1.04) mg/dL Glucose (74-99) mg/dL POC Glucose (mg/dL) 114 H (75-99) mg/dL Calcium (8.4-10.2) mg/dL Urine Protein Trace H (Negative) Microbiology - Last 24 Hours (Table) 05/29/20 14:15 Blood Culture - Final Blood No Growth after 144 hours 05/29/20 14:15 Blood Culture - Final Blood No Growth after 144 hours
[2020-06-05 10:55] LABS: C Reactive Protein <5.0 mg/L (<10.0); LDH 1669 U/L (313-618)
[2020-06-05 11:20] LABS: Glucose,Whole Blood 137 mg/dL (75-99)
[2020-06-05 11:32] LABS: Glucose,Whole Blood 150 mg/dL (75-99)
[2020-06-05] MEDS: MORPHINE SULFATE 2 MG/ML SYRINGE IVP PRN (11:49)
[2020-06-05 16:35] LABS: LD Isoenzymes 1 19 % (19-38); LD Isoenzymes 2 37 % (30-43); LD Isoenzymes 3 25 % (16-26); LD Isoenzymes 4 11 % (3-12); LD Isoenzymes 5 8 % (3-14); Lactacte Dehydrogenase(LD) ISO 545 U/L (120-250)
[2020-06-05 17:16] LABS: Glucose,Whole Blood 170 mg/dL (75-99)
[2020-06-05] MEDS: MELATONIN 5 MG TABLET PO SCH (20:32)
[2020-06-06] MEDS: [UNRECOGNIZED DRUG - REMARK] IV SCH ×14 (00:12→17:58)
[2020-06-06 00:16] LABS: Glucose,Whole Blood 131 mg/dL (75-99)
[2020-06-06] MEDS: INSULIN ASPART (NovoLOG) 100 UNIT/ML VIAL SQ SCH ×4 (00:17→17:59)
[2020-06-06 04:23] LABS: Basophils # (A) 0.1 k/uL (0-0.2); Basophils % (A) 1 %; Calcium 8.1 mg/dL (8.4-10.2); Eosinophils # (A) 0.1 k/uL (0-0.7); Eosinophils % (A) 1 %; HCT 36.6 % (34.0-46.0); HGB 11.5 gm/dL (11.4-16.0); Lymphocytes # (A) 0.6 k/uL (1.0-4.8); Lymphocytes % (A) 3 %; MCH 27.8 pg (25.0-35.0); MCHC 31.4 g/dL (31.0-37.0); MCV 88.4 fL (80.0-100.0); Magnesium 2.2 mg/dL (1.6-2.3); Mean Platelet Volume 9.3; Monocytes % (A) 5 %; Neutrophils # (A) 18.4 k/uL (1.3-7.7); Neutrophils % (A) 90 %; Phosphorus 3.5 mg/dL (2.5-4.5); Platelet Count 403 k/uL (150-450); Potassium 4.5 mmol/L (3.5-5.1); RBC 4.14 m/uL (3.80-5.40); RDW 14.8 % (11.5-15.5); WBC 20.3 k/uL (3.8-10.6)
[2020-06-06] MEDS ORDERED: DEXAMETHASONE SOD PHOSPHATE 10 MG/ML 1 ML VIAL IV SCH (06:00)
--- NOTE | 2020-06-06 06:53 | P.PN ---
Subjective Progress Note Date: 06/06/20 This is a pleasant 50-year-old female patient with no primary care provider, no chronic medical problems. No home medications. Lifelong nonsmoker. She presented to the emergency room yesterday with concerns regarding a positive CoVID 19 test on 05/26/2020. She has been having ongoing issues with generalized weakness, fatigue, poor appetite. Normal shortness of breath and cough. Chest x-ray revealed bilateral lower lobe pneumonia. Normal heart. Renal ultrasound with mild bilateral hydronephrosis. White count 5.4. Hemoglobin 13.0. Lymphocytes 0.5. Sodium 141. Potassium initially 2.7, currently 3.8. Creatinine initially 3.83, currently 2.9 area d-dimer 0.66. LDH 1455. C- reactive protein 12.5. Ferritin 387. Pro-calcitonin 0.87. Coronavirus detected by PCR. She is seen today in consultation on the regular medical floor. She is awake and alert in no acute distress. Maintaining good O2 saturations in the 90s on 2 L/m per nasal cannula. No significant acute respiratory distress. Lungs sounds with few scattered rhonchi. She will be initiated on Remdesivir, convalescent plasma, Lovenox, vitamin supplements. Antibiotics in the form of ceftriaxone and azithromycin. On 05/31/2020 and I'm seeing the patient for a follow-up. The patient is currently on 10 L of oxygen by nasal cannula. Diagnosed having Covid 19. The patient is currently on Decadron, Remdesivir the patient has also received a unit of convalescent plasma. Medically, the patient reports that she is still feeling the same compared to yesterday. The chest x-ray still showing interstitial infiltrates in the lung bases peripherally. Sodium is at 146 with a potassium level of 3.0 and a chloride is 117. D-dimer is at 0.87. Her LDH is at 465, CRP is less than 0.4. As such, the inflammatory markers have improved. Serum cortisone is low at 2.9. Her white cell count was at 5.4. Hemoglobin is at 13.0. The patient is currently on Decadron 6 mg IV. The patient is on Lindsey enox 30 mg subcu every 24 hours. Antibiotics were also added on empiric basis with a combination of Rocephin and Zithromax. Pro-calcitonin was modestly elevated at 0.87. UA showed 30 WBCs. Culture is still pending for now. Blood cultures been negative thus far. She remains on 10 L of oxygen by nasal cannula. On 06/01/2020, the patient got transferred to the intensive care unit. This occurred earlier this morning. Noted the patient's condition was gradually getting worse. She can't was on 2 L of oxygen by nasal cannula and her oxygenation gradually got worse and she was on 10 L yesterday. I increased the Decadron up to 20 mg IV. Continue the Lovenox subcu based on a low d-dimer and her dose was at 30 mg subcu every 24 hours and I ordered the second unit of convalescent plasma knowing that the patient has received 1 unit. She remains on Remdesivir . Despite all this, her condition is getting worse. Oxidation is worse and earlier this morning the patient became progressively more hypoxic and she got chest that the intensive care unit and she is currently on a BiPAP at a pressure of 10/6 cm of water and FiO2 of 100%. Her current pulse ox is in the order of 96%. Chest x-ray shows worsening of the bilateral lower lobe pulmonary infiltrates question the lung bases peripherally. Laboratory markers from today shows an LDH of 1234, which is higher compared to yesterday and the CRP is down to 5.0. Repeat UA was negative and there is no suspicion for any underlying infection. For that reason, I'm going to stop the antibiotics. The cultures of been negative thus far. She is afebrile. The white cell count today is pending.. The sodium is down to 143 and the potassium needs to be replaced at 2.5 and the creatinine continues to improve went down to 1.7 and the patient is currently receiving IV fluids in the form of D5 with 150 mEq of sodium bicarbonate the rate of 100 mL an hour. The serum bicarb today is at 23 which is essentially normalized. 2020 I'm seeing the patient for a follow-up. This morning, the patient is still on BiPAP at a pressure of 10/6 cm of water with an FiO2 of 90 1. The patient's chest x-ray from this morning is showing bilateral peripheral pulmonary infiltrates more so in the lower lobes right more than left. She is comfortable breathing on the BiPAP and she is not having any significant respiratory distress. Her current minute ventilation is around 12 L and a tidal volume generated is around 220 with a rate of 25 breast and minutes. Overnight, the patient had no significant issues. She is afebrile. Her white cell cause of 5.6 with a hemoglobin of 10.4. D-dimer is at 0.8. Creatinine is improved and is down to 1.4 with fluid resuscitation. LDH is high at 1473 and her CRP level is less than 5. Based on her ongoing Covid 19 related pneumonia, the patient was given higher dose of Decadron 20 mg IV every 24 hours pH is on Lovenox 30 mg subcu 24 and she is completing the course of Remdesivir day #4 and she also received Actemra 200 mg 2 doses. In terms of convalescent plasma, she has taken 2 units. No nausea. No vomiting. No diarrhea. No altered mentation. 06/03/2020 the patient is being seen in follow-up. The patient is stable compared to yesterday. She remains on a BiPAP at a pressure of 10/6 with an FiO2 of 90% which I was able to drop it down to 70% this morning. Respiratory rate is around 25, the TV 500 and a minute ventilation of 12.6 L per minute. The patient is able to tolerate the BiPAP mask without any major difficulties. No signs of any significant respiratory distress on today's evaluation. The chest x-ray findings are essentially stable with dense consolidation in the lung bases bilaterally. The patient has also follow blood work in the CRP level is less than 5, LDH is pending for now knowing that the LDH from yesterday was on the rise. Decadron is being given 20 mg IV every 24 hours. The patient also received interleukin-6 Actemra early grams IV 2 doses. She also received a total of 2 units of convalescent plasma. She has completing Remdesivir today a nd today is day #5. She has a PICC line and she is receiving TPN for nutrition support. She is hemodynamically stable. We are still monitoring her condition here in the ICU and the patient's condition still critical especially with her ongoing respiratory failure. As stated, she is still BiPAP dependent for the time being. 06/04/2020 I'm seeing the patient for a follow-up. On this morning's evaluation, the patient is awake, slightly anxious, still on a BiPAP and she's been on it for the past few days at a setting of a 10/6 with an FiO2 of 70% which was further dropped down to 60% this morning. She is breathing at the rate of 21 and she is urinating a tidal volume of 60. Minute ventilation is around 9-10 L per minute. No significant leaks on the mask. She has developed some oral dryness and some minimal amount of skin breaks. LDH level is still pending. CRP level is less than 5. She is afebrile. Decadron is being given 20 mg IV every 24 hours. Rest of the treatments have been also introduced and the patient seemsinterleukin-6 Actemra early grams IV 2 doses. She also r eceived a total of 2 units of convalescent plasma. She has completing Remdesivir 5 day course. The patient has completed 5 day course of treatment. The patient is also on Lovenox 40 mg subcutaneous every 24 hours and her d-dimer is at 1.8. She is on TPN for nutritional support. The sodium level today is at 146 somewhat improved compared to yesterday and the renal function continues to stable with a creatinine of 1.25 and the patient has recovered from her acute kidney injury. Potassium level is at 3.7. Serum bicarbs at 20. Her pro CALCITONIN level was down to 0.19. Chest x-ray showing stable about pulmonary infiltrates on 06/05/2020, the patient is on high flow oxygen. We managed to get off the BiPAP machine yesterday and she is currently on high flow at the rate of 50 L with an FiO2 of 50%. She is comfortable. She seems to be much more rested. She had a follow-up chest x-ray today that showed adequate expansion of both lungs. There were consolidation/infiltrates in the lung bases which are rather stable and there is no interval worsening. These are peripheral infiltrates in the lung bases right more than left. Meanwhile, she is afebrile. She is taken few bites of view and she is also on TPN for nutritional support. I like to get off the Diprivan as soon as possible once the patient is able to advance her diet. Her white cell count is up to 21. Hemoglobin is at 12.2. Her inflammatory markers showed an LDH of 1473 from 06/02/2020 and this needs to be followed. Meanwhile, the d-dimer currently is at 1.8 The patient remains on Lovenox. Dose of 40 mg subcu every 24 hours. No other significant events otherwise over the past 24 hours pH is awake. She is alert. No nausea. No vomiting. No diarrhea. She remains on Decadron 20 mg IV every 24 hours. He 721, the patient is being seen in follow-up in the intensive care unit. Overnight, the patient was quite confused. The patient had some paranoid ideation. She was calling people thinking that she was getting harmed here in the hospital and she was not oriented to place and people. He was cooperative. She was confused but not agitated. She was delayed in her speech and not eating well. For that reason, we opted to keep the TPN for another 24 hours. She was probably taken on 10% of her off her diet. Meanwhile, her respiratory status is stable. As mentioned earlier, she was taken off the BiPAP yesterday the patient was transitioned to high flow oxygen which was able to tolerate and currently she is down to 40 L of high flow oxygen with a FiO2 of 40%. I repeated a chest x-ray this morning and there is improvement in the bilateral peripheral pulmonary infiltrates. LDH from was 1669 and this was quite elevated and the follow-up level is pending from today. Meanwhile, the patient had a d-dimer of 3.54. She was placed on Lovenox and the patient is receiving Lovenox at a dose of 40 mg subcu every 24 hours. She still on Decadron and is also reduced to 6 mg every 12 hours. She is completed Remdesivir, Actemra she also completed her convalescent plasma 2 unit transfusion. She is afebrile. She is hemodynamically stable. No hypotension. IV fluids are running at KVO. The net fluid balance over the past 24 hours has been +1.4 L. The white cell count is at 20.3. Hemoglobin is 11.5. Creatinine is stable at 1.3. No nausea. No vomiting. No diarrhea. No focal neurological deficit. Objective - Vital Signs Vital signs: Vital Signs Temp 97.5 F L 06/06/20 04:00 Pulse 89 06/06/20 06:00 Resp 16 06/06/20 06:00 BP 129/86 06/06/20 06:00 Pulse Ox 90 L 06/06/20 06:00 Intake & Output 06/05/20 06/05/20 06/06/20 06:59 18:59 06:59 Intake Total 998 676.25 700 Output Total 550 415 450 Balance 448 261.25 250 Weight 54.3 kg Intake: IV 948 220 670 .09 120 120 120 Calcium Gluconate 1 gm 550 Mvi, Adult No.4 with Vit K 10 ml Trace (Conc-1Ml/ Dose) 1 ml Potassium Acetate 24 meq Potassium Phosphate 10 mmol Magnesium Sulfate gm 1 gm In Amino Acid 4.25%-D10w 1,000 ml @ 55 mls/hr IV .BY DURATION [facility] Rx#: [id number] Calcium Gluconate 1 gm 110 550 Mvi, Adult No.4 with Vit K 10 ml Trace (Conc-1Ml/ Dose) 1 ml Sodium Acetate 34 meq Potassium Phosphate 15 mmol Magnesium Sulfate gm 1 gm In Amino Acid 4.25%-D10w 1,000 ml @ 30 mls/hr IV .Q24H [facility] Rx#:[id number] Dexamethasone 100 Fat Emulsion 20% 250 ml 168 In Empty Bag 1 bag @ 21 mls/hr IV [id number] [facility] Rx#:[id number] Intake, IV Titration 406.25 Amount Calcium Gluconate 1 gm 206.25 Mvi, Adult No.4 with Vit K 10 ml Trace (Conc-1Ml/ Dose) 1 ml Potassium Acetate 36 meq Potassium Phosphate 10 mmol Magnesium Sulfate gm 1.5 gm In Amino Acid 4.25%- D10w 1,000 ml @ 55 mls/hr IV .BY DURATION [facility] Rx#: [id number] Potassium Chloride 10 meq 200 In Water For Injection 1 100ml.bag @ 100 mls/hr IVPB Q1H [facility] Rx#: [id number] Oral 50 50 30 Output: Urine 550 415 450 Other: Voiding Method External Catheter External Catheter External Catheter # Voids 1 1 1 - Exam GENERAL EXAM: Alert, pleasant 50-year-old female patient, the patient is on high flow oxygen at 40 L with 40% FiO2 on no use of accessory muscles of breathing and the patient is quite comfortable at this point in time. HEAD: Normocephalic. EYES: Normal reaction of pupils, equal size. NOSE: Clear with pink turbinates. THROAT: No erythema or exudates. NECK: No masses, no JVD. CHEST: No chest wall deformity. LUNGS: Equal air entry with few bilateral scattered rhonchi. The patient has crackles in lung bases bilaterally. Breath sounds are quite diminished in lung bases. CVS: S1 and S2 normal with no audible murmur, regular rhythm. ABDOMEN: No hepatosplenomegaly, normal bowel sounds, no guarding or rigidity. SPINE: No scoliosis or deformity SKIN: No rashes CENTRAL NERVOUS SYSTEM: No focal deficits, tone is normal in all 4 extremities. She is awake and she is is confused and the patient is alert and oriented 1-2 and her confusion fluctuates. No agitation EXTREMITIES: There is no peripheral edema. No clubbing, no cyanosis. Peripheral pulses are intact. - Labs CBC & Chem 7: 06/06/20 03:41 06/06/20 03:41 Labs: Abnormal Lab Results - Last 24 Hours (Table) 06/03/20 06/05/20 06/05/20 Range/Units 07:10 05:28 08:03 WBC (3.8-10.6) k/uL Neutrophils # (1.3-7.7) k/uL Lymphocytes # (1.0-4.8) k/uL D-Dimer (<0.60) mg/L FEU Chloride (98-107) mmol/L BUN (7-17) mg/dL Creatinine (0.52-1.04) mg/dL Glucose (74-99) mg/dL POC Glucose (mg/dL) 114 H (75-99) mg/dL Calcium (8.4-10.2) mg/dL Lactate Dehydrogenase (313-618) U/L LD Isoenzymes 545 H (120-250) U/L Procalcitonin 0.11 H (0.02-0.09) ng/mL Urine Protein (Negative) 06/05/20 06/05/20 06/05/20 Range/Units 09:22 10:17 10:17 WBC (3.8-10.6) k/uL Neutrophils # (1.3-7.7) k/uL Lymphocytes # (1.0-4.8) k/uL D-Dimer 3.54 H (<0.60) mg/L FEU Chloride (98-107) mmol/L BUN (7-17) mg/dL Creatinine (0.52-1.04) mg/dL Glucose (74-99) mg/dL POC Glucose (mg/dL) (75-99) mg/dL Calcium (8.4-10.2) mg/dL Lactate Dehydrogenase 1669 H (313-618) U/L LD Isoenzymes (120-250) U/L Procalcitonin (0.02-0.09) ng/mL Urine Protein Trace H (Negative) 06/05/20 06/05/20 06/05/20 Range/Units 11:18 11:31 17:14 WBC (3.8-10.6) k/uL Neutrophils # (1.3-7.7) k/uL Lymphocytes # (1.0-4.8) k/uL D-Dimer (<0.60) mg/L FEU Chloride (98-107) mmol/L BUN (7-17) mg/dL Creatinine (0.52-1.04) mg/dL Glucose (74-99) mg/dL POC Glucose (mg/dL) 137 H 150 H 170 H (75-99) mg/dL Calcium (8.4-10.2) mg/dL Lactate Dehydrogenase (313-618) U/L LD Isoenzymes (120-250) U/L Procalcitonin (0.02-0.09) ng/mL Urine Protein (Negative) 06/06/20 06/06/20 06/06/20 Range/Units 00:15 03:41 03:41 WBC 20.3 H (3.8-10.6) k/uL Neutrophils # 18.4 H (1.3-7.7) k/uL Lymphocytes # 0.6 L (1.0-4.8) k/uL D-Dimer (<0.60) mg/L FEU Chloride 114 H (98-107) mmol/L BUN 53 H (7-17) mg/dL Creatinine 1.30 H (0.52-1.04) mg/dL Glucose 125 H (74-99) mg/dL POC Glucose (mg/dL) 131 H (75-99) mg/dL Calcium 8.1 L (8.4-10.2) mg/dL Lactate Dehydrogenase (313-618) U/L LD Isoenzymes (120-250) U/L Procalcitonin (0.02-0.09) ng/mL Urine Protein (Negative) Assessment and Plan Plan: 1 Acute hypoxic respiratory failure secondary to acute CoVID 19 pneumonia. Completed Remdesivir , convalescent plasma 2 units were given and the patient currently is on Decadron 20 mg IV push every 24 hours and the patient was given 2 doses of Actemra. Patient was on BiPAP and she was weaned down to high flow oxygen currently she is down to 40 L with an FiO2 of 40% and a chest x-ray showing some improvement in the lower lobe pulmonary infiltrates. The patient has meanwhile developed some altered mentation and confusion. Could be related to steroids. Viral encephalopathy cannot be completely excluded as the patient has an infectious Covid 19. No focal neurological deficits. No signs of any significant respiratory distress at this point in time. 2 Acute CoVID 19 infection with elevated inflammatory markers, and the levels including LDH is elevated. D-dimer is low. The patient is on prophylactic dose of Lovenox. 3 Acute renal failure , recovered and the creatinine is down to 1.3 4 shortness of breath, improved 5 Mild hydronephrosis, consider a underlying component of chronic kidney disease with mild hydronephrosis. She recovered from an acute kidney injury. 6 delirium, neurologic exam is nonfocal. Plan: Chest x-ray today was reviewed, findings are essentially stable and there is some interval improvement in the lower lobe pulmonary infiltrates high flow oxygen and wean it down as tolerated to maintain a saturation above 90%, currently she is weaned down to 40 L with an FiO2 of 40% Advance diet and gradually reduced TPN and the goal is to get out of the TPN and advance this patient diet for now. Inflammatory markers to be monitored awaiting LDH levels from today Remdesivir per protocol completed, convalescent plasma 2 units and continue with Decadron 6 mg every 12 hours , vitamin supplements no antibiotic use for now and the patient antibiotics have been discontinued , and repeat a pro-calcitonin level was 0.19 Continue bronchodilators Seroquel 25 mg by mouth twice a day for some delirium Advance diet as tolerated and the patient can be taken off the TPN once she reaches approximately 50% of her caloric requirement being taken orally. We'll continue monitoring this patient in intensive care unit. Condition is critical, all other has been some recovery and improvement in this patient's co ndition. Critical care evaluation more than 30 minutes . Time with Patient: Greater than 30
--- NOTE | 2020-06-06 07:35 | XR ---
EXAMINATION TYPE: XR chest 1V portable DATE OF EXAM: 06/06/2020 COMPARISON: Chest x-ray 06/05/2020 HISTORY: Abnormal physical exam, abnormal chest x-ray, Covid 19 TECHNIQUE: Single frontal view of the chest is obtained. FINDINGS: There is some slight interval improved aeration at the lung bases, improved visualization of portions of the hemidiaphragms. No evident pneumothorax. Right-sided PICC line is stable. Cardiac mediastinal silhouette not significantly changed. No evident pneumothorax. Bones are unchanged. IMPRESSION: There is some improvement in aeration at the lung bases.
[2020-06-06] MEDS: ALBUTEROL HFA INHALER INHALATION SCH ×4 (08:24→21:50)
[2020-06-06] MEDS: ASCORBIC ACID 500 MG TAB PO SCH ×2 (08:25→20:29)
[2020-06-06] MEDS: ZINC SULFATE 220 MG CAP PO SCH (08:25)
[2020-06-06] MEDS: ENOXAPARIN 40 MG/0.4 ML SYRINGE SQ SCH (08:25)
[2020-06-06] MEDS: CHOLECALCIFEROL 25 MCG (1000 IU) TABLET PO SCH (08:25)
[2020-06-06] MEDS ORDERED: QUEtiapine 25 MG TAB PO SCH (09:00)
[2020-06-06] MEDS ORDERED: HALOPERIDOL LACTATE 5 MG/ML 1 ML VIAL IVP PRN (09:35)
[2020-06-06 10:22] LABS: ABG Base Excess -1.3 mmol/L; ABG HCO3 23 mmol/L (21-25); ABG Oxygen Saturation 97.5 % (94-97); ABG PCO2 35 mmHg (35-45); ABG PH 7.43 (7.35-7.45); ABG PO2 121 mmHg (83-108); ABG TCO2 24 mmol/L (19-24); Allen Test Performed? Yes
[2020-06-06] MEDS: DEXMEDETOMIDINE/0.9% NACL(PMX) 400 MCG in EMPTY BAG 1 BAG IV SCH ×2 (10:29→23:57)
[2020-06-06] MEDS: FAMOTIDINE 20 MG/2 ML VIAL IV SCH ×2 (11:04→20:29)
--- NOTE | 2020-06-06 11:10 | P.PN ---
Subjective Progress Note Date: 06/06/20 Follow for hypERnatremia and acute kidney injury. Episodes of hypoxia this morning with increased oxygen demands. Hemodynamically stable. Objective - Vital Signs Vital signs: Vital Signs Temp 98.0 F 06/06/20 08:00 Pulse 66 06/06/20 11:00 Resp 20 06/06/20 11:00 BP 107/76 06/06/20 11:00 Pulse Ox 98 06/06/20 11:00 Intake & Output 06/05/20 06/06/20 06/06/20 18:59 06:59 18:59 Intake Total 676.25 710 1440.7503 Output Total 415 650 600 Balance 261.25 60 840.7503 Weight 53.9 kg Intake: IV 220 680 40 .09 120 130 40 Calcium Gluconate 1 gm 550 Mvi, Adult No.4 with Vit K 10 ml Trace (Conc-1Ml/ Dose) 1 ml Sodium Acetate 34 meq Potassium Phosphate 15 mmol Magnesium Sulfate gm 1 gm In Amino Acid 4.25%-D10w 1,000 ml @ 30 mls/hr IV .Q24H [facility] Rx#:[id number] Dexamethasone 100 Intake, IV Titration 406.25 1380.7503 Amount Calcium Gluconate 1 gm 206.25 839.0833 Mvi, Adult No.4 with Vit K 10 ml Trace (Conc-1Ml/ Dose) 1 ml Potassium Acetate 36 meq Potassium Phosphate 10 mmol Magnesium Sulfate gm 1.5 gm In Amino Acid 4.25%- D10w 1,000 ml @ 55 mls/hr IV .BY DURATION [facility] Rx#: [id number] Calcium Gluconate 1 gm 541.667 Potassium Acetate 36 meq Potassium Phosphate 10 mmol Magnesium Sulfate gm 1.5 gm In Amino Acid 4. 25%-D10w 1,000 ml @ 55 mls/hr IV .BY DURATION [facility] Rx#:[id number] Potassium Chloride 10 meq 200 In Water For Injection 1 100ml.bag @ 100 mls/hr IVPB Q1H [facility] Rx#: [id number] Oral 50 30 20 Output: Urine 415 650 600 Other: Voiding Method External Catheter External Catheter External Catheter # Voids 1 1 - Exam Referred to the primary team exam. Limited secondary to Covid 19 pandemic - Labs CBC & Chem 7: 06/06/20 03:41 06/06/20 03:41 Labs: Abnormal Lab Results - Last 24 Hours (Table) 06/03/20 06/05/20 06/05/20 Range/Units 07:10 05:28 11:18 WBC (3.8-10.6) k/uL Neutrophils # (1.3-7.7) k/uL Lymphocytes # (1.0-4.8) k/uL D-Dimer (<0.60) mg/L FEU ABG pO2 (83-108) mmHg ABG O2 Saturation (94-97) % Chloride (98-107) mmol/L BUN (7-17) mg/dL Creatinine (0.52-1.04) mg/dL Glucose (74-99) mg/dL POC Glucose (mg/dL) 137 H (75-99) mg/dL Calcium (8.4-10.2) mg/dL Lactate Dehydrogenase (313-618) U/L LD Isoenzymes 545 H (120-250) U/L Procalcitonin 0.11 H (0.02-0.09) ng/mL 06/05/20 06/05/20 06/06/20 Range/Units 11:31 17:14 00:15 WBC (3.8-10.6) k/uL Neutrophils # (1.3-7.7) k/uL Lymphocytes # (1.0-4.8) k/uL D-Dimer (<0.60) mg/L FEU ABG pO2 (83-108) mmHg ABG O2 Saturation (94-97) % Chloride (98-107) mmol/L BUN (7-17) mg/dL Creatinine (0.52-1.04) mg/dL Glucose (74-99) mg/dL POC Glucose (mg/dL) 150 H 170 H 131 H (75-99) mg/dL Calcium (8.4-10.2) mg/dL Lactate Dehydrogenase (313-618) U/L LD Isoenzymes (120-250) U/L Procalcitonin (0.02-0.09) ng/mL 06/06/20 06/06/20 06/06/20 Range/Units 03:41 03:41 03:41 WBC 20.3 H (3.8-10.6) k/uL Neutrophils # 18.4 H (1.3-7.7) k/uL Lymphocytes # 0.6 L (1.0-4.8) k/uL D-Dimer (<0.60) mg/L FEU ABG pO2 (83-108) mmHg ABG O2 Saturation (94-97) % Chloride 114 H (98-107) mmol/L BUN 53 H (7-17) mg/dL Creatinine 1.30 H (0.52-1.04) mg/dL Glucose 125 H (74-99) mg/dL POC Glucose (mg/dL) (75-99) mg/dL Calcium 8.1 L (8.4-10.2) mg/dL Lactate Dehydrogenase 1556 H (313-618) U/L LD Isoenzymes (120-250) U/L Procalcitonin (0.02-0.09) ng/mL 06/06/20 06/06/20 Range/Units 03:41 10:13 WBC (3.8-10.6) k/uL Neutrophils # (1.3-7.7) k/uL Lymphocytes # (1.0-4.8) k/uL D-Dimer 3.29 H (<0.60) mg/L FEU ABG pO2 121 H (83-108) mmHg ABG O2 Saturation 97.5 H (94-97) % Chloride (98-107) mmol/L BUN (7-17) mg/dL Creatinine (0.52-1.04) mg/dL Glucose (74-99) mg/dL POC Glucose (mg/dL) (75-99) mg/dL Calcium (8.4-10.2) mg/dL Lactate Dehydrogenase (313-618) U/L LD Isoenzymes (120-250) U/L Procalcitonin (0.02-0.09) ng/mL Assessment and Plan Assessment: #1 acute kidney injury secondary to prerenal process progressing to hemodynamic ATN. #2 Covid 19 pneumonia #3 acute respiratory failure #4 hyponatremia secondary to decreased by mouth intake and insensible losses. Plan: #1 renal function stable. Electrolytes within normal limits. #2 avoid nephrotoxic agents and hypotensive episodes #3 ICU care
[2020-06-06 11:11] LABS: Glucose,Whole Blood 215 mg/dL (75-99)
--- NOTE | 2020-06-06 13:17 | P.PN ---
Subjective Progress Note Date: 06/06/20 (delayed charting seen at 0830) Principal diagnosis: shortness of breath Patient is a 50-year-old female with no significant past medical history who initially presented with generalized fatigue for 5 days duration. In the ER she underwent an extensive evaluation. She was hypoxic with an O2 sat of 89% on room air. Chest x-ray showed bilateral pneumonia. She was found have acute kidney injury with hypokalemia and a potassium level of 2.7. She had already gone to a local urgent care and had a rapid COVID-19 test which was positive. Renal ultrasound with bilateral hydronephrosis. She was admitted and started on IV fluids, Decadron, vitamin D, vitamin C, zinc, and melatonin. Pulmonary and nephrology were consulted. Nephrology started her on a sodium bicarb drip and consulted urology. Seen by urology and post void residual was normal and therefore no intervention was required. She was seen by pulmonary and started on remdesivir. She received convalescent plasma on 05/30. Her oxygen requirements continued to worsen necessitating 10 L high flow nasal cannula by 05/31. She received a second unit of, was plasma on 05/31. She was transferred to the ICU overnight on 06/01. She was started on BiPAP therapy secondary to hypoxemia. Her Decadron dose was increased. She was given actemra was given 06/01. She had picc line placed and was started on TPN on 06/02.Her Bipap settings decreased to 80 % FiO2 06/03. She was transitioned to AirVo on 06/04 and allowed a diet. Her WBC was increasing but no fevers and porcalcitonin negative. She had worsening confusion. Patient seen and examined at bedside with nursing present. Phonating better today. Len pain, SOB. Then answers questions with yes. Know that it is 2020, but unable to answer month can naems the months of the year. General: Ill-appearing, no acute distress appears at stated age, temporal wasti ng Derm: warm, dry Head: atraumatic, normocephalic, symmetric Eyes: PERRL, EOMI, no lid lag, anicteric sclera Mouth: lip fissues, mucus membranes dry Cardiovascular: S1S2 reg, no murmur, positive posterior tibial pulse bilateral, Lungs: Course breath sounds bilateral, no rhonchi, no rales , no accessory muscle use, on AirVo Abdominal: soft, nontender to palpation, no guarding, no appreciable org anomegaly Ext: no gross muscle atrophy, trace edema, no contractures Neuro: CN II-XI grossly intact, no focal neuro deficits Psych: Alert, oriented to self , hospital, 2020, appears anxious COVID-19 pneumonia acute hypoxic respiratory failure - Dexamethasone lower dose started on 06/05 - Pulmonary recs - bronchodilators - Vit C, Vit D, Zinc - Remdesivir course completed - s/p 2 units of convolescent plasma and tocilizumab Leukocytosis - likely from high dose steroids as no associated fevers - UA and procalcitonin negative - if fever develops check Blood cultures - repeat CBC in AM Toxic metabolic encepahlopathy, hallucinations - likely due to above with high dose IV steroids - supportive care - regulate sleep wake cycle Severe protein calorie malnutrition -Currently BiPAP dependent -PICC line ordered and TPN, hope to wean as appetite increases. DUSTIN. improving likely secondary to hypotension/hypovolemia and infection - nephrology recs - repeat BMP in AM Transaminitis, stable -Likely due to above -Monitor closely with TPN Anemia -Was normal on arrival and suspected due to dilutional anemia from frequent blood draws -Follow CBC -No further intervention at this point in time Hyperchloremic metabolic acidosis, improved -Sodium bicarb recommendations per nephrology Mild bilateral hydronephrosis -Urology following -No additional intervention planned Hypokalemia, resolved Hypocalcemia, resolved Hypomagnesemia Hypernatremia, resolved DVT prophylaxis: Lovenox Discussed with: patient, nursing Anticipated discharge: 7-[address]: undetermined A total of 25 minutes was spent on the care of this complex patient more than 50% of the time was spent in counseling and care coordination. Objective - Vital Signs Vital signs: Vital Signs Temp 98.0 F 06/06/20 12:00 Pulse 59 L 06/06/20 12:00 Resp 19 06/06/20 12:00 BP 126/82 06/06/20 12:00 Pulse Ox 99 06/06/20 12:00 Intake & Output 06/05/20 06/06/20 06/06/20 18:59 06:59 18:59 Intake Total 676.25 710 1450.7503 Output Total 415 650 600 Balance 261.25 60 850.7503 Weight 53.9 kg Intake: IV 220 680 50 .09 120 130 50 Calcium Gluconate 1 gm 550 Mvi, Adult No.4 with Vit K 10 ml Trace (Conc-1Ml/ Dose) 1 ml Sodium Acetate 34 meq Potassium Phosphate 15 mmol Magnesium Sulfate gm 1 gm In Amino Acid 4.25%-D10w 1,000 ml @ 30 mls/hr IV .Q24H [facility] Rx#:[id number] Dexamethasone 100 Intake, IV Titration 406.25 1380.7503 Amount Calcium Gluconate 1 gm 206.25 839.0833 Mvi, Adult No.4 with Vit K 10 ml Trace (Conc-1Ml/ Dose) 1 ml Potassium Acetate 36 meq Potassium Phosphate 10 mmol Magnesium Sulfate gm 1.5 gm In Amino Acid 4.25%- D10w 1,000 ml @ 55 mls/hr IV .BY DURATION [facility] Rx#: [id number] Calcium Gluconate 1 gm 541.667 Potassium Acetate 36 meq Potassium Phosphate 10 mmol Magnesium Sulfate gm 1.5 gm In Amino Acid 4. 25%-D10w 1,000 ml @ 55 mls/hr IV .BY DURATION [facility] Rx#:[id number] Potassium Chloride 10 meq 200 In Water For Injection 1 100ml.bag @ 100 mls/hr IVPB Q1H [facility] Rx#: [id number] Oral 50 30 20 Output: Urine 415 650 600 Other: Voiding Method External Catheter External Catheter External Catheter # Voids 1 1 - Labs CBC & Chem 7: 06/06/20 03:41 06/06/20 03:41 Labs: Abnormal Lab Results - Last 24 Hours (Table) 06/03/20 06/05/20 06/05/20 Range/Units 07:10 05:28 17:14 WBC (3.8-10.6) k/uL Neutrophils # (1.3-7.7) k/uL Lymphocytes # (1.0-4.8) k/uL D-Dimer (<0.60) mg/L FEU ABG pO2 (83-108) mmHg ABG O2 Saturation (94-97) % Chloride (98-107) mmol/L BUN (7-17) mg/dL Creatinine (0.52-1.04) mg/dL Glucose (74-99) mg/dL POC Glucose (mg/dL) 170 H (75-99) mg/dL Calcium (8.4-10.2) mg/dL Lactate Dehydrogenase (313-618) U/L LD Isoenzymes 545 H (120-250) U/L Procalcitonin 0.11 H (0.02-0.09) ng/mL 06/06/20 06/06/20 06/06/20 Range/Units 00:15 03:41 03:41 WBC 20.3 H (3.8-10.6) k/uL Neutrophils # 18.4 H (1.3-7.7) k/uL Lymphocytes # 0.6 L (1.0-4.8) k/uL D-Dimer (<0.60) mg/L FEU ABG pO2 (83-108) mmHg ABG O2 Saturation (94-97) % Chloride 114 H (98-107) mmol/L BUN 53 H (7-17) mg/dL Creatinine 1.30 H (0.52-1.04) mg/dL Glucose 125 H (74-99) mg/dL POC Glucose (mg/dL) 131 H (75-99) mg/dL Calcium 8.1 L (8.4-10.2) mg/dL Lactate Dehydrogenase (313-618) U/L LD Isoenzymes (120-250) U/L Procalcitonin (0.02-0.09) ng/mL 06/06/20 06/06/20 06/06/20 Range/Units 03:41 03:41 10:13 WBC (3.8-10.6) k/uL Neutrophils # (1.3-7.7) k/uL Lymphocytes # (1.0-4.8) k/uL D-Dimer 3.29 H (<0.60) mg/L FEU ABG pO2 121 H (83-108) mmHg ABG O2 Saturation 97.5 H (94-97) % Chloride (98-107) mmol/L BUN (7-17) mg/dL Creatinine (0.52-1.04) mg/dL Glucose (74-99) mg/dL POC Glucose (mg/dL) (75-99) mg/dL Calcium (8.4-10.2) mg/dL Lactate Dehydrogenase 1556 H (313-618) U/L LD Isoenzymes (120-250) U/L Procalcitonin (0.02-0.09) ng/mL 06/06/20 Range/Units 11:09 WBC (3.8-10.6) k/uL Neutrophils # (1.3-7.7) k/uL Lymphocytes # (1.0-4.8) k/uL D-Dimer (<0.60) mg/L FEU ABG pO2 (83-108) mmHg ABG O2 Saturation (94-97) % Chloride (98-107) mmol/L BUN (7-17) mg/dL Creatinine (0.52-1.04) mg/dL Glucose (74-99) mg/dL POC Glucose (mg/dL) 215 H (75-99) mg/dL Calcium (8.4-10.2) mg/dL Lactate Dehydrogenase (313-618) U/L LD Isoenzymes (120-250) U/L Procalcitonin (0.02-0.09) ng/mL
[2020-06-06 17:04] LABS: Glucose,Whole Blood 148 mg/dL (75-99)
[2020-06-06] MEDS: DEXAMETHASONE SOD PHOSPHATE 10 MG/ML 1 ML VIAL IV SCH (17:58)
[2020-06-06] MEDS: MELATONIN 5 MG TABLET PO SCH (20:29)
[2020-06-06] MEDS ORDERED: MIRTAZAPINE 15 MG TAB PO SCH (21:00)
[2020-06-07 00:07] LABS: Glucose,Whole Blood 146 mg/dL (75-99)
[2020-06-07] MEDS: INSULIN ASPART (NovoLOG) 100 UNIT/ML VIAL SQ SCH ×4 (00:07→17:27)
[2020-06-07] MEDS ORDERED: hydrALAZINE HCL 25 MG TAB PO STA (03:38)
[2020-06-07 04:34] LABS: Basophils # (A) 0.1 k/uL (0-0.2); Basophils % (A) 0 %; Eosinophils # (A) 0.3 k/uL (0-0.7); Eosinophils % (A) 2 %; HCT 37.8 % (34.0-46.0); Hypochromasia Slight; Lymphocytes # (A) 0.5 k/uL (1.0-4.8); Lymphocytes % (A) 3 %; MCH 28.1 pg (25.0-35.0); MCHC 31.8 g/dL (31.0-37.0); MCV 88.4 fL (80.0-100.0); Mean Platelet Volume 9.1; Monocytes # (A) 0.4 k/uL (0-1.0); Monocytes % (A) 3 %; Neutrophils # (A) 14.6 k/uL (1.3-7.7); Neutrophils % (A) 92 %; Platelet Count 297 k/uL (150-450); RBC 4.28 m/uL (3.80-5.40); RDW 14.7 % (11.5-15.5); WBC 15.9 k/uL (3.8-10.6)
[2020-06-07 04:56] LABS: Calcium 8.3 mg/dL (8.4-10.2); Phosphorus 4.3 mg/dL (2.5-4.5); Potassium 5.1 mmol/L (3.5-5.1)
[2020-06-07 06:11] LABS: Glucose,Whole Blood 123 mg/dL (75-99)
[2020-06-07] MEDS: DEXAMETHASONE SOD PHOSPHATE 10 MG/ML 1 ML VIAL IV SCH (06:48)
[2020-06-07] MEDS: ALBUTEROL HFA INHALER INHALATION SCH ×4 (08:32→21:31)
[2020-06-07] MEDS: FAMOTIDINE 20 MG/2 ML VIAL IV SCH (09:04)
[2020-06-07] MEDS: ASCORBIC ACID 500 MG TAB PO SCH ×2 (09:05→20:55)
[2020-06-07] MEDS: ZINC SULFATE 220 MG CAP PO SCH (09:05)
[2020-06-07] MEDS: ENOXAPARIN 40 MG/0.4 ML SYRINGE SQ SCH (09:05)
[2020-06-07] MEDS: CHOLECALCIFEROL 25 MCG (1000 IU) TABLET PO SCH (09:05)
[2020-06-07] MEDS ORDERED: HALOPERIDOL LACTATE 5 MG/ML 1 ML VIAL IVP PRN (09:48)
--- NOTE | 2020-06-07 10:17 | XR ---
EXAMINATION TYPE: XR chest 1V portable DATE OF EXAM: 06/07/2020 COMPARISON: 06/06/2020 HISTORY: Cough TECHNIQUE: Single frontal view of the chest is obtained. FINDINGS: Bilateral infiltrate and pleural effusion. PICC line noted. No pneumothorax. The heart siz e is normal. There is no pneumothorax. IMPRESSION: 1. Diffuse bilateral infiltrate and pleural effusion stable.
--- NOTE | 2020-06-07 11:41 | P.PN ---
Subjective Progress Note Date: 06/07/20 (delayed charting seen at 0930) Principal diagnosis: shortness of breath Patient is a 50-year-old female with no significant past medical history who initially presented with generalized fatigue for 5 days duration. In the ER she underwent an extensive evaluation. She was hypoxic with an O2 sat of 89% on room air. Chest x-ray showed bilateral pneumonia. She was found have acute kidney injury with hypokalemia and a potassium level of 2.7. She had already gone to a local urgent care and had a rapid COVID-19 test which was positive. Renal ultrasound with bilateral hydronephrosis. She was admitted and started on IV fluids, Decadron, vitamin D, vitamin C, zinc, and melatonin. Pulmonary and nephrology were consulted. Nephrology started her on a sodium bicarb drip and consulted urology. Seen by urology and post void residual was normal and therefore no intervention was required. She was seen by pulmonary and started on remdesivir. She received convalescent plasma on 05/30. Her oxygen requirements continued to worsen necessitating 10 L high flow nasal cannula by 05/31. She received a second unit of, was plasma on 05/31. She was transferred to the ICU overnight on 06/01. She was started on BiPAP therapy secondary to hypoxemia. Her Decadron dose was increased. She was given actemra was given 06/01. She had picc line placed and was started on TPN on 06/02.Her Bipap settings decreased to 80 % FiO2 06/03. She was transitioned to AirVo on 06/04 and allowed a diet. Her WBC was increasing but no fevers and porcalcitonin negative. She had worsening confusion requiring precedex and bipap. This was improved by the morning of 06/07 and she was able to be weaned to high flow nasal canula. Patient seen and examined at bedside with nursing present.Much improved mentation today. No shortness of breath. no nausea, no vomiting, no diarrhea. Feeling hungry and wants to eat still. General: Ill-appearing, no acute distress appears at stated age, temporal wasti ng Derm: warm, dry Head: atraumatic, normocephalic, symmetric Eyes: PERRL, EOMI, no lid lag, anicteric sclera Mouth: lip fissues, mucus membranes dry Cardiovascular: S1S2 reg, no murmur, positive posterior tibial pulse bilateral, Lungs: Course breath sounds bilateral, no rhonchi, no rales , no accessory muscle use, on AirVo Abdominal: soft, nontender to palpation, no guarding, no appreciable org anomegaly Ext: no gross muscle atrophy, trace edema, no contractures Neuro: CN II-XI grossly intact, no focal neuro deficits Psych: Alert, oriented X 3, appears anxious COVID-19 pneumonia acute hypoxic respiratory failure - Dexamethasone lower dose started on 06/05 - Pulmonary recs - bronchodilators - Vit C, Vit D, Zinc - Remdesivir course completed - s/p 2 units of convolescent plasma and tocilizumab Leukocytosis, improving - likely from high dose steroids as no associated fevers - UA and procalcitonin negative - if fever develops check Blood cultures - repeat CBC in AM Toxic metabolic encepahlopathy, hallucinations - likely due to above with high dose IV steroids, improving - supportive care - regulate sleep wake cycle Severe protein calorie malnutrition -PICC line ordered and TPN, hope to wean as appetite increases. DUSTIN. improving likely secondary to hypotension/hypovolemia and infection - nephrology recs - repeat BMP in AM Transaminitis, stable -Likely due to above -Monitor closely with TPN Anemia -Was normal on arrival and suspected due to dilutional anemia from frequent blood draws -Follow CBC -No further intervention at this point in time Hyperchloremic metabolic acidosis, improved -Sodium bicarb recommendations per nephrology Mild bilateral hydronephrosis -Urology following -No additional intervention planned Hypokalemia, resolved Hypocalcemia, resolved Hypomagnesemia Hypernatremia, resolved d/w nursing pal is for to chair today, wean TPN if eats more breakfast, and shades up on windows. DVT prophylaxis: Lovenox Discussed with: patient, nursing Anticipated discharge: 4-[address]: undetermined A total of 25 minutes was spent on the care of this complex patient more than 50% of the time was spent in counseling and care coordination. Objective - Vital Signs Vital signs: Vital Signs Temp 97.9 F 06/07/20 08:00 Pulse 115 H 06/07/20 11:00 Resp 31 H 06/07/20 11:00 BP 105/65 06/07/20 11:00 Pulse Ox 97 06/07/20 11:00 Intake & Output 06/06/20 06/07/20 06/07/20 18:59 06:59 18:59 Intake Total 1510.7503 1322.897 583.085 Output Total 1300 900 250 Balance 210.7503 422.897 333.085 Weight 53.3 kg Intake: IV 110 725 325 .09 110 120 50 Calcium Gluconate 1 gm 605 275 Mvi, Adult No.4 with Vit K 10 ml Trace (Conc-1Ml/ Dose) 1 ml Potassium Acetate 36 meq Potassium Phosphate 10 mmol Magnesium Sulfate gm 1.5 gm In Amino Acid 4.25%- D10w 1,000 ml @ 55 mls/hr IV .BY DURATION [facility] Rx#: [id number] Intake, IV Titration 1380.7503 97.897 8.085 Amount Calcium Gluconate 1 gm 839.0833 Mvi, Adult No.4 with Vit K 10 ml Trace (Conc-1Ml/ Dose) 1 ml Potassium Acetate 36 meq Potassium Phosphate 10 mmol Magnesium Sulfate gm 1.5 gm In Amino Acid 4.25%- D10w 1,000 ml @ 55 mls/hr IV .BY DURATION [facility] Rx#: [id number] Calcium Gluconate 1 gm 541.667 Potassium Acetate 36 meq Potassium Phosphate 10 mmol Magnesium Sulfate gm 1.5 gm In Amino Acid 4. 25%-D10w 1,000 ml @ 55 mls/hr IV .BY DURATION [facility] Rx#:[id number] Dexmedetomidine/0.9% NaCl 97.897 8.085 (Pmx) 400 mcg In Empty Bag 1 bag @ Titrate IV . Q0M [facility] Rx#:[id number] Oral 20 500 250 Output: Urine 1300 900 Urine/Stool Mix 250 Other: Voiding Method External Catheter Bedpan Bedpan # Voids 0 1 - Labs CBC & Chem 7: 06/07/20 04:14 06/07/20 04:14 Labs: Abnormal Lab Results - Last 24 Hours (Table) 06/06/20 06/07/20 06/07/20 Range/Units 17:03 00:05 04:14 WBC (3.8-10.6) k/uL Neutrophils # (1.3-7.7) k/uL Lymphocytes # (1.0-4.8) k/uL Sodium 146 H (137-145) mmol/L Chloride 115 H (98-107) mmol/L BUN 56 H (7-17) mg/dL Creatinine 1.17 H (0.52-1.04) mg/dL Glucose 121 H (74-99) mg/dL POC Glucose (mg/dL) 148 H 146 H (75-99) mg/dL Calcium 8.3 L (8.4-10.2) mg/dL Lactate Dehydrogenase 1423 H (313-618) U/L 06/07/20 06/07/20 Range/Units 04:14 06:09 WBC 15.9 H (3.8-10.6) k/uL Neutrophils # 14.6 H (1.3-7.7) k/uL Lymphocytes # 0.5 L (1.0-4.8) k/uL Sodium (137-145) mmol/L Chloride (98-107) mmol/L BUN (7-17) mg/dL Creatinine (0.52-1.04) mg/dL Glucose (74-99) mg/dL POC Glucose (mg/dL) 123 H (75-99) mg/dL Calcium (8.4-10.2) mg/dL Lactate Dehydrogenase (313-618) U/L
[2020-06-07 11:52] LABS: Glucose,Whole Blood 129 mg/dL (75-99)
[2020-06-07 12:18] LABS: Glucose,Whole Blood 136 mg/dL (75-99)
[2020-06-07] MEDS: [UNRECOGNIZED DRUG - REMARK] IV SCH ×21 (14:07→14:09)
[2020-06-07 14:20] VITALS: BMI 21.4
[2020-06-07] MEDS: ALPRAZolam 0.5 MG TAB PO PRN ×2 (14:44→20:55)
--- NOTE | 2020-06-07 15:17 | P.PN ---
Subjective Progress Note Date: 06/07/20 Principal diagnosis: Acute hypoxic respiratory failure secondary to cov 19 pneumonia. This is a pleasant 50-year-old female patient with no primary care provider, no chronic medical problems. No home medications. Lifelong nonsmoker. She presented to the emergency room yesterday with concerns regarding a positive CoVID 19 test on 05/26/2020. She has been having ongoing issues with generalized weakness, fatigue, poor appetite. Normal shortness of breath and cough. Chest x-ray revealed bilateral lower lobe pneumonia. Normal heart. Renal ultrasound with mild bilateral hydronephrosis. White count 5.4. Hemoglobin 13.0. Lymphocytes 0.5. Sodium 141. Potassium initially 2.7, currently 3.8. Creatinine initially 3.83, currently 2.9 area d-dimer 0.66. LDH 1455. C-r eactive protein 12.5. Ferritin 387. Pro-calcitonin 0.87. Coronavirus detected by PCR. She is seen today in consultation on the regular medical floor. She is awake and alert in no acute distress. Maintaining good O2 saturations in the 90s on 2 L/m per nasal cannula. No significant acute respiratory distress. Lungs sounds with few scattered rhonchi. She will be initiated on Remdesivir, convalescent plasma, Lovenox, vitamin supplements. Antibiotics in the form of ceftriaxone and azithromycin. 06/06/20, the patient is being seen in follow-up in the intensive care unit. Overnight, the patient was quite confused. The patient had some paranoid ideation. She was calling people thinking that she was getting harmed here in the hospital and she was not oriented to place and people. He was cooperative. She was confused but not agitated. She was delayed in her speech and not eating well. For that reason, we opted to keep the TPN for another 24 hours. She was probably taken on 10% of her off her diet. Meanwhile, her respiratory status is stable. As mentioned earlier, she was taken off the BiPAP yesterday the patient was transitioned to high flow oxygen which was able to tolerate and currently she is down to 40 L of high flow oxygen with a FiO2 of 40%. I repeated a chest x-ray this morning and there is improvement in the bilateral peripheral pulmonary infiltrates. LDH from was 1669 and this was quite elevated and the follow-up level is pending from today. Meanwhile, the patient had a d-dimer of 3.54. She was placed on Lovenox and the patient is receiving Lovenox at a dose of 40 mg subcu every 24 hours. She still on Decadron and is also reduced to 6 mg every 12 hours. She is completed Remdesivir, Actemra she also completed her convalescent plasma 2 unit transfusion. She is afebrile. She is hemodynamically stable. No hypotension. IV fluids are running at KVO. The net fluid balance over the past 24 hours has been +1.4 L. The white cell count is at 20.3. Hemoglobin is 11.5. Creatinine is stable at 1.3. No nausea. No vomiting. No diarrhea. No focal neurological deficit. Patient was reevaluated today on 06/07/20, remains in the ICU, patient was admitted initially with acute hypoxic respiratory failure secondary to covid 19 pneumonitis. Patient is status post remdesivir, and convalescent plasma treatment she also received ex actemra, Decadron, and the usual Covid 19 cocktail. Patient was on Precedex because of steroids induced psychosis, has been discontinued this morning, and the dose of Decadron has been significantly decreased. Patient seems to be comfortable, sitting in bed, eating her breakfast, she is on 5 L nasal cannula, and her O2 saturations 95%. Chest x-ray continues to show extensive bilateral peripheral infiltrates. WBC count is 15.9 hemoglobin is 12. Electrolytes are normal. Renal profile showed a BUN of 56 creatinine of 1.17, improving steadily since admission. Pro-calcitonin is 0.11. Her PTH is 322, however her serum calcium is normal, and I have no idea why was PTH level ordered to begin with. But clearly is high, and we need to be closely followed on outpatient basis Objective - Vital Signs Vital signs: Vital Signs Temp 97.8 F 06/07/20 12:00 Pulse 122 H 06/07/20 14:30 Resp 25 H 06/07/20 14:30 BP 105/63 06/07/20 14:30 Pulse Ox 95 06/07/20 14:30 Intake & Output 06/06/20 06/07/20 06/07/20 18:59 06:59 18:59 Intake Total 1510.7503 5237.054 5697.085 Output Total 1300 900 450 Balance 210.7503 422.897 578.085 Weight 53.3 kg 53.3 kg Intake: IV 110 725 520 .09 110 120 80 Calcium Gluconate 1 gm 605 440 Mvi, Adult No.4 with Vit K 10 ml Trace (Conc-1Ml/ Dose) 1 ml Potassium Acetate 36 meq Potassium Phosphate 10 mmol Magnesium Sulfate gm 1.5 gm In Amino Acid 4.25%- D10w 1,000 ml @ 55 mls/hr IV .BY DURATION [facility] Rx#: [id number] Intake, IV Titration 1380.7503 97.897 8.085 Amount Calcium Gluconate 1 gm 839.0833 Mvi, Adult No.4 with Vit K 10 ml Trace (Conc-1Ml/ Dose) 1 ml Potassium Acetate 36 meq Potassium Phosphate 10 mmol Magnesium Sulfate gm 1.5 gm In Amino Acid 4.25%- D10w 1,000 ml @ 55 mls/hr IV .BY DURATION [facility] Rx#: [id number] Calcium Gluconate 1 gm 541.667 Potassium Acetate 36 meq Potassium Phosphate 10 mmol Magnesium Sulfate gm 1.5 gm In Amino Acid 4. 25%-D10w 1,000 ml @ 55 mls/hr IV .BY DURATION [facility] Rx#:[id number] Dexmedetomidine/0.9% NaCl 97.897 8.085 (Pmx) 400 mcg In Empty Bag 1 bag @ Titrate IV . Q0M [facility] Rx#:[id number] Oral 20 500 500 Output: Urine 1300 900 Urine/Stool Mix 450 Other: Voiding Method External Catheter Bedpan Bedside Commode # Voids 0 1 - Exam Physical Exam: Revealed a 50-year-old female in no distress, on 5 L nasal cannula. Sitting in bed eating breakfast. Head: Atraumatic, normocephalic. HEENT:[Neck is supple.] [No neck masses.] [No thyromegaly.] [No JVD.] Chest: [Fine crackles at the bases. No rhonchi and no wheezes. Cardiac Exam: [Normal S1 and S2, no S3 gallop, no murmur.] Abdomen: [Soft, nontender, no megaly, no rebound, no guarding, normal bowel sounds.] Extremities: [No clubbing, no edema, no cyanosis.] Neurological Exam: [No focal neurologic deficit.] Alert oriented 3. Psychiatric: Normal mood affect and normal mental status examination. HEENT: No rashes. Musculoskeletal: Normal range of motion, no deformities - Labs CBC & Chem 7: 06/07/20 04:14 06/07/20 04:14 Labs: Abnormal Lab Results - Last 24 Hours (Table) 06/06/20 06/07/20 06/07/20 Range/Units 17:03 00:05 04:14 WBC (3.8-10.6) k/uL Neutrophils # (1.3-7.7) k/uL Lymphocytes # (1.0-4.8) k/uL Sodium 146 H (137-145) mmol/L Chloride 115 H (98-107) mmol/L BUN 56 H (7-17) mg/dL Creatinine 1.17 H (0.52-1.04) mg/dL Glucose 121 H (74-99) mg/dL POC Glucose (mg/dL) 148 H 146 H (75-99) mg/dL Calcium 8.3 L (8.4-10.2) mg/dL Lactate Dehydrogenase 1423 H (313-618) U/L 06/07/20 06/07/20 06/07/20 Range/Units 04:14 06:09 11:50 WBC 15.9 H (3.8-10.6) k/uL Neutrophils # 14.6 H (1.3-7.7) k/uL Lymphocytes # 0.5 L (1.0-4.8) k/uL Sodium (137-145) mmol/L Chloride (98-107) mmol/L BUN (7-17) mg/dL Creatinine (0.52-1.04) mg/dL Glucose (74-99) mg/dL POC Glucose (mg/dL) 123 H 129 H (75-99) mg/dL Calcium (8.4-10.2) mg/dL Lactate Dehydrogenase (313-618) U/L 06/07/20 Range/Units 12:17 WBC (3.8-10.6) k/uL Neutrophils # (1.3-7.7) k/uL Lymphocytes # (1.0-4.8) k/uL Sodium (137-145) mmol/L Chloride (98-107) mmol/L BUN (7-17) mg/dL Creatinine (0.52-1.04) mg/dL Glucose (74-99) mg/dL POC Glucose (mg/dL) 136 H (75-99) mg/dL Calcium (8.4-10.2) mg/dL Lactate Dehydrogenase (313-618) U/L Assessment and Plan Assessment: Impression: Acute hypoxic respiratory failure secondary to covid 19 pneumonitis. Acute steroids induced psychosis. Acute kidney injury, resolved, improved, renal functioning is improving steadily. Mild hydronephrosis, resolved. Leukocytosis improved. Acute transaminitis secondary to Covid 19 infection. Recommendation: Continue present supportive care measures. Continue Decadron at a lower dose. Continue the Covid 19 cocktail. Keep patient of the Precedex for now, and if not needed in the next 24 hours, consider transfer the patient to a regular medical floor. Continue GI and DVT prophylaxis. Continue TPN. However discontinue TPN once her oral intake improves. We'll continue to follow remains critically ill. Time with Patient: Less than 30
[2020-06-07 17:13] LABS: Glucose,Whole Blood 90 mg/dL (75-99)
--- NOTE | 2020-06-07 17:17 | PN ---
PROGRESS NOTE Patient is seen for followup for acute kidney injury. She has underlying COVID-19 pneumonia and is improved. She is currently sitting out of bed. Case is discussed with nursing staff. PHYSICAL EXAMINATION: Vital signs are reviewed. Blood pressure is been 105 mmHg systolic. Heart rate about 107 per minute. Patient is afebrile. No significant edema per nursing staff. FIRST SAMPLER exam is grossly intact. LABS: Show sodium 146, potassium 5.1, chloride 115, CO2 is 25, BUN 56, serum creatinine down to 1.17, hemoglobin 12.0 g/dL. ASSESSMENT: 1. Acute kidney injury, acute tubular necrosis, associated with underlying COVID-19 pneumonia, currently significantly improved. The patient is not on any IV fluids. She is maintained on TPN. 2. Metabolic acidosis associated with acute kidney injury, diarrhea, and IV fluids, status post bicarb drip. 3. COVID-19 pneumonia, status post steroids, zinc, remdesivir, status post tocilizumab as well. 4. Hypernatremia associated with free water deficit. May need to adjust TPN for the high sodium. MMODL / IJN: [id number] /
[2020-06-07] MEDS: FAT EMULSION 20% 250 ML in EMPTY BAG 1 BAG IV SCH (17:21)
[2020-06-07 18:07] LABS: Glucose,Whole Blood 115 mg/dL (75-99)
[2020-06-07] MEDS: FAMOTIDINE 20 MG TAB PO SCH (20:54)
[2020-06-07] MEDS: MELATONIN 5 MG TABLET PO SCH (20:54)
[2020-06-08 04:47] LABS: HCT 32.8 % (34.0-46.0); HGB 10.3 gm/dL (11.4-16.0); MCH 27.7 pg (25.0-35.0); MCHC 31.3 g/dL (31.0-37.0); MCV 88.4 fL (80.0-100.0); Mean Platelet Volume 10.4; Platelet Count 353 k/uL (150-450); RBC 3.71 m/uL (3.80-5.40); RDW 15.2 % (11.5-15.5); WBC 16.7 k/uL (3.8-10.6)
[2020-06-08 04:48] LABS: Albumin 2.3 g/dL (3.5-5.0); Calcium 8.4 mg/dL (8.4-10.2); Magnesium 1.8 mg/dL (1.6-2.3); Phosphorus 4.6 mg/dL (2.5-4.5); Potassium 4.8 mmol/L (3.5-5.1); Total Bilirubin 0.4 mg/dL (0.2-1.3); Total Protein 4.5 g/dL (6.3-8.2)
[2020-06-08] MEDS: MAGNESIUM SULFATE-D5W PMX 1 GM in DEXTROSE/WATER 1 100ML.BAG IVPB SCH ×2 (04:56→05:55)
[2020-06-08] MEDS: [UNRECOGNIZED DRUG - REMARK] IV SCH ×7 (05:56)
[2020-06-08 07:05] LABS: Band Neutrophils % 3 %; Eosinophils # (M) 0.17 k/uL (0-0.7); Lymphocytes # (M) 1.84 k/uL (1.0-4.8); Metamyelocytes # (M) 0.33 k/uL (0); Metamyelocytes % 2 %; Monocytes # (M) 0.84 k/uL (0-1.0); Myelocytes # (M) 0.17 k/uL (0); Myelocytes % 1 %; Neutrophils % (M) 79 %; Nucleated Red Blood Cells 0 /100 WBC (0-0); Total Cells Counted 200
[2020-06-08 07:06] LABS: Anisocytosis (M) Present; Large Platelets Present
[2020-06-08 07:08] LABS: Poikilocytosis (M) Present
[2020-06-08 07:09] LABS: Glucose,Whole Blood 89 mg/dL (75-99)
[2020-06-08] MEDS: INSULIN ASPART (NovoLOG) 100 UNIT/ML VIAL SQ SCH ×4 (07:09→21:26)
[2020-06-08] MEDS: ALBUTEROL HFA INHALER INHALATION SCH ×4 (07:36→20:17)
[2020-06-08] MEDS: ENOXAPARIN 40 MG/0.4 ML SYRINGE SQ SCH (08:08)
[2020-06-08] MEDS: FAMOTIDINE 20 MG TAB PO SCH (08:08)
[2020-06-08] MEDS: CHOLECALCIFEROL 25 MCG (1000 IU) TABLET PO SCH (08:08)
[2020-06-08] MEDS: ASCORBIC ACID 500 MG TAB PO SCH ×2 (08:08→21:15)
[2020-06-08] MEDS: ZINC SULFATE 220 MG CAP PO SCH (08:09)
[2020-06-08] MEDS ORDERED: DEXAMETHASONE SOD PHOSPHATE 10 MG/ML 1 ML VIAL IV SCH (09:00)
--- NOTE | 2020-06-08 10:37 | XR ---
EXAMINATION TYPE: XR chest 1V DATE OF EXAM: 06/08/2020 COMPARISON: 06/07/2020 HISTORY: Shortness of breath FINDINGS: There are bilateral pleural effusions with cardiomegaly and bibasilar infiltrate. There is a diffuse interstitial pattern. Right-sided PICC line seen. No sizable pneumothorax. Diffuse osteopenia. IMPRESSION: 1. Diffuse pleural-parenchymal changes stable correlate for pulmonary edema versus diffuse pneumonia.
[2020-06-08 11:48] LABS: Glucose,Whole Blood 120 mg/dL (75-99)
--- NOTE | 2020-06-08 14:46 | P.PN ---
Subjective Progress Note Date: 06/08/20 Patient is doing well today. She was up in the chair when I saw her. She denies any shortness of breath. Her appetite is improving. No acute events overnight reported to me by nursing staff. Patient is on 2 L of oxygen by nasal cannula. Objective - Vital Signs Vital signs: Vital Signs Temp 97.8 F 06/08/20 08:00 Pulse 103 H 06/08/20 10:00 Resp 22 06/08/20 10:00 BP 101/70 06/08/20 10:00 Pulse Ox 97 06/08/20 10:00 Intake & Output 06/07/20 06/08/20 06/08/20 18:59 06:59 18:59 Intake Total 1508.085 440 50 Output Total 450 950 Balance 1058.085 440 -900 Weight 53.3 kg 50.6 kg Intake: IV 520 0 .09 80 0 Calcium Gluconate 1 gm 440 Mvi, Adult No.4 with Vit K 10 ml Trace (Conc-1Ml/ Dose) 1 ml Potassium Acetate 36 meq Potassium Phosphate 10 mmol Magnesium Sulfate gm 1.5 gm In Amino Acid 4.25%- D10w 1,000 ml @ 55 mls/hr IV .BY DURATION KARY Rx#: [id number] Intake, IV Titration 8.085 200 Amount Dexmedetomidine/0.9% NaCl 8.085 (Pmx) 400 mcg In Empty Bag 1 bag @ Titrate IV . Q0M KARY Rx#:[id number] Magnesium Sulfate-D5w Pmx 200 1 gm In Dextrose/Water 1 100ml.bag @ 100 mls/hr IVPB Q1H KARY Rx#: [id number] Oral 980 240 50 Output: Urine 0 950 Urine/Stool Mix 450 Other: Voiding Method Bedside Commode Bedside Commode Bedside Commode # Voids 1 1 0 # Bowel Movements 1 - Exam General: The patient is awake and alert, in no distress Eye: there is normal conjunctiva bilaterally. Neck: The neck is supple, there is no JVD. Cardiovascular: Normal S1-S2, no S3-S4, no murmurs. Respiratory: Lungs clear to auscultation bilaterally Gastrointestinal: Abdomen is soft, nontender Musculoskeletal: There is no pedal edema. Neurological:. Speech is normal. Skin: Skin is warm and dry - Labs CBC & Chem 7: 06/08/20 03:32 06/08/20 03:32 Labs: Abnormal Lab Results - Last 24 Hours (Table) 06/07/20 06/08/20 06/08/20 Range/Units 18:06 03:32 03:32 WBC 16.7 H (3.8-10.6) k/uL RBC 3.71 L (3.80-5.40) m/uL Hgb 10.3 L (11.4-16.0) gm/dL Hct 32.8 L (34.0-46.0) % Neutrophils # (Manual) 13.60 H (1.3-7.7) k/uL Metamyelocytes # (Man) 0.33 H (0) k/uL Myelocytes # (Manual) 0.17 H (0) k/uL D-Dimer (<0.60) mg/L FEU BUN 54 H (7-17) mg/dL Creatinine 1.42 H (0.52-1.04) mg/dL POC Glucose (mg/dL) 115 H (75-99) mg/dL Phosphorus 4.6 H (2.5-4.5) mg/dL AST 46 H (14-36) U/L ALT 61 H (4-34) U/L Lactate Dehydrogenase 1168 H (313-618) U/L Total Protein 4.5 L (6.3-8.2) g/dL Albumin 2.3 L (3.5-5.0) g/dL 06/08/20 06/08/20 Range/Units 03:32 11:47 WBC (3.8-10.6) k/uL RBC (3.80-5.40) m/uL Hgb (11.4-16.0) gm/dL Hct (34.0-46.0) % Neutrophils # (Manual) (1.3-7.7) k/uL Metamyelocytes # (Man) (0) k/uL Myelocytes # (Manual) (0) k/uL D-Dimer 3.20 H (<0.60) mg/L FEU BUN (7-17) mg/dL Creatinine (0.52-1.04) mg/dL POC Glucose (mg/dL) 120 H (75-99) mg/dL Phosphorus (2.5-4.5) mg/dL AST (14-36) U/L ALT (4-34) U/L Lactate Dehydrogenase (313-618) U/L Total Protein (6.3-8.2) g/dL Albumin (3.5-5.0) g/dL Assessment and Plan Assessment: Robinson is a 50-year-old female with no significant past medical history who initially presented with generalized fatigue for 5 days duration. In the ER she was hypoxic with an O2 sat of 89% on room air. Chest x-ray showed bilateral pneumonia. She was found have acute kidney injury with hypokalemia and a potassium level of 2.7. She had already gone to a local urgent care and had a rapid COVID-19 test which was positive. Renal ultrasound with bilateral hydronephrosis. She was admitted and started on IV fluids, Decadron, vitamin D, vitamin C, zinc, and melatonin. Pulmonary and nephrology were consulted. She was started on remdesivir. She received convalescent plasma on 05/30. Her oxygen requirements continued to worsen necessitating 10 L high flow nasal cannula by 05/31. She received a second unit of, was plasma on 05/31. She was transferred to the ICU overnight on 06/01. She was started on BiPAP therapy secondary to hypoxemia. Her Decadron dose was increased. She was given actemra was given 06/01. She had picc line placed and was started on TPN on 06/02. Her Bipap settings decreased to 80 % FiO2 06/03. She was transitioned to AirVo on 06/04 and allowed a diet. She is currently on 2 L of oxygen via nasal cannula. COVID-19 pneumonia acute hypoxic respiratory failure - Steroid managed by pulmonology - Pulmonary recs - bronchodilators - Vit C, Vit D, Zinc - Remdesivir course completed - s/p 2 units of convolescent plasma and tocilizumab Leukocytosis, improving - likely from high dose steroids as no associated fevers - UA and procalcitonin negative - repeat CBC in AM Toxic metabolic encepahlopathy, hallucinations, resolved - likely due to above with high dose IV steroids Severe protein calorie malnutrition -Back to regular diet. Required TPN for a few days. DUSTIN. improving likely secondary to hypotension/hypovolemia and infection - nephrology recs - repeat BMP in AM Transaminitis, stable -Likely due to above Anemia -Was normal on arrival and suspected due to dilutional anemia from frequent blood draws -No further intervention at this point in time Hyperchloremic metabolic acidosis, improved -Sodium bicarb recommendations per nephrology Mild bilateral hydronephrosis -Urology following -No additional intervention planned Hypokalemia, resolved Hypocalcemia, resolved Hypomagnesemia Hypernatremia, resolved d/w nursing, as her out of ICU to telemetry floor. DVT prophylaxis: Lovenox Discussed with: patient, nursing Anticipated discharge: 4-[address]: undetermined A total of 25 minutes was spent on the care of this complex patient more than 50% of the time was spent in counseling and care coordination.
--- NOTE | 2020-06-08 15:28 | P.PN ---
Subjective Progress Note Date: 06/08/20 Principal diagnosis: Acute hypoxic respiratory failure secondary to covid 19 pneumonia. This is a pleasant 50-year-old female patient with no primary care provider, no chronic medical problems. No home medications. Lifelong nonsmoker. She presented to the emergency room yesterday with concerns regarding a positive CoVID 19 test on 05/26/2020. She has been having ongoing issues with generalized weakness, fatigue, poor appetite. Normal shortness of breath and cough. Chest x-ray revealed bilateral lower lobe pneumonia. Normal heart. Renal ultrasound with mild bilateral hydronephrosis. White count 5.4. Hemoglobin 13.0. Lymphocytes 0.5. Sodium 141. Potassium initially 2.7, currently 3.8. Creatinine initially 3.83, currently 2.9 area d-dimer 0.66. LDH 1455. C- reactive protein 12.5. Ferritin 387. Pro-calcitonin 0.87. Coronavirus detected by PCR. She is seen today in consultation on the regular medical floor. She is awake and alert in no acute distress. Maintaining good O2 saturations in the 90s on 2 L/m per nasal cannula. No significant acute resp iratory distress. Lungs sounds with few scattered rhonchi. She will be initiated on Remdesivir, convalescent plasma, Lovenox, vitamin supplements. Antibiotics in the form of ceftriaxone and azithromycin. 06/06/20, the patient is being seen in follow-up in the intensive care unit. Overnight, the patient was quite confused. The patient had some paranoid ideation. She was calling people thinking that she was getting harmed here in the hospital and she was not oriented to place and people. He was cooperative. She was confused but not agitated. She was delayed in her speech and not eating well. For that reason, we opted to keep the TPN for another 24 hours. She was probably taken on 10% of her off her diet. Meanwhile, her respiratory status is stable. As mentioned earlier, she was taken off the BiPAP yesterday the patient was transitioned to high flow oxygen which was able to tolerate and currently she is down to 40 L of high flow oxygen with a FiO2 of 40%. I repeated a chest x-ray this morning and there is improvement in the bilateral peripheral pulmonary infiltrates. LDH from was 1669 and this was quite elevated and the follow-up level is pending from today. Meanwhile, the patient had a d-dimer of 3.54. She was placed on Lovenox and the patient is receiving Lovenox at a dose of 40 mg subcu every 24 hours. She still on Decadron and is also reduced to 6 mg every 12 hours. She is completed Remdesivir, Actemra she also completed her convalescent plasma 2 unit transfusion. She is afebrile. She is hemodynamically stable. No hypotension. IV fluids are running at KVO. The net fluid balance over the past 24 hours has been +1.4 L. The white cell count is at 20.3. Hemoglobin is 11.5. Creatinine is stable at 1.3. No nausea. No vomiting. No diarrhea. No focal neurological deficit. Patient was reevaluated today on 06/07/20, remains in the ICU, patient was admitted initially with acute hypoxic respiratory failure secondary to covid 19 pneumonitis. Patient is status post remdesivir, and convalescent plasma treatment she also received ex actemra, Decadron, and the usual Covid 19 cocktail. Patient was on Precedex because of steroids induced psychosis, has been discontinued this morning, and the dose of Decadron has been significantly decreased. Patient seems to be comfortable, sitting in bed, eating her breakfast, she is on 5 L nasal cannula, and her O2 saturations 95%. Chest x-ray continues to show extensive bilateral peripheral infiltrates. WBC count is 15.9 hemoglobin is 12. Electrolytes are normal. Renal profile showed a BUN of 56 cr eatinine of 1.17, improving steadily since admission. Pro-calcitonin is 0.11. Her PTH is 322, however her serum calcium is normal, and I have no idea why was PTH level ordered to begin with. But clearly is high, and we need to be closely followed on outpatient basis Patient was reevaluated today on 06/08/2020, patient remains in the ICU, doing quite well, she is down to 2 L nasal cannula, O2 sats is 95%. Chest x-ray continues to show diffuse bibasilar infiltrates. Clinically the patient is d oing great, as a matter of fact she looks much better than expected considering her chest x-ray abnormality. Hence I plan to transfer the patient out of the ICU today, I plan to switch her to oral Decadron, and will likely consider discharge planning in the next 24 hours. CBC count is 16.7 hemoglobin is 10.3. Electrolytes and basic metabolic profile are normal. Liver enzymes are slightly elevated. LDH is 1168 and rest of the labs are unremarkable. Objective - Vital Signs Vital signs: Vital Signs Temp 97.8 F 06/08/20 08:00 Pulse 103 H 06/08/20 10:00 Resp 22 06/08/20 10:00 BP 101/70 06/08/20 10:00 Pulse Ox 97 06/08/20 10:00 Intake & Output 06/07/20 06/08/20 06/08/20 18:59 06:59 18:59 Intake Total 1508.085 440 50 Output Total 450 950 Balance 1058.085 440 -900 Weight 53.3 kg 50.6 kg Intake: IV 520 0 .09 80 0 Calcium Gluconate 1 gm 440 Mvi, Adult No.4 with Vit K 10 ml Trace (Conc-1Ml/ Dose) 1 ml Potassium Acetate 36 meq Potassium Phosphate 10 mmol Magnesium Sulfate gm 1.5 gm In Amino Acid 4.25%- D10w 1,000 ml @ 55 mls/hr IV .BY DURATION KARY Rx#: [id number] Intake, IV Titration 8.085 200 Amount Dexmedetomidine/0.9% NaCl 8.085 (Pmx) 400 mcg In Empty Bag 1 bag @ Titrate IV . Q0M KARY Rx#:[id number] Magnesium Sulfate-D5w Pmx 200 1 gm In Dextrose/Water 1 100ml.bag @ 100 mls/hr IVPB Q1H KARY Rx#: [id number] Oral 980 240 50 Output: Urine 0 950 Urine/Stool Mix 450 Other: Voiding Method Bedside Commode Bedside Commode Bedside Commode # Voids 1 1 0 # Bowel Movements 1 - Exam Physical Exam: Revealed a 50-year-old female in no distress, on 2 L nasal cannula. Head: Atraumatic, normocephalic. HEENT:[Neck is supple.] [No neck masses.] [No thyromegaly.] [No JVD.] Chest: [Fine crackles at the bases. No rhonchi and no wheezes. Cardiac Exam: [Normal S1 and S2, no S3 gallop, no murmur.] Abdomen: [Soft, nontender, no megaly, no rebound, no guarding, normal bowel sounds.] Extremities: [No clubbing, no edema, no cyanosis.] Neurological Exam: [No focal neurologic deficit.] Alert oriented 3. Psychiatric: Normal mood affect and normal mental status examination. HEENT: No rashes. Musculoskeletal: Normal range of motion, no deformities - Labs CBC & Chem 7: 06/08/20 03:32 06/08/20 03:32 Labs: Abnormal Lab Results - Last 24 Hours (Table) 06/07/20 06/08/20 06/08/20 Range/Units 18:06 03:32 03:32 WBC 16.7 H (3.8-10.6) k/uL RBC 3.71 L (3.80-5.40) m/uL Hgb 10.3 L (11.4-16.0) gm/dL Hct 32.8 L (34.0-46.0) % Neutrophils # (Manual) 13.60 H (1.3-7.7) k/uL Metamyelocytes # (Man) 0.33 H (0) k/uL Myelocytes # (Manual) 0.17 H (0) k/uL D-Dimer (<0.60) mg/L FEU BUN 54 H (7-17) mg/dL Creatinine 1.42 H (0.52-1.04) mg/dL POC Glucose (mg/dL) 115 H (75-99) mg/dL Phosphorus 4.6 H (2.5-4.5) mg/dL AST 46 H (14-36) U/L ALT 61 H (4-34) U/L Lactate Dehydrogenase 1168 H (313-618) U/L Total Protein 4.5 L (6.3-8.2) g/dL Albumin 2.3 L (3.5-5.0) g/dL 06/08/20 06/08/20 Range/Units 03:32 11:47 WBC (3.8-10.6) k/uL RBC (3.80-5.40) m/uL Hgb (11.4-16.0) gm/dL Hct (34.0-46.0) % Neutrophils # (Manual) (1.3-7.7) k/uL Metamyelocytes # (Man) (0) k/uL Myelocytes # (Manual) (0) k/uL D-Dimer 3.20 H (<0.60) mg/L FEU BUN (7-17) mg/dL Creatinine (0.52-1.04) mg/dL POC Glucose (mg/dL) 120 H (75-99) mg/dL Phosphorus (2.5-4.5) mg/dL AST (14-36) U/L ALT (4-34) U/L Lactate Dehydrogenase (313-618) U/L Total Protein (6.3-8.2) g/dL Albumin (3.5-5.0) g/dL Assessment and Plan Assessment: Impression: Acute hypoxic respiratory failure secondary to covid 19 pneumonitis. Acute steroids induced psychosis. Acute kidney injury, resolved, improved, renal functioning is improving steadily. Mild hydronephrosis, resolved. Leukocytosis improved. Acute transaminitis secondary to Covid 19 infection. Recommendation: Continue present supportive care measures. Switch Decadron to oral Transfer patient to the ICU to a regular medical floor. Continue the Covid 19 cocktail. Continue GI and DVT prophylaxis. Advanced diet as tolerates. Discontinue Haldol. We'll continue to follow Time with Patient: Less than 30
--- NOTE | 2020-06-08 16:31 | PN ---
PROGRESS NOTE Patient is seen for followup for acute kidney injury associated with underlying COVID- 19 pneumonia. Patient's creatinine is slightly higher today at 1.4 from 1.17 yesterday. She has been voiding according to nursing staff. Oral intake is fair. Patient is not maintained on IV fluids. Her oxygen requirement is stable with 2 L nasal cannula. No significant worsening of chest pains or shortness of breath. Blood pressure has been borderline at about 100 mmHg systolic. PHYSICAL EXAMINATION: On examination today, blood pressure 106/71, heart rate of 107 per minute. She is afebrile. Examination of lower extremities shows edema 1+ bilaterally. Abdomen is soft, nontender. [employer] exam grossly intact. Heart and lungs are not examined. LABS: Labs show sodium 137, potassium 4.8, chloride 107, BUN 54, serum creatinine 1.42, albumin 2.3, phosphorus 4.6. ASSESSMENT: 1. Acute kidney injury associated with underlying COVID-19 infection, acute tubular necrosis, nonoliguric with improvement in renal function. However, serum creatinine is slightly higher today. I will check a post-void bladder scan to rule out underlying urine retention. Continue off of IV fluids for now. The patient may need low-dose loop diuretics down the road. 2. COVID-19 pneumonia, status post remdesivir, tocilizumab, steroids, and zinc. 3. Hypernatremia, currently improved. 4. Metabolic acidosis associated acute kidney injury, IV fluids, status post bicarb drip. PLAN: Continue to encourage increased oral intake. Check post-void bladder scan. Rule out urine retention. MMODL / IJN: [id number] /
[2020-06-08 16:51] LABS: Glucose,Whole Blood 105 mg/dL (75-99)
[2020-06-08] MEDS: MELATONIN 5 MG TABLET PO SCH (21:15)
[2020-06-09 01:06] VITALS: PULSE 99
[2020-06-09 04:19] LABS: Basophils # (A) 0.1 k/uL (0-0.2); Basophils % (A) 1 %; Eosinophils # (A) 0.1 k/uL (0-0.7); Eosinophils % (A) 0 %; HCT 32.9 % (34.0-46.0); HGB 10.4 gm/dL (11.4-16.0); Hypochromasia Slight; Lymphocytes % (A) 6 %; MCH 28.4 pg (25.0-35.0); MCHC 31.6 g/dL (31.0-37.0); Mean Platelet Volume 10.1; Monocytes # (A) 0.8 k/uL (0-1.0); Monocytes % (A) 5 %; Neutrophils # (A) 13.8 k/uL (1.3-7.7); Neutrophils % (A) 87 %; Platelet Count 310 k/uL (150-450); RBC 3.66 m/uL (3.80-5.40); RDW 15.3 % (11.5-15.5); WBC 15.8 k/uL (3.8-10.6)
[2020-06-09 07:35] LABS: Glucose,Whole Blood 80 mg/dL (75-99)
[2020-06-09] MEDS: ALBUTEROL HFA INHALER INHALATION SCH ×3 (08:41→17:12)
--- NOTE | 2020-06-09 08:43 | XR ---
EXAMINATION TYPE: XR chest 1V DATE OF EXAM: 06/09/2020 COMPARISON: Chest x-ray 06/08/2020 HISTORY: Covid pneumonia TECHNIQUE: Single frontal view of the chest is obtained. FINDINGS: There is some interval improved aeration at the lung bases, improved visualization of the hemidiaphragms. PICC line is stable. No pneumothorax. Cardiomediastinal silhouette is stable. IMPRESSION: There is some improvement in aeration in the lungs.
[2020-06-09] MEDS ORDERED: FAMOTIDINE 20 MG TAB PO SCH (09:00)
[2020-06-09] MEDS ORDERED: dexAMETHasone 2 MG TAB PO SCH (09:00)
[2020-06-09] MEDS: INSULIN ASPART (NovoLOG) 100 UNIT/ML VIAL SQ SCH ×2 (09:04→14:24)
[2020-06-09] MEDS: ZINC SULFATE 220 MG CAP PO SCH (09:14)
[2020-06-09] MEDS: CHOLECALCIFEROL 25 MCG (1000 IU) TABLET PO SCH (09:14)
[2020-06-09] MEDS: ASCORBIC ACID 500 MG TAB PO SCH (09:15)
[2020-06-09] MEDS: ENOXAPARIN 40 MG/0.4 ML SYRINGE SQ SCH (09:15)
[2020-06-09 12:26] LABS: Glucose,Whole Blood 133 mg/dL (75-99)
[2020-06-09 12:53] LABS: Calcium 8.9 mg/dL (8.4-10.2); Potassium 5.2 mmol/L (3.5-5.1)
[2020-06-09 13:37] VITALS: BP 88/51; RESP 14; TEMP 97.6
--- NOTE | 2020-06-09 13:45 | P.DS ---
Providers Date of admission: 05/29/20 15:05 Expected date of discharge: 06/09/20 Attending physician: Jonah Dunham MD Consults: 05/29/20 15:11 Consult Physician Urgent Consulting Provider: Ambrosio Lopez Consult Reason/Comments: arf Do you want consulting provider notified?: Yes 05/29/20 16:03 Consult Physician Routine Consulting Provider: Richy Yin Consult Reason/Comments: COVID Do you want consulting provider notified?: Yes 05/30/20 11:08 Consult Physician Routine Consulting Provider: Andrew Napier Consult Reason/Comments: us results Do you want consulting provider notified?: Yes Primary care physician: Stated None Hospital Course: Patient is a 50-year-old female with no significant past medical history who initially presented with generalized fatigue for 5 days duration. In the ER she was hypoxic with an O2 sat of 89% on room air. Chest x-ray showed bilateral pneumonia. She was found have acute kidney injury with hypokalemia and a potass ium level of 2.7. She had already gone to a local urgent care and had a rapid COVID-19 test which was positive. Renal ultrasound with bilateral hydronephrosis. She was admitted and started on IV fluids, Decadron, vitamin D, vitamin C, zinc, and melatonin. Pulmonary and nephrology were consulted. She was started on remdesivir. She received convalescent plasma on 05/30. Her oxygen requirements continued to worsen necessitating 10 L high flow nasal cannula by 05/31. She received a second unit of, was plasma on 05/31. She was transferred to the ICU overnight on 06/01. She was started on BiPAP therapy secondary to hypoxemia. Her Decadron dose was increased. She was given actemra was given 06/01. She had picc line placed and was started on TPN on 06/02. Her Bipap settings decreased to 80 % FiO2 06/03. She was transitioned to AirVo on 06/04 and allowed a diet. Patient's overall condition improved significantly throughout her hospital stay. On the day of discharge, she was on room air. O2 sat with ambulation on room air 91%. Chest x-ray showed improved aeration. Patient was not having any shortness of breath. She would be discharged home in a stable condition. She will finish a tapered course of dexamethasone over the next 10 days. Below is a list of her medical problems addressed during this hospitalization. COVID-19 pneumonia acute hypoxic respiratory failure Toxic metabolic encepahlopathy, hallucinations, resolved - likely due to above with high dose IV steroids Severe protein calorie malnutrition -Advised to use protein shake 3 times a day DUSTIN. improving likely secondary to hypotension/hypovolemia and infection -Resolved Hyperchloremic metabolic acidosis, improved -Sodium bicarb recommendations per nephrology Mild bilateral hydronephrosis -Urology following -No additional intervention planned Hypokalemia, resolved Hypocalcemia, resolved Hypomagnesemia Hypernatremia, resolved Patient Condition at Discharge: Fair Plan - Discharge Summary New Discharge Prescriptions: New Rivaroxaban [Xarelto] 10 mg PO DAILY 30 Days #30 tab dexAMETHasone [Hexadrol] 6 mg PO DAILY #24 tab Melatonin 5 mg PO HS #14 tablet Zinc Sulfate [Orazinc] 220 mg PO DAILY #30 cap Famotidine [Pepcid] 20 mg PO DAILY #14 tab Albuterol Inhaler [Ventolin Hfa Inhaler] 2 puff INHALATION RT-Q6H PRN #1 inhaler PRN Reason: Shortness Of Breath Or Wheezing Ascorbic Acid [Vitamin C] 500 mg PO BID #30 tab Cholecalciferol [Vitamin D3 (25 Mcg = 1000 Iu)] 50 mcg PO DAILY #30 tablet Continue Acetaminophen [Tylenol] 325 - 650 mg PO Q4H PRN PRN Reason: Migraine Headache Discharge Medication List Acetaminophen [Tylenol] 325 - 650 mg PO Q4H PRN 05/29/20 [History] Albuterol Inhaler [Ventolin Hfa Inhaler] 2 puff INHALATION RT-Q6H PRN #1 inhaler 06/09/20 [Rx] Ascorbic Acid [Vitamin C] 500 mg PO BID #30 tab 06/09/20 [Rx] Cholecalciferol [Vitamin D3 (25 Mcg = 1000 Iu)] 50 mcg PO DAILY #30 tablet 06/09/20 [Rx] Famotidine [Pepcid] 20 mg PO DAILY #14 tab 06/09/20 [Rx] Melatonin 5 mg PO HS #14 tablet 06/09/20 [Rx] Rivaroxaban [Xarelto] 10 mg PO DAILY 30 Days #30 tab 06/09/20 [Rx] Zinc Sulfate [Orazinc] 220 mg PO DAILY #30 cap 06/09/20 [Rx] dexAMETHasone [Hexadrol] 6 mg PO DAILY #24 tab 06/09/20 [Rx] Follow up Appointment(s)/Referral(s): Richy Yin DO [Doctor of Osteopathic Medicine] - 2 Weeks None,Stated [Primary Care Provider] - 1-2 days
--- NOTE | 2020-06-09 14:15 | PN ---
PROGRESS NOTE Patient is not examined. Case is discussed with nursing staff. She is COVID positive. Overall, patient has been doing well. She has not had any significant complaints. Oxygen requirements improved. No chest pains or shortness of breath. The patient has had good urine output. No nausea or vomiting per nursing staff. PHYSICAL EXAMINATION: Vital signs are reviewed. Blood pressure was 104/73, heart rate about 90 per minute. She is afebrile. LABS: Labs are reviewed, which show sodium 138, potassium 5.2, serum creatinine 1.3, chloride 105, magnesium 2.0, hemoglobin 10.4, white cell count 15.8. ASSESSMENT: 1. Acute kidney injury, acute tubular necrosis associated with underlying COVID infection, sepsis and hypotension, currently improving. 2. COVID-19 pneumonia. 3. Hypoxia associated with underlying COVID-19 infection. 4. Mild hypernatremia, now improved. PLAN: Continue to encourage increased oral intake. Continue off of IV fluids. Follow up as outpatient in about 1-2 weeks. MMODL / IJN: [id number] /
--- NOTE | 2020-06-09 14:44 | P.PN ---
Subjective Progress Note Date: 06/09/20 Principal diagnosis: Acute hypoxic respiratory failure secondary to covid 19 pneumonia. This is a pleasant 50-year-old female patient with no primary care provider, no chronic medical problems. No home medications. Lifelong nonsmoker. She presented to the emergency room yesterday with concerns regarding a positive CoVID 19 test on 05/26/2020. She has been having ongoing issues with generalized weakness, fatigue, poor appetite. Normal shortness of breath and cough. Chest x-ray revealed bilateral lower lobe pneumonia. Normal heart. Renal ultrasound with mild bilateral hydronephrosis. White count 5.4. Hemoglobin 13.0. Lymphocytes 0.5. Sodium 141. Potassium initially 2.7, currently 3.8. Creatinine initially 3.83, currently 2.9 area d-dimer 0.66. LDH 1455. C- reactive protein 12.5. Ferritin 387. Pro-calcitonin 0.87. Coronavirus detected by PCR. She is seen today in consultation on the regular medical floor. She is awake and alert in no acute distress. Maintaining good O2 saturations in the 90s on 2 L/m per nasal cannula. No significant acute resp iratory distress. Lungs sounds with few scattered rhonchi. She will be initiated on Remdesivir, convalescent plasma, Lovenox, vitamin supplements. Antibiotics in the form of ceftriaxone and azithromycin. 06/06/20, the patient is being seen in follow-up in the intensive care unit. Overnight, the patient was quite confused. The patient had some paranoid ideation. She was calling people thinking that she was getting harmed here in the hospital and she was not oriented to place and people. He was cooperative. She was confused but not agitated. She was delayed in her speech and not eating well. For that reason, we opted to keep the TPN for another 24 hours. She was probably taken on 10% of her off her diet. Meanwhile, her respiratory status is stable. As mentioned earlier, she was taken off the BiPAP yesterday the patient was transitioned to high flow oxygen which was able to tolerate and currently she is down to 40 L of high flow oxygen with a FiO2 of 40%. I repeated a chest x-ray this morning and there is improvement in the bilateral peripheral pulmonary infiltrates. LDH from was 1669 and this was quite elevated and the follow-up level is pending from today. Meanwhile, the patient had a d-dimer of 3.54. She was placed on Lovenox and the patient is receiving Lovenox at a dose of 40 mg subcu every 24 hours. She still on Decadron and is also reduced to 6 mg every 12 hours. She is completed Remdesivir, Actemra she also completed her convalescent plasma 2 unit transfusion. She is afebrile. She is hemodynamically stable. No hypotension. IV fluids are running at KVO. The net fluid balance over the past 24 hours has been +1.4 L. The white cell count is at 20.3. Hemoglobin is 11.5. Creatinine is stable at 1.3. No nausea. No vomiting. No diarrhea. No focal neurological deficit. Patient was reevaluated today on 06/07/20, remains in the ICU, patient was admitted initially with acute hypoxic respiratory failure secondary to covid 19 pneumonitis. Patient is status post remdesivir, and convalescent plasma treatment she also received ex actemra, Decadron, and the usual Covid 19 cocktail. Patient was on Precedex because of steroids induced psychosis, has been discontinued this morning, and the dose of Decadron has been significantly decreased. Patient seems to be comfortable, sitting in bed, eating her breakfast, she is on 5 L nasal cannula, and her O2 saturations 95%. Chest x-ray continues to show extensive bilateral peripheral infiltrates. WBC count is 15.9 hemoglobin is 12. Electrolytes are normal. Renal profile showed a BUN of 56 cr eatinine of 1.17, improving steadily since admission. Pro-calcitonin is 0.11. Her PTH is 322, however her serum calcium is normal, and I have no idea why was PTH level ordered to begin with. But clearly is high, and we need to be closely followed on outpatient basis Patient was reevaluated today on 06/08/2020, patient remains in the ICU, doing quite well, she is down to 2 L nasal cannula, O2 sats is 95%. Chest x-ray continues to show diffuse bibasilar infiltrates. Clinically the patient is d oing great, as a matter of fact she looks much better than expected considering her chest x-ray abnormality. Hence I plan to transfer the patient out of the ICU today, I plan to switch her to oral Decadron, and will likely consider discharge planning in the next 24 hours. CBC count is 16.7 hemoglobin is 10.3. Electrolytes and basic metabolic profile are normal. Liver enzymes are slightly elevated. LDH is 1168 and rest of the labs are unremarkable. Patient was reevaluated today on 06/09/2020, patient is doing great, her O2 saturations the high 90s on 2 L nasal cannula, relatively asymptomatic, no cough no wheezing no shortness of breath. Her labs are basically unremarkable except for BUN of 40 and creatinine of 1.33, improved compared to creatinine yesterday. Overall the patient is doing great, and I believe the patient could be considered for discharge home today if possible. Objective - Vital Signs Vital signs: Vital Signs Temp 97.6 F 06/09/20 08:00 Pulse 99 06/09/20 08:00 Resp 14 06/09/20 08:00 BP 88/51 06/09/20 08:00 Pulse Ox 99 06/09/20 08:00 Intake & Output 06/08/20 06/09/20 06/09/20 18:59 06:59 18:59 Intake Total 50 Output Total 950 Balance -900 Intake: Oral 50 Output: Urine 950 Other: Voiding Method Bedside Commode Bedside Commode Bedside Commode # Voids 2 3 - Exam Physical Exam: Revealed a 50-year-old female in no distress, on 2 L nasal cannula. Head: Atraumatic, normocephalic. HEENT:[Neck is supple.] [No neck masses.] [No thyromegaly.] [No JVD.] Chest: [Fine crackles at the bases. No rhonchi and no wheezes. Cardiac Exam: [Normal S1 and S2, no S3 gallop, no murmur.] Abdomen: [Soft, nontender, no megaly, no rebound, no guarding, normal bowel sounds.] Extremities: [No clubbing, no edema, no cyanosis.] Neurological Exam: [No focal neurologic deficit.] Alert oriented 3. Psychiatric: Normal mood affect and normal mental status examination. HEENT: No rashes. Musculoskeletal: Normal range of motion, no deformities - Labs CBC & Chem 7: 06/09/20 03:08 06/09/20 12:27 Labs: Abnormal Lab Results - Last 24 Hours (Table) 06/08/20 06/09/20 06/09/20 Range/Units 16:49 03:08 03:08 WBC 15.8 H (3.8-10.6) k/uL RBC 3.66 L (3.80-5.40) m/uL Hgb 10.4 L (11.4-16.0) gm/dL Hct 32.9 L (34.0-46.0) % Neutrophils # 13.8 H (1.3-7.7) k/uL Potassium (3.5-5.1) mmol/L BUN (7-17) mg/dL Creatinine (0.52-1.04) mg/dL POC Glucose (mg/dL) 105 H (75-99) mg/dL Lactate Dehydrogenase 1167 H (313-618) U/L 06/09/20 06/09/20 Range/Units 12:25 12:27 WBC (3.8-10.6) k/uL RBC (3.80-5.40) m/uL Hgb (11.4-16.0) gm/dL Hct (34.0-46.0) % Neutrophils # (1.3-7.7) k/uL Potassium 5.2 H (3.5-5.1) mmol/L BUN 40 H (7-17) mg/dL Creatinine 1.33 H (0.52-1.04) mg/dL POC Glucose (mg/dL) 133 H (75-99) mg/dL Lactate Dehydrogenase (313-618) U/L Assessment and Plan Assessment: Impression: Acute hypoxic respiratory failure secondary to covid 19 pneumonitis. Acute steroids induced psychosis. Acute kidney injury, resolved, improved, renal functioning is improving steadily. Mild hydronephrosis, resolved. Leukocytosis improved. Acute transaminitis secondary to Covid 19 infection. Recommendation: Continue present Covid 19 cocktail. Consider discharging the patient home today. May or may not require home O2 depending on her pulse ox on room air. We'll continue to follow Continue Decadron. Continue Xarelto. Continue zinc and Pepcid. Follow-up on outpatient basis. Time with Patient: Less than 30
== END 2020-06-09 17:19 | disposition home health service (06) | DRG 871 ==
LOC: EC 13:23 → 4SSUR 15:05 → 2SICU 06-01 07:05
PROVIDERS: ADMIT Internal Medicine; ATTEND Internal Medicine
DX: A41.89 Other specified sepsis (principal); U07.1 COVID-19; J96.01 Acute respiratory failure with hypoxia; N17.0 Acute kidney failure with tubular necrosis; R57.1 Hypovolemic shock; J12.82 Pneumonia due to coronavirus disease 2019; E43 Unspecified severe protein-calorie malnutrition; E87.2 Acidosis; E87.0 Hyperosmolality and hypernatremia; A08.39 Other viral enteritis; N13.6 Pyonephrosis; Z68.1 Body mass index [BMI] 19.9 or less, adult; F23 Brief psychotic disorder; E86.0 Dehydration; T38.0X5A Adverse effect of glucocorticoids and synthetic analogues, initial encounter; E83.42 Hypomagnesemia; E86.1 Hypovolemia; E83.51 Hypocalcemia; E87.6 Hypokalemia; I45.10 Unspecified right bundle-branch block; D64.9 Anemia, unspecified; Z90.89 Acquired absence of other organs; Z87.39 Personal history of other diseases of the musculoskeletal system and connective tissue; Z98.890 Other specified postprocedural states; Z71.3 Dietary counseling and surveillance; Z80.9 Family history of malignant neoplasm, unspecified
CPT/HCPCS: 36415; 36573; 36600; 71045; 76770; 80048; 80053; 81001; 81003; 82306; 82330; 82533; 82728; 82805; 83605; 83615; 83625; 83735; 83970; 84100; 84132; 84145; 84295; 84478; 85025; 85027; 85379; 85610; 85730; 86140; 86850; 86900; 86901; 87040; 87086; 87635; 93005; 94640; 94660; 94760; 96372; 96374; 96375; 99291

== ENCOUNTER → 2020-09-24 | Outpatient (CLI) | payer BC ==
--- NOTE | 2020-09-25 07:39 | US ---
EXAMINATION TYPE: US kidneys/renal and bladder DATE OF EXAM: 09/24/2020 COMPARISON: US 05/29/2020 CLINICAL HISTORY: N18.9 Chronic kidney disease, unspecified. EXAM MEASUREMENTS: Right Kidney: 9.6 x 3.6 x 4.0 cm Left Kidney: 8.8 x 4.2 x 4.6 cm Right Kidney: Mild prominence of the renal collecting system Left Kidney: No hydronephrosis or masses seen. Measuring small, however patient has a very small body habitus Bladder: wnl Bilateral Jets seen: yes No nephrolithiasis is seen. No masses are identified. The urinary bladder is anechoic. Bilateral ureteral jets are seen. IMPRESSION: Mild nonspecific fullness of the right renal collecting system.
== END | disposition home or self-care (01) ==
LOC: RADUSWWP 16:05
PROVIDERS: ATTEND Family Medicine
DX: N18.9 Chronic kidney disease, unspecified (principal)
CPT/HCPCS: 76770

== ENCOUNTER → 2020-11-05 | Outpatient (CLI) | payer BC ==
--- NOTE | 2020-11-09 08:23 | MM ---
Reason for exam: screening (asymptomatic). History: Family history of breast cancer in mother at age 75. Physical Findings: A clinical breast exam by your physician is recommended on an annual basis and results should be correlated with mammographic findings. MG Screening Mammo w CAD Bilateral CC and MLO view(s) were taken. No prior studies available for comparison. The breast tissue is heterogeneously dense. This may lower the sensitivity of mammography. There is no discrete abnormality. ASSESSMENT: Negative, BI-RAD 1 RECOMMENDATION: Routine screening mammogram of both breasts in 1 year.
== END | disposition home or self-care (01) ==
LOC: RADMAMWWP 15:54
PROVIDERS: ATTEND Obstetrics & Gynecology
DX: Z12.31 Encounter for screening mammogram for malignant neoplasm of breast (principal); Z80.3 Family history of malignant neoplasm of breast
CPT/HCPCS: 77067

== ENCOUNTER → 2021-04-28 | Outpatient (CLI) | payer BC ==
[~2021-04-28] MED LIST changes: -DEXAMETHASONE SOD PHOSPHATE 10 MG/ML 1 ML VIAL IV ONE; -HYDROmorphone 0.5 MG/0.5 ML SYRINGE IVP PRN; -LACTATED RINGERS 1,000 ML IV SCH; -LIDOCAINE 1% (10MG/ML) FOR IV START INTRADERMA PRN; -ONDANSETRON 4 MG/2 ML VIAL IVP ONE; -SCOPOLAMINE 1.5MG/72HR PATCH TRANSDERM ONE; +SODIUM CHLORIDE 0.9% 500 ML 500 ML in EMPTY BAG 1 BAG IV PRN
[2021-04-28 14:18] VITALS: BP 124/66; PULSE 66; RESP 16
[2021-04-28 14:48] VITALS: TEMP 98.3
== END ==
LOC: PROCWHC3 14:08
PROVIDERS: ATTEND Internal Medicine Nephrology
DX: D50.9 Iron deficiency anemia, unspecified (principal)
CPT/HCPCS: 96365; Q0138

== ENCOUNTER → 2022-12-05 | Outpatient (CLI) | payer BC ==
--- NOTE | 2022-12-06 08:20 | US ---
EXAMINATION TYPE: US kidneys/renal and bladder DATE OF EXAM: 12/05/2022 COMPARISON: 09/24/2020 CLINICAL INDICATION: Female, 52 years old with history of N13.30 UNSPECIFIED HYDRONEPHROSIS; hydronep hrosis EXAM MEASUREMENTS: Right Kidney: 9.2 x 3.6 x 4.0 cm Left Kidney: 8.5 x 3.8 x 3.3 cm Right Kidney: Dilated renal pelvis 2.2 x 1.6 x 1.3 cm Left Kidney: Mild hydronephrosis seen. Bladder: anechoic Bilateral Jets seen: yes Renal pelvis appears stable from 2020. This more likely represents extrarenal pelvis, normal variant. IMPRESSION: 1. Mild extrarenal pelvis, stable from 2020.
--- NOTE | 2022-12-06 16:48 | MM ---
Reason for Exam: Screening (asymptomatic). Last mammogram was performed 2 year(s) and 1 month(s) ago. Patient History: Menarche at age 13. First Full-Term at age 29. Perimenopausal. Mother had breast cancer, age 75. Risk Values: [place] 5 year model risk: 2.1%. NCI Lifetime model risk: 16.3%. Prior Study Comparison: 11/05/2020 Bilateral Screening Mammogram, [facility]. Tissue Density: The breast tissue is heterogeneously dense. This may lower the sensitivity of mammography. Findings: Analyzed By CAD. Pattern appears symmetrical and stable. No significant interval change is evident. No suspicious groups of microcalcifications, spiculated or lobular masses, architectural distortion or other secondary signs of malignancy are mammographically apparent. Overall Assessment: Benign, BI-RAD 2 Management: Screening Mammogram of both breasts in 1 year. A negative mammogram report should not preclude additional follow up of suspicious palpable abnormalities. Patient should continue monthly self breast exam. A clinical breast exam by your physician is recommended on an annual basis and results should be correlated with mammographic findings. Electronically signed and approved by: Jonathan Blakely D.O. Radiologis
== END | disposition home or self-care (01) ==
LOC: RADUSWWP 16:14
PROVIDERS: ATTEND Family Medicine
DX: Z12.31 Encounter for screening mammogram for malignant neoplasm of breast (principal); N13.30 Unspecified hydronephrosis; Z80.3 Family history of malignant neoplasm of breast
CPT/HCPCS: 76770; 77063; 77067

== ENCOUNTER 2023-07-03 06:29 | Inpatient (IN) | payer BC ==
--- NOTE | 2023-07-03 07:21 | ED ---
Abdominal Pain HPI - General Chief Complaint: Abdominal Pain Stated Complaint: Left sided pain Time Seen by Provider: 07/03/23 06:45 Source: patient, RN notes reviewed Mode of arrival: ambulatory Limitations: no limitations - History of Present Illness Initial Comments: 53-year-old female presents emergency department chief complaint of lower abdominal pain. Patient states started last night and is worsened states from the left side. States that really makes the pain feel better or worse. Patient states that the pain is sharp at times. Patient denies any fevers or chills does have slight nausea without vomiting mild constipation denies any diarrhea melena hematochezia. - Related Data Home Medications Medication Instructions Recorded Confirmed No Known Home Medications 07/03/23 07/03/23 Allergies Allergy/AdvReac Type Severity Reaction Status Date / Time No Known Allergies Allergy Verified 07/03/23 14:59 Review of Systems ROS Statement: Those systems with pertinent positive or pertinent negative responses have been documented in the HPI. ROS Other: All systems not noted in ROS Statement are negative. Past Medical History Past Medical History: Blood Disorder, CVA/TIA, Pneumonia Additional Past Medical History / Comment(s): low blood pressure, anemia. Vertigo off and on. Patient states "I had a mini stroke". Covid/Pneumonia 05/26/20. History of Any Multi-Drug Resistant Organisms: None Reported Past Surgical History: Orthopedic Surgery, Tonsillectomy Additional Past Surgical History / Comment(s): rt knee arthroscopy Past Anesthesia/Blood Transfusion Reactions: Motion Sickness Past Psychological History: Anxiety Smoking Status: Never smoker Past Alcohol Use History: Occasional Past Drug Use History: None Reported - Past Family History Father Family Medical History: Cancer General Exam Limitations: no limitations General appearance: alert, in no apparent distress Head exam: Present: atraumatic, normocephalic, normal inspection Respiratory exam: Present: normal lung sounds bilaterally. Absent: respiratory distress, wheezes, rales, rhonchi, stridor Cardiovascular Exam: Present: regular rate, normal rhythm, normal heart sounds. Absent: systolic murmur, diastolic murmur, rubs, gallop, clicks GI/Abdominal exam: Present: soft, tenderness (Left lower quadrant), normal bowel sounds. Absent: distended, guarding, rebound, rigid Back exam: Absent: CVA tenderness (R), CVA tenderness (L) Course Vital Signs 07/03/23 07/03/23 07/03/23 06:32 07:43 08:43 Temperature 97.5 F L 97.9 F 98.0 F Pulse Rate 81 71 72 Respiratory 17 20 17 Rate Blood Pressure 128/86 112/74 106/74 O2 Sat by Pulse 100 100 99 Oximetry 07/03/23 07/03/23 07/03/23 09:33 10:20 11:06 Temperature 98.2 F Pulse Rate 81 77 Respiratory 17 18 Rate Blood Pressure 114/71 O2 Sat by Pulse 100 100 Oximetry 07/03/23 07/03/23 07/03/23 11:25 12:02 13:25 Temperature 98.6 F 99.2 F 99.0 F Pulse Rate 82 75 87 Respiratory 17 16 18 Rate Blood Pressure 96/66 99/67 111/69 O2 Sat by Pulse 100 100 100 Oximetry 07/03/23 14:25 Temperature 99.9 F H Pulse Rate 93 Respiratory 17 Rate Blood Pressure 102/60 O2 Sat by Pulse 97 Oximetry Medical Decision Making - Medical Decision Making Was pt. sent in by a medical professional or institution (, PA, TIP [facility]ER, urgent care, hospital, or group home...) When possible be specific @ -No Did you speak to anyone other than the patient for history (EMS, parent, family, police, friend...)? What history was obtained from this source @ -No Did you review nursing and triage notes (agree or disagree)? Why? @ -I reviewed and agree with nursing and triage notes Were old charts reviewed (outside hosp., previous admission, EMS record, old EKG, old radiological studies, urgent care reports/EKG's, group home records)? Report findings @ -No old charts were reviewed Differential Diagnosis (chest pain, altered mental status, abdominal pain women, abdominal pain men, vaginal bleeding, weakness, fever, dyspnea, syncope, headache, dizziness, GI bleed, back pain, seizure, CVA, palpatations, mental health, musculoskeletal)? @ -Differential Abdominal Pain Women: Appendicitis, Cholecystitis, diverticulosis, ischemic bowel, pancreatitis, hepatitis, UTI, gastroenteritis, AAA, incarcerated hernia, bowel obstruction, constipation, inflammatory bowel, hepatitis, peptic ulcer disease, splenic infarction, perforated viscus, vulvitis, ovarian torsion, PID, kidney stone, placenta abruption, this is not meant to be an all-inclusive list EKG interpreted by me (3pts min.). @ -As above X-rays interpreted by me (1pt min.). @ -None done CT interpreted by me (1pt min.). @ -CT abdomen pelvis showing evidence of bilateral hydronephrosis, left distal ureteral calculus U/S interpreted by me (1pt. min.). @ -None done What testing was considered but not performed or refused? (CT, X-rays, U/S, labs)? Why? @ -None What meds were considered but not given or refused? Why? @ -None Did you discuss the management of the patient with other professionals (professionals i.e. , PA, T[employer]ER, lab, RT, psych nurse, social economist, quality assurance tester, teacher, customer service security officer, telephonic nurse case manager)? Give summary @ -Dr. Fry urology regarding bilateral hydronephrosis with acute kidney injury and a distal left ureter calculus. Discussed with Dr. Blankenship for admission regarding acute kidney injury, hypokalemia, kidney stone, UTI Was smoking cessation discussed for >3mins.? @ -No Was critical care preformed (if so, how long)? @ -35 minutes Were there social determinants of health that impacted care today? How? (Homelessness, low income, unemployed, alcoholism, drug addiction, transportation, low edu. Level, literacy, decrease access to med. care, snf, rehab)? @ -No Was there de-escalation of care discussed even if they declined (Discuss DNR or withdrawal of care, Hospice)? DNR status @ -No What co-morbidities impacted this encounter? (DM, HTN, Smoking, COPD, CAD, Cancer, CVA, ARF, Chemo, Hep., AIDS, mental health diagnosis, sleep apnea, morbid obesity)? @ -None Was patient admitted / discharged? Hospital course, mention meds given and route, prescriptions, significant lab abnormalities, going to OR and other pertinent info. @ -[Admitted patient is found to have acute kidney injury with concerning findings of bilateral hydronephrosis and distal left ureter calculus case was discussed with urology who will place a stent and further evaluate the patient. Patient was started on 2 g of Rocephin regarding UTI and leukocytosis. Patient was given fluid bolus, maintenance fluids. Case discussed with admitting physician patient did have blood culture, urine culture patient also has significant hypokalemia in which IV replacement was ordered Undiagnosed new problem with uncertain prognosis? @ -No Drug Therapy requiring intensive monitoring for toxicity (Heparin, Nitro, Insulin, Cardizem)? @ -No Were any procedures done? @ -No Diagnosis/symptom? @ -Acute kidney injury, bilateral hydronephrosis, ureteral calculus, hypokalemia Acute, or Chronic, or Acute on Chronic? @ -Acute Uncomplicated (without systemic symptoms) or Complicated (systemic symptoms)? @ -Complicated Side effects of treatment? @ -No Exacerbation, Progression, or Severe Exacerbation? @ -No Poses a threat to life or bodily function? How? (Chest pain, [place], [place], pneumonia, PE, COPD, DKA, ARF, appy, cholecystitis, CVA, Diverticulitis, Homicidal, Suicidal, threat to staff... and all critical care pts) @ -Yes hypokalemia, acute kidney injury - Lab Data Result diagrams: 07/04/23 06:34 07/04/23 20:07 Lab Results 07/03/23 07/03/23 07/03/23 Range/Units 07:21 07:21 07:21 WBC 16.9 H (3.8-10.6) k/uL RBC 4.83 (3.80-5.40) m/uL Hgb 13.7 (11.4-16.0) gm/dL Hct 41.7 (34.0-46.0) % MCV 86.5 (80.0-100.0) fL MCH 28.3 (25.0-35.0) pg MCHC 32.8 (31.0-37.0) g/dL RDW 15.0 (11.5-15.5) % Plt Count 324 (150-450) k/uL MPV 9.4 Neutrophils % 89 % Lymphocytes % 5 % Monocytes % 4 % Eosinophils % 1 % Basophils % 1 % Neutrophils # 15.1 H (1.3-7.7) k/uL Lymphocytes # 0.8 L (1.0-4.8) k/uL Monocytes # 0.7 (0-1.0) k/uL Eosinophils # 0.1 (0-0.7) k/uL Basophils # 0.1 (0-0.2) k/uL Sodium 134 L (137-145) mmol/L Potassium 2.6 L* (3.5-5.1) mmol/L Chloride 109 H (98-107) mmol/L Carbon Dioxide 15 L (22-30) mmol/L Anion Gap 10 mmol/L BUN 34 H (7-17) mg/dL Creatinine 1.91 H (0.52-1.04) mg/dL Est GFR (CKD-EPI)AfAm 34 (>60 ml/min/1.73 sqM) Est GFR (CKD-EPI)NonAf 30 (>60 ml/min/1.73 sqM) Glucose 107 H (74-99) mg/dL Plasma Lactic Acid Brooks (0.7-2.0) mmol/L Calcium 9.2 (8.4-10.2) mg/dL Total Bilirubin 0.4 (0.2-1.3) mg/dL AST 34 (14-36) U/L ALT 21 (4-34) U/L Alkaline Phosphatase 166 H (38-126) U/L Total Protein 6.7 (6.3-8.2) g/dL Albumin 4.0 (3.5-5.0) g/dL Lipase 652 H (23-300) U/L Urine Color Colorless Urine Appearance Cloudy H (Clear) Urine pH 6.0 (5.0-8.0) Ur Specific [place] 1.012 (1.001-1.035) Urine Protein 1+ H (Negative) Urine Glucose (UA) Negative (Negative) Urine Ketones Negative (Negative) Urine Blood Small H (Negative) Urine Nitrite Negative (Negative) Urine Bilirubin Negative (Negative) Urine Urobilinogen <2.0 (<2.0) mg/dL Ur Leukocyte Esterase Large H (Negative) Urine RBC 14 H (0-5) /hpf Urine WBC 171 H (0-5) /hpf Urine Bacteria Rare H (None) /hpf 07/03/23 07/03/23 Range/Units 07:21 08:42 WBC (3.8-10.6) k/uL RBC (3.80-5.40) m/uL Hgb (11.4-16.0) gm/dL Hct (34.0-46.0) % MCV (80.0-100.0) fL MCH (25.0-35.0) pg MCHC (31.0-37.0) g/dL RDW (11.5-15.5) % Plt Count (150-450) k/uL MPV Neutrophils % % Lymphocytes % % Monocytes % % Eosinophils % % Basophils % % Neutrophils # (1.3-7.7) k/uL Lymphocytes # (1.0-4.8) k/uL Monocytes # (0-1.0) k/uL Eosinophils # (0-0.7) k/uL Basophils # (0-0.2) k/uL Sodium 134 L (137-145) mmol/L Potassium 2.7 L* (3.5-5.1) mmol/L Chloride 110 H (98-107) mmol/L Carbon Dioxide 12 L (22-30) mmol/L Anion Gap 12 mmol/L BUN 32 H (7-17) mg/dL Creatinine 1.79 H (0.52-1.04) mg/dL Est GFR (CKD-EPI)AfAm 37 (>60 ml/min/1.73 sqM) Est GFR (CKD-EPI)NonAf 32 (>60 ml/min/1.73 sqM) Glucose 86 (74-99) mg/dL Plasma Lactic Acid Brooks 0.8 (0.7-2.0) mmol/L Calcium 8.1 L (8.4-10.2) mg/dL Total Bilirubin (0.2-1.3) mg/dL AST (14-36) U/L ALT (4-34) U/L Alkaline Phosphatase (38-126) U/L Total Protein (6.3-8.2) g/dL Albumin (3.5-5.0) g/dL Lipase (23-300) U/L Urine Color Urine Appearance (Clear) Urine pH (5.0-8.0) Ur Specific [place] (1.001-1.035) Urine Protein (Negative) Urine Glucose (UA) (Negative) Urine Ketones (Negative) Urine Blood (Negative) Urine Nitrite (Negative) Urine Bilirubin (Negative) Urine Urobilinogen (<2.0) mg/dL Ur Leukocyte Esterase (Negative) Urine RBC (0-5) /hpf Urine WBC (0-5) /hpf Urine Bacteria (None) /hpf - EKG Data -: EKG Interpreted by Me EKG Comments: EKG performed 11: 23 sinus rhythm rate of 87 VT 144 QRS 134 QT/QTc 374/418 Critical Care Time Critical Care Time: Yes Total Critical Care Time: 35 Disposition Clinical Impression: Acute kidney injury, Metabolic acidosis, Bilateral hydronephrosis, Hypokalemia, UTI (urinary tract infection), Left ureteral calculus Disposition: ADMITTED IP TO THIS HOSP Condition: Fair Time of Disposition: 09:50
[2023-07-03] MEDS: KETOROLAC 15 MG/ML 1 ML VIAL IVP STA (07:36)
[2023-07-03] MEDS: SODIUM CHLORIDE 0.9% 1,000 ML IV STA (07:37)
[2023-07-03] MEDS: ONDANSETRON 4 MG/2 ML VIAL IVP STA (07:37)
[2023-07-03 07:51] LABS: Basophils # (A) 0.1 k/uL (0-0.2); Basophils % (A) 1 %; Eosinophils # (A) 0.1 k/uL (0-0.7); Eosinophils % (A) 1 %; HCT 41.7 % (34.0-46.0); HGB 13.7 gm/dL (11.4-16.0); Lymphocytes # (A) 0.8 k/uL (1.0-4.8); Lymphocytes % (A) 5 %; MCH 28.3 pg (25.0-35.0); MCHC 32.8 g/dL (31.0-37.0); MCV 86.5 fL (80.0-100.0); Mean Platelet Volume 9.4; Monocytes # (A) 0.7 k/uL (0-1.0); Monocytes % (A) 4 %; Neutrophils # (A) 15.1 k/uL (1.3-7.7); Neutrophils % (A) 89 %; Platelet Count 324 k/uL (150-450); RBC 4.83 m/uL (3.80-5.40); WBC 16.9 k/uL (3.8-10.6)
[2023-07-03 08:12] LABS: Appearance,Urine Cloudy (Clear); Bacteria,Urine Rare /hpf; Bilirubin,Urine Negative (Negative); Blood,Urine Small (Negative); Color,Urine Colorless; Glucose,Urine (UA) Negative (Negative); Ketones,Urine Negative (Negative); Leukocyte Esterase,Urine Large (Negative); Nitrite,Urine Negative (Negative); Protein,Urine 1+ (Negative); RBC,Urine 14 /hpf (0-5); Specific Gravity,Urine 1.012 (1.001-1.035); Urobilinogen,Urine <2.0 mg/dL (<2.0); WBC,Urine 171 /hpf (0-5)
[2023-07-03 08:21] LABS: ALT 21 U/L (4-34); AST 34 U/L (14-36); African American GFR (CKD) 34 (>60 ml/min/1.73 sqM); Alkaline Phosphatase 166 U/L (38-126); Anion Gap 10 mmol/L; Blood Urea Nitrogen 34 mg/dL (7-17); Calcium 9.2 mg/dL (8.4-10.2); Carbon Dioxide 15 mmol/L (22-30); Chloride 109 mmol/L (98-107); Glucose 107 mg/dL (74-99); Lipase 652 U/L (23-300); Non-African American GFR(CKD) 30 (>60 ml/min/1.73 sqM); Sodium 134 mmol/L (137-145); Total Bilirubin 0.4 mg/dL (0.2-1.3); Total Protein 6.7 g/dL (6.3-8.2)
[2023-07-03 08:26] LABS: Potassium 2.6 mmol/L (3.5-5.1)
[2023-07-03] MEDS: SODIUM CHLORIDE 0.9% 1,000 ML IV ONE (08:44)
--- NOTE | 2023-07-03 08:45 | CT ---
EXAMINATION TYPE: CT abdomen pelvis w con DATE OF EXAM: 07/03/2023 COMPARISON: None INDICATION: LLQ pain and nausea since last night DLP: 453.1 mGycm, Automated exposure control for dose reduction was used. CONTRAST: 100 mL of Isovue 300. Study performed without Oral Contrast TECHNIQUE: Axial images were obtained from above the diaphragm to the pubic rami in the axial plane a t 5 mm thick sections. Reconstructed images are reviewed on the computer in the coronal plane. FINDINGS: Limited CT sections are obtained the lung bases. The lung bases are clear. CT ABDOMEN: Liver: Normal Spleen: Normal Pancreas: Normal Adrenal glands: The adrenal glands are normal. Gallbladder: Normal Kidneys: No masses are evident. There is mild bilateral hydronephrosis with prominent renal pelves. N o cysts are present. Multiple bilateral renal stones are present. A larger renal stones including a 0.3 cm calcification medial upper pole left kidney and a pair of 0.2 cm calcifications at the posteri or inferior left renal pole. A para 0.3 cm calcifications are adjacent within the mid right kidney th ere is a 0.4 cm calcification at the inferior pole right kidney. There is difficult to track the uret ers through their entire course. However, in the coronal plane there is a suggestion of maybe a 0.5 c m distal left ureteral stone above the left ureterovesical junction. Aorta: Vascular calcification is within the aorta. Inferior vena cava: Normal. CT PELVIS: Loops of bowel within the abdomen and pelvis are normal. The study is without oral contrast limit ing evaluation Appendix: Not identified. No dilated tubular structure or inflammatory changes evident. Urinary bladder: Normal. Genitourinary structures: Uterus appears unremarkable. Adnexa are normal. Osseous structures: No suspicious lytic or sclerotic lesions. IMPRESSION: 1. Multiple bilateral nonobstructing renal stones. The largest measuring 0.4 cm at the inferior pole right kidney. 2. There is mild bilateral hydronephrosis greater on the left with mild left hydroureter to the proxi mal portion. There may be a 0.5 cm distal left ureteral stone.
[2023-07-03 09:19] LABS: African American GFR (CKD) 37 (>60 ml/min/1.73 sqM); Anion Gap 12 mmol/L; Blood Urea Nitrogen 32 mg/dL (7-17); Calcium 8.1 mg/dL (8.4-10.2); Carbon Dioxide 12 mmol/L (22-30); Chloride 110 mmol/L (98-107); Glucose 86 mg/dL (74-99); Non-African American GFR(CKD) 32 (>60 ml/min/1.73 sqM); Sodium 134 mmol/L (137-145)
[2023-07-03 09:28] LABS: Potassium 2.7 mmol/L (3.5-5.1)
[2023-07-03] MEDS ORDERED: NALOXONE 0.4 MG/ML 1 ML VIAL IV PRN (09:45)
[2023-07-03] MEDS ORDERED: ONDANSETRON 4 MG/2 ML VIAL IVP PRN (09:45)
[2023-07-03] MEDS: SODIUM CHLORIDE 0.9% 1,000 ML IV SCH (09:53)
[2023-07-03] MEDS: SODIUM CHLORIDE 0.9% 500 ML 500 ML IV ONE (09:54)
[2023-07-03] MEDS: POTASSIUM CHLORIDE 10 MEQ in WATER FOR INJECTION 1 100ML.BAG IVPB STA ×4 (09:59→14:25)
--- NOTE | 2023-07-03 13:23 | P.HPIM ---
History of Present Illness This is a pleasant 53 years old female with no significant past medical history. Presents because of abdominal pain which started yesterday and her left side of the abdomen close to the umbilicus about 10/10 in severity but now down with pain medication to 2/10:00 sharp and crampy pain with no precipitating or relieving factors. Patient denies dysuria urgency or change in her bowel or urine habits. No diarrhea or vomiting. No chest pain or dyspnea. No headache dizziness weakness or numbness She denies smoking alcohol or illicit drugs. She is hemodynamically stable Labs show leukocytosis 16.9, potassium low at 2.7, creatinine of 1.9 and 1.7 but she has baseline around 1.2-1.4 Lipase slightly elevated 6.2, urine analysis is suspicious for infection and it looks abnormal EKG showing sinus rhythm at [address]-T changes CT of the abdomen and pelvis without contrast showed multiple bilateral nonobstructive renal stones with 1.5 cm in the distal left ureter She has mild bilateral hydronephrosis. Review of Systems Review of systems CONSTITUTIONAL: No fever, no malaise, no fatigue. HEENT: No recent visual problems or hearing problems. Denied any sore throat. CARDIOVASCULAR: No orthopnea, PND, no palpitations, no syncope. PULMONARY: No shortness of breath, no cough, no hemoptysis. GASTROINTESTINAL: No diarrhea, no nausea, no vomiting, no abdominal pain. Normoactive bowel sounds. NEUROLOGICAL: No headaches, no weakness, no numbness. HEMATOLOGICAL: Denies any bleeding or petechiae. GENITOURINARY: Denies any burning micturition, frequency, or urgency. MUSCULOSKELETAL/RHEUMATOLOGICAL: Denies any joint pain, swelling, or any muscle pain. ENDOCRINE: Denies any polyuria or polydipsia. Past Medical History Past Medical History: Blood Disorder, CVA/TIA, Pneumonia Additional Past Medical History / Comment(s): low blood pressure, anemia. Vertigo off and on. Patient states "I had a mini stroke". Covid/Pneumonia 05/26/20. History of Any Multi-Drug Resistant Organisms: None Reported Past Surgical History: Orthopedic Surgery, Tonsillectomy Additional Past Surgical History / Comment(s): rt knee arthroscopy Past Anesthesia/Blood Transfusion Reactions: Motion Sickness Past Psychological History: Anxiety Smoking Status: Never smoker Past Alcohol Use History: Occasional Past Drug Use History: None Reported - Past Family History Father Family Medical History: Cancer Medications and Allergies Home Medications Medication Instructions Recorded Confirmed Type No Known Home Medications 07/03/23 07/03/23 History Allergies Allergy/AdvReac Type Severity Reaction Status Date / Time No Known Allergies Allergy Verified 07/03/23 10:05 Physical Exam Vitals: Vital Signs Temp Pulse Resp BP Pulse Ox 07/03/23 12:02 99.2 F 75 16 99/67 100 07/03/23 11:25 98.6 F 82 17 96/66 100 07/03/23 11:06 77 18 100 07/03/23 10:20 81 17 114/71 100 07/03/23 09:33 98.2 F 07/03/23 08:43 98.0 F 72 17 106/74 99 07/03/23 07:43 97.9 F 71 20 112/74 100 07/03/23 06:32 97.5 F L 81 17 128/86 100 Intake and Output 07/02/23 07/03/23 07/03/23 22:59 06:59 14:59 Other: Weight 40.823 kg GENERAL: The patient is alert and oriented x3, not in any acute distress. Well developed, well nourished. HEENT: Pupils are round and equally reacting to light. EOMI. No scleral icterus. No conjunctival pallor. Normocephalic, atraumatic. No pharyngeal erythema. No thyromegaly. CARDIOVASCULAR: S1 and S2 present. No murmurs, rubs, or gallops. PULMONARY: Chest is clear to auscultation, no wheezing , no crackles. ABDOMEN: Soft, nontender, nondistended, normoactive bowel sounds. No palpable organomegaly. MUSCULOSKELETAL: No joint swelling or deformity. EXTREMITIES: No cyanosis, clubbing, or pedal edema. NEUROLOGICAL: Gross neurological examination did not reveal any focal deficits. SKIN: No rashes. no petechiae. Results CBC & Chem 7: 07/03/23 07:21 07/03/23 08:42 Labs: Abnormal Lab Results - Last 24 Hours (Table) 07/03/23 07/03/23 07/03/23 Range/Units 07:21 07:21 07:21 WBC 16.9 H (3.8-10.6) k/uL Neutrophils # 15.1 H (1.3-7.7) k/uL Lymphocytes # 0.8 L (1.0-4.8) k/uL Sodium 134 L (137-145) mmol/L Potassium 2.6 L* (3.5-5.1) mmol/L Chloride 109 H (98-107) mmol/L Carbon Dioxide 15 L (22-30) mmol/L BUN 34 H (7-17) mg/dL Creatinine 1.91 H (0.52-1.04) mg/dL Glucose 107 H (74-99) mg/dL Calcium (8.4-10.2) mg/dL Alkaline Phosphatase 166 H (38-126) U/L Lipase 652 H (23-300) U/L Urine Appearance Cloudy H (Clear) Urine Protein 1+ H (Negative) Urine Blood Small H (Negative) Ur Leukocyte Esterase Large H (Negative) Urine RBC 14 H (0-5) /hpf Urine WBC 171 H (0-5) /hpf Urine Bacteria Rare H (None) /hpf 07/03/23 Range/Units 08:42 WBC (3.8-10.6) k/uL Neutrophils # (1.3-7.7) k/uL Lymphocytes # (1.0-4.8) k/uL Sodium 134 L (137-145) mmol/L Potassium 2.7 L* (3.5-5.1) mmol/L Chloride 110 H (98-107) mmol/L Carbon Dioxide 12 L (22-30) mmol/L BUN 32 H (7-17) mg/dL Creatinine 1.79 H (0.52-1.04) mg/dL Glucose (74-99) mg/dL Calcium 8.1 L (8.4-10.2) mg/dL Alkaline Phosphatase (38-126) U/L Lipase (23-300) U/L Urine Appearance (Clear) Urine Protein (Negative) Urine Blood (Negative) Ur Leukocyte Esterase (Negative) Urine RBC (0-5) /hpf Urine WBC (0-5) /hpf Urine Bacteria (None) /hpf Assessment and Plan Assessment: Acute urinary tract infection Acute on chronic kidney disease stage III Bilateral kidney stone including 0.5 cm in the distal left ureter Mild bilateral hydronephrosis Hypokalemia, present on admission History of CVA Plan: Continue with ceftriaxone Continue with normal saline 75 mL/h Urology consult Labs and medication were reviewed.. Continue same treatment. Continue with symptomatic treatment. Resume home medication. Monitor labs and vitals. DVT and GI prophylaxis. Further recommendations as per clinical course of the patient DVT prophylaxis: Subcutaneous heparin GI Prophylaxis: Pepcid Prognosis is guarded
[2023-07-03] MEDS: HYDROmorphone 0.5 MG/0.5 ML SYRINGE IVP PRN (13:29)
[2023-07-03] MEDS: LACTATED RINGERS 1,000 ML IV ONE ×2 (15:19→15:37)
[2023-07-03] MEDS ORDERED: DEXAMETHASONE SOD PHOSPHATE 4 MG/ML 1 ML VIAL ONE (15:32)
[2023-07-03] MEDS ORDERED: SUGAMMADEX SODIUM 200 MG/2 ML SDV IV ONE (15:32)
[2023-07-03] MEDS ORDERED: fentaNYL (PF) 50 MCG/ML 2 ML AMP ONE (15:32)
[2023-07-03] MEDS ORDERED: ONDANSETRON 4 MG/2 ML VIAL ONE (15:32)
--- NOTE | 2023-07-03 15:41 | P.GSCN ---
History of Present Illness Consult date: 07/03/23 Reason for Consult: Bilateral hydronephrosis History of present illness: This is a 53-year-old female presented to the hospital with intractable left lower quadrant and flank pain. Associated with nausea. Denies any previous symptoms in the past. Underwent a CT abdomen pelvis which showed evidence of moderate left-sided hydronephrosis with a possible distal ureteral stone versus a phlebolith, and a mild right-sided hydronephrosis. Denies any previous history of stones. No known family history of kidney stones. Denies any dysuria or gross hematuria. Her creatinine was elevated at 1.9 from a baseline of 1.3. Urine analysis on presentation was concerning with for UTI. On evaluation in the ER she continues to have left lower quadrant/flank pain. Review of Systems - Constitutional Denies fever, Denies weight loss - Cardiovascular Denies chest pain, Denies shortness of breath - Respiratory Denies cough, Denies 7 - Gastrointestinal Reports abdominal pain, Reports nausea, Reports vomiting - Genitourinary Genitourinary: Reports flank pain, Denies dysuria, Denies hematuria Past Medical History Past Medical History: Blood Disorder, CVA/TIA, Pneumonia Additional Past Medical History / Comment(s): low blood pressure, anemia. Vertigo off and on. Patient states "I had a mini stroke". Covid/Pneumonia 05/26/20. History of Any Multi-Drug Resistant Organisms: None Reported Past Surgical History: Orthopedic Surgery, Tonsillectomy Additional Past Surgical History / Comment(s): rt knee arthroscopy Past Anesthesia/Blood Transfusion Reactions: Motion Sickness Past Psychological History: Anxiety Smoking Status: Never smoker Past Alcohol Use History: Occasional Past Drug Use History: None Reported - Past Family History Father Family Medical History: Cancer Medications and Allergies Home Medications Medication Instructions Recorded Confirmed Type No Known Home Medications 07/03/23 07/03/23 History Allergies Allergy/AdvReac Type Severity Reaction Status Date / Time No Known Allergies Allergy Verified 07/03/23 14:59 Surgical - Exam Vital Signs Temp Pulse Resp BP Pulse Ox 97.5 F L 81 17 128/86 100 07/03/23 06:32 07/03/23 06:32 07/03/23 06:32 07/03/23 06:32 07/03/23 06:32 - General no distress, moderate pain - Eyes normal ocular movement, no pale - ENT normal nares, normal mucosa - Respiratory normal expansion, normal respiratory effort - Abdomen Abdomen: soft, non tender, no distended - Psychiatric oriented to time, oriented to person, oriented to place Results - Labs 07/03/23 07:21 07/03/23 13:49 Abnormal Lab Results - Last 24 Hours (Table) 07/03/23 07/03/23 07/03/23 Range/Units 07:21 07:21 07:21 WBC 16.9 H (3.8-10.6) k/uL Neutrophils # 15.1 H (1.3-7.7) k/uL Lymphocytes # 0.8 L (1.0-4.8) k/uL Sodium 134 L (137-145) mmol/L Potassium 2.6 L* (3.5-5.1) mmol/L Chloride 109 H (98-107) mmol/L Carbon Dioxide 15 L (22-30) mmol/L BUN 34 H (7-17) mg/dL Creatinine 1.91 H (0.52-1.04) mg/dL Glucose 107 H (74-99) mg/dL Calcium (8.4-10.2) mg/dL Alkaline Phosphatase 166 H (38-126) U/L Lipase 652 H (23-300) U/L Urine Appearance Cloudy H (Clear) Urine Protein 1+ H (Negative) Urine Blood Small H (Negative) Ur Leukocyte Esterase Large H (Negative) Urine RBC 14 H (0-5) /hpf Urine WBC 171 H (0-5) /hpf Urine Bacteria Rare H (None) /hpf 07/03/23 Range/Units 08:42 WBC (3.8-10.6) k/uL Neutrophils # (1.3-7.7) k/uL Lymphocytes # (1.0-4.8) k/uL Sodium 134 L (137-145) mmol/L Potassium 2.7 L* (3.5-5.1) mmol/L Chloride 110 H (98-107) mmol/L Carbon Dioxide 12 L (22-30) mmol/L BUN 32 H (7-17) mg/dL Creatinine 1.79 H (0.52-1.04) mg/dL Glucose (74-99) mg/dL Calcium 8.1 L (8.4-10.2) mg/dL Alkaline Phosphatase (38-126) U/L Lipase (23-300) U/L Urine Appearance (Clear) Urine Protein (Negative) Urine Blood (Negative) Ur Leukocyte Esterase (Negative) Urine RBC (0-5) /hpf Urine WBC (0-5) /hpf Urine Bacteria (None) /hpf Diabetes panel 07/03/23 07/03/23 07/03/23 Range/Units 07:21 08:42 13:49 Sodium 134 L 134 L (137-145) mmol/L Potassium 2.6 L* 2.7 L* 3.5 (3.5-5.1) mmol/L Chloride 109 H 110 H (98-107) mmol/L Carbon Dioxide 15 L 12 L (22-30) mmol/L BUN 34 H 32 H (7-17) mg/dL Creatinine 1.91 H 1.79 H (0.52-1.04) mg/dL Glucose 107 H 86 (74-99) mg/dL Calcium 9.2 8.1 L (8.4-10.2) mg/dL AST 34 (14-36) U/L ALT 21 (4-34) U/L Alkaline Phosphatase 166 H (38-126) U/L Total Protein 6.7 (6.3-8.2) g/dL Albumin 4.0 (3.5-5.0) g/dL Calcium panel 07/03/23 07/03/23 Range/Units 07:21 08:42 Calcium 9.2 8.1 L (8.4-10.2) mg/dL Albumin 4.0 (3.5-5.0) g/dL Pituitary panel 07/03/23 07/03/23 07/03/23 Range/Units 07:21 08:42 13:49 Sodium 134 L 134 L (137-145) mmol/L Potassium 2.6 L* 2.7 L* 3.5 (3.5-5.1) mmol/L Chloride 109 H 110 H (98-107) mmol/L Carbon Dioxide 15 L 12 L (22-30) mmol/L BUN 34 H 32 H (7-17) mg/dL Creatinine 1.91 H 1.79 H (0.52-1.04) mg/dL Glucose 107 H 86 (74-99) mg/dL Calcium 9.2 8.1 L (8.4-10.2) mg/dL Adrenal panel 07/03/23 07/03/23 07/03/23 Range/Units 07:21 08:42 13:49 Sodium 134 L 134 L (137-145) mmol/L Potassium 2.6 L* 2.7 L* 3.5 (3.5-5.1) mmol/L Chloride 109 H 110 H (98-107) mmol/L Carbon Dioxide 15 L 12 L (22-30) mmol/L BUN 34 H 32 H (7-17) mg/dL Creatinine 1.91 H 1.79 H (0.52-1.04) mg/dL Glucose 107 H 86 (74-99) mg/dL Calcium 9.2 8.1 L (8.4-10.2) mg/dL Total Bilirubin 0.4 (0.2-1.3) mg/dL AST 34 (14-36) U/L ALT 21 (4-34) U/L Alkaline Phosphatase 166 H (38-126) U/L Total Protein 6.7 (6.3-8.2) g/dL Albumin 4.0 (3.5-5.0) g/dL Assessment and Plan Assessment: 53-year-old female with bilateral hydronephrosis. I reviewed her images she is having minimal hydronephrosis on the right, there is evidence of left-sided hydronephrosis with a possible distal stone, did very difficult to evaluate for stone given multiple phleboliths along the pelvis. Discussed with her given her pain, UTI and acute kidney injury I do recommend proceeding with a cystoscopy and a bilateral retrograde pyelogram, if it does show evidence of hydronephrosis at that point we will proceed with stent insertion. Discussed with her given her the possible UTI I am not can to be able to proceed with ureteroscopy and holmium laser at this time. Discussed the stents can only stay for a maximum of 3 months and this is a temporary measure until her acute kidney injury and UTI resolves and she will require an outpatient procedures for stent removal and addressing her stone -OR for cystoscopy with bilateral retrograde pyelogram possible stent insertions
[2023-07-03] MEDS: IOPAMIDOL-370 50ML BTL MISCELLANE ONE (15:59)
--- NOTE | 2023-07-03 16:18 | P.OP ---
Date of Procedure: 07/03/23 Preoperative Diagnosis: Left ureteral stone, bilateral hydronephrosis Postoperative Diagnosis: Same Procedure(s) Performed: Cystoscopy, bilateral retrograde pyelogram, left stent insertion Implants: 6 Argentine by 22 cm stent in the left Anesthesia: DIANA Surgeon: Sergo Fry Estimated Blood Loss (ml): 1 Pathology: none sent Condition: stable Disposition: PACU Indications for Procedure: 53-year-old female with bilateral hydronephrosis. I reviewed her images she is having minimal hydronephrosis on the right, there is evidence of left-sided hydronephrosis with a possible distal stone, did very difficult to evaluate for stone given multiple phleboliths along the pelvis. Discussed with her given her pain, UTI and acute kidney injury I do recommend proceeding with a cystoscopy and a bilateral retrograde pyelogram, if it does show evidence of hydronephrosis at that point we will proceed with stent insertion. Discussed with her given her the possible UTI I am not can to be able to proceed with ureteroscopy and holmium laser at this time. Discussed the stents can only stay for a maximum of 3 months and this is a temporary measure until her acute kidney injury and UTI resolves and she will require an outpatient procedures for stent removal and addressing her stone Description of Procedure: Patient brought to the operating room, general anesthesia was induced. She was prepped and draped in sterile fashion placed in dorsolithotomy position. Cystoscopy fitted with a 21 Argentine sheath was inserted per urethra, cystoscopy was performed which showed no abnormality within the bladder. Attention was then carried to the left ureteral orifice, this was intubated with an open-ended catheter, retrograde pyelogram was performed which showed filling defect at the distal ureter, with significant proximal hydroureteronephrosis. Next a sensor wire was advanced through the catheter and up into the kidney. Next a ureteral stent was passed over the wire, the proximal curl was visualized on fluoroscopy and the distal curl was visualized using the cystoscope. Cloudy urine drained from the collecting system and there was a hydronephrotic drip. Attention was then carried to the right ureteral orifice which was intubated with an open- ended catheter, retrograde pyelogram was performed on that side which showed no filling defect or hydronephrosis, delayed images were obtained which showed adequate drainage of contrast from the right side, of note the renal pelvis was slightly dilated but the calyces were nondilated and there was no calyceal blunting. Given the lack of hydronephrosis the decision was made not to proceed with stent insertion on the right. The bladder was emptied at the end of the case. Patient tolerated procedure well taken to recovery in stable condition
--- NOTE | 2023-07-03 19:30 | FL ---
EXAMINATION TYPE: FL urography retrograde Intraoperative/procedural fluoroscopic services were provid ed. Total fluoroscopy time is 1 minute 2 seconds with a total of 3 submitted images to PACS. Please s ee the operative/procedural note for further details. DAP: [id number]
[2023-07-03] MEDS: FAMOTIDINE 20 MG/2 ML VIAL IV SCH (20:18)
[2023-07-03] MEDS: HEPARIN SODIUM,PORCINE 5,000 UNIT/ML 1 ML VIAL SQ SCH (20:19)
[2023-07-03] MEDS: POTASSIUM CHLORIDE ER 20 MEQ TAB.ER PO STA (22:40)
[2023-07-04 11:12] LABS: HCT 33.5 % (37.2-46.3); HGB 10.8 g/dL (12.0-15.0); MCH 27.8 pg (27.0-32.0); MCHC 32.2 g/dL (32.0-37.0); MCV 86.3 FL (80.0-97.0); Mean Platelet Volume 10.9 FL (9.5-12.2); NRBC Per 100 WBC 0 X 10*3/uL (0.00-0.01); Platelet Count 280 X 10*3/uL (140-440); RBC 3.88 X 10*6/uL (4.10-5.20); RDW 15.8 % (11.5-14.5); WBC 28.45 X 10*3/uL (4.50-10.00)
[2023-07-04 11:16] VITALS: BMI 16.5
[2023-07-04 11:55] LABS: Basophils # (A) 0.15 X 10*3/uL (0.00-0.10); Basophils % (A) 0.5 %; Eosinophils # (A) 0.02 X 10*3/uL (0.04-0.35); Eosinophils % (A) 0.1 %; Lymphocytes # (A) 0.83 X 10*3/uL (0.90-5.00); Lymphocytes % (A) 2.9 %; Monocytes # (A) 1.48 X 10*3/uL (0.20-1.00); Monocytes % (A) 5.2 %; Neutrophils # (A) 25.84 X 10*3/uL (1.80-7.70); Neutrophils % (A) 90.8 %; RBC Morphology Normal (Normal)
[2023-07-04 12:20] LABS: BUN/Creat Ratio 12.91 Ratio (12.00-20.00); Blood Urea Nitrogen 28.4 mg/dL (9.0-27.0); Calcium 8.2 mg/dL (8.7-10.3); Chloride 115 mmol/L (96-109); Glucose 83 mg/dL (70-110); Potassium 2.8 mmol/L (3.5-5.5); Sodium 142 mmol/L (135-145)
--- NOTE | 2023-07-04 12:53 | P.PN ---
Subjective This is a pleasant 53 years old female with no significant past medical history. Presents because of abdominal pain which started yesterday and her left side of the abdomen close to the umbilicus about 10/10 in severity but now down with pain medication to 2/10:00 sharp and crampy pain with no precipitating or relieving factors. Patient denies dysuria urgency or change in her bowel or urine habits. No diarrhea or vomiting. No chest pain or dyspnea. No headache dizziness weakness or numbness She denies smoking alcohol or illicit drugs. She is hemodynamically stable Labs show leukocytosis 16.9, potassium low at 2.7, creatinine of 1.9 and 1.7 but she has baseline around 1.2-1.4 Lipase slightly elevated 6.2, urine analysis is suspicious for infection and it looks abnormal EKG showing sinus rhythm at [address]-T changes CT of the abdomen and pelvis without contrast showed multiple bilateral nonobstructive renal stones with 1.5 cm in the distal left ureter She has mild bilateral hydronephrosis. 07/04/2023 Patient is a status post cystoscopy and placement of ureteral stent for her bilateral hydronephrosis Today's postop day #1 Patient was insistent today to be discharged as she feels improved Stating that she cannot miss her work tomorrow, explained for the patient she is not ready for discharge and explained the case for her including her labs and now she agrees to stay Patient has low-grade temperature yesterday 99.9, no fever today Her leukocytosis went up to 28,000, her blood culture came back positive Potassium low and replace per protocol Creatinine 2.2, patient is known to have chronic kidney disease and she is supposed to follow-up with Dr. Lopez but she did not have a chance to, because of this we are going to consult range aide also. Hemoglobin dropped 13.7 down to 10.8 which is expected, will continue close monitoring Currently kept on normal saline 75 mL/h and ceftriaxone Review of systems CONSTITUTIONAL: No fever, no malaise, no fatigue. HEENT: No recent visual problems or hearing problems. Denied any sore throat. CARDIOVASCULAR: No orthopnea, PND, no palpitations, no syncope. PULMONARY: No shortness of breath, no cough, no hemoptysis. GASTROINTESTINAL: No diarrhea, no nausea, no vomiting, no abdominal pain. Normoactive bowel sounds. Active Medications Generic Name Dose Route Start Last Admin Trade Name Freq PRN Reason Stop Dose Admin Famotidine 20 mg 07/03/23 21:00 07/03/23 20:18 Famotidine 20 Mg/2 Ml Vial IV 20 mg HS KARY Administration Heparin Sodium (Porcine) 5,000 unit 07/03/23 21:00 07/04/23 08:50 Heparin Sodium,Porcine 5,000 Unit/Ml 1 Ml Vial SQ 5,000 unit Q12HR KARY Administration Hydromorphone HCl 0.5 mg 07/03/23 09:45 07/03/23 13:29 Hydromorphone 0.5 Mg/0.5 Ml Syringe IVP 0.5 mg Q3HR PRN Administration Moderate Pain (Scale 4 to 6) Sodium Chloride 1,000 mls @ 75 mls/hr 07/03/23 09:45 07/04/23 08:51 Saline 0.9% IV 75 mls/hr .[id number] KARY Administration Ceftriaxone Sodium 2 gm/ 50 mls @ 100 mls/hr 07/05/23 09:00 Sodium Chloride IVPB Q24HR KARY Naloxone HCl 0.2 mg 07/03/23 09:45 Naloxone 0.4 Mg/Ml 1 Ml Vial IV Q2M PRN Opioid Reversal Ondansetron HCl 4 mg 07/03/23 09:45 Ondansetron 4 Mg/2 Ml Vial IVP Q8HR PRN Nausea And Vomiting Objective - Vital Signs Vital signs: Vital Signs Temp 97.9 F 07/04/23 07:10 Pulse 91 07/04/23 08:45 Resp 16 07/04/23 08:45 BP 96/61 07/04/23 10:10 Pulse Ox 96 07/04/23 07:10 FiO2 Intake & Output 07/03/23 07/04/23 07/04/23 18:59 06:59 18:59 Intake Total 975 1380 Output Total 1 Balance 974 1380 Weight 40.823 kg 40.823 kg Intake: IV 900 Intake, IV Titration 75 900 Amount Sodium Chloride 0.9% 1, 75 900 000 ml @ 75 mls/hr IV . [id number] KARY Rx#:[id number] Oral 480 Output: Estimated Blood Loss 1 Other: Voiding Method Toilet Toilet # Voids 2 - Exam GENERAL: The patient is alert and oriented x3, not in any acute distress. Well developed, well nourished. HEENT: Pupils are round and equally reacting to light. EOMI. No scleral icterus. No conjunctival pallor. Normocephalic, atraumatic. No pharyngeal erythema. No thyromegaly. CARDIOVASCULAR: S1 and S2 present. No murmurs, rubs, or gallops. PULMONARY: Chest is clear to auscultation, no wheezing , no crackles. ABDOMEN: Soft, nontender, nondistended, normoactive bowel sounds. No palpable organomegaly. MUSCULOSKELETAL: No joint swelling or deformity. EXTREMITIES: No cyanosis, clubbing, or pedal edema. NEUROLOGICAL: Gross neurological examination did not reveal any focal deficits. SKIN: No rashes. no petechiae. - Labs CBC & Chem 7: 07/04/23 06:34 07/04/23 06:34 Labs: Abnormal Lab Results - Last 24 Hours (Table) 07/04/23 07/04/23 Range/Units 06:34 06:34 WBC 28.45 H (4.50-10.00) X 10*3/uL RBC 3.88 L (4.10-5.20) X 10*6/uL Hgb 10.8 L (12.0-15.0) g/dL Hct 33.5 L (37.2-46.3) % RDW 15.8 H (11.5-14.5) % Immature Gran # 0.13 H (0.00-0.04) X 10*3/uL Neutrophils # 25.84 H (1.80-7.70) X 10*3/uL Lymphocytes # 0.83 L (0.90-5.00) X 10*3/uL Monocytes # 1.48 H (0.20-1.00) X 10*3/uL Eosinophils # 0.02 L (0.04-0.35) X 10*3/uL Basophils # 0.15 H (0.00-0.10) X 10*3/uL Potassium 2.8 L (3.5-5.5) mmol/L Chloride 115 H (96-109) mmol/L Carbon Dioxide 14.0 L (21.6-31.8) mmol/L Anion Gap 13.00 H (4.00-12.00) mmol/L BUN 28.4 H (9.0-27.0) mg/dL Creatinine 2.2 H (0.6-1.5) mg/dL Est GFR (CKD-EPI) 26 L (>=60) Calcium 8.2 L (8.7-10.3) mg/dL Microbiology - Last 24 Hours (Table) 07/03/23 10:15 Blood Culture Gram Stain - Preliminary Blood Blood Culture - Preliminary Molecular ID 07/03/23 10:00 Blood Culture Gram Stain - Preliminary Blood Assessment and Plan Assessment: Acute urinary tract infection, with bacteremia Bilateral kidney stone including 0.5 cm in the distal left ureter, S/p cystoscopy and ureteral stent placement on 07/02 postoperative anemia which is expected Acute on chronic kidney disease stage III Postoperative anemia Leukocytosis, most likely leukemoid reaction secondary to her infection Hypokalemia, present on admission History of CVA Plan: Continue with ceftriaxone Continue with normal saline 75 mL/h Urology consult will consult nephrology and infectious disease team Labs and medication were reviewed.. Continue same treatment. Continue with symptomatic treatment. Resume home medication. Monitor labs and vitals. DVT and GI prophylaxis. Further recommendations as per clinical course of the patient DVT prophylaxis: Subcutaneous heparin GI Prophylaxis: Pepcid Prognosis is guarded
--- NOTE | 2023-07-04 13:36 | P.PN ---
Subjective Progress Note Date: 07/04/23 Underwent left-sided stent insertion yesterday, blood cultures growing gram- negative bacilli. Creatinine slightly up at 2.2 from 1.9. Indicates that flank pain has resolved. Objective - Vital Signs Vital signs: Vital Signs Temp 100 F H 07/04/23 11:53 Pulse 90 07/04/23 11:53 Resp 16 07/04/23 11:53 BP 92/59 07/04/23 11:53 Pulse Ox 99 07/04/23 11:53 FiO2 Intake & Output 07/03/23 07/04/23 07/04/23 18:59 06:59 18:59 Intake Total 975 1380 Output Total 1 Balance 974 1380 Weight 40.823 kg 40.823 kg Intake: IV 900 Intake, IV Titration 75 900 Amount Sodium Chloride 0.9% 1, 75 900 000 ml @ 75 mls/hr IV . [id number] [facility] Rx#:[id number] Oral 480 Output: Estimated Blood Loss 1 Other: Voiding Method Toilet Toilet # Voids 2 - Constitutional General appearance: Present: no acute distress - Gastrointestinal General gastrointestinal: Present: soft. Absent: distended, tenderness - Psychiatric Psychiatric: Present: A&O x's 3 - Labs CBC & Chem 7: 07/04/23 06:34 07/04/23 06:34 Labs: Abnormal Lab Results - Last 24 Hours (Table) 07/04/23 07/04/23 Range/Units 06:34 06:34 WBC 28.45 H (4.50-10.00) X 10*3/uL RBC 3.88 L (4.10-5.20) X 10*6/uL Hgb 10.8 L (12.0-15.0) g/dL Hct 33.5 L (37.2-46.3) % RDW 15.8 H (11.5-14.5) % Immature Gran # 0.13 H (0.00-0.04) X 10*3/uL Neutrophils # 25.84 H (1.80-7.70) X 10*3/uL Lymphocytes # 0.83 L (0.90-5.00) X 10*3/uL Monocytes # 1.48 H (0.20-1.00) X 10*3/uL Eosinophils # 0.02 L (0.04-0.35) X 10*3/uL Basophils # 0.15 H (0.00-0.10) X 10*3/uL Potassium 2.8 L (3.5-5.5) mmol/L Chloride 115 H (96-109) mmol/L Carbon Dioxide 14.0 L (21.6-31.8) mmol/L Anion Gap 13.00 H (4.00-12.00) mmol/L BUN 28.4 H (9.0-27.0) mg/dL Creatinine 2.2 H (0.6-1.5) mg/dL Est GFR (CKD-EPI) 26 L (>=60) Calcium 8.2 L (8.7-10.3) mg/dL Microbiology - Last 24 Hours (Table) 07/03/23 10:15 Blood Culture Gram Stain - Preliminary Blood Blood Culture - Preliminary Molecular ID 07/03/23 10:00 Blood Culture Gram Stain - Preliminary Blood Assessment and Plan Assessment: 53-year-old female with bilateral hydronephrosis. I reviewed her images she is having minimal hydronephrosis on the right, there is evidence of left-sided hydronephrosis. Underwent cystoscopy with bilateral retrograde on July 02. There was evidence of a ureteral obstruction on the left, right side there is no hydronephrosis or evidence of obstruction, underwent subsequently a stent insertion on the left only. This morning indicates the flank pain has resolved. Blood culture is growing gram-negative bacilli -Recommend keeping the in the hospital until cultures finalized -Discussed with her she will require as an outpatient left-sided ureteroscopy with holmium laser and stent removal
[2023-07-04] MEDS: POTASSIUM CHLORIDE ER 20 MEQ TAB.ER PO STA (16:25)
[2023-07-04] MEDS: ACETAMINOPHEN TAB 325 MG TAB PO PRN (20:47)
[2023-07-04] MEDS: POTASSIUM CHLORIDE ER 20 MEQ TAB.ER PO SCH (21:07)
--- NOTE | 2023-07-04 23:12 | P.CONS ---
History of Present Illness - Reason for Consult Consult date: 07/04/23 UTI and bacteremia Requesting physician: Dallas E Krzysztof - Chief Complaint Left-sided abdominal pain x 1 day - History of Present Illness Patient is a 53-year-old female past medical history significant for CVA TIA pneumonia and a blood disorder presenting to the hospital yesterday morning for evaluation of left lower abdominal pain patient mention symptoms started the night before presentation to the hospital and has been most to the left lower abdominal area patient describes the pain to be sharp intensity was almost 10 out of 10 by the time he presented to hospital patient denies any nausea no vomiting no diarrhea no burning or frequency of urine with the symptoms on presentation to the hospital patient was afebrile however she did spike a low-grade fever of 99.9 F yesterday and 100 F this morning patient was nontachycardic hypertensive or hypoxic patient did have a white count of 16.9 which is up to 28,000 today BUN and creatinine has been elevated liver isms are normal urine was positive patient did have abdominal pelvis CT multiple bilatera l nonobstructing renal stone mild bilateral hydronephrosis greater on the left with mild left hydroureter patient was evaluated by urology and the patient is status post cystoscopy and left stent insertion patient blood cultures came back positive with gram-negative bacilli prompting this consultation Review of Systems Positive point and negatives has been mentioned in the HPI, complete review of systems was performed and all other systems are negative Past Medical History Past Medical History: Blood Disorder, CVA/TIA, Pneumonia Additional Past Medical History / Comment(s): low blood pressure, anemia. Vertigo off and on. Patient states "I had a mini stroke". Covid/Pneumonia 05/26/20. History of Any Multi-Drug Resistant Organisms: None Reported Past Surgical History: Orthopedic Surgery, Tonsillectomy Additional Past Surgical History / Comment(s): rt knee arthroscopy Past Anesthesia/Blood Transfusion Reactions: Motion Sickness Smoking Status: Never smoker - Past Family History Father Family Medical History: Cancer Medications and Allergies Home Medications Medication Instructions Recorded Confirmed Type No Known Home Medications 07/03/23 07/03/23 History Allergies Allergy/AdvReac Type Severity Reaction Status Date / Time No Known Allergies Allergy Verified 07/03/23 14:59 Physical Exam Vitals: Vital Signs Temp Pulse Pulse Resp BP BP BP 07/04/23 11:53 100 F H 90 16 92/59 07/04/23 10:10 07/04/23 08:45 91 16 07/04/23 07:10 97.9 F 91 16 86/45 07/04/23 02:10 98.9 F 07/04/23 02:00 99.6 F 90 93/59 07/03/23 20:00 98.0 F 81 94/54 07/03/23 19:15 81 15 07/03/23 18:05 98.1 F 91 15 07/03/23 17:20 78 16 91/60 07/03/23 17:05 82 16 93/60 07/03/23 16:50 76 16 91/58 07/03/23 16:35 74 16 83/58 07/03/23 16:20 98.0 F 76 16 78/50 07/03/23 14:34 98.3 F 88 20 92/54 07/03/23 14:25 99.9 F H 93 17 102/60 BP Pulse Ox 07/04/23 11:53 99 07/04/23 10:10 96/61 07/04/23 08:45 07/04/23 07:10 96 07/04/23 02:10 07/04/23 02:00 97 07/03/23 20:00 100 07/03/23 19:15 07/03/23 18:05 101/65 99 07/03/23 17:20 96 07/03/23 17:05 100 07/03/23 16:50 100 07/03/23 16:35 100 07/03/23 16:20 100 07/03/23 14:34 96 07/03/23 14:25 97 Intake and Output 07/03/23 07/04/23 07/04/23 22:59 06:59 14:59 Intake Total 975 1380 Output Total 1 Balance 974 1380 Intake: IV 900 Intake, IV Titration 75 900 Amount Sodium Chloride 0.9% 1, 75 900 000 ml @ 75 mls/hr IV . [id number] [facility] Rx#:[id number] Oral 480 Output: Estimated Blood Loss 1 Other: Voiding Method Toilet Toilet # Voids 2 Weight 40.823 kg 40.823 kg GENERAL DESCRIPTION: Middle-aged female lying in bed, no distress. No tachypnea or accessory muscle of respiration use. HEENT: Shows Pallor , no scleral icterus. Oral mucous membrane is dry. No pharyngeal erythema or thrush NECK: Trachea central, no thyromegaly. LUNGS: Unlabored breathing. Clear to auscultation anteriorly. No wheeze or crackle. HEART: S1, S2, regular rate and rhythm. No loud murmur ABDOMEN: Soft, no tenderness , guarding or rigidity, no organomegaly EXTREMITIES: No edema of feet. SKIN: No rash, no masses palpable. NEUROLOGICAL: The patient is awake, alert, oriented x3, mood and affect normal. Results CBC & Chem 7: 07/04/23 06:34 07/04/23 20:07 Labs: Abnormal Lab Results - Last 24 Hours (Table) 07/04/23 07/04/23 Range/Units 06:34 06:34 WBC 28.45 H (4.50-10.00) X 10*3/uL RBC 3.88 L (4.10-5.20) X 10*6/uL Hgb 10.8 L (12.0-15.0) g/dL Hct 33.5 L (37.2-46.3) % RDW 15.8 H (11.5-14.5) % Immature Gran # 0.13 H (0.00-0.04) X 10*3/uL Neutrophils # 25.84 H (1.80-7.70) X 10*3/uL Lymphocytes # 0.83 L (0.90-5.00) X 10*3/uL Monocytes # 1.48 H (0.20-1.00) X 10*3/uL Eosinophils # 0.02 L (0.04-0.35) X 10*3/uL Basophils # 0.15 H (0.00-0.10) X 10*3/uL Potassium 2.8 L (3.5-5.5) mmol/L Chloride 115 H (96-109) mmol/L Carbon Dioxide 14.0 L (21.6-31.8) mmol/L Anion Gap 13.00 H (4.00-12.00) mmol/L BUN 28.4 H (9.0-27.0) mg/dL Creatinine 2.2 H (0.6-1.5) mg/dL Est GFR (CKD-EPI) 26 L (>=60) Calcium 8.2 L (8.7-10.3) mg/dL Microbiology - Last 24 Hours (Table) 07/03/23 10:15 Blood Culture Gram Stain - Preliminary Blood Blood Culture - Preliminary Molecular ID 07/03/23 10:00 Blood Culture Gram Stain - Preliminary Blood Assessment and Plan (1) Positive blood culture Current Visit: Yes Status: Acute Code(s): R78.81 - BACTEREMIA SNOMED Code(s): 477843766 (2) UTI (urinary tract infection) Current Visit: Yes Status: Acute Code(s): N39.0 - URINARY TRACT INFECTION, SITE NOT SPECIFIED SNOMED Code(s): 64280463 (3) Sepsis Current Visit: Yes Status: Acute Code(s): A41.9 - SEPSIS, UNSPECIFIED ORGANISM SNOMED Code(s): 65777930 Plan: 1-Patient presented to hospital with sepsis in this patient who did have a fever elevated white count source is complicated UTI in this patient who did have evidence of bilateral renal stone mild hydronephrosis and hydroureter on the left side requiring cystoscopy and stent placement now with evidence of gram- negative bacteremia source likely urinary/pyelonephritis 2-patient will be treated with Rocephin 2 g daily as no evidence of any resistant gene per pharmacy note Multiple question concern answered We will follow on clinical condition and cultures to further adjust medication if needed Thank you for this consultation we will follow the patient along with you Dictation was produced using ReplySend dictation software. please excuse any grammatical, word or spelling errors. Time with Patient: Greater than 30
[2023-07-04] MEDS: SODIUM CHLORIDE 0.9% 500 ML 500 ML IV ONE (23:15)
[2023-07-04] MEDS ORDERED: Potassium Replacement Protocol 1 EACH MISC MISCELLANE PRN (23:22)
[2023-07-05] MEDS: 0.9% NACL WITH KCL 20 MEQ/L 1,000 ML IV SCH (00:10)
[2023-07-05] MEDS: MAGNESIUM SULFATE-D5W PMX 1 GM in DEXTROSE/WATER 1 100ML.BAG IVPB ONE (02:11)
[2023-07-05 03:17] LABS: Basophils # (A) 0.1 k/uL (0-0.2); Basophils % (A) 0 %; Eosinophils # (A) 0.2 k/uL (0-0.7); Eosinophils % (A) 1 %; HCT 33.9 % (34.0-46.0); HGB 10.9 gm/dL (11.4-16.0); Hypochromasia Slight; Lymphocytes # (A) 1.1 k/uL (1.0-4.8); Lymphocytes % (A) 8 %; MCH 28.5 pg (25.0-35.0); Mean Platelet Volume 8.3; Monocytes # (A) 0.7 k/uL (0-1.0); Monocytes % (A) 5 %; Neutrophils # (A) 11.7 k/uL (1.3-7.7); Neutrophils % (A) 85 %; Platelet Count 247 k/uL (150-450); RBC 3.81 m/uL (3.80-5.40); RDW 15.9 % (11.5-15.5); WBC 13.8 k/uL (3.8-10.6)
[2023-07-05 03:21] LABS: African American GFR (CKD) 31 (>60 ml/min/1.73 sqM); Anion Gap 10 mmol/L; Blood Urea Nitrogen 24 mg/dL (7-17); Chloride 122 mmol/L (98-107); Glucose 86 mg/dL (74-99); Magnesium 2.1 mg/dL (1.6-2.3); Non-African American GFR(CKD) 27 (>60 ml/min/1.73 sqM); Potassium 3.6 mmol/L (3.5-5.1); Sodium 139 mmol/L (137-145)
[2023-07-05 03:35] LABS: Carbon Dioxide 7 mmol/L (22-30)
[2023-07-05] MEDS: POTASSIUM CHLORIDE ER 20 MEQ TAB.ER PO STA (03:46)
[2023-07-05 07:06] LABS: Magnesium 2.3 mg/dL (1.6-2.3); Potassium 3.9 mmol/L (3.5-5.1)
--- NOTE | 2023-07-05 11:23 | P.PN ---
Subjective This is a pleasant 53 years old female with no significant past medical history. Presents because of abdominal pain which started yesterday and her left side of the abdomen close to the umbilicus about 10/10 in severity but now down with pain medication to 2/10:00 sharp and crampy pain with no precipitating or relieving factors. Patient denies dysuria urgency or change in her bowel or urine habits. No diarrhea or vomiting. No chest pain or dyspnea. No headache dizziness weakness or numbness She denies smoking alcohol or illicit drugs. She is hemodynamically stable Labs show leukocytosis 16.9, potassium low at 2.7, creatinine of 1.9 and 1.7 but she has baseline around 1.2-1.4 Lipase slightly elevated 6.2, urine analysis is suspicious for infection and it looks abnormal EKG showing sinus rhythm at [address]-T changes CT of the abdomen and pelvis without contrast showed multiple bilateral nonobstructive renal stones with 1.5 cm in the distal left ureter She has mild bilateral hydronephrosis. 07/04/2023 Patient is a status post cystoscopy and placement of ureteral stent for her bilateral hydronephrosis Today's postop day #1 Patient was insistent today to be discharged as she feels improved Stating that she cannot miss her work tomorrow, explained for the patient she is not ready for discharge and explained the case for her including her labs and now she agrees to stay Patient has low-grade temperature yesterday 99.9, no fever today Her leukocytosis went up to 28,000, her blood culture came back positive Potassium low and replace per protocol Creatinine 2.2, patient is known to have chronic kidney disease and she is supposed to follow-up with Dr. Lopez but she did not have a chance to, because of this we are going to consult program associate also. Hemoglobin dropped 13.7 down to 10.8 which is expected, will continue close monitoring Currently kept on normal saline 75 mL/h and ceftriaxone 07/05/2023 Today patient is able to get out of bed and walk to the bathroom with some help. She denies specific symptoms and her voiding habit is with no problem No abdominal pain no vomiting and she tolerates diet Her blood pressure slightly better today 100/63, fever is coming down to 99.9 today but need close monitoring Leukocytosis is also improving 28,000 down to 13,800. Potassium magnesium went up to reference range Creatinine is also slightly low at 22 down to 2.0 However patient has critical low carbon dioxide at 7 and patient after fluids were switched to bicarb drip Hemoglobin stable. Blood cultures x 2 are positive for gram-negative bacilli pending final results Currently she is covered with ceftriaxone. Review of systems CONSTITUTIONAL: No fever, no malaise, no fatigue. HEENT: No recent visual problems or hearing problems. Denied any sore throat. CARDIOVASCULAR: No orthopnea, PND, no palpitations, no syncope. PULMONARY: No shortness of breath, no cough, no hemoptysis. MUSCULOSKELETAL/RHEUMATOLOGICAL: Denies any joint pain, swelling, or any muscle pain. ENDOCRINE: Denies any polyuria or polydipsia. Active Medications Generic Name Dose Route Start Last Admin Trade Name Freq PRN Reason Stop Dose Admin Acetaminophen 650 mg 07/04/23 20:25 07/04/23 20:47 Acetaminophen Tab 325 Mg Tab PO 650 mg Q6HR PRN Administration Fever and/ or Pain Famotidine 20 mg 07/05/23 21:00 Famotidine 20 Mg Tab PO HS KARY Heparin Sodium (Porcine) 5,000 unit 07/03/23 21:00 07/05/23 09:12 Heparin Sodium,Porcine 5,000 Unit/Ml 1 Ml Vial SQ 5,000 unit Q12HR KARY Administration Hydromorphone HCl 0.5 mg 07/03/23 09:45 07/03/23 13:29 Hydromorphone 0.5 Mg/0.5 Ml Syringe IVP 0.5 mg Q3HR PRN Administration Moderate Pain (Scale 4 to 6) Ceftriaxone Sodium 2 gm/ 50 mls @ 100 mls/hr 07/05/23 09:00 07/05/23 09:13 Sodium Chloride IVPB 100 mls/hr Q24HR KARY Administration Sodium Bicarbonate 150 ml/ 1,150 mls @ 150 mls/hr 07/05/23 11:00 Dextrose/Water IV .Q7H40M [facility] Miscellaneous Information 1 each 07/04/23 23:22 Potassium Replacement Protocol 1 Each [facility] MISCELLANE DAILY PRN Per Protocol Protocol Naloxone HCl 0.2 mg 07/03/23 09:45 Naloxone 0.4 Mg/Ml 1 Ml Vial IV Q2M PRN Opioid Reversal Ondansetron HCl 4 mg 07/03/23 09:45 Ondansetron 4 Mg/2 Ml Vial IVP Q8HR PRN Nausea And Vomiting Objective - Vital Signs Vital signs: Vital Signs Temp 98.6 F 07/05/23 07:07 Pulse 89 07/05/23 07:07 Resp 16 07/05/23 07:07 BP 100/63 07/05/23 07:07 Pulse Ox 93 L 07/05/23 07:07 FiO2 Intake & Output 07/04/23 07/05/23 07/05/23 18:59 06:59 18:59 Intake Total 360 590 Output Total 250 Balance 360 590 -250 Weight 40.823 kg Intake: Oral 360 590 Output: Urine 250 Other: Voiding Method Toilet Toilet # Voids 4 2 - Exam GENERAL: The patient is alert and oriented x3, not in any acute distress. Well developed, well nourished. HEENT: Pupils are round and equally reacting to light. EOMI. No scleral icterus. No conjunctival pallor. Normocephalic, atraumatic. No pharyngeal erythema. No thyromegaly. CARDIOVASCULAR: S1 and S2 present. No murmurs, rubs, or gallops. PULMONARY: Chest is clear to auscultation, no wheezing , no crackles. ABDOMEN: Soft, nontender, nondistended, normoactive bowel sounds. No palpable organomegaly. MUSCULOSKELETAL: No joint swelling or deformity. EXTREMITIES: No cyanosis, clubbing, or pedal edema. NEUROLOGICAL: Gross neurological examination did not reveal any focal deficits. SKIN: No rashes. no petechiae. - Labs CBC & Chem 7: 07/05/23 02:51 07/05/23 06:06 Labs: Abnormal Lab Results - Last 24 Hours (Table) 07/04/23 07/04/23 07/04/23 Range/Units 06:34 06:34 20:07 WBC (3.8-10.6) k/uL Hgb (11.4-16.0) gm/dL Hct (34.0-46.0) % RDW (11.5-15.5) % Immature Gran # 0.13 H (0.00-0.04) X 10*3/uL Neutrophils # 25.84 H (1.80-7.70) X 10*3/uL Lymphocytes # 0.83 L (0.90-5.00) X 10*3/uL Monocytes # 1.48 H (0.20-1.00) X 10*3/uL Eosinophils # 0.02 L (0.04-0.35) X 10*3/uL Basophils # 0.15 H (0.00-0.10) X 10*3/uL Potassium 2.8 L 2.6 L* (3.5-5.5) mmol/L Chloride 115 H (96-109) mmol/L Carbon Dioxide 14.0 L (21.6-31.8) mmol/L Anion Gap 13.00 H (4.00-12.00) mmol/L BUN 28.4 H (9.0-27.0) mg/dL Creatinine 2.2 H (0.6-1.5) mg/dL Est GFR (CKD-EPI) 26 L (>=60) Calcium 8.2 L (8.7-10.3) mg/dL 07/05/23 07/05/23 Range/Units 02:51 02:51 WBC 13.8 H (3.8-10.6) k/uL Hgb 10.9 L (11.4-16.0) gm/dL Hct 33.9 L (34.0-46.0) % RDW 15.9 H (11.5-15.5) % Immature Gran # (0.00-0.04) X 10*3/uL Neutrophils # 11.7 H (1.80-7.70) X 10*3/uL Lymphocytes # (0.90-5.00) X 10*3/uL Monocytes # (0.20-1.00) X 10*3/uL Eosinophils # (0.04-0.35) X 10*3/uL Basophils # (0.00-0.10) X 10*3/uL Potassium (3.5-5.5) mmol/L Chloride 122 H (96-109) mmol/L Carbon Dioxide 7 L* (21.6-31.8) mmol/L Anion Gap (4.00-12.00) mmol/L BUN 24 H (9.0-27.0) mg/dL Creatinine 2.08 H (0.6-1.5) mg/dL Est GFR (CKD-EPI) (>=60) Calcium 8.0 L (8.7-10.3) mg/dL Microbiology - Last 24 Hours (Table) 07/03/23 07:38 Urine Culture - Final Urine,Voided Proteus mirabilis 07/03/23 10:00 Blood Culture Gram Stain - Preliminary Blood Blood Culture - Preliminary Gram Neg Bacilli 07/03/23 10:15 Blood Culture Gram Stain - Preliminary Blood Blood Culture - Preliminary Gram Neg Bacilli Molecular ID Assessment and Plan Assessment: Acute urinary tract infection, with bacteremia Bilateral kidney stone including 0.5 cm in the distal left ureter, S/p cystoscopy and ureteral stent placement on 07/02 postoperative anemia which is expected Metabolic acidosis with critically low bicarb Acute on chronic kidney disease stage III Postoperative anemia Leukocytosis, most likely leukemoid reaction secondary to her infection Hypokalemia, present on admission History of CVA Plan: Continue with ceftriaxone Follow-up blood culture results Monitor creatinine and electrolytes and vitals including blood pressure Change fluid to sodium bicarb Urology consult will consult nephrology and infectious disease team Labs and medication were reviewed.. Continue same treatment. Continue with symptomatic treatment. Resume home medication. Monitor labs and vitals. DVT and GI prophylaxis. Further recommendations as per clinical course of the patient DVT prophylaxis: Subcutaneous heparin GI Prophylaxis: Pepcid Prognosis is guarded
--- NOTE | 2023-07-05 12:55 | P.PN ---
Subjective Urine cultures growing Proteus, blood culture still pending white count is down to 13. She is afebrile this morning denies any abdominal or flank pain Objective - Vital Signs Vital signs: Vital Signs Temp 99.2 F 07/05/23 12:13 Pulse 92 07/05/23 12:13 Resp 16 07/05/23 12:13 BP 106/71 07/05/23 12:13 Pulse Ox 96 07/05/23 12:13 FiO2 Intake & Output 07/04/23 07/05/23 07/05/23 18:59 06:59 18:59 Intake Total 360 590 Output Total 250 Balance 360 590 -250 Weight 40.823 kg Intake: Oral 360 590 Output: Urine 250 Other: Voiding Method Toilet Toilet Toilet # Voids 4 2 - Constitutional General appearance: Present: no acute distress - Gastrointestinal General gastrointestinal: Present: soft. Absent: distended, tenderness - Psychiatric Psychiatric: Present: A&O x's 3 - Labs CBC & Chem 7: 07/05/23 02:51 07/05/23 06:06 Labs: Abnormal Lab Results - Last 24 Hours (Table) 07/04/23 07/05/23 07/05/23 Range/Units 20:07 02:51 02:51 WBC 13.8 H (3.8-10.6) k/uL Hgb 10.9 L (11.4-16.0) gm/dL Hct 33.9 L (34.0-46.0) % RDW 15.9 H (11.5-15.5) % Neutrophils # 11.7 H (1.3-7.7) k/uL Potassium 2.6 L* (3.5-5.1) mmol/L Chloride 122 H (98-107) mmol/L Carbon Dioxide 7 L* (22-30) mmol/L BUN 24 H (7-17) mg/dL Creatinine 2.08 H (0.52-1.04) mg/dL Calcium 8.0 L (8.4-10.2) mg/dL Microbiology - Last 24 Hours (Table) 07/03/23 07:38 Urine Culture - Final Urine,Voided Proteus mirabilis 07/03/23 10:00 Blood Culture Gram Stain - Preliminary Blood Blood Culture - Preliminary Gram Neg Bacilli 04/02/24 10:15 Blood Culture Gram Stain - Preliminary Blood Blood Culture - Preliminary Gram Neg Bacilli Molecular ID Assessment and Plan Assessment: 53-year-old female with bilateral hydronephrosis. I reviewed her images she is having minimal hydronephrosis on the right, there is evidence of left-sided hydronephrosis. Underwent cystoscopy with bilateral retrograde on July 02. There was evidence of a ureteral obstruction on the left, right side there is no hydronephrosis or evidence of obstruction, underwent subsequently a stent inse rtion on the left only. This morning indicates the flank pain has resolved. Blood culture is growing gram-negative bacilli, urine cultures growing Proteus -Recommend keeping the in the hospital until cultures finalized -Discussed with her she will require as an outpatient left-sided ureteroscopy w ith holmium laser and stent removal
--- NOTE | 2023-07-05 12:59 | P.NPCON ---
History of Present Illness - Reason for Consult acute renal failure - History of Present Illness patient is a 53-year-old female who was admitted to the hospital with severe left abdominal pain and left-sided back pain. Patient denies any significant urinary symptoms. She did not notice any blood in the urine. CT of the abdomen showed evidence of moderate left hydronephrosis with possible ureteral stone as well as mild right hydronephrosis. Patient was evaluated by urology and is status post cystoscopy and left ureteral stent insertion on 07/03/2023. Pain has resolved. Serum creatinine was 1.9 on admission and remains around 2.0. previous creatinine 1.3-1.7 mg/dL in 2020. blood pressure has been low. Also noted to be significantly acidotic with CO2 dropping to 7 today blood cultures are positive for gram-negative bacilli and urine culture is growing Proteus mirabilis Maintained on IV fluids and and IV antibiotics Review of Systems as per HPI Past Medical History Past Medical History: Blood Disorder, CVA/TIA, Pneumonia Additional Past Medical History / Comment(s): low blood pressure, anemia. Vertigo off and on. Patient states "I had a mini stroke". Covid/Pneumonia 05/26/20. History of Any Multi-Drug Resistant Organisms: None Reported Past Surgical History: Orthopedic Surgery, Tonsillectomy Additional Past Surgical History / Comment(s): rt knee arthroscopy Past Anesthesia/Blood Transfusion Reactions: Motion Sickness Smoking Status: Never smoker - Past Family History Father Family Medical History: Cancer Medications and Allergies Home Medications Medication Instructions Recorded Confirmed Type No Known Home Medications 07/03/23 07/03/23 History Allergies Allergy/AdvReac Type Severity Reaction Status Date / Time No Known Allergies Allergy Verified 07/03/23 14:59 Physical Exam Vitals: Vital Signs Temp Pulse Pulse Resp BP Pulse Ox 07/05/23 12:13 99.2 F 92 16 106/71 96 07/05/23 07:07 98.6 F 89 16 100/63 93 L 07/05/23 03:47 98/65 07/05/23 02:00 98.6 F 85 16 82/54 96 07/04/23 22:03 99.5 F 07/04/23 20:51 99.9 F H 97 95/65 07/04/23 20:00 101.3 F H 96 20 86/57 95 07/04/23 15:50 99.7 F H 94 20 91/49 95 Intake and Output 07/04/23 07/05/23 07/05/23 22:59 06:59 14:59 Intake Total 360 590 Output Total 250 Balance 360 590 -250 Intake: Oral 360 590 Output: Urine 250 Other: Voiding Method Toilet Toilet # Voids 4 2 patient is awake, comfortable, no acute distress Examination of the heart S1 and S2 Examination of the lungs bilateral breath sounds are heard Abdomen is soft nontender Examination of 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 Acute kidney injury secondary to sepsis and hypotension and possible component of obstructive uropathy as well. 2. Gram-negative sepsis with urine culture growing Proteus mirabilis and blood cultures positive for gram-negative bacilli 3. Non-gap metabolic acidosis secondary to sepsis and acute kidney injury 4. Hypokalemia secondary to decreased oral intake and vomiting, status post replacement 5. Bilateral nephrolithiasis with bilateral hydronephrosis status post left ureteral stent placement on 07/03/2023. No obstruction was noted on the right side in the OR. 6. Possible underlying chronic kidney disease, stage III Plan: continue with IV fluids. change to IV bicarb Repeat labs in a.m. avoid any nephrotoxic agents. Thank you for the consultation. We will continue to follow the patient with you during her hospitalization.
--- NOTE | 2023-07-05 13:08 | CDI ---
Date: 07/05/2023 From: Andie Iqbal Phone: [phone] Admit Date: 07/03/2023 09:42:00 AM Patient Name: Sade Brewer Visit Number: [id number] Discharge Date: ATTENTION: The Clinical Documentation Specialists (CDI) and [facility] Coding Staff appreciate your assistance in clarifying documentation. Please respond to the clarification below the line at the bottom and electronically sign. The CDI & [facility] Coding staff will review the response and follow-up if needed. Please note: Queries are made part of the Legal Health Record. If you have any questions, please contact the author of this message via ITS. Dr. Haynes E Sheet: Sepsis is documented in the ID consult 07/03 but is not noted in subsequent documentation. Clarification is requested. History/Risk Factors: CVA, PNA, blood disorder who presented with lower abdominal pain and found to have UTI, leukocytosis and bacteremia, bilateral kidney stone and left ureteral stone S/p cystoscopy and stent placement Clinical Indicators: 07/02 Triage VS: 128/86, 97.5, 81, 17, 100% room air 07/02-07/04 Temperature max: 101.3(07/03) 07/03 ID consult, Plan: "1-Patient presented to hospital with sepsis." 07/02-07/02 WBC: 16.9, 28.45, 13.8 07/02 Blood Culture: Gram negative bacilli 07/02 UA: Appearance: Cloudy, Protein: 1+, Blood: Small, Leukocyte Esterase: Large, RBC: 14, WBC: 171, Bacteria: Rare Treatment: Ceftriaxone 2gram IV once on 07/02, 1gram IV once on 07/03, then 2gram IV [id number] start 07/04 Normal Saline 1000cc bolus x3 on 07/02, 500cc bolus on 07/03 Please clarify if the Sepsis is: [ x ] Sepsis POA, confirmed, remains under treatment [ ] Sepsis ruled out [ ] Other condition, please specify [ ] Unable to determine MTDD
[2023-07-05] MEDS: DEXTROSE 5% IN WATER 1,000 ML with SODIUM BICARB (1 MEQ/ML) 150 ML IV SCH (13:24)
--- NOTE | 2023-07-05 15:37 | P.PN ---
Subjective Progress Note Date: 07/05/23 Principal diagnosis: Reason for follow-up is complicated UTI and bacteremia Patient is a 53-year-old female past medical history significant for CVA TIA pneumonia and a blood disorder presenting to the hospital with left lower abdominal pain and the patient has been diagnosed with a complicated UTI with left-sided hydronephrosis requiring cystoscopy and ureteral stent placement patient also have a positive blood culture with Proteus. On today's evaluation that is 07/05/2023,the patient did have improvement in her fever pattern and the patient is afebrile this morning, patient is breathing comfortably on room air, the patient denies chest pain shortness of breath and no significant cough, patient denies abdominal pain, no nausea vomiting did have some diarrhea. Patient white count is down to 13.8, creatinine is 2.08 Objective - Vital Signs Vital signs: Vital Signs Temp 99.2 F 07/05/23 12:13 Pulse 92 07/05/23 12:13 Resp 16 07/05/23 12:13 BP 106/71 07/05/23 12:13 Pulse Ox 96 07/05/23 12:13 FiO2 Intake & Output 07/04/23 07/05/23 07/05/23 18:59 06:59 18:59 Intake Total 360 590 Output Total 450 Balance 360 590 -450 Weight 40.823 kg Intake: Oral 360 590 Output: Urine 450 Other: Voiding Method Toilet Toilet Toilet # Voids 4 2 - Exam GENERAL DESCRIPTION: Middle-age female lying in bed in no distress RESPIRATORY SYSTEM: Unlabored breathing , decreased breath sounds at bases HEART: S1 S2 regular rate and rhythm , ABDOMEN: Soft , no tenderness EXTREMITIES: No edema feet - Labs CBC & Chem 7: 07/05/23 02:51 07/05/23 06:06 Labs: Abnormal Lab Results - Last 24 Hours (Table) 07/04/23 07/05/23 07/05/23 Range/Units 20:07 02:51 02:51 WBC 13.8 H (3.8-10.6) k/uL Hgb 10.9 L (11.4-16.0) gm/dL Hct 33.9 L (34.0-46.0) % RDW 15.9 H (11.5-15.5) % Neutrophils # 11.7 H (1.3-7.7) k/uL Potassium 2.6 L* (3.5-5.1) mmol/L Chloride 122 H (98-107) mmol/L Carbon Dioxide 7 L* (22-30) mmol/L BUN 24 H (7-17) mg/dL Creatinine 2.08 H (0.52-1.04) mg/dL Calcium 8.0 L (8.4-10.2) mg/dL Microbiology - Last 24 Hours (Table) 07/03/23 07:38 Urine Culture - Final Urine,Voided Proteus mirabilis 07/03/23 10:00 Blood Culture Gram Stain - Preliminary Blood Blood Culture - Preliminary Gram Neg Bacilli 07/03/23 10:15 Blood Culture Gram Stain - Preliminary Blood Blood Culture - Preliminary Gram Neg Bacilli Molecular ID Assessment and Plan (1) Positive blood culture Current Visit: Yes Status: Acute Code(s): R78.81 - BACTEREMIA SNOMED Code(s): 697592822 (2) UTI (urinary tract infection) Current Visit: Yes Status: Acute Code(s): N39.0 - URINARY TRACT INFECTION, SITE NOT SPECIFIED SNOMED Code(s): 72614571 (3) Sepsis Current Visit: Yes Status: Acute Code(s): A41.9 - SEPSIS, UNSPECIFIED ORGANISM SNOMED Code(s): 38296252 Plan: 1-Patient presented to hospital with sepsis in this patient who did have a fever elevated white count source is complicated UTI in this patient who did have evidence of bilateral renal stone mild hydronephrosis and hydroureter on the left side requiring cystoscopy and stent placement now with evidence of gram- negative bacteremia source likely urinary/pyelonephritis 2-patient to continue with Rocephin 2 g daily awaiting sensitivities on the blood culture determine discharge antibiotics 3patient to be encouraged increase her probiotic intake that will help with the diarrhea Dictation was produced using [employer] dictation software. please excuse any grammatical, word or spelling errors. Time with Patient: Less than 30
[2023-07-05] MEDS: FAMOTIDINE 20 MG TAB PO SCH (21:49)
[2023-07-06 08:13] LABS: Ethanol Negative (Negative); Isopropanol Negative (Negative)
[2023-07-06 08:47] LABS: Basophils # (A) 0.05 X 10*3/uL (0.00-0.10); Basophils % (A) 0.5 %; Eosinophils # (A) 0.29 X 10*3/uL (0.04-0.35); Eosinophils % (A) 2.9 %; HCT 30.8 % (37.2-46.3); HGB 10.1 g/dL (12.0-15.0); MCH 27.4 pg (27.0-32.0); MCHC 32.8 g/dL (32.0-37.0); MCV 83.7 FL (80.0-97.0); Mean Platelet Volume 11.3 FL (9.5-12.2); Monocytes # (A) 0.85 X 10*3/uL (0.20-1.00); Monocytes % (A) 8.5 %; NRBC Per 100 WBC 0 X 10*3/uL (0.00-0.01); Neutrophils # (A) 7.85 X 10*3/uL (1.80-7.70); Neutrophils % (A) 78.8 %; Platelet Count 246 X 10*3/uL (140-440); RBC 3.68 X 10*6/uL (4.10-5.20); RDW 16.1 % (11.5-14.5); WBC 9.97 X 10*3/uL (4.50-10.00)
[2023-07-06 09:02] LABS: BUN/Creat Ratio 9.47 Ratio (12.00-20.00); Glucose 100 mg/dL (70-110)
[2023-07-06 09:03] LABS: Calcium 7.7 mg/dL (8.7-10.3); Carbon Dioxide 16.7 mmol/L (21.6-31.8); Chloride 114 mmol/L (96-109); Potassium 2.9 mmol/L (3.5-5.5); Sodium 141 mmol/L (135-145)
[2023-07-06] MEDS: POTASSIUM CHLORIDE ER 20 MEQ TAB.ER PO SCH (09:49)
--- NOTE | 2023-07-06 10:53 | P.PN ---
Subjective patient is seen for follow-up for acute kidney injury secondary to sepsis and hypotension. Status post cystoscopy and left ureteral stent placement on 07/03/2023 for left hydronephrosis and left ureteral calculus. Blood cultures and urine cultures are growing Proteus mirabilis Currently maintained on IV bicarb. Overall feeling better with no further abdominal pain. No urinary symptoms. Serum creatinine at 1.9 today. 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 - Labs CBC & Chem 7: 07/06/23 06:11 07/06/23 06:11 Labs: Abnormal Lab Results - Last 24 Hours (Table) 07/06/23 07/06/23 Range/Units 06:11 06:11 RBC 3.68 L (4.10-5.20) X 10*6/uL Hgb 10.1 L (12.0-15.0) g/dL Hct 30.8 L (37.2-46.3) % RDW 16.1 H (11.5-14.5) % Neutrophils # 7.85 H (1.80-7.70) X 10*3/uL Potassium 2.9 L (3.5-5.5) mmol/L Chloride 114 H (96-109) mmol/L Carbon Dioxide 16.7 L (21.6-31.8) mmol/L Creatinine 1.9 H (0.6-1.5) mg/dL Est GFR (CKD-EPI) 31 L (>=60) BUN/Creatinine Ratio 9.47 L (12.00-20.00) Ratio Calcium 7.7 L (8.7-10.3) mg/dL Microbiology - Last 24 Hours (Table) 07/04/23 20:55 Blood Culture - Preliminary Blood 07/03/23 10:00 Blood Culture Gram Stain - Final Blood Blood Culture - Final Proteus mirabilis 07/03/23 10:15 Blood Culture Gram Stain - Final Blood Blood Culture - Final Proteus mirabilis Molecular ID 07/03/23 07:38 Urine Culture - Final Urine,Voided Proteus mirabilis Assessment and Plan Assessment: 1. Acute kidney injury secondary to sepsis and hypotension and component of obstructive uropathy as well. 2. Gram-negative sepsis with urine culture and blood cultures growing Proteus mirabilis 3. Non-gap metabolic acidosis secondary to sepsis and acute kidney injury 4. Hypokalemia secondary to decreased oral intake and vomiting, status post replacement 5. Bilateral nephrolithiasis with bilateral hydronephrosis status post left ureteral stent placement on 07/03/2023. No obstruction was noted on the right side in the OR. 6. Possible underlying chronic kidney disease, stage III with baseline creatinine 1.2-1.3 Plan: continue with IV bicarb Continue with antibiotics Replace potassium Repeat labs in a.m. avoid any nephrotoxic agents.
--- NOTE | 2023-07-06 12:56 | P.PN ---
Subjective Progress Note Date: 07/06/23 This is a pleasant 53 years old female with no significant past medical history. Presents because of abdominal pain which started yesterday and her left side of the abdomen close to the umbilicus about 10/10 in severity but now down with pain medication to 2/10:00 sharp and crampy pain with no precipitating or relieving factors. Patient denies dysuria urgency or change in her bowel or urine habits. No diarrhea or vomiting. No chest pain or dyspnea. No headache dizziness weakness or numbness She denies smoking alcohol or illicit drugs. She is hemodynamically stable Labs show leukocytosis 16.9, potassium low at 2.7, creatinine of 1.9 and 1.7 but she has baseline around 1.2-1.4 Lipase slightly elevated 6.2, urine analysis is suspicious for infection and it looks abnormal EKG showing sinus rhythm at [address]-T changes CT of the abdomen and pelvis without contrast showed multiple bilateral nonobstructive renal stones with 1.5 cm in the distal left ureter She has mild bilateral hydronephrosis. 07/04/2023 Patient is a status post cystoscopy and placement of ureteral stent for her bilateral hydronephrosis Today's postop day #1 Patient was insistent today to be discharged as she feels improved Stating that she cannot miss her work tomorrow, explained for the patient she is not ready for discharge and explained the case for her including her labs and now she agrees to stay Patient has low-grade temperature yesterday 99.9, no fever today Her leukocytosis went up to 28,000, her blood culture came back positive Potassium low and replace per protocol Creatinine 2.2, patient is known to have chronic kidney disease and she is supp osed to follow-up with Dr. 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 Hemoglobin dropped 13.7 down to 10.8 which is expected, will continue close monitoring Currently kept on normal saline 75 mL/h and ceftriaxone 07/05/2023 Today patient is able to get out of bed and walk to the bathroom with some help. She denies specific symptoms and her voiding habit is with no problem No abdominal pain no vomiting and she tolerates diet Her blood pressure slightly better today 100/63, fever is coming down to 99.9 today but need close monitoring Leukocytosis is also improving 28,000 down to 13,800. Potassium magnesium went up to reference range Creatinine is also slightly low at 22 down to 2.0 However patient has critical low carbon dioxide at 7 and patient after fluids were switched to bicarb drip Hemoglobin stable. Blood cultures x 2 are positive for gram-negative bacilli pending final results Currently she is covered with ceftriaxone. 07/05. Patient seen and examined. WBC 9.97, hemoglobin 10.1, platelet count 246, sodium 141, potassium 2.9, BUN is 18, creatinine 1.9, chloride is 114, carbon is a 16.7. Potassium replacement ordered. Denies any lethargy or weakness REVIEW OF SYSTEMS: CONSTITUTIONAL: No fever, no malaise,. CARDIOVASCULAR: No chest pain, no palpitations, no syncope. PULMONARY: No shortness of breath, no cough, GASTROINTESTINAL: No diarrhea, no nausea, no vomiting, no abdominal pain. NEUROLOGICAL: No headaches, no weakness, PHYSICAL EXAMINATION: GENERAL: The patient is alert and oriented x3, not in any acute distress. Well developed, well nourished. HEENT: Pupils are round and equally reacting to light. EOMI. No scleral icterus. No conjunctival pallor. Normocephalic, atraumatic. No pharyngeal erythema. No thyromegaly. CARDIOVASCULAR: S1 and S2 present. No murmurs, rubs, or gallops. PULMONARY: Chest is clear to auscultation, no wheezing or crackles. ABDOMEN: Soft, nontender, nondistended, normoactive bowel sounds. No palpable organomegaly. MUSCULOSKELETAL: No joint swelling or deformity. EXTREMITIES: No cyanosis, clubbing, or pedal edema. NEUROLOGICAL: Gross neurological examination did not reveal any focal deficits. SKIN: No rashes. Assessment and plan Acute urinary tract infection, with bacteremia Bilateral kidney stone including 0.5 cm in the distal left ureter, S/p cystosc opy and ureteral stent placement on 07/02 postoperative anemia which is expected Metabolic acidosis with critically low bicarb Acute on chronic kidney disease stage III Postoperative anemia Leukocytosis, most likely leukemoid reaction secondary to her infection Hypokalemia, present on admission History of CVA Monitor vital signs Monitor CBC Monitor CMP Follow-up blood culture continue IV Rocephin Continue IV fluids Potassium replacement ordered ID following Nephrology following Labs and medication were reviewed.. Continue same treatment. Continue with symptomatic treatment. Resume home medication. Monitor labs and vitals. DVT and GI prophylaxis. Further recommendations as per clinical course of the patient Dictation was produced using [employer] dictation software. please excuse any grammatical, word or spelling errors. Objective - Vital Signs Vital signs: Vital Signs Temp 98.4 F 07/06/23 07:13 Pulse 87 07/06/23 07:13 Resp 16 07/06/23 07:13 BP 100/56 07/06/23 07:13 Pulse Ox 98 07/06/23 07:13 FiO2 Intake & Output 07/05/23 07/06/23 07/06/23 18:59 06:59 18:59 Intake Total 1295 Output Total 450 Balance -450 1295 Intake: Oral 1295 Output: Urine 450 Other: Voiding Method Toilet Toilet # Voids 2 - Labs CBC & Chem 7: 07/06/23 06:11 07/06/23 06:11 Labs: Abnormal Lab Results - Last 24 Hours (Table) 07/06/23 07/06/23 Range/Units 06:11 06:11 RBC 3.68 L (4.10-5.20) X 10*6/uL Hgb 10.1 L (12.0-15.0) g/dL Hct 30.8 L (37.2-46.3) % RDW 16.1 H (11.5-14.5) % Neutrophils # 7.85 H (1.80-7.70) X 10*3/uL Potassium 2.9 L (3.5-5.5) mmol/L Chloride 114 H (96-109) mmol/L Carbon Dioxide 16.7 L (21.6-31.8) mmol/L Creatinine 1.9 H (0.6-1.5) mg/dL Est GFR (CKD-EPI) 31 L (>=60) BUN/Creatinine Ratio 9.47 L (12.00-20.00) Ratio Calcium 7.7 L (8.7-10.3) mg/dL Microbiology - Last 24 Hours (Table) 07/04/23 20:55 Blood Culture - Preliminary Blood 07/03/23 10:00 Blood Culture Gram Stain - Final Blood Blood Culture - Final Proteus mirabilis 07/03/23 10:15 Blood Culture Gram Stain - Final Blood Blood Culture - Final Proteus mirabilis Molecular ID 07/03/23 07:38 Urine Culture - Final Urine,Voided Proteus mirabilis
--- NOTE | 2023-07-06 14:47 | P.PN ---
Subjective Urine cultures growing Proteus, g white count is down to 9.7. She is afebrile this morning denies any abdominal or flank pain Objective - Vital Signs Vital signs: Vital Signs Temp 98.6 F 07/06/23 12:26 Pulse 96 07/06/23 12:26 Resp 16 07/06/23 12:26 BP 99/88 07/06/23 12:26 Pulse Ox 97 07/06/23 12:26 FiO2 Intake & Output 07/05/23 07/06/23 07/06/23 18:59 06:59 18:59 Intake Total 1295 Output Total 450 Balance -450 1295 Intake: Oral 1295 Output: Urine 450 Other: Voiding Method Toilet Toilet # Voids 2 3 - Constitutional General appearance: Present: no acute distress - Gastrointestinal General gastrointestinal: Present: soft. Absent: distended, tenderness - Labs CBC & Chem 7: 07/06/23 06:11 07/06/23 06:11 Labs: Abnormal Lab Results - Last 24 Hours (Table) 07/06/23 07/06/23 Range/Units 06:11 06:11 RBC 3.68 L (4.10-5.20) X 10*6/uL Hgb 10.1 L (12.0-15.0) g/dL Hct 30.8 L (37.2-46.3) % RDW 16.1 H (11.5-14.5) % Neutrophils # 7.85 H (1.80-7.70) X 10*3/uL Potassium 2.9 L (3.5-5.5) mmol/L Chloride 114 H (96-109) mmol/L Carbon Dioxide 16.7 L (21.6-31.8) mmol/L Creatinine 1.9 H (0.6-1.5) mg/dL Est GFR (CKD-EPI) 31 L (>=60) BUN/Creatinine Ratio 9.47 L (12.00-20.00) Ratio Calcium 7.7 L (8.7-10.3) mg/dL Microbiology - Last 24 Hours (Table) 07/05/23 06:07 Blood Culture - Preliminary Blood 07/04/23 20:55 Blood Culture - Preliminary Blood 07/03/23 10:00 Blood Culture Gram Stain - Final Blood Blood Culture - Final Proteus mirabilis 07/03/23 10:15 Blood Culture Gram Stain - Final Blood Blood Culture - Final Proteus mirabilis Molecular ID Assessment and Plan Assessment: 53-year-old female with bilateral hydronephrosis. I reviewed her images she is having minimal hydronephrosis on the right, there is evidence of left-sided hydronephrosis. Underwent cystoscopy with bilateral retrograde on July 02. There was evidence of a ureteral obstruction on the left, right side there is no hydronephrosis or evidence of obstruction, underwent subsequently a stent insertion on the left only. Blood and urine culture growing Proteus -From urology standpoint she is okay for discharge Discussed with her she will require as an outpatient left-sided ureteroscopy with holmium laser and stent removal
[2023-07-06 15:01] LABS: ALT 19 U/L (4-34); AST 27 U/L (14-36); African American GFR (CKD) 41 (>60 ml/min/1.73 sqM); Albumin 2.5 g/dL (3.5-5.0); Alkaline Phosphatase 108 U/L (38-126); Anion Gap 6 mmol/L; Blood Urea Nitrogen 17 mg/dL (7-17); Calcium 7.2 mg/dL (8.4-10.2); Carbon Dioxide 24 mmol/L (22-30); Chloride 109 mmol/L (98-107); Globulin 2.4 g/dL; Glucose 97 mg/dL (74-99); Non-African American GFR(CKD) 36 (>60 ml/min/1.73 sqM); Potassium 2.8 mmol/L (3.5-5.1); Sodium 139 mmol/L (137-145); Total Bilirubin 0.3 mg/dL (0.2-1.3); Total Protein 4.9 g/dL (6.3-8.2)
[2023-07-06] MEDS: CYCLOBENZAPRINE 10 MG TAB PO PRN (15:15)
--- NOTE | 2023-07-06 15:39 | P.PN ---
Subjective Progress Note Date: 07/06/23 Principal diagnosis: Reason for follow-up is complicated UTI and bacteremia Patient is a 53-year-old female past medical history significant for CVA TIA pneumonia and a blood disorder presenting to the hospital with left lower abdominal pain and the patient has been diagnosed with a complicated UTI with left-sided hydronephrosis requiring cystoscopy and ureteral stent placement patient also have a positive blood culture with Proteus. On today's evaluation that is 07/06/2023,the patient remains to be afebrile, patient is on room air not requiring supplemental oxygen and denies any shortness of breath no chest pain or cough.Patient denies having any nausea or vomiting, no abdominal pain and did have improvement in her diarrhea. Patient white count 1.97, creatinine is 1.63 blood and urine with Proteus Mirabilis sensitive pathogen Objective - Vital Signs Vital signs: Vital Signs Temp 98.4 F 07/06/23 07:13 Pulse 87 07/06/23 07:13 Resp 16 07/06/23 07:13 BP 100/56 07/06/23 07:13 Pulse Ox 98 07/06/23 07:13 FiO2 Intake & Output 07/05/23 07/06/23 07/06/23 18:59 06:59 18:59 Intake Total 1295 Output Total 450 Balance -450 1295 Intake: Oral 1295 Output: Urine 450 Other: Voiding Method Toilet Toilet # Voids 2 - Exam GENERAL DESCRIPTION: Middle-age female lying in bed in no distress RESPIRATORY SYSTEM: Unlabored breathing , decreased breath sounds at bases HEART: S1 S2 regular rate and rhythm , ABDOMEN: Soft , no tenderness EXTREMITIES: No edema feet - Labs CBC & Chem 7: 07/06/23 06:11 07/06/23 14:19 Labs: Abnormal Lab Results - Last 24 Hours (Table) 07/06/23 07/06/23 Range/Units 06:11 06:11 RBC 3.68 L (4.10-5.20) X 10*6/uL Hgb 10.1 L (12.0-15.0) g/dL Hct 30.8 L (37.2-46.3) % RDW 16.1 H (11.5-14.5) % Neutrophils # 7.85 H (1.80-7.70) X 10*3/uL Potassium 2.9 L (3.5-5.5) mmol/L Chloride 114 H (96-109) mmol/L Carbon Dioxide 16.7 L (21.6-31.8) mmol/L Creatinine 1.9 H (0.6-1.5) mg/dL Est GFR (CKD-EPI) 31 L (>=60) BUN/Creatinine Ratio 9.47 L (12.00-20.00) Ratio Calcium 7.7 L (8.7-10.3) mg/dL Microbiology - Last 24 Hours (Table) 07/04/23 20:55 Blood Culture - Preliminary Blood 07/03/23 10:00 Blood Culture Gram Stain - Final Blood Blood Culture - Final Proteus mirabilis 07/03/23 10:15 Blood Culture Gram Stain - Final Blood Blood Culture - Final Proteus mirabilis Molecular ID 07/03/23 07:38 Urine Culture - Final Urine,Voided Proteus mirabilis Assessment and Plan (1) Positive blood culture Current Visit: Yes Status: Acute Code(s): R78.81 - BACTEREMIA SNOMED Code(s): 811661449 (2) UTI (urinary tract infection) Current Visit: Yes Status: Acute Code(s): N39.0 - URINARY TRACT INFECTION, SITE NOT SPECIFIED SNOMED Code(s): 41376499 (3) Sepsis Current Visit: Yes Status: Acute Code(s): A41.9 - SEPSIS, UNSPECIFIED ORGANISM SNOMED Code(s): 98798515 Plan: 1-Patient presented to hospital with sepsis in this patient who did have a fever elevated white count source is complicated UTI in this patient who did have evidence of bilateral renal stone mild hydronephrosis and hydroureter on the left side requiring cystoscopy and stent placement now with evidence of gram- negative bacteremia source likely urinary/pyelonephritis 2-patient to continue with Rocephin 2 g daily while inpatient finishing therapy with oral Cipro 3patient did have resolution of her diarrhea, encourage to continue with probiotic intake while on antibiotics Dictation was produced using [employer] dictation software. please excuse any grammatical, word or spelling errors. Time with Patient: Less than 30
[2023-07-06] MEDS: POTASSIUM CHLORIDE ER 20 MEQ TAB.ER PO STA (15:49)
[2023-07-06] MEDS: POTASSIUM CHLORIDE 20 MEQ in WATER FOR INJECTION 1 100ML.BAG IVPB STA (15:51)
[2023-07-06] MEDS: CALCIUM GLUCONATE IN NACL 1 GM in SALINE 1 100ML.BAG IVPB ONE (15:51)
[2023-07-06] MEDS: POTASSIUM CHLORIDE 20 MEQ in WATER FOR INJECTION 1 100ML.BAG IVPB ONE (17:12)
[2023-07-06] MEDS ORDERED: POTASSIUM CHLORIDE 10 MEQ in WATER FOR INJECTION 1 100ML.BAG IVPB STA (17:15)
[2023-07-06] MEDS: POTASSIUM CHLORIDE 10 MEQ in WATER FOR INJECTION 1 100ML.BAG IVPB SCH (17:32)
[2023-07-06 19:27] LABS: African American GFR (CKD) 43 (>60 ml/min/1.73 sqM); Anion Gap 5 mmol/L; Blood Urea Nitrogen 15 mg/dL (7-17); Calcium 7.5 mg/dL (8.4-10.2); Carbon Dioxide 22 mmol/L (22-30); Chloride 113 mmol/L (98-107); Glucose 89 mg/dL (74-99); Magnesium 1.4 mg/dL (1.6-2.3); Non-African American GFR(CKD) 37 (>60 ml/min/1.73 sqM); Potassium 3.9 mmol/L (3.5-5.1); Sodium 140 mmol/L (137-145)
[2023-07-06] MEDS: MAGNESIUM SULFATE-D5W PMX 1 GM in DEXTROSE/WATER 1 100ML.BAG IVPB SCH (21:10)
[2023-07-07 09:07] LABS: Basophils % (A) 1 %; Eosinophils # (A) 0.4 k/uL (0-0.7); Eosinophils % (A) 5 %; HCT 34.1 % (34.0-46.0); HGB 11.2 gm/dL (11.4-16.0); Lymphocytes # (A) 0.7 k/uL (1.0-4.8); Lymphocytes % (A) 10 %; MCH 28.5 pg (25.0-35.0); MCHC 32.8 g/dL (31.0-37.0); MCV 86.9 fL (80.0-100.0); Mean Platelet Volume 8.2; Monocytes # (A) 0.6 k/uL (0-1.0); Monocytes % (A) 8 %; Neutrophils # (A) 5.2 k/uL (1.3-7.7); Neutrophils % (A) 73 %; Platelet Count 296 k/uL (150-450); RBC 3.92 m/uL (3.80-5.40); RDW 15.4 % (11.5-15.5); WBC 7.1 k/uL (3.8-10.6)
--- NOTE | 2023-07-07 09:19 | P.PN ---
Subjective Urine and blood cultures growing Proteus, denies any flank pain or nausea or vomiting this morning Objective - Vital Signs Vital signs: Vital Signs Temp 99.2 F 07/07/23 07:05 Pulse 104 H 07/07/23 07:05 Resp 17 07/07/23 07:05 BP 106/69 07/07/23 07:05 Pulse Ox 97 07/07/23 07:05 FiO2 Intake & Output 07/06/23 07/07/23 07/07/23 18:59 06:59 18:59 Intake Total 590 Balance 590 Intake: Oral 590 Other: Voiding Method Toilet # Voids 2 2 # Bowel Movements 1 - Constitutional General appearance: Present: no acute distress - Gastrointestinal General gastrointestinal: Present: soft. Absent: distended, tenderness - Labs CBC & Chem 7: 07/07/23 08:44 07/06/23 19:02 Labs: Abnormal Lab Results - Last 24 Hours (Table) 07/06/23 07/06/23 07/07/23 Range/Units 14:19 19:02 08:44 Hgb 11.2 L (11.4-16.0) gm/dL Lymphocytes # 0.7 L (1.0-4.8) k/uL Potassium 2.8 L (3.5-5.1) mmol/L Chloride 109 H 113 H (98-107) mmol/L Creatinine 1.63 H 1.58 H (0.52-1.04) mg/dL Calcium 7.2 L 7.5 L (8.4-10.2) mg/dL Magnesium 1.4 L (1.6-2.3) mg/dL Total Protein 4.9 L (6.3-8.2) g/dL Albumin 2.5 L (3.5-5.0) g/dL Microbiology - Last 24 Hours (Table) 07/04/23 20:55 Blood Culture - Preliminary Blood 07/05/23 06:07 Blood Culture - Preliminary Blood Assessment and Plan Assessment: 53-year-old female with bilateral hydronephrosis. I reviewed her images she is having minimal hydronephrosis on the right, there is evidence of left-sided hydronephrosis. Underwent cystoscopy with bilateral retrograde on July 02. There was evidence of a ureteral obstruction on the left, right side there is no hydronephrosis or evidence of obstruction, underwent subsequently a stent insertion on the left only. Blood and urine culture growing Proteus -From urology standpoint she is okay for discharge Discussed with her she will require as an outpatient left-sided ureteroscopy with holmium laser and stent removal
[2023-07-07 09:36] LABS: ALT 22 U/L (4-34); AST 40 U/L (14-36); African American GFR (CKD) 48 (>60 ml/min/1.73 sqM); Albumin 2.5 g/dL (3.5-5.0); Albumin/Globulin Ratio 1.1; Alkaline Phosphatase 108 U/L (38-126); Anion Gap 4 mmol/L; Blood Urea Nitrogen 14 mg/dL (7-17); Calcium 7.9 mg/dL (8.4-10.2); Carbon Dioxide 27 mmol/L (22-30); Chloride 108 mmol/L (98-107); Globulin 2.3 g/dL; Glucose 87 mg/dL (74-99); Non-African American GFR(CKD) 42 (>60 ml/min/1.73 sqM); Potassium 3.9 mmol/L (3.5-5.1); Sodium 139 mmol/L (137-145); Total Bilirubin 0.3 mg/dL (0.2-1.3); Total Protein 4.8 g/dL (6.3-8.2)
[2023-07-07 12:48] VITALS: BP 119/75; PULSE 94; RESP 16; TEMP 99.1
--- NOTE | 2023-07-07 12:49 | P.DS ---
Providers Date of admission: 07/03/23 09:42 Expected date of discharge: 07/07/23 Attending physician: Donald Nick Consults: 07/03/23 09:45 Consult Physician Urgent Consulting Provider: Sergo Fry Consult Reason/Comments: ureteral calculus, bilateral hydronephrosis Do you want consulting provider notified?: Already Contacted 07/04/23 12:45 Consult Physician Routine Consulting Provider: Erika Delgado Consult Reason/Comments: UTI and bacteremia Do you want consulting provider notified?: Yes 07/04/23 12:46 Consult Physician Urgent Consulting Provider: Rita Sultana Consult Reason/Comments: shanique Do you want consulting provider notified?: Yes Primary care physician: Ed Arroyo Hospital Course: Discharge diagnoses; Acute urinary tract infection, with bacteremia Bilateral kidney stone including 0.5 cm in the distal left ureter, S/p cystoscopy and ureteral stent placement on 07/02 postoperative anemia which is expected Metabolic acidosis with critically low bicarb Acute on chronic kidney disease stage III Postoperative anemia Leukocytosis, most likely leukemoid reaction secondary to her infection Hypokalemia, present on admission History of CVA Hospital course; This is a pleasant 53 years old female with no significant past medical history. Presents because of abdominal pain which started yesterday and her left side of the abdomen close to the umbilicus about 10/10 in severity but now down with pain medication to 2/10:00 sharp and crampy pain with no precipitating or relieving factors. Patient denies dysuria urgency or change in her bowel or urine habits. No diarrhea or vomiting. No chest pain or dyspnea. No headache dizziness weakness or numbness She denies smoking alcohol or illicit drugs. She is hemodynamically stable Labs show leukocytosis 16.9, potassium low at 2.7, creatinine of 1.9 and 1.7 but she has baseline around 1.2-1.4 Lipase slightly elevated 6.2, urine analysis is suspicious for infection and it looks abnormal EKG showing sinus rhythm at [address]-T changes CT of the abdomen and pelvis without contrast showed multiple bilateral nonobstructive renal stones with 1.5 cm in the distal left ureter She has mild bilateral hydronephrosis. 07/04/2023 Patient is a status post cystoscopy and placement of ureteral stent for her bilateral hydronephrosis Today's postop day #1 Patient was insistent today to be discharged as she feels improved Stating that she cannot miss her work tomorrow, explained for the patient she is not ready for discharge and explained the case for her including her labs and now she agrees to stay Patient has low-grade temperature yesterday 99.9, no fever today Her leukocytosis went up to 28,000, her blood culture came back positive Potassium low and replace per protocol Creatinine 2.2, patient is known to have chronic kidney disease and she is supposed to follow-up with Dr. Lopez but she did not have a chance to, because of this we are going to consult event security officer also. Hemoglobin dropped 13.7 down to 10.8 which is expected, will continue close monitoring Currently kept on normal saline 75 mL/h and ceftriaxone 07/05/2023 Today patient is able to get out of bed and walk to the bathroom with some help. She denies specific symptoms and her voiding habit is with no problem No abdominal pain no vomiting and she tolerates diet Her blood pressure slightly better today 100/63, fever is coming down to 99.9 today but need close monitoring Leukocytosis is also improving 28,000 down to 13,800. Potassium magnesium went up to reference range Creatinine is also slightly low at 22 down to 2.0 However patient has critical low carbon dioxide at 7 and patient after fluids were switched to bicarb drip Hemoglobin stable. Blood cultures x 2 are positive for gram-negative bacilli pending final results Currently she is covered with ceftriaxone. 07/05. Patient seen and examined. WBC 9.97, hemoglobin 10.1, platelet count 246, sodium 141, potassium 2.9, BUN is 18, creatinine 1.9, chloride is 114, carbon is a 16.7. Potassium replacement ordered. Denies any lethargy or weakness 07/06. Patient seen and examined. Discussed with ID, they recommended discharging patient on oral Ceftin for 11 more days to complete a 2-week course of antibiotics. Outpatient follow-up with urology PHYSICAL EXAMINATION: GENERAL: The patient is alert and oriented x3, not in any acute distress. Well developed, well nourished. HEENT: Pupils are round and equally reacting to light. EOMI. No scleral icterus. No conjunctival pallor. Normocephalic, atraumatic. No pharyngeal erythema. No thyromegaly. CARDIOVASCULAR: S1 and S2 present. No murmurs, rubs, or gallops. PULMONARY: Chest is clear to auscultation, no wheezing or crackles. ABDOMEN: Soft, nontender, nondistended, normoactive bowel sounds. No palpable organomegaly. MUSCULOSKELETAL: No joint swelling or deformity. EXTREMITIES: No cyanosis, clubbing, or pedal edema. NEUROLOGICAL: Gross neurological examination did not reveal any focal deficits. SKIN: No rashes. Dictation was produced using [employer] dictation software. please excuse any grammatical, word or spelling errors. Patient Condition at Discharge: Fair Plan - Discharge Summary New Discharge Prescriptions: New Cyclobenzaprine [Flexeril] 10 mg PO TID PRN #21 tab PRN Reason: Muscle Spasm cefUROXime axetiL [Cefuroxime] 500 mg PO BID 11 Days #22 tab Discharge Medication List Cyclobenzaprine [Flexeril] 10 mg PO TID PRN #21 tab 07/07/23 [Rx] cefUROXime axetiL [Cefuroxime] 500 mg PO BID 11 Days #22 tab 07/07/23 [Rx] Follow up Appointment(s)/Referral(s): Ed Arroyo MD [Primary Care Provider] - 1-2 days Erika Delgado MD [STAFF PHYSICIAN] - 1 Week Sergo Fry MD [STAFF PHYSICIAN] - 1 Week Activity/Diet/Wound Care/Special Instructions: diet as tolerated Activity Limited until seen by DRYeny Castro Disposition: HOME SELF-CARE
--- NOTE | 2023-07-07 13:28 | P.PN ---
Subjective Progress Note Date: 07/07/23 Patient is seen for follow-up for acute kidney injury secondary to sepsis and hypotension. Status post cystoscopy and left ureteral stent placement on 07/03/2023 for left hydronephrosis and left ureteral calculus. She is feeling well and plan be discharged home today. Patient is awake, comfortable, no acute distress Examination of the heart S1 and S2 Examination of the lungs bilateral breath sounds are heard Abdomen is soft nontender Examination of lower extremity shows no evidence of edema INVENTORY AND PRICING ASSOCIATE exam grossly intact Objective - Vital Signs Vital signs: Vital Signs Temp 99.2 F 07/07/23 07:05 Pulse 104 H 07/07/23 08:20 Resp 17 07/07/23 08:20 BP 106/69 07/07/23 07:05 Pulse Ox 97 07/07/23 07:05 FiO2 Intake & Output 07/06/23 07/07/23 07/07/23 18:59 06:59 18:59 Intake Total 590 Balance 590 Intake: Oral 590 Other: Voiding Method Toilet Toilet # Voids 2 2 # Bowel Movements 1 - Labs CBC & Chem 7: 07/07/23 08:44 07/07/23 08:44 Labs: Abnormal Lab Results - Last 24 Hours (Table) 07/06/23 07/06/23 07/07/23 Range/Units 14:19 19:02 08:44 Hgb 11.2 L (11.4-16.0) gm/dL Lymphocytes # 0.7 L (1.0-4.8) k/uL Potassium 2.8 L (3.5-5.1) mmol/L Chloride 109 H 113 H (98-107) mmol/L Creatinine 1.63 H 1.58 H (0.52-1.04) mg/dL Calcium 7.2 L 7.5 L (8.4-10.2) mg/dL Magnesium 1.4 L (1.6-2.3) mg/dL AST (14-36) U/L Total Protein 4.9 L (6.3-8.2) g/dL Albumin 2.5 L (3.5-5.0) g/dL 07/07/23 Range/Units 08:44 Hgb (11.4-16.0) gm/dL Lymphocytes # (1.0-4.8) k/uL Potassium (3.5-5.1) mmol/L Chloride 108 H (98-107) mmol/L Creatinine 1.44 H (0.52-1.04) mg/dL Calcium 7.9 L (8.4-10.2) mg/dL Magnesium (1.6-2.3) mg/dL AST 40 H (14-36) U/L Total Protein 4.8 L (6.3-8.2) g/dL Albumin 2.5 L (3.5-5.0) g/dL Microbiology - Last 24 Hours (Table) 07/04/23 20:55 Blood Culture - Preliminary Blood 07/05/23 06:07 Blood Culture - Preliminary Blood Assessment and Plan Plan: 1. Acute kidney injury secondary to sepsis and hypotension and component of obstructive uropathy as well. Creatinine now near baseline level. 2. Gram-negative sepsis with urine culture and blood cultures growing Proteus mirabilis 3. Non-gap metabolic acidosis secondary to sepsis and acute kidney injury- Resolved. 4. Hypokalemia secondary to decreased oral intake and vomiting, status post replacement 5. Bilateral nephrolithiasis with bilateral hydronephrosis status post left ureteral stent placement on 07/03/2023. No obstruction was noted on the right side in the OR. 6. Possible underlying chronic kidney disease, stage III with baseline creatinine 1.2-1.3 Plan: Discontinue IV bicarb Continue with antibiotics Replace potassium as needed Outpatient follow-up, clear for discharge Follow up with urology for stents and stone management
--- NOTE | 2023-07-07 14:23 | P.PN ---
Subjective Progress Note Date: 07/07/23 Principal diagnosis: Reason for follow-up is complicated UTI and bacteremia Patient is a 53-year-old female past medical history significant for CVA TIA pneumonia and a blood disorder presenting to the hospital with left lower abdominal pain and the patient has been diagnosed with a complicated UTI with left-sided hydronephrosis requiring cystoscopy and ureteral stent placement patient also have a positive blood culture with Proteus. On today's evaluation that is 07/07/2023, the patient continues to be afebrile, the patient is on room air and breathing comfortably, the Pt denies having any chest pain or cough, the patient denies having any abdominal pain no vomiting or any diarrhea, feeling better. White count is 7.1, creatinine is 1.4 4 repeat blood culture negative Objective - Vital Signs Vital signs: Vital Signs Temp 99.1 F 07/07/23 12:25 Pulse 94 07/07/23 12:25 Resp 16 07/07/23 12:25 BP 119/75 07/07/23 12:25 Pulse Ox 94 L 07/07/23 12:25 FiO2 Intake & Output 07/06/23 07/07/23 07/07/23 18:59 06:59 18:59 Intake Total 590 Balance 590 Intake: Oral 590 Other: Voiding Method Toilet Toilet # Voids 2 2 # Bowel Movements 1 - Exam GENERAL DESCRIPTION: Middle-age female lying in bed in no distress RESPIRATORY SYSTEM: Unlabored breathing , decreased breath sounds at bases HEART: S1 S2 regular rate and rhythm , ABDOMEN: Soft , no tenderness EXTREMITIES: No edema feet - Labs CBC & Chem 7: 07/07/23 08:44 07/07/23 08:44 Labs: Abnormal Lab Results - Last 24 Hours (Table) 07/06/23 07/06/23 07/07/23 Range/Units 14:19 19:02 08:44 Hgb 11.2 L (11.4-16.0) gm/dL Lymphocytes # 0.7 L (1.0-4.8) k/uL Potassium 2.8 L (3.5-5.1) mmol/L Chloride 109 H 113 H (98-107) mmol/L Creatinine 1.63 H 1.58 H (0.52-1.04) mg/dL Calcium 7.2 L 7.5 L (8.4-10.2) mg/dL Magnesium 1.4 L (1.6-2.3) mg/dL AST (14-36) U/L Total Protein 4.9 L (6.3-8.2) g/dL Albumin 2.5 L (3.5-5.0) g/dL 07/07/23 Range/Units 08:44 Hgb (11.4-16.0) gm/dL Lymphocytes # (1.0-4.8) k/uL Potassium (3.5-5.1) mmol/L Chloride 108 H (98-107) mmol/L Creatinine 1.44 H (0.52-1.04) mg/dL Calcium 7.9 L (8.4-10.2) mg/dL Magnesium (1.6-2.3) mg/dL AST 40 H (14-36) U/L Total Protein 4.8 L (6.3-8.2) g/dL Albumin 2.5 L (3.5-5.0) g/dL Microbiology - Last 24 Hours (Table) 07/04/23 20:55 Blood Culture - Preliminary Blood 07/05/23 06:07 Blood Culture - Preliminary Blood Assessment and Plan (1) Positive blood culture Status: Acute Code(s): R78.81 - BACTEREMIA SNOMED Code(s): 185415576 (2) UTI (urinary tract infection) Status: Acute Code(s): N39.0 - URINARY TRACT INFECTION, SITE NOT SPECIFIED S NOMED Code(s): 20215732 (3) Sepsis Status: Acute Code(s): A41.9 - SEPSIS, UNSPECIFIED ORGANISM SNOMED Code(s): 28894030 Plan: 1-Patient presented to hospital with sepsis in this patient who did have a fever elevated white count source is complicated UTI in this patient who did have evidence of bilateral renal stone mild hydronephrosis and hydroureter on the left side requiring cystoscopy and stent placement now with evidence of gram- negative bacteremia source likely urinary/pyelonephritis 2-patient has shown clinical improvement repeat blood culture negative so far she will finish therapy with oral Ceftin x 11 days on discharge discussed with admitting team working on discharge Dictation was produced using [employer] dictation software. please excuse any grammatical, word or spelling errors. Time with Patient: Less than 30
== END 2023-07-07 13:52 | disposition home or self-care (01) | DRG 854 ==
LOC: EC 06:29 → 5NMEDONC 09:42
PROVIDERS: ADMIT Hospitalist; ATTEND Hospitalist
PROC: 0T778DZ Dilation of Left Ureter with Intraluminal Device, Via Natural or Artificial Opening Endoscopic (ICD-10-PCS; principal; 2023-07-03 14:15)
PROC: BT141ZZ Fluoroscopy of Kidneys, Ureters and Bladder using Low Osmolar Contrast (ICD-10-PCS; 2023-07-03 14:15)
DX: A41.59 Other Gram-negative sepsis (principal); D62 Acute posthemorrhagic anemia; N17.9 Acute kidney failure, unspecified; E87.20 Acidosis, unspecified; N13.6 Pyonephrosis; E11.22 Type 2 diabetes mellitus with diabetic chronic kidney disease; N18.30 Chronic kidney disease, stage 3 unspecified; D72.823 Leukemoid reaction; E87.6 Hypokalemia; I12.9 Hypertensive chronic kidney disease with stage 1 through stage 4 chronic kidney disease, or unspecified chronic kidney disease; B96.4 Proteus (mirabilis) (morganii) as the cause of diseases classified elsewhere; Z86.73 Personal history of transient ischemic attack (TIA), and cerebral infarction without residual deficits; Z86.16 Personal history of COVID-19
CPT/HCPCS: 36415; 74177; 74420; 80048; 80053; 81001; 82009; 83605; 83690; 83735; 84132; 84600; 85025; 87040; 87077; 87086; 87186; 93005; 96361; 96365; 96366; 96368; 96375; 99291

== ENCOUNTER → 2023-07-23 | Outpatient (CLI) | payer BC ==
[2023-07-24 02:39] LABS: Basophils # (A) 0.18 X 10*3/uL (0.00-0.10); Basophils % (A) 2.2 %; Eosinophils # (A) 0.39 X 10*3/uL (0.04-0.35); Eosinophils % (A) 4.8 %; HCT 37.8 % (37.2-46.3); HGB 11.7 g/dL (12.0-15.0); Lymphocytes # (A) 1.53 X 10*3/uL (0.90-5.00); MCH 28.1 pg (27.0-32.0); MCV 90.6 FL (80.0-97.0); Mean Platelet Volume 11.2 FL (9.5-12.2); Monocytes # (A) 0.66 X 10*3/uL (0.20-1.00); Monocytes % (A) 8.2 %; NRBC Per 100 WBC 0 X 10*3/uL (0.00-0.01); Neutrophils # (A) 5.28 X 10*3/uL (1.80-7.70); Neutrophils % (A) 65.6 %; Platelet Count 472 X 10*3/uL (140-440); RBC 4.17 X 10*6/uL (4.10-5.20); RDW 15.8 % (11.5-14.5); WBC 8.06 X 10*3/uL (4.50-10.00)
[2023-07-24 03:51] LABS: BUN/Creat Ratio 23.92 Ratio (12.00-20.00); Blood Urea Nitrogen 31.1 mg/dL (9.0-27.0); Calcium 9.4 mg/dL (8.7-10.3); Carbon Dioxide 16.4 mmol/L (21.6-31.8); Chloride 105 mmol/L (96-109); Glucose 85 mg/dL (70-110); Potassium 4.1 mmol/L (3.5-5.5); Sodium 136 mmol/L (135-145)
[2023-07-24 03:55] LABS: Appearance,Urine Clear (Clear); Bilirubin,Urine Negative (Negative); Blood,Urine Large (Negative); Color,Urine Yellow (Yellow); Ketones,Urine Negative (Negative); Nitrite,Urine Negative (Negative); Specific Gravity,Urine 1.007 (1.001-1.030); Urobilinogen,Urine 0.2 E.U./DL
[2023-07-24 04:26] LABS: Bacteria,Urine None Seen (None Seen); Calcium Oxalate Crystals,Urine Present (None Seen)
== END | disposition home or self-care (01) ==
LOC: LABPAT 15:47
PROVIDERS: ATTEND Urology
DX: Z01.812 Encounter for preprocedural laboratory examination (principal); N20.1 Calculus of ureter; N20.0 Calculus of kidney
CPT/HCPCS: 36415; 80048; 81001; 85025; 87086

== ENCOUNTER 2023-07-31 12:28 | Day surgery (SDC) | payer BC ==
[2023-07-27 10:26] VITALS: BMI 17.4
[~2023-07-31 12:28] MED LIST changes: +DEXAMETHASONE SOD PHOSPHATE 4 MG/ML 1 ML VIAL IV ONE; +HYDROmorphone 0.5 MG/0.5 ML SYRINGE IVP PRN; +MIDAZOLAM 2 MG/2 ML VIAL IV PRN; +ONDANSETRON 4 MG/2 ML VIAL IVP ONE; -SODIUM CHLORIDE 0.9% 500 ML 500 ML in EMPTY BAG 1 BAG IV PRN
--- NOTE | 2023-07-31 12:58 | XR ---
EXAMINATION TYPE: XR KUB DATE OF EXAM: 07/31/2023 COMPARISON: 07/03/2023 HISTORY: Pain TECHNIQUE: One view abdominal series FINDINGS: The osseous structures are intact. The bowel gas pattern is nonspecific. Lung bases are clear. Right kidney: There are approximately 15-20 calcifications overlying the right kidney the largest bryan suring 3 mm. Left kidney: There are proximally 5-10 calcifications overlying the left kidney the largest measuring 3 mm. There are approximately 2 calcifications overlying the left ureteral stent the largest measuri ng 4 mm at the level of the UVJ. Double-J ureteral stent appears in good position. Additional calcifi cations lateral to the stent some of which appear outside the course of the ureter. IMPRESSION: 1. Bilateral nephrolithiasis with left UVJ ureteral calculus. 2. Left ureteral stent appears in good position.
[2023-07-31] MEDS: LACTATED RINGERS 1,000 ML IV ONE (13:13)
[2023-07-31 13:18] VITALS: RESP 16
[2023-07-31] MEDS: DEXAMETHASONE SOD PHOSPHATE 4 MG/ML 1 ML VIAL IVP ONE (14:15)
[2023-07-31] MEDS: ONDANSETRON 4 MG/2 ML VIAL IVP ONE (14:16)
--- NOTE | 2023-07-31 14:20 | P.HPIHPCON ---
History of Present Illness H&P Date: 07/31/23 Chief Complaint: Left ureteral stone This is a 53-year-old female with a history of a 5 mm left-sided distal ureteral stone, patient was septic secondary to her stone underwent left-sided stent insertion on July 02. Presents today for definitive stone management. Option of left-sided ureteroscopy with holmium laser was discussed. Aware the risk which includes but not limited to bleeding, infection, injury to the ureter. Risk of anesthesia was also discussed. She understood all the risk and agreed to proceed Consent for Procedure: I have explained the operation/procedure to the patient, including the risks, benefits, side effects, alternative therapies (including not receiving the proposed treatment or service), the likelihood of the patient achieving his/her goals, and potential recuperation problems for the procedure/sedation/analgesia, as well as any blood products, if indicated. I also explained to the patient the risks, benefits and side effects of the alternatives, as well as the risks related to not receiving the proposed procedure, care, treatment, or services. Past Medical History Past Medical History: Blood Disorder, CVA/TIA, Pneumonia Additional Past Medical History / Comment(s): Current kidney stones. Low blood pressure. Anemia. Vertigo off and on. "I had a mini stroke". Hx Covid/Pneumonia 05/26/20. History of Any Multi-Drug Resistant Organisms: None Reported Past Surgical History: Orthopedic Surgery, Tonsillectomy Additional Past Surgical History / Comment(s): Right knee arthroscopy, left ureteral stent insertion. Past Anesthesia/Blood Transfusion Reactions: Motion Sickness Smoking Status: Never smoker - Past Family History Father Family Medical History: Cancer Medications and Allergies Home Medications Medication Instructions Recorded Confirmed Type Cyclobenzaprine [Flexeril] 10 mg PO TID PRN #21 tab 07/07/23 07/31/23 Rx Allergies Allergy/AdvReac Type Severity Reaction Status Date / Time No Known Allergies Allergy Verified 07/31/23 13:06 Surgical - Exam Vital Signs Temp Pulse Resp BP Pulse Ox 98 F 88 16 102/63 98 07/31/23 13:01 07/31/23 13:01 07/31/23 13:01 07/31/23 13:01 07/31/23 13:01 - General no distress, no pain - Eyes normal ocular movement, no pale - ENT normal nares, normal mucosa - Respiratory normal expansion, normal respiratory effort Assessment and Plan Assessment: OR for left-sided ureteroscopy, holmium laser lithotripsy, stone basketing and stent removal
[2023-07-31] MEDS ORDERED: fentaNYL (PF) 50 MCG/ML 2 ML AMP ONE (14:32)
[2023-07-31] MEDS ORDERED: LIDOCAINE 1% INJ 10MG/ML (20 ML MDV) ONE (14:32)
[2023-07-31] MEDS ORDERED: PROPOFOL 10 MG/ML 20 ML VIAL IV ONE (14:32)
[2023-07-31] MEDS ORDERED: MIDAZOLAM 2 MG/2 ML VIAL ONE (14:32)
[2023-07-31] MEDS ORDERED: ePHEDrine 50 MG/ML 1 ML VIAL ONE (14:32)
[2023-07-31] MEDS ORDERED: PHENYLEPHRINE 10 MG/ML VIAL ONE (14:32)
--- NOTE | 2023-07-31 15:29 | P.OP ---
Date of Procedure: 07/31/23 Preoperative Diagnosis: Left ureteral, renal stone Postoperative Diagnosis: Same Procedure(s) Performed: Cystoscopy, left ureteroscopy, holmium laser lithotripsy, stone basketing and stent removal Implants: none Anesthesia: TANYAA Surgeon: Sergo Fry Estimated Blood Loss (ml): 5 Pathology: other (left renal stones) Condition: stable Disposition: PACU Indications for Procedure: This is a 53-year-old female with a history of a 5 mm left-sided distal ureteral stone, patient was septic secondary to her stone underwent left-sided stent insertion on July 02. Presents today for definitive stone management. Option of left-sided ureteroscopy with holmium laser was discussed. Aware the risk which includes but not limited to bleeding, infection, injury to the ureter. Risk of anesthesia was also discussed. She understood all the risk and agreed t o proceed Operative Findings: No ureteral stone visualized, multiple left-sided renal stones Description of Procedure: Patient brought to the operating room, general anesthesia was induced. She was prepped and draped in sterile fashion placed in dorsolithotomy position. Cystoscopy through the 21 Tristanian sheath was inserted per urethra, cystoscopy was performed which showed no abnormality within the bladder. Attention was then carried to the left ureteral orifice, the stent was visualized and grasped and removed intact. Next a semirigid ureteroscope was inserted per urethra advanced up the left ureteral orifice, the scope was advanced all the way up to the proximal ureter which showed no evidence of stones, pullback ureteroscopy was performed showed no injury to the ureter or any ureteral stones, as ureteroscope was withdrawn a sensor wire was advanced through. Next under fluoroscopy a 1113 Tristanian access sheath was passed over the wire into the proximal ureter. The flexible ureteroscope was inserted through the access sheath, renoscopy was performed showed multiple small stones throughout the kidney, using the holmium laser large stones were fragmented, sizable stone fragments and smaller stones were basketing and sent for analysis. Repeat renoscopy showed no evidence of bleeding, any sizable stones or injury to the kidney. Pullback ureteroscopy was performed showing no injury to the urinary or any ureteral stones. There was no ureteral edema thus a stent was not placed. The bladder was emptied at the end of the case. Patient tolerated procedure well was taken to recovery in stable condition
--- NOTE | 2023-07-31 15:29 | FL ---
EXAMINATION TYPE: FL guidance operating room Intraoperative/procedural fluoroscopic services were pro vided. Total fluoroscopy time is 6.8 seconds with a total of 2 submitted images to PACS. Please see t he operative/procedural note for further details. DAP: 0.5822 Gycm2
[2023-07-31 15:33] VITALS: TEMP 97.4
[2023-07-31] MEDS: LACTATED RINGERS 1,000 ML IV SCH (15:58)
[2023-07-31 16:54] VITALS: BP 100/68; PULSE 67
== END 2023-07-31 16:40 | disposition home or self-care (01) ==
LOC: OR 12:28
PROVIDERS: ATTEND Urology
DX: N20.2 Calculus of kidney with calculus of ureter (principal); J44.9 Chronic obstructive pulmonary disease, unspecified; J18.9 Pneumonia, unspecified organism; K21.9 Gastro-esophageal reflux disease without esophagitis; Z86.73 Personal history of transient ischemic attack (TIA), and cerebral infarction without residual deficits; Z87.442 Personal history of urinary calculi; Z86.16 Personal history of COVID-19; Z90.89 Acquired absence of other organs; Z98.890 Other specified postprocedural states; Z79.899 Other long term (current) drug therapy
CPT/HCPCS: 82365; 74018; 52353; C1769; J2250; J1100; J2405; J0690; J2001; J3010; J2704; J2371

== ENCOUNTER 2023-09-21 16:16 | Emergency (ER) | payer BC ==
--- NOTE | 2023-09-21 16:49 | ED ---
General Adult HPI - General Source: patient, RN notes reviewed Mode of arrival: ambulatory Limitations: no limitations <Kristie Diaz - Last Filed: 09/21/23 16:48> - General Source: patient, RN notes reviewed Mode of arrival: ambulatory Limitations: no limitations <Luis Clark - Last Filed: 09/21/23 21:41> - General Chief complaint: Extremity Problem,Nontraumatic Stated complaint: Swollen Ankles/Legs Time Seen by Provider: 09/21/23 16:48 - History of Present Illness Initial comments: Quick note: 53-year-old female presents to the emergency department for evaluation of bilateral lower extremity edema. Symptoms have been going on for 1 week. She does note that this has happened in the past and she had a low hemoglobin at that time and had to have a blood transfusion. She does admit to some intermittent weakness and lightheadedness. Denies chest pain, shortness of breath. (Kristie Diaz) Patient is a pleasant 53-year-old female present to the emergency department with concerns for leg edema. Onset of symptoms was a week ago. Patient does have history of similar symptoms once previously and needed blood transfusion. Patient denies any bleeding. No black tarry stools. Patient has mild fatigue. No dyspnea. No exertional dyspnea. No chest pain. (Luis Clark) - Related Data Previous Rx's Medication Instructions Recorded RX: Cyclobenzaprine [Flexeril] 10 mg PO TID PRN #21 tab 07/07/23 Cephalexin [Keflex] 500 mg PO Q8HR #15 cap 07/31/23 Allergies Allergy/AdvReac Type Severity Reaction Status Date / Time No Known Allergies Allergy Verified 09/21/23 16:28 Review of Systems ROS Other: All systems not noted in ROS Statement are negative. <Kristie Diaz - Last Filed: 09/21/23 16:48> ROS Other: All systems not noted in ROS Statement are negative. Constitutional: Denies: fever Eyes: Denies: eye pain ENT: Denies: ear pain Respiratory: Denies: cough, dyspnea Cardiovascular: Reports: edema. Denies: chest pain, dyspnea on exertion, orthop isaak Endocrine: Reports: fatigue <Luis Clark - Last Filed: 09/21/23 21:41> ROS Statement: Those systems with pertinent positive or pertinent negative responses have been documented in the HPI. Past Medical History Past Medical History: No Reported History Additional Past Medical History / Comment(s): low blood pressure, anemia. Vertigo off and on. Patient states "I had a mini stroke". Covid/Pneumonia 05/26/20. History of Any Multi-Drug Resistant Organisms: None Reported Past Surgical History: Orthopedic Surgery, Tonsillectomy Additional Past Surgical History / Comment(s): rt knee arthroscopy Past Anesthesia/Blood Transfusion Reactions: Motion Sickness Past Psychological History: Anxiety Smoking Status: Never smoker Past Alcohol Use History: None Reported Past Drug Use History: None Reported - Past Family History Father Family Medical History: Cancer <Kristie Diaz - Last Filed: 09/21/23 16:48> General Exam Limitations: no limitations <Kristie Diaz - Last Filed: 09/21/23 16:48> Limitations: no limitations General appearance: alert, in no apparent distress Head exam: Present: normocephalic Eye exam: Present: normal appearance Neck exam: Present: normal inspection Respiratory exam: Present: normal lung sounds bilaterally. Absent: respiratory distress, rales Cardiovascular Exam: Present: regular rate, normal rhythm Expanded Peripheral pulses: 2+: Dorsalis Pedis (R), Dorsalis Pedis (L) GI/Abdominal exam: Present: soft. Absent: tenderness Extremities exam: Present: pedal edema (+1 bilateral). Absent: calf tenderness Neurological exam: Present: alert Psychiatric exam: Present: normal affect, normal mood Skin exam: Present: normal color <Luis Clark - Last Filed: 09/21/23 21:41> - General Exam Comments Initial Comments: Visual Physical Exam Vital signs reviewed General: Well-appearing, nontoxic, no acute distress. Head: Normocephalic, atraumatic Eyes: PERRLA, EOMI ENT: Airway patent Chest: Nonlabored breathing Skin: No visual rash, normal skin tone Neuro: Alert and oriented 3 Musculoskeletal: No gross abnormalities (Kristie Diaz) Course Vital Signs 09/21/23 16:26 Temperature 98.1 F Pulse Rate 98 Respiratory 20 Rate Blood Pressure 111/74 O2 Sat by Pulse 100 Oximetry EKG Findings - EKG Results: EKG: interpreted by ERMD, sinus rhythm, normal axis, normal QRS, normal ST/T <Luis Clark Last Filed: 09/21/23 21:41> Medical Decision Making <Kristie Diaz - Last Filed: 09/21/23 16:48> - Lab Data Result diagrams: 09/21/23 19:14 09/21/23 19:14 <Luis Clark - Last Filed: 09/21/23 21:41> - Medical Decision Making Quick note preformed and electronically signed by JEANETTE Connelly-C (Kristie Diaz) Was pt. sent in by a medical professional or institution (JEANETTE Flores, POLY AREA SUPERVISOR, urgent care, hospital, or fpc...) When possible be specific @ -No Did you speak to anyone other than the patient for history (EMS, parent, family, police, friend...)? What history was obtained from this source @ -No Did you review nursing and triage notes (agree or disagree)? Why? @ -I reviewed and agree with nursing and triage notes Were old charts reviewed (outside hosp., previous admission, EMS record, old EKG, old radiological studies, urgent care reports/EKG's, fpc records)? Report findings @ -Multiple previous labs reviewed including renal function and hemoglobin Differential Diagnosis (chest pain, altered mental status, abdominal pain women, abdominal pain men, vaginal bleeding, weakness, fever, dyspnea, syncope, headache, dizziness, GI bleed, back pain, seizure, CVA, palpatations, mental health, musculoskeletal)? @ -Differential Weakness: Hypoglycemia, shock, sepsis, hyponatremia, anemia, infection, TN, ETOH, adverse medicine reaction, overdose, stroke, this is not meant to be an all-inclusive list. EKG interpreted by me (3pts min.). @ -As above X-rays interpreted by me (1pt min.). @ -X-ray shows no acute process. CT interpreted by me (1pt min.). @ -None done U/S interpreted by me (1pt. min.). @ -Bilateral lower extremity ultrasound without evidence of DVT What testing was considered but not performed or refused? (CT, X-rays, U/S, l abs)? Why? @ -Considered further testing including repeat labs and ultrasound and consultations What meds were considered but not given or refused? Why? @ -Considered transfusion however hemoglobin 7.3 Did you discuss the management of the patient with other professionals (professionals i.e. , PA, POLY AREA SUPERVISOR, lab, RT, psych nurse, perinatal social worker, framing inspector, teacher, homicide squad commanding officer, life enrichment manager)? Give summary @ -Case discussed with practitioner yoan Lord, covering Dr. Arroyo who will admit Was smoking cessation discussed for >3mins.? @ -No Was critical care preformed (if so, how long)? @ -No Were there social determinants of health that impacted care today? How? (Homelessness, low income, unemployed, alcoholism, drug addiction, transportation, low edu. Level, literacy, decrease access to med. care, nursing home, rehab)? @ -No Was there de-escalation of care discussed even if they declined (Discuss DNR or withdrawal of care, Hospice)? DNR status @ -Patient presents with leg edema. Patient recommended admission for repeat testing and further evaluation however refuses. Patient does demonstrate medical decision-making and is agreeable to follow-up with her doctor Sunday What co-morbidities impacted this encounter? (DM, HTN, Smoking, COPD, CAD, Cancer, CVA, ARF, Chemo, Hep., AIDS, mental health diagnosis, sleep apnea, morbid obesity)? @ -History of renal function and anemia Was patient admitted / discharged? Hospital course, mention meds given and route, prescriptions, significant lab abnormalities, going to OR and other pertinent info. @ -Patient presents with leg edema consistent with previous anemia. Patient does have anemia with hemoglobin 7.3 as well as renal insufficiency and CO2 of 15. Patient recommended admission for repeat testing and further evaluation however he refuses. Undiagnosed new problem with uncertain prognosis? @ -No Drug Therapy requiring intensive monitoring for toxicity (Heparin, Nitro, Insulin, Cardizem)? @ -No Were any procedures done? @ -No Diagnosis/symptom? @ -Edema, renal insufficiency, anemia Acute, or Chronic, or Acute on Chronic? @ -Acute, acute on chronic, acute Uncomplicated (without systemic symptoms) or Complicated (systemic symptoms)? @ -Default Side effects of treatment? @ -No Exacerbation, Progression, or Severe Exacerbation? @ -No Poses a threat to life or bodily function? How? (Chest pain, USA, [place], pneumonia, PE, COPD, DKA, ARF, appy, cholecystitis, CVA, Diverticulitis, Homicidal, Suicidal, threat to staff... and all critical care pts) @ -No (Luis Clark) - Lab Data Lab Results 09/21/23 09/21/23 09/21/23 Range/Units 19:14 19:14 19:14 WBC 10.5 (3.8-10.6) k/uL RBC 2.71 L (3.80-5.40) m/uL Hgb 7.3 L (11.4-16.0) gm/dL Hct 23.4 L (34.0-46.0) % MCV 86.4 (80.0-100.0) fL MCH 26.9 (25.0-35.0) pg MCHC 31.1 (31.0-37.0) g/dL RDW 14.7 (11.5-15.5) % Plt Count 467 H (150-450) k/uL MPV 7.6 Neutrophils % 74 % Lymphocytes % 15 % Monocytes % 6 % Eosinophils % 3 % Basophils % 1 % Neutrophils # 7.8 H (1.3-7.7) k/uL Lymphocytes # 1.6 (1.0-4.8) k/uL Monocytes # 0.6 (0-1.0) k/uL Eosinophils # 0.3 (0-0.7) k/uL Basophils # 0.1 (0-0.2) k/uL Hypochromasia Moderate PT 9.7 L (10.0-12.5) sec INR 0.9 (<1.2) APTT 20.0 L (22.0-30.0) sec Sodium 135 L (137-145) mmol/L Potassium 3.7 (3.5-5.1) mmol/L Chloride 109 H (98-107) mmol/L Carbon Dioxide 15 L (22-30) mmol/L Anion Gap 11 mmol/L BUN 30 H (7-17) mg/dL Creatinine 1.39 H (0.52-1.04) mg/dL Est GFR (CKD-EPI)AfAm 50 (>60 ml/min/1.73 sqM) Est GFR (CKD-EPI)NonAf 43 (>60 ml/min/1.73 sqM) Glucose 76 (74-99) mg/dL Calcium 9.1 (8.4-10.2) mg/dL Magnesium 2.1 (1.6-2.3) mg/dL Total Bilirubin 0.4 (0.2-1.3) mg/dL AST 42 H (14-36) U/L ALT 25 (4-34) U/L Alkaline Phosphatase 119 (38-126) U/L NT-Pro-B Natriuret Pep 539 pg/mL Total Protein 6.2 L (6.3-8.2) g/dL Albumin 3.8 (3.5-5.0) g/dL Urine Color Urine Appearance (Clear) Urine pH (5.0-8.0) Ur Specific [place] (1.001-1.035) Urine Protein (Negative) Urine Glucose (UA) (Negative) Urine Ketones (Negative) Urine Blood (Negative) Urine Nitrite (Negative) Urine Bilirubin (Negative) Urine Urobilinogen (<2.0) mg/dL Ur Leukocyte Esterase (Negative) Urine RBC (0-5) /hpf Urine WBC (0-5) /hpf Ur Squamous Epith Cells (0-4) /hpf Urine Bacteria (None) /hpf Urine Mucus (None) /hpf Urine HCG, Qual (Not Detectd) 09/21/23 09/21/23 Range/Units 19:15 19:15 WBC (3.8-10.6) k/uL RBC (3.80-5.40) m/uL Hgb (11.4-16.0) gm/dL Hct (34.0-46.0) % MCV (80.0-100.0) fL MCH (25.0-35.0) pg MCHC (31.0-37.0) g/dL RDW (11.5-15.5) % Plt Count (150-450) k/uL MPV Neutrophils % % Lymphocytes % % Monocytes % % Eosinophils % % Basophils % % Neutrophils # (1.3-7.7) k/uL Lymphocytes # (1.0-4.8) k/uL Monocytes # (0-1.0) k/uL Eosinophils # (0-0.7) k/uL Basophils # (0-0.2) k/uL Hypochromasia PT (10.0-12.5) sec INR (<1.2) APTT (22.0-30.0) sec Sodium (137-145) mmol/L Potassium (3.5-5.1) mmol/L Chloride (98-107) mmol/L Carbon Dioxide (22-30) mmol/L Anion Gap mmol/L BUN (7-17) mg/dL Creatinine (0.52-1.04) mg/dL Est GFR (CKD-EPI)AfAm (>60 ml/min/1.73 sqM) Est GFR (CKD-EPI)NonAf (>60 ml/min/1.73 sqM) Glucose (74-99) mg/dL Calcium (8.4-10.2) mg/dL Magnesium (1.6-2.3) mg/dL Total Bilirubin (0.2-1.3) mg/dL AST (14-36) U/L ALT (4-34) U/L Alkaline Phosphatase (38-126) U/L NT-Pro-B Natriuret Pep pg/mL Total Protein (6.3-8.2) g/dL Albumin (3.5-5.0) g/dL Urine Color Colorless Urine Appearance Clear (Clear) Urine pH 5.5 (5.0-8.0) Ur Specific [place] 1.005 (1.001-1.035) Urine Protein Negative (Negative) Urine Glucose (UA) Negative (Negative) Urine Ketones Negative (Negative) Urine Blood Negative (Negative) Urine Nitrite Negative (Negative) Urine Bilirubin Negative (Negative) Urine Urobilinogen <2.0 (<2.0) mg/dL Ur Leukocyte Esterase Moderate H (Negative) Urine RBC 1 (0-5) /hpf Urine WBC 11 H (0-5) /hpf Ur Squamous Epith Cells <1 (0-4) /hpf Urine Bacteria Rare H (None) /hpf Urine Mucus Rare H (None) /hpf Urine HCG, Qual Not Detected (Not Detectd) Disposition <Kristie Diaz - Last Filed: 09/21/23 16:48> Is patient prescribed a controlled substance at d/c from ED?: No Time of Disposition: 21:40 <Luis Clark - Last Filed: 09/21/23 21:41> Clinical Impression: Anemia Disposition: LEFT AGAINST MEDICAL ADVICE Additional Instructions: Please follow-up with your primary care physician as soon as possible. Have primary care physician recheck hemoglobin, blood level. Return for weakness, difficulty breathing, bleeding, black stools, worsening or changing symptoms or any other concerns. Please also consider follow-up as directed by your doctor regarding your kidney function. Referrals: Ed Arroyo MD [Primary Care Provider] - 1-2 days
--- NOTE | 2023-09-21 17:23 | XR ---
EXAMINATION TYPE: XR chest 2V DATE OF EXAM: 09/21/2023 COMPARISON: 06/09/2020 HISTORY: Shortness of breath TECHNIQUE: Frontal and lateral views of the chest are obtained. FINDINGS: Scattered senescent parenchymal changes noted. Hyperinflation compatible with COPD. No evidence for infiltrate. No evidence for atelectasis. Heart size is stable. Mediastinal structures are stable and grossly unremarkable. No evidence for hilar prominence. Degenerative changes dorsal spine. IMPRESSION: 1. No evidence for acute pulmonary disease.
--- NOTE | 2023-09-21 19:09 | US ---
EXAMINATION TYPE: US venous doppler duplex LE DATE OF EXAM: 09/21/2023 7:02 PM COMPARISON: NONE CLINICAL INDICATION: Female, 53 years old with history of swelling; Swelling bilat legs, ongoing for 1 week, better in the am but increase swelling as day goes on, no h/o dvt SIDE PERFORMED: Bilateral TECHNIQUE: The lower extremity deep venous system is examined utilizing real time linear array sonog zach with graded compression, doppler sonography and color-flow sonography. VESSELS IMAGED: Common Femoral Vein Deep Femoral Vein Greater Saphenous Vein * Femoral Vein Popliteal Vein Small Saphenous Vein * Proximal Calf Veins (* superficial vessels) The deep venous systems of both lower extremities from the common femoral remains to the proximal david f veins are patent and compressible with augmentable flow and with normal waveforms. IMPRESSION: No evidence of bilateral lower extremity DVT from the common femoral veins to the proximal calf veins
[2023-09-21 19:17] LABS: Basophils # (A) 0.1 k/uL (0-0.2); Basophils % (A) 1 %; Eosinophils # (A) 0.3 k/uL (0-0.7); Eosinophils % (A) 3 %; HCT 23.4 % (34.0-46.0); HGB 7.3 gm/dL (11.4-16.0); Hypochromasia Moderate; Lymphocytes # (A) 1.6 k/uL (1.0-4.8); Lymphocytes % (A) 15 %; MCH 26.9 pg (25.0-35.0); MCHC 31.1 g/dL (31.0-37.0); MCV 86.4 fL (80.0-100.0); Mean Platelet Volume 7.6; Monocytes # (A) 0.6 k/uL (0-1.0); Monocytes % (A) 6 %; Neutrophils # (A) 7.8 k/uL (1.3-7.7); Neutrophils % (A) 74 %; Platelet Count 467 k/uL (150-450); RBC 2.71 m/uL (3.80-5.40); RDW 14.7 % (11.5-15.5); WBC 10.5 k/uL (3.8-10.6)
[2023-09-21 19:31] LABS: ALT 25 U/L (4-34); AST 42 U/L (14-36); African American GFR (CKD) 50 (>60 ml/min/1.73 sqM); Albumin 3.8 g/dL (3.5-5.0); Alkaline Phosphatase 119 U/L (38-126); Anion Gap 11 mmol/L; Blood Urea Nitrogen 30 mg/dL (7-17); Calcium 9.1 mg/dL (8.4-10.2); Carbon Dioxide 15 mmol/L (22-30); Chloride 109 mmol/L (98-107); Glucose 76 mg/dL (74-99); Magnesium 2.1 mg/dL (1.6-2.3); Non-African American GFR(CKD) 43 (>60 ml/min/1.73 sqM); Potassium 3.7 mmol/L (3.5-5.1); Sodium 135 mmol/L (137-145); Total Bilirubin 0.4 mg/dL (0.2-1.3); Total Protein 6.2 g/dL (6.3-8.2)
[2023-09-21 19:32] LABS: INR 0.9 (<1.2); Prothrombin Time 9.7 sec (10.0-12.5)
[2023-09-21 19:34] LABS: Appearance,Urine Clear (Clear); Bacteria,Urine Rare /hpf; Bilirubin,Urine Negative (Negative); Blood,Urine Negative (Negative); Color,Urine Colorless; Glucose,Urine (UA) Negative (Negative); Ketones,Urine Negative (Negative); Leukocyte Esterase,Urine Moderate (Negative); Mucus,Urine Rare /hpf; Nitrite,Urine Negative (Negative); PH, Urine 5.5 (5.0-8.0); Protein,Urine Negative (Negative); RBC,Urine 1 /hpf (0-5); Specific Gravity,Urine 1.005 (1.001-1.035); Squamous Epithelial Cell,Urine <1 /hpf (0-4); Urobilinogen,Urine <2.0 mg/dL (<2.0); WBC,Urine 11 /hpf (0-5)
[2023-09-21 19:40] LABS: NT-Pro-B-Type Natriuretic Pept 539 pg/mL
[2023-09-21 21:38] VITALS: BP 111/80; PULSE 97; RESP 18; TEMP 97.9
== END 2023-09-21 21:55 | disposition left against medical advice (07) ==
LOC: EC 16:16
DX: D64.9 Anemia, unspecified (principal); N28.9 Disorder of kidney and ureter, unspecified; Z53.29 Procedure and treatment not carried out because of patient's decision for other reasons
CPT/HCPCS: 36415; 71046; 80053; 81001; 81025; 83735; 83880; 85025; 85610; 85730; 87086; 93005; 93970; 99285

== ENCOUNTER 2023-10-03 18:34 | Emergency (ER) | payer BC ==
[2023-10-03 19:50] LABS: HCT 23.5 % (34.0-46.0); HGB 7.3 gm/dL (11.4-16.0); WBC 8.5 k/uL (3.8-10.6)
[2023-10-03 19:51] LABS: Basophils # (A) 0.1 k/uL (0-0.2); Basophils % (A) 1 %; Eosinophils # (A) 0.2 k/uL (0-0.7); Eosinophils % (A) 3 %; Hypochromasia Marked; Lymphocytes # (A) 1.2 k/uL (1.0-4.8); Lymphocytes % (A) 14 %; MCH 26.2 pg (25.0-35.0); MCHC 31.2 g/dL (31.0-37.0); MCV 83.9 fL (80.0-100.0); Monocytes # (A) 0.8 k/uL (0-1.0); Monocytes % (A) 9 %; Neutrophils % (A) 71 %; Platelet Count 409 k/uL (150-450); Poikilocytosis Moderate; RDW 15.8 % (11.5-15.5)
[2023-10-03 20:06] LABS: African American GFR (CKD) 48 (>60 ml/min/1.73 sqM); Anion Gap 6 mmol/L; Blood Urea Nitrogen 22 mg/dL (7-17); Calcium 9.1 mg/dL (8.4-10.2); Carbon Dioxide 20 mmol/L (22-30); Chloride 107 mmol/L (98-107); Glucose 82 mg/dL (74-99); Non-African American GFR(CKD) 42 (>60 ml/min/1.73 sqM); Potassium 4.2 mmol/L (3.5-5.1); Sodium 133 mmol/L (137-145)
--- NOTE | 2023-10-03 21:56 | ED ---
Recheck HPI - General Chief Complaint: Recheck/Abnormal Lab/Rx Stated Complaint: abn labs Time Seen by Provider: 10/03/23 18:52 Source: patient Mode of arrival: ambulatory Limitations: no limitations - History of Present Illness Initial Comments: This patient is a 53-year-old woman with history of rectal bleeding and recent anemia. The patient states she was called by her physician's office and told that she had low hemoglobin on the follow-up testing she had yesterday. The patient states that going back a couple of weeks she has had intermittent bright red rectal bleeding. She was told that this was related to hemorrhoids. She had been admitted at [facility] and had transfusion for hemoglobin that was in the range of 6. Patient currently denying orthostatic symptoms, chest pain, dyspnea, diaphoresis, syncope. MD Complaint: abnormal lab -: hour(s) Returns Today for: Called Because of Abnormal Lab/Test Symptoms Since Prior Visit: no new symptoms Context: called for abnormal lab result Associated Symptoms: none - Related Data Previous Rx's Medication Instructions Recorded Ferrous Sulfate [Feosol] 325 mg PO DAILY #30 tab 10/03/23 Allergies Allergy/AdvReac Type Severity Reaction Status Date / Time No Known Allergies Allergy Verified 10/22/23 11:43 Review of Systems ROS Statement: Those systems with pertinent positive or pertinent negative responses have been documented in the HPI. ROS Other: All systems not noted in ROS Statement are negative. Constitutional: Denies: fever, chills, weakness Respiratory: Denies: cough, dyspnea Cardiovascular: Denies: chest pain, palpitations, edema, syncope Gastrointestinal: Reports: other (Intermittent hemorrhoidal bleeding). Denies: abdominal pain, nausea, vomiting, diarrhea, hematemesis, melena Genitourinary: Denies: dysuria, hematuria Musculoskeletal: Denies: back pain Skin: Denies: rash Neurological: Denies: headache, weakness Hematological/Lymphatic: Denies: easy bleeding Past Medical History Past Medical History: No Reported History Additional Past Medical History / Comment(s): low blood pressure, anemia. Vertigo off and on. Patient states "I had a mini stroke". Covid/Pneumonia 05/26/20. History of Any Multi-Drug Resistant Organisms: None Reported Past Surgical History: Orthopedic Surgery, Tonsillectomy Additional Past Surgical History / Comment(s): rt knee arthroscopy Past Anesthesia/Blood Transfusion Reactions: Motion Sickness Past Psychological History: Anxiety Smoking Status: Never smoker Past Alcohol Use History: None Reported Past Drug Use History: None Reported - Past Family History Father Family Medical History: Cancer General Exam Limitations: no limitations General appearance: alert, in no apparent distress Head exam: Present: atraumatic, normocephalic Eye exam: Present: normal appearance. Absent: scleral icterus, conjunctival injection Neck exam: Present: normal inspection Respiratory exam: Present: normal lung sounds bilaterally. Absent: respiratory distress, wheezes, rales, rhonchi, stridor, accessory muscle use Cardiovascular Exam: Present: regular rate, normal rhythm, normal heart sounds. Absent: systolic murmur, diastolic murmur, rubs, gallop GI/Abdominal exam: Present: soft. Absent: distended, tenderness, guarding, rebound, rigid, mass Rectal exam: Present: hemorrhoids. Absent: black stool, bloody stool Extremities exam: Present: normal inspection, normal capillary refill. Absent: pedal edema, calf tenderness Back exam: Present: normal inspection. Absent: CVA tenderness (R), CVA tenderness (L) Neurological exam: Present: alert Skin exam: Present: warm, dry, intact, normal color. Absent: rash Course Vital Signs 10/03/23 10/03/23 10/03/23 18:35 21:31 22:15 Temperature 97.9 F 97.8 F Pulse Rate 105 H 78 67 Respiratory 16 18 17 Rate Blood Pressure 142/86 106/73 108/70 O2 Sat by Pulse 100 99 99 Oximetry Medical Decision Making - Medical Decision Making Was pt. sent in by a medical professional or institution (Dr. PA, FLOORING MACHINE FEEDER, urgent care, hospital, or half-way...) When possible be specific @ -[No] Did you speak to anyone other than the patient for history (EMS, parent, family, police, friend...)? What history was obtained from this source @ -[No] Did you review nursing and triage notes (agree or disagree)? Why? @ -[I reviewed and agree with nursing and triage notes] Were old charts reviewed (outside hosp., previous admission, EMS record, old EKG, old radiological studies, urgent care reports/EKG's, half-way records)? Report findings @ -[No old charts were reviewed] Differential Diagnosis (chest pain, altered mental status, abdominal pain women, abdominal pain men, vaginal bleeding, weakness, fever, dyspnea, syncope, headache, dizziness, GI bleed, back pain, seizure, CVA, palpatations, mental health, musculoskeletal)? @ -Differential GI Bleed: Esophageal varices, aortoenteric fistula, Mamie[place], gastritis, peptic ulcer disease, diverticulosis, inflammatory bowel disease, hemorrhoids, fissure, colitis, malignancy, Meckels diverticulum, this is not meant to be an all- inclusive list. EKG interpreted by me (3pts min.). @ -[As above] X-rays interpreted by me (1pt min.). @ -[None done] CT interpreted by me (1pt min.). @ -[None done] U/S interpreted by me (1pt. min.). @ -[None done] What testing was considered but not performed or refused? (CT, X-rays, U/S, labs)? Why? @ -[None] What meds were considered but not given or refused? Why? @ -[None] Did you discuss the management of the patient with other professionals (professionals i.e. , PA, FLOORING MACHINE FEEDER, lab, RT, psych nurse, social media content specialist, thread clipper, teacher, human resource officer, protective services case worker)? Give summary @ -[No] Was smoking cessation discussed for >3mins.? @ -[No] Was critical care preformed (if so, how long)? @ -[No] Were there social determinants of health that impacted care today? How? (Be elessness, low income, unemployed, alcoholism, drug addiction, transportation, low edu. Level, literacy, decrease access to med. care, [place] [facility], rehab)? @ -[No] Was there de-escalation of care discussed even if they declined (Discuss DNR or withdrawal of care, Hospice)? DNR status @ -[No] What co-morbidities impacted this encounter? (DM, HTN, Smoking, COPD, CAD, Cancer, CVA, ARF, Chemo, Hep., AIDS, mental health diagnosis, sleep apnea, morbid obesity)? @ -[None] Was patient admitted / discharged? Hospital course, mention meds given and route, prescriptions, significant lab abnormalities, going to OR and other pertinent info. @ -[Patient's hemoglobin here is above 7. She does have scheduled follow-up and would like to go home. At this point appears stable. Discussed return parameters. Undiagnosed new problem with uncertain prognosis? @ -[No] Drug Therapy requiring intensive monitoring for toxicity (Heparin, Nitro, Insulin, Cardizem)? @ -[No] Were any procedures done? @ -[No] Diagnosis/symptom? @ -[Acute, hemorrhoidal bleeding Acute on chronic anemia Acute, or Chronic, or Acute on Chronic? @ -[default] Uncomplicated (without systemic symptoms) or Complicated (systemic symptoms)? @ -[Uncomplicated Side effects of treatment? @ -[No] Exacerbation, Progression, or Severe Exacerbation? @ -[No] Poses a threat to life or bodily function? How? (Chest pain, [place], [place], pneumonia, PE, COPD, DKA, ARF, appy, cholecystitis, CVA, Diverticulitis, Homicidal, Suicidal, threat to staff... and all critical care pts) @ -[No] - Lab Data Result diagrams: 10/03/23 19:19 10/03/23 19:19 Lab Results 10/03/23 10/03/23 10/03/23 Range/Units 19:19 19:19 19:19 WBC 8.5 (3.8-10.6) k/uL RBC 2.80 L (3.80-5.40) m/uL Hgb 7.3 L (11.4-16.0) gm/dL Hct 23.5 L (34.0-46.0) % MCV 83.9 (80.0-100.0) fL MCH 26.2 (25.0-35.0) pg MCHC 31.2 (31.0-37.0) g/dL RDW 15.8 H (11.5-15.5) % Plt Count 409 (150-450) k/uL MPV 8.0 Neutrophils % 71 % Lymphocytes % 14 % Monocytes % 9 % Eosinophils % 3 % Basophils % 1 % Neutrophils # 6.0 (1.3-7.7) k/uL Lymphocytes # 1.2 (1.0-4.8) k/uL Monocytes # 0.8 (0-1.0) k/uL Eosinophils # 0.2 (0-0.7) k/uL Basophils # 0.1 (0-0.2) k/uL Hypochromasia Marked Poikilocytosis Moderate Sodium 133 L (137-145) mmol/L Potassium 4.2 (3.5-5.1) mmol/L Chloride 107 (98-107) mmol/L Carbon Dioxide 20 L (22-30) mmol/L Anion Gap 6 mmol/L BUN 22 H (7-17) mg/dL Creatinine 1.43 H (0.52-1.04) mg/dL Est GFR (CKD-EPI)AfAm 48 (>60 ml/min/1.73 sqM) Est GFR (CKD-EPI)NonAf 42 (>60 ml/min/1.73 sqM) Glucose 82 (74-99) mg/dL Calcium 9.1 (8.4-10.2) mg/dL Blood Type B Positive Blood Type Recheck B Pos Bld Type Recheck Status No Antibody Screen POSITIVE Antibody Identification Not Reportable Direct Antiglob Test Positive Spec Expiration Date 10/06/20232318 Disposition Clinical Impression: Anemia, Bleeding external hemorrhoids Disposition: HOME SELF-CARE Condition: Good Instructions (If sedation given, give patient instructions): Anemia (ED) Prescriptions: Ferrous Sulfate [Feosol] 325 mg PO DAILY #30 tab Is patient prescribed a controlled substance at d/c from ED?: No Referrals: Ed Arroyo MD [Primary Care Provider] - 1-2 days Brenda Mccoy DO [REFERRING] - 1-2 days
[2023-10-03 22:17] VITALS: BP 108/70; PULSE 67; RESP 17; TEMP 97.8
== END 2023-10-03 22:15 | disposition home or self-care (01) ==
LOC: EC 18:34
DX: K64.4 Residual hemorrhoidal skin tags (principal); D64.9 Anemia, unspecified
CPT/HCPCS: 36415; 80048; 85025; 86850; 86870; 86880; 86900; 86901; 99283

== ENCOUNTER 2023-11-12 07:00 | Day surgery (SDC) | payer BC ==
[2023-11-12] MEDS ORDERED: SODIUM CHLORIDE 0.9% IRRIG 1,000 ML BTL IRRIGATION ONE (07:38)
[2023-11-12] MEDS ORDERED: LACTATED RINGERS 1,000 ML BAG ONE (07:38)
[2023-11-12] MEDS ORDERED: LIDOCAINE 1%-EPI 1:100,000 20 ML VIAL ONE (07:38)
[2023-11-12] MEDS ORDERED: ACETAMINOPHEN TAB 500 MG TAB ONE (07:43)
[2023-11-12] MEDS ORDERED: HEPARIN SODIUM,PORCINE 5,000 UNIT/ML 1 ML VIAL ONE (07:43)
[2023-11-12] MEDS ORDERED: DEXAMETHASONE SOD PHOSPHATE 4 MG/ML 1 ML VIAL ONE (07:43)
[2023-11-12] MEDS ORDERED: ONDANSETRON 4 MG/2 ML VIAL ONE (07:44)
[2023-11-12] MEDS ORDERED: KETOROLAC 15 MG/ML 1 ML VIAL ONE (08:54)
[2023-11-12] MEDS ORDERED: SUCCINYLCHOLINE CHLORIDE 200 MG/10 ML VIAL IV ONE (08:54)
[2023-11-12] MEDS ORDERED: MIDAZOLAM 2 MG/2 ML VIAL ONE (08:54)
[2023-11-12] MEDS ORDERED: fentaNYL (PF) 50 MCG/ML 2 ML AMP ONE (08:54)
[2023-11-12] MEDS ORDERED: LIDOCAINE 1% INJ 10MG/ML (20 ML MDV) ONE (08:54)
[2023-11-12] MEDS ORDERED: PROPOFOL 10 MG/ML 20 ML VIAL IV ONE (08:54)
[2023-11-12] MEDS ORDERED: ceFAZolin 1 GM/50 ML BAG (PMX) ONE (08:54)
--- NOTE | 2023-11-23 15:52 | OP ---
OPERATIVE REPORT DATE OF SERVICE : 11/12/2023 PROCEDURE: Hemorrhoidectomy. PREOPERATIVE DIAGNOSIS: Internal and external hemorrhoids. POSTOPERATIVE DIAGNOSIS: Internal and external hemorrhoids. ANESTHESIA: General endotracheal tube anesthesia. ESTIMATED BLOOD LOSS: 5 mL. DESCRIPTION OF PROCEDURE: The patient was placed on the operating table in the prone jackknife position after receiving general anesthesia. Her anus was prepped and draped in usual fashion. The anal retractor was inserted. The patient had a large left lateral hemorrhoidal columns and right anterior, right posterior hemorrhoidal columns. The left lateral hemorrhoidal column was grasped with Allis clamps and using Harmonic scissors, hemorrhoidectomy was performed. The right anterior, right posterior hemorrhoidal columns were grasped and dissected in identical fashion. The hemorrhoid specimen was sent to pathology. There was no bleeding seen. The anus was packed with Gelfoam. The anus was anesthestized with 1% local Xylocaine. The patient tolerated the procedure well. She was sent to recovery room in stable condition. MMODL / IJN: [id number] /
== END 2023-11-12 12:20 ==
LOC: OR 07:00
PROVIDERS: ATTEND Surgery
DX: K64.8 Other hemorrhoids (principal)
CPT/HCPCS: 88304

== ENCOUNTER → 2024-02-20 | Outpatient (CLI) | payer BC ==
--- NOTE | 2024-02-22 08:31 | MM ---
Reason for Exam: Screening (asymptomatic). Last mammogram was performed 1 year(s) and 2 month(s) ago. Patient History: Menarche at age 13. First Full-Term at age 29. Postmenopausal. Mother had breast cancer, age 75. Risk Values: Luisana 5 year model risk: 2.2%. NCI Lifetime model risk: 16.1%. Prior Study Comparison: 11/05/2020 Bilateral Screening Mammogram, [facility]. 12/05/2022 Bilateral MG 3D screening mammo w/cad, [facility]. Tissue Density: The breasts are heterogeneously dense, which may obscure small masses. Findings: Analyzed By CAD. There is no suspicious group of microcalcifications or new suspicious mass in either breast. Overall Assessment: Negative, BI-RAD 1 Management: Screening Mammogram of both breasts in 1 year. . Patient should continue monthly self-breast exams. A clinical breast exam by your physician is recommended on an annual basis. This exam should not preclude additional follow-up of suspicious palpable abnormalities. Note on Luisana scores and lifetime risk: 1. A Luisana score greater than 3% is considered moderate risk. If this is the case, consider specialist referral to assess eligibility for a risk reducing agent. 2. If overall lifetime risk for the development of breast cancer is 20% or higher, the patient may qualify for future screening with alternating mammogram and breast MRI. [facility], , 02/22/2024 8:29 AM. Electronically signed and approved by: Virgil Calle M.D. Radiologis
== END | disposition home or self-care (01) ==
LOC: RADMAMWWP 15:41
PROVIDERS: ATTEND Family Medicine
DX: Z12.31 Encounter for screening mammogram for malignant neoplasm of breast (principal); Z78.0 Asymptomatic menopausal state; Z80.3 Family history of malignant neoplasm of breast; R92.333 Mammographic heterogeneous density, bilateral breasts
CPT/HCPCS: 77063; 77067

== ENCOUNTER → 2024-03-25 | Outpatient (CLI) | payer BC | END | disposition home or self-care (01) | LOC: LABWHC1 08:51 | PROVIDERS: ATTEND Family Medicine | DX: E87.6 Hypokalemia (principal) | CPT/HCPCS: 36415; 82024; 82088; 82533; 84244 ==

== ENCOUNTER → 2024-07-29 | Outpatient (CLI) | payer BC ==
[2024-07-29 19:27] LABS: ALT 27 U/L (8-44); AST 39 U/L (13-35); Albumin 4.2 g/dL (3.8-4.9); Albumin/Globulin Ratio 1.68 Ratio (1.60-3.17); Alkaline Phosphatase 224 U/L (41-126); Carbon Dioxide 20.8 mmol/L (21.6-31.8); Chloride 98 mmol/L (96-109); Globulin 2.5 g/dL (1.6-3.3); Glucose 78 mg/dL (70-110); Potassium 4.3 mmol/L (3.5-5.5); Sodium 132 mmol/L (135-145); Total Bilirubin <0.2 mg/dL (0.3-1.2); Total Protein 6.7 g/dL (6.2-8.2)
== END | disposition home or self-care (01) ==
LOC: LABWHC1 16:03
PROVIDERS: ATTEND Internal Medicine Nephrology
DX: N18.30 Chronic kidney disease, stage 3 unspecified (principal)
CPT/HCPCS: 36415; 80053

== ENCOUNTER → 2024-07-30 | Outpatient (CLI) | payer BC ==
--- NOTE | 2024-07-30 19:58 | US ---
EXAMINATION TYPE: US kidneys/renal and bladder DATE OF EXAM: 07/30/2024 COMPARISON: XR 2023, US renal CLINICAL INDICATION: Female, 54 years old with history of N18.30 CKD; TECHNIQUE: Grayscale imaging of the bilateral kidneys and urinary bladder: FINDINGS: EXAM MEASUREMENTS: Right Kidney: 9.1 x 4.0 x 3.5 cm Left Kidney: 9.0 x 4.1 x 3.8 cm Right Kidney: No hydronephrosis or masses seen Left Kidney: No hydronephrosis or masses seen Bladder: Anechoic Bilateral Jets seen: No There is no evidence for hydronephrosis at this point in time. No nephrolithiasis is seen. No joyce s are identified. The urinary bladder is anechoic. IMPRESSION: Unremarkable study [facility], , 07/30/2024 7:56 PM
== END | disposition home or self-care (01) ==
LOC: RADUSWWP 15:52
PROVIDERS: ATTEND Internal Medicine Nephrology
DX: N18.30 Chronic kidney disease, stage 3 unspecified (principal)
CPT/HCPCS: 76770